=== PATIENT | male | born 1960 | race Caucasian/White ===

== ENCOUNTER 2016-11-10 20:30 | Inpatient (IN) | payer OTHER ==
[2016-11-10] VITALS (8 sets, daily range): BP systolic 151–164; BP diastolic 75–115; PULSE 81–155; RESP 18; TEMP 97.7; O2SAT 92–96
[~2016-11-10] VITALS: Ht 172.7 cm; Wt 104.9 kg
[~2016-11-10 20:30] MED LIST: ASPI325T PO; ATOR40TA49 PO; LISI5 PO; METO25 PO; WALKER ROLLING
[2016-11-10] MEDS ORDERED: SODIUM CHLOR 0.9% 1000 ML INJ 1,000 ML IV ONE (20:36)
[2016-11-10] MEDS ORDERED: DILTIAZEM HCL 25 MG/5 ML VIAL IV ONE (20:45)
[2016-11-10] MEDS ORDERED: DILTIAZEM INJ 125 MG in SODIUM CHLORIDE 0.9% INJ 100 ML IV SCH (20:45)
[2016-11-10] MEDS ORDERED: SODIUM CHLORIDE 0.9% FLUSH 5 ML FLUSH IVF PRN ×3 (20:45→22:15)
[2016-11-10] MEDS ORDERED: SODIUM CHLOR 0.9% 1000 ML INJ 1,000 ML IV SCH (20:45)
--- NOTE | 2016-11-10 20:55 | PD ---
HPI Chief Complaint: cva Time Seen by Provider: 20:36 Travel History International Travel<30 days: No Contact w/Intl Traveler<30days: No Traveled to known affect area: No History of Present Illness HPI 56-year-old male presents to the emergency department by private transportation the care of his mother for evaluation of new onset confusion and memory loss. According to patient he is not sure why he is here but has been confused he thinks just now. Mother at bedside and reports that within the past hour patient has complained of not feeling well went to his bedroom where he was confused as to why there was disarray his room and had completely gone at the house is being renovated and that all the changes that he noticed as a new disturbance had been present for some time. Patient denies headache, visual disturbance, there is no facial weakness, no speech disturbance, no difficulty swallowing. No balance disturbance. No new upper or lower extremity numbness tingling or weakness. Patient has experienced no chest pain palpitations referred neck jaw back shoulder arm pain also no shortness of breath or sweats and no nausea or vomiting. Patient has history of hypertension to take blood pressure medication but has been taking it only periodically and knows what medication as a beta sukumar but does not know the other medication. Patient has been using a friend's blood pressure medication as he has run out of his prescription blood pressure medication. Patient does not have a primary care provider. Patient does smoke cigarettes. No alcohol use. Patient denies heart disease high cholesterol or diabetes to his recall. Mother at bedside states he was hospitalized in May 2016. No prior history of memory disturbance TIA or CVA. No recent fall or injury. No recent febrile illness. Patient denies any other concerns or complaints. No recent abdominal pain or flank pain. Mother reports that patient was completely normal infusion no memory disturbance around 6:30 PM he sat down to watch TV around 7:30 she noticed that he Did not and that's when he complained of not feeling well and then she noted the confusion. Patient was brought directly to the hospital according to the mother when she was able to get assistance to bring him in. [facility] Past Medical History Narrative Medical Past febrile history according to patient mother and review of medical record hypertension; review of medical record migraine hypertension and remote TIA asthma anxiety gerd; hosp 05/2016 chest pain --abnormal stress test, echo normal ef and mild mitral and tricuspid valve regurg; no surgery nursing notes reviewed ; Asthma: Yes Anxiety: Yes Heart Rhythm Problems: Yes Cancer: No Cardiovascular Problems: Yes (h) High Cholesterol: No Chest Pain: Yes Cerebrovascular Accident: Yes (tia about 20 years ago) Endocrine: No GERD: Yes Genitourinary: No Hypertension: Yes Immune Disorder: No Musculoskeletal: No Neurologic: Yes Psychiatric: Yes Reproductive: No Migraines: Yes Social History Alcohol Use: Yes Tobacco Use: No Substance Use: No (2 YEARS AGO [facility]) Allergies-Medications (Allergen,Severity, Reaction): Coded Allergies: Penicillin (Verified Allergy, Unknown, 11/10/16) Reported Meds & Prescriptions Reported Meds & Active Scripts Active Reported Aspirin 325 Mg Tab 325 Mg PO DAILY Metoprolol Tartrate 25 Mg Tab 25 Mg PO BID Review of Systems Except as stated in HPI: all other systems reviewed are Neg General / Constitutional: No: Fever Eyes: No: Diploplia, Blurred Vision, Photophobia HENT: No: Headaches, Vertigo Cardiovascular: No: Chest Pain or Discomfort, Diaphoresis Respiratory: No: Shortness of Breath Gastrointestinal: No: Nausea, Vomiting, Abdominal Pain Genitourinary: No: Flank Pain Musculoskeletal: No: Pain Skin: No Rash Neurologic: Positive: Change in Mentation, No: Weakness, Dizziness, Syncope, Focal Abnormalities, Coordination Problem, Ataxia, Headache, Slurred Speech, Paresthesia, Seizures Psychiatric: No: Anxiety Hematologic/Lymphatic: No: Easy Bruising Physical Exam Narrative GENERAL: well-developed well-nourished male in no acute distress no respiratory distress; GCS 15 SKIN: Warm and dry. HEAD: Atraumatic. Normocephalic. EYES: Pupils equal and round. No scleral icterus. No injection or drainage. Extraocular muscles intact. ENT: No nasal bleeding or discharge. Mucous membranes pink and moist. NECK: Trachea midline. No JVD. CARDIOVASCULAR: Increased irregular irregular rate and rhythm. RESPIRATORY: No accessory muscle use. Clear to auscultation. Breath sounds equal bilaterally. GASTROINTESTINAL: Abdomen soft, non-tender, nondistended. Hepatic and splenic margins not palpable. MUSCULOSKELETAL: Extremities without clubbing, cyanosis, or edema. No obvious deformities. NEUROLOGICAL: Awake and alert. No obvious cranial nerve deficits. Motor grossly within normal limits. Five out of 5 muscle strength in the arms and legs. Sensory exam intact to light touch and pinprick DTRs 2+ and symmetric bilateral upper extremities and lower extremities without clonus no pronator drift no limb ataxia Normal speech. PSYCHIATRIC: Appropriate mood and affect; insight and judgment normal. Data Data Last Documented VS Vital Signs Date Time Temp Pulse Resp B/P Pulse Ox O2 Delivery O2 Flow Rate FiO2 11/10/16 22:00 90 18 164/98 96 Room Air 11/10/16 20:40 21 11/10/16 20:33 97.7 Orders Cath For Specimen (11/10/16 20:36) Neuro Checks Q2HX12,Q4H (11/10/16 20:36) Nursing Bedside Swallow Assess .ONCE (11/10/16 20:36) Activity Bed Rest (11/10/16 20:36) Diet Npo (11/11/16 Breakfast) Prothrombin Time / Inr (Pt) (11/10/16 20:36) Act Partial Throm Time (Ptt) (11/10/16 20:36) Complete Blood Count With Diff (11/10/16 20:36) Basic Metabolic Panel (Bmp) (11/10/16 20:36) Fibrinogen (11/10/16 20:36) Creatine Kinase (Cpk) (11/10/16 20:36) Troponin I (11/10/16 20:36) Ua Includes Microscopic (11/10/16 20:36) Drug Screen, Random Urine (11/10/16 20:36) Type And Screen (11/10/16 20:36) Ct Brain W/O Iv Contrast(Rout) (11/10/16 ) Electrocardiogram (11/10/16 ) Consult Neurology (11/10/16 20:36) Sodium Chlor 0.9% 1000 Ml Inj (Ns 1000 M (11/10/16 20:36) Blood Glucose (11/10/16 20:36) Ecg Monitoring (11/10/16 20:36) Iv Access Insert/Monitor (11/10/16 20:36) NPO (11/10/16 20:36) Oximetry (11/10/16 20:36) Oxygen Administration (11/10/16 20:36) Resp Oxygen Polo C Titrat 1-4 L (11/10/16 20:36) Blood Pressure (11/10/16 20:36) Vital Signs (11/10/16 20:36) Diltiazem Inj (Cardizem Inj) (11/10/16 20:45) Sodium Chloride 0.9% Flush (Ns Flush) (11/10/16 20:45) Diltiazem Inj (Cardizem Inj) (11/10/16 20:45) Sodium Chlor 0.9% 1000 Ml Inj (Ns 1000 M (11/10/16 20:45) Electrocardiogram (11/10/16 ) Cta Brain W Iv Contrast W 3d (11/10/16 ) Cta Neck W Iv Contrast W 3d (11/10/16 ) Heparin-D5w Inj (Heparin-D5w Inj) (11/10/16 22:00) Cbc No Diff, Includes Plts (11/13/16 06:00) Warfarin (Coumadin) (11/10/16 22:00) Sodium Chlorid 0.9% 500 Ml Inj (Ns 500 M (11/10/16 22:00) Admit Order (Ed Use Only) (11/10/16 ) ^ Saline Lock (11/10/16 22:10) Resp Oxygen Polo C Titrat 1-4 L (11/10/16 ) ^ Notify Dr: Other (11/10/16 22:10) Sodium Chloride 0.9% Flush (Ns Flush) (11/11/16 09:00) Sodium Chloride 0.9% Flush (Ns Flush) (11/10/16 22:15) Consult Neurology (11/10/16 22:10) Labs Laboratory Tests Test 11/10/16 11/10/16 20:45 21:50 White Blood Count 12.4 TH/MM3 Red Blood Count 5.77 MIL/MM3 Hemoglobin 17.5 GM/DL Hematocrit 51.5 % Mean Corpuscular Volume 89.3 FL Mean Corpuscular Hemoglobin 30.4 PG Mean Corpuscular Hemoglobin 34.0 % Concent Red Cell Distribution Width 12.6 % Platelet Count 330 TH/MM3 Mean Platelet Volume 8.2 FL Neutrophils (%) (Auto) 70.0 % Lymphocytes (%) (Auto) 20.6 % Monocytes (%) (Auto) 6.6 % Eosinophils (%) (Auto) 1.0 % Basophils (%) (Auto) 1.8 % Neutrophils # (Auto) 8.8 TH/MM3 Lymphocytes # (Auto) 2.5 TH/MM3 Monocytes # (Auto) 0.8 TH/MM3 Eosinophils # (Auto) 0.1 TH/MM3 Basophils # (Auto) 0.2 TH/MM3 CBC Comment DIFF FINAL Differential Comment Prothrombin Time 10.7 SEC Prothromb Time International 1.0 RATIO Ratio Activated Partial 25.6 SEC Thromboplast Time Fibrinogen 308 mg/dL Sodium Level 142 MEQ/L Potassium Level 3.8 MEQ/L Chloride Level 106 MEQ/L Carbon Dioxide Level 24.5 MEQ/L Anion Gap 12 MEQ/L Blood Urea Nitrogen 18 MG/DL Creatinine 1.60 MG/DL Estimat Glomerular Filtration 45 ML/MIN Rate Random Glucose 139 MG/DL Calcium Level 9.0 MG/DL Total Creatine Kinase 128 U/L Troponin I 0.04 NG/ML Blood Type B NEGATIVE Antibody Screen NEGATIVE Blood Bank Comment Stool C. difficile Toxin (PCR) NEGATIVE Stl C. difficile Toxin PRESUMPTIVE Epiderm 027 NEGATIVE MDM Medical Decision Making Medical Screen Exam Complete: Yes Emergency Medical Condition: Yes Medical Record Reviewed: Yes Interpretation(s) EKG: Atrial flutter fibrillation with rate of 152 right ventricular hypertrophy nonspecific inferior ST T changes no acute ST elevation EKG post Cardizem sinus arrhythmia rate 83 incomplete right bundle branch block RVH no acute ST elevation or injury pattern change noted Last Impressions Head CT 11/10/16 0000 Signed Impressions: Service Date/Time: Thursday, November 10, 2016 20:47 - CONCLUSION: 1. No acute findings. Stable tiny remote lacunar infarct left caudate nucleus compared with May 2016. Abdelrahman Au MD CBC & BMP Diagram 11/10/16 20:45 Vital Signs Date Time Temp Pulse Resp B/P Pulse Ox O2 Delivery O2 Flow Rate FiO2 11/10/16 20:40 95 21 Last Impressions Neck CTA 11/10/16 0000 Signed Impressions: Service Date/Time: Thursday, November 10, 2016 22:24 - CONCLUSION: 1. Negative CT angiography of the cervicobrachial arch. Carlos Fontana MD Head CTA 11/10/16 0000 Signed Impressions: Service Date/Time: Thursday, November 10, 2016 22:24 - CONCLUSION: 1. No evidence of vessel occlusion. 2. High-grade stenosis involving the distal right middle cerebral artery greater than 90%% 3. Severe cranial atherosclerotic disease involving the distal internal carotid artery just proximal to the bifurcation 80-90%%. Carlos Fontana MD Head CT 11/10/16 Signed Impressions: Service Date/Time: Thursday, November 10, 2016 20:47 - CONCLUSION: 1. No acute findings. Stable tiny remote lacunar infarct left caudate nucleus compared with May 2016. Abdelrahman Au MD Chest X-Ray 11/10/16 Signed Impressions: Service Date/Time: Thursday, November 10, 2016 23:08 - CONCLUSION: Cardiomegaly. No acute cardiopulmonary disease. Carlos Fontana MD Abdomen/Pelvis CT 11/10/16 Signed Impressions: Service Date/Time: Thursday, November 10, 2016 22:24 - CONCLUSION: 1. No evidence of acute abdominal or pelvic process. No masses are identified. 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 Patient administered Cardizem 20 mg as IV bolus with heart rate decreasing to 78-112 blood pressure repeated post bolus to 151/76 and patient sent directly to CT at 2044; NIHSS: 1 unable to recall age although nose date of patient has amnesia to events of last 1 hour and unclear time prior to this. According to family member at bedside he was last normal at dinner time sometime after 6 PM he sat down to watch TV and then when he got up just prior to arrival to the emergency department it was noted that he was confused was not aware of events occurring in the household did recognize his own room and remained confused therefore /mother brought him to the emergency department. She did not notice any facial droop or slurred speech; he denied any change in speech and no visual disturbance no ataxia and no focal numbness tingling or weakness in his extremities. Also no chest pain or palpitations. No near-syncope or syncope. Case discussed extensively with circulation sales representative neurologist Dr. Kumar is aware the patient's NIH SS is 1 patient cannot remember his age and acute onset of short- term amnesia;no other focality on exam; is identified to be in new onset atrial fibrillation flutter with RVR; has received a one-time dose of Cardizem was sent stat to the CT department where imaging study shows no acute abnormality; again was reassessed post CT brain and IHSS of one per neurologist patient is NOT a candidate for tPA; requests patient to undergo CTA of the brain and carotids tonight, would like patient received in the emergency department 300 cc bolus of normal saline no blood pressure management unless blood pressure greater than 180/100 patient is to be started on heparin infusion no bolus 12 units per KG per hour and to be given first dose of Coumadin 5 mg in the emergency department as well as keep head of bed flat with neurology consult in the a.m. with MRI of the brain with and without contrast in the a.m. At 10:24 PM patient with loose watery brown stool specimen collected for Hemoccult, enteric pathogens, and C. difficile patient is able to report that he 's noted diarrhea since he believes this evening denies abdominal pain fever or chills has not had any nausea vomiting hematemesis coffee-ground emesis melena or hematochezia. Hemoccult test performed. Dr Luevano and Dr Kumar informed of hemoccult positive diarrheal stool --per neurologist continue with as planned heparin aware patient had just received coumadin dose and to be notified of CTA results if abnormal @ 0015 neurologist informed of CTA results--no evidence of vessel occlusion; high grade stenosis involving the distal right middle cerebral artery greater than 90% stenosis involving the M2 segment; severe cranial atherosclerotic disease involving the distal internal carotid artery just proximal to the bifurcation at 80-90%; Neurologist requests --aspirin 81 mg now and lipid profile in am. Critical Care Narrative Aggregate critical care time was 40 minutes. Time to perform other separately billable procedures was not included in the critical care time. My time did not include minutes spent treating any other patients simultaneously or on activities that did not directly contribute to the patient's treatment. The services I provided to this patient were to treat and/or prevent clinically significant deterioration that could result in: Arrhythmia, metabolic disturbance, I provided critical care services requiring my management, as noted below: Chart data review, documentation time, medication orders and management, vital sign assessments/reviewing monitor data, ordering and reviewing lab tests, ordering and interpreting/reviewing x-rays and diagnostic studies, care of the patient and discussion of the patient with the admitting physicians. HemaPrompt Point of Care Internal Pos. & Neg. Controls: Passed Fecal Specimen Occult Blood: Positive Physician Communication Physician Communication @ 20:37 call placed to neurologist and @ 20:[address] Kumar, CT result from Dr Au @ 21:04; discussed with Dr Kumar @ 21:05. discussed with Dr Luevano; call placed to Dr Kumar @ 21:17-- notified of hemo-prompt results - --continue medications heparin as planned Diagnosis Primary Impression: Amnesia Additional Impressions: CVA (cerebral vascular accident) Qualified Code: I63.9 - Cerebrovascular accident (CVA), unspecified mechanism Atrial fibrillation and flutter Diarrhea Qualified Code: R19.7 - Diarrhea, unspecified type HTN (hypertension) Incomplete right bundle branch block Admitting Information Admitting Physician Requests: Admit Marialuisa Drummond MD Nov 10, 2016 20:55
[2016-11-10 21:05] LABS: AUTOMATED NEUTROPHIL # 8.8 TH/MM3 (1.8-7.7); BASOPHIL # 0.2 TH/MM3 (0-0.2); BASOPHIL % 1.8 % (0.0-2.0); EOSINOPHIL # 0.1 TH/MM3 (0-0.4); HEMATOCRIT 51.5 % (39.0-51.0); HEMO FLAGS DIFF FINAL; LYMPH % 20.6 % (9.0-44.0); LYMPHOCYTE # 2.5 TH/MM3 (1.0-4.8); MEAN CELL VOLUME 89.3 FL (80.0-100.0); MEAN CORPUSCULAR HEMOGLOBIN 30.4 PG (27.0-34.0); MONO % 6.6 % (0.0-8.0); PLATELET COUNT 330 TH/MM3 (150-450); RED BLOOD COUNT 5.77 MIL/MM3 (4.50-5.90); RED CELL DISTRIBUTION WIDTH 12.6 % (11.6-17.2); WHITE BLOOD COUNT 12.4 TH/MM3 (4.0-11.0)
--- NOTE | 2016-11-10 21:06 | RADHPO ---
EXAM DATE/TIME: 11/10/2016 20:47 [facility] COMPARISON: MRI BRAIN W/O CONTRAST, June 08, 2016, 19:32. INDICATIONS : Stroke alert. Sudden onset short term memory loss. RADIATION DOSE: 58.91 CTDIvol (mGy) This report was called by Dr. Au to Dr. Drummond at 9: 05 PM MEDICAL HISTORY : Cerebrovascular disease. Hypertension. SURGICAL HISTORY : None. ENCOUNTER: Initial ACUITY: 1 day PAIN SCALE: 0/10 LOCATION: cranial TECHNIQUE: Multiple contiguous axial images were obtained of the head. Using automated exposure control and adj ustment of the mA and/or kV according to patient size, radiation dose was kept as low as reasonably a chievable to obtain optimal diagnostic quality images. FINDINGS: CEREBRUM: The ventricles are normal for age. No evidence of midline shift, mass lesion, hemorrhage or acute in farction. No extra-axial fluid collections are seen. POSTERIOR FOSSA: The cerebellum and brainstem are intact. The 4th ventricle is midline. The cerebellopontine angle i s unremarkable. EXTRACRANIAL: The visualized portion of the orbits is intact. SKULL: The calvaria is intact. No evidence of skull fracture. CONCLUSION: 1. No acute findings. Stable tiny remote lacunar infarct left caudate nucleus compared with May 2016. Abdelrahman Au MD on November 10, 2016 at 21:02 Board Certified Radiologist. This report was verified electronically.
[2016-11-10 21:08] LABS: POTASSIUM 3.8 MEQ/L (3.5-5.1)
[2016-11-10 21:11] LABS: BICARBONATE 24.5 MEQ/L (21.0-32.0)
[2016-11-10 21:13] LABS: APTT (PATIENT) 25.6 SEC (24.3-30.1); PROTHROMBIN TIME - PATIENT 10.7 SEC (9.8-11.6)
[2016-11-10] MEDS ORDERED: WARFARIN SOD 5 MG TAB PO ONE (22:00)
[2016-11-10] MEDS ORDERED: HEPARIN-D5W INJ 250 ML IV SCH (22:00)
[2016-11-10] MEDS ORDERED: SODIUM CHLORID 0.9% 500 ML INJ 300 ML IV ONE (22:00)
[2016-11-10] MEDS: SODIUM CHLOR 0.9% 1000 ML INJ 1,000 ML IV SCH (22:09)
[2016-11-10] MEDS ORDERED: GLUCAGON 1 MG/ML VIAL IM/SQ PRN (22:15)
[2016-11-10] MEDS ORDERED: DEXTROSE 50% IN WATER 50 ML VIAL(D50) IV PUSH PRN (22:15)
[2016-11-10] MEDS ORDERED: ENALAPRILAT 1.25 MG/ML VIAL IV PRN (22:15)
[2016-11-10] MEDS ORDERED: DO NOT ADM ANY ANTICOAGULANT DRUGS XX PRN (22:30)
--- NOTE | 2016-11-10 23:07 | RADHPO ---
EXAM DATE/TIME: 11/10/2016 22:24 [facility] COMPARISON: No previous studies available for comparison. INDICATIONS : Stroke alert. Short term memory loss. IV CONTRAST: 100 cc Omnipaque 350 (iohexol) IV ; Cumulative dose for multiple exams. RADIATION DOSE: 42.89 CTDIvol (mGy) ; Combined studies MEDICAL HISTORY : Cerebrovascular disease. Hypertension. SURGICAL HISTORY : None. ENCOUNTER: Initial ACUITY: 1 day PAIN SCALE: 0/10 LOCATION: cranial TECHNIQUE: Volumetric scanning was performed using a multi-row detector CT scanner. The data was post processed with a variety of visualization algorithms including full volume maximum intensity projection, multi -planar sliding thin slab reformation, curved planar reformation, and surface rendering techniques. Using automated exposure control and adjustment of the mA and/or kV according to patient size, radiat ion dose was kept as low as reasonably achievable to obtain optimal diagnostic quality images. FINDINGS: There is high-grade stenosis involving the M2 segment of the right middle cervical artery greater eleazar n 90% with poststenotic dilatation but a patent vessel distally. No thrombus is identified. The left middle cerebral artery also demonstrates severe vascular disease involving the supraclinoid internal carotid artery 80-90%.. Examination of the posterior fossa demonstrates the left vertebral artery to be dominant. No aneurysm or vascular malformation is seen and no intracranial stenosis is identified. There is a patent poste rior communicating artery on the right. CONCLUSION: 1. No evidence of vessel occlusion. 2. High-grade stenosis involving the distal right middle cerebral artery greater than 90% 3. Severe cranial atherosclerotic disease involving the distal internal carotid artery just proximal to the bifurcation 80-90%. Carlos Fontana MD on November 10, 2016 at 23:01 Board Certified Radiologist. This report was verified electronically.
--- NOTE | 2016-11-10 23:14 | RADHPO ---
EXAM DATE/TIME: 11/10/2016 22:24 [facility] COMPARISON: No previous studies available for comparison. INDICATIONS : Diffuse abdominal pain with diarrhea. IV CONTRAST: 100 cc Omnipaque 350 (iohexol) IV ; Cumulative dose for multiple exams. ORAL CONTRAST: No oral contrast ingested. RADIATION DOSE: 31.84 CTDIvol (mGy) MEDICAL HISTORY : Hypertension. Gastroesophageal reflux disease. SURGICAL HISTORY : None. ENCOUNTER: Initial ACUITY: 1 day PAIN SCALE: 3/10 LOCATION: Abdomen. TECHNIQUE: Volumetric scanning of the abdomen and pelvis was performed. Using automated exposure control and ad justment of the mA and/or kV according to patient size, radiation dose was kept as low as reasonably achievable to obtain optimal diagnostic quality images. FINDINGS: Examination of the lung bases demonstrates no abnormality. No pleural fluid is identified. No pulmona ry nodules are present. The liver and spleen are free of focal defects. The gallbladder and pancreas demonstrate no abnormality. The adrenal glands are normal. The kidneys demonstrate no evidence of max id renal mass or hydronephrosis. No free fluid or abdominal masses are identified. No para-aortic erlin nopathy is seen. Examination of the pelvis demonstrates no evidence of free fluid or pelvic mass. No abnormally enlarg ed inguinal or retroperitoneal lymph nodes are present. The bladder is unremarkable. CONCLUSION: 1. No evidence of acute abdominal or pelvic process. No masses are identified. Carlos Fontana MD on November 10, 2016 at 23:10 Board Certified Radiologist. This report was verified electronically.
[2016-11-10] MEDS ORDERED: IOHEXOL 350 MG/ML 10 ML VIAL (for RAD DIAG) IV ONE (23:17)
[2016-11-10] MEDS ORDERED: ASPI325T PO (23:22)
[2016-11-10] MEDS ORDERED: METO25TA3 PO (23:22)
--- NOTE | 2016-11-10 23:22 | RADHPO ---
EXAM DATE/TIME: 11/10/2016 22:24 [facility] COMPARISON: No previous studies available for comparison. INDICATIONS : Stroke alert. Short term memory loss. IV CONTRAST: 100 cc Omnipaque 350 (iohexol) IV ; Cumulative dose for multiple exams. RADIATION DOSE: 42.89 CTDIvol (mGy) ; Combined studies MEDICAL HISTORY : Cerebrovascular disease. Hypertension. SURGICAL HISTORY : None. ENCOUNTER: Initial ACUITY: 1 day PAIN SCALE: 0/10 LOCATION: neck TECHNIQUE: Volumetric scanning was performed using a multirow detector CT scanner. The data was post processed with a variety of visualization algorithms including full-volume maximum intensity projection, multip lanar sliding thin-slab reformation, curved-planar reformation, and surface-rendering techniques. Us ing automated exposure control and adjustment of the mA and/or kV according to patient size, radiatio n dose was kept as low as reasonably achievable to obtain optimal diagnostic quality images. FINDINGS: AORTIC ARCH: There is a three-vessel origin of the great vessels from the aorta. No evidence of ostial narrowing. RIGHT CAROTID: The common carotid artery is intact. The carotid bulb has a normal configuration without ulceration o r narrowing. The internal carotid artery lumen is smooth without stenosis. The external carotid leena ry is intact. LEFT CAROTID: The common carotid artery is intact. The carotid bulb has a normal configuration without ulceration or narrowing. The internal carotid artery lumen is smooth without stenosis. The external carotid ar kar is intact. VERTEBRALS: The left vertebral artery is dominant.No stenotic lesions are seen. CONCLUSION: 1. Negative CT angiography of the cervicobrachial arch. Carlos Fontana MD on November 10, 2016 at 23:18 Board Certified Radiologist. This report was verified electronically.
--- NOTE | 2016-11-10 23:23 | RADHPO ---
EXAM DATE/TIME: 11/10/2016 23:08 [facility] COMPARISON: CHEST SINGLE AP, June 08, 2016, 16:04. INDICATIONS : Stroke alert. MEDICAL HISTORY : Hypertension. Cerebrovascular disease. SURGICAL HISTORY : None. ENCOUNTER: Initial ACUITY: 1 day PAIN SCORE: 0/10 LOCATION: Bilateral chest FINDINGS: The cardiac silhouette is enlarged in transverse diameter. The lungs are free of acute parenchymal op acity. No effusions are identified. Osseous structures are intact. CONCLUSION: Cardiomegaly. No acute cardiopulmonary disease. Carlos Fontana MD on November 10, 2016 at 23:21 Board Certified Radiologist. This report was verified electronically.
[2016-11-11] VITALS (24 sets, daily range): BP systolic 143–197; BP diastolic 87–130; PULSE 79–104; RESP 12–27; TEMP 97.7–98.8; O2SAT 94–96
[2016-11-11] MEDS ORDERED: ASPIRIN 81 MG CHEW TAB CHEW ONE (00:15)
[2016-11-11 01:12] LABS: BLOOD, URINE NEG (NEG); GLUCOSE,URINE NEG (NEG); KETONE, URINE NEG (NEG); NITRITE,URINE NEG (NEG)
[2016-11-11 01:22] LABS: BARBITURATES, URINE NEG (NEG)
[2016-11-11 01:30] LABS: METHOD OF COLLECTION CLEAN CATCH; URINE COLOR YELLOW (YELLW/STRAW)
[2016-11-11 01:31] LABS: AMPHETAMINE, URINE NEG (NEG); MUCUS URINE OCC /lpf (OCC)
[2016-11-11 01:32] LABS: SQUAMOUS EPITHELIAL CELL URINE 0-5 /hpf (0-5)
[2016-11-11 01:35] LABS: COCAINE, URINE NEG (NEG)
[2016-11-11 02:43] LABS: C. DIFF EPI 027 PRESUMPTIVE NEGATIVE (NEGATIVE); C. DIFF TOXIN PCR NEGATIVE (NEGATIVE)
[2016-11-11 05:35] LABS: APTT (PATIENT) 29.8 SEC (24.3-30.1)
[2016-11-11] MEDS: INSULIN ASPART SUPPLEMENTAL SCALE SQ SCH ×4 (06:14→20:52)
[2016-11-11] MEDS ORDERED: SODIUM CHLORIDE 0.9% FLUSH 5 ML FLUSH IVF SCH (09:00)
[2016-11-11 10:01] LABS: HDL CHOLESTEROL 34.9 MG/DL (40.0-60.0); LDL CHOLESTEROL 147 MG/DL (0-99)
[2016-11-11] MEDS: SODIUM CHLORIDE 0.9% FLUSH 5 ML FLUSH IVF SCH ×2 (10:37→20:50)
--- NOTE | 2016-11-11 11:17 | EKG ---
Date Performed: 11/10/2016 Time Performed: 20:39:58 PTAGE: 56 years EKG: Possible atrial flutter with uncontrolled ventricular response. Rightward axis Poor R wave progression - probable normal variant Right ventricular hypertrophy Inferior ST-T changes are probabl y due to ventricular hypertrophy Compared to previous tracing, atrial flutter has replaced Sinus rhyt hm . Abnormal ECG PREVIOUS TRACING : 06/09/2016 04.41 DOCTOR: Carlos Mcclendon Interpretating Date/Time 11/11/2016 11:14:54
--- NOTE | 2016-11-11 11:17 | EKG ---
Date Performed: 11/10/2016 Time Performed: 21:14:40 PTAGE: 56 years EKG: Sinus arrhythmia. Incomplete RBBB Poor R wave progression - probable normal variant Right v entricular hypertrophy Compared to previous tracing, Sinus rhythm has replaced atrial flutter. Abnormal ECG PREVIOUS TRACING : 11/10/2016 20.39 DOCTOR: Carlos Mccelndon Interpretating Date/Time 11/11/2016 11:15:11
[2016-11-11 12:06] LABS: APTT (PATIENT) 29.3 SEC (24.3-30.1)
--- NOTE | 2016-11-11 13:04 | MB ---
cc: POLINA SIMS M.D. DATE OF CONSULTATION 11/11/2016 REASON FOR CONSULTATION He is a 56-year-old seen in neurological consultation in regards to TIA. HISTORY OF PRESENT ILLNESS The patient apparently suddenly became confused last evening. He was brought to the hospital as a stroke alert. Dr. Kumar was involved in his care. It appears that after arriving in the hospital he developed atrial fibrillation with rapid rate. He was started on heparin and Coumadin. Neurologic-omrales, he is doing well. He has not had any more confusion. The patient describes that he does not remember what happened. Apparently he was asking his mother some questions when he was confused. He does not remember coming to the hospital. No history of seizures. He may have had some TIA 20 years ago. MEDICATIONS 1. Aspirin. 2. Metoprolol. NEUROLOGIC EXAMINATION Examination shows normal mentation. Alert, pleasant, oriented. Ocular movements and visual lew full. He has good strength in all extremities. 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 Reflexes 1+ throughout. Plantar responses flexor. IMAGING DATA The CT brain showed remote tiny lacunar on the left caudate. The CT angio neck was normal. The CT angio head showed distal internal carotid artery stenosis, intracranial, and this is on the left side which is about or greater than 80-90%. The right middle cerebral artery shows greater than 90% stenosis distally. CBC with white count of 12.4, hemoglobin 17.5, platelets 330. Chemistry with BUN 18, creatinine 1.6, glucose 139, sodium and potassium normal. LDL elevated to 147. Toxicology negative. ASSESSMENT It appears that this gentleman had transient global amnesia. He is doing well neurologic-morales. He developed atrial fibrillation with rapid AVR in the emergency room and he is now on heparin and Coumadin. I do not think his transient global amnesia was a two embolic TIA phenomenon. Another issue is the left internal carotid artery distal stenosis which is significant but it is an intracranial level abnormality. It is reported as over 80-90%. These will need to be considered for a stenting a procedure later on. There is over 90% right middle cerebral artery stenosis as well. PLAN 1. Continue medical care otherwise. 2. He is going for MRI of brain today. 3. Statin. Thank you for asking us to assist in his care. MD MUNDO Myles /12:29 PM /12:52 PM
--- NOTE | 2016-11-11 14:27 | RADHPO ---
EXAM DATE/TIME: 11/11/2016 13:04 [facility] COMPARISON: CTA BRAIN W 3D RECON, November 10, 2016, 22:24. MRA BRAIN W/O CONTRAST, June 08, 2016, 19:32. INDICATIONS : CVA. Confusion. MEDICAL HISTORY : Hypertension. TIA. SURGICAL HISTORY : Dental extraction. ENCOUNTER: Subsequent ACUITY: 2 day PAIN SCORE: 0/10 LOCATION: cranial Please note a normal MRA of the brain does not entirely exclude the possibility of a small aneurysm, nor the possibility of distal intracranial vessel disease. TECHNIQUE: 3D time of flight MRA was performed. Source images, multiplanar STS MIP, and 3D volume MIP reconstru ctions were reviewed. FINDINGS: The distal internal carotid arteries are patent. The left vertebral is patent. The right vertebral is diminutive in size. The basilar is patent. The examination is somewhat limited due to motion artifact. The exam demonstrates irregularity of the M1 segments bilaterally suggesting a possible intracranial atherosclerotic disease. There are patent bilaterally. The exam also demonstrates narrowed narrowing in the right posterior cerebral and again raising the possibility of intracranial atherosclerotic disease. The left posterior cerebrals widely patent. No aneurysm is identified. CONCLUSION: 1. The examination demonstrates patchy areas of narrowing in the M1 segments bilaterally and patchy d isease within the right posterior cerebral. This would suggest intracranial atherosclerotic disease. This has been assessed by previous CT angiogram dated 11/10/16. Changes appear similar. Avel Felix MD on November 11, 2016 at 14:21 Board Certified Radiologist. This report was verified electronically.
[2016-11-11] MEDS: SODIUM CHLOR 0.9% 1000 ML INJ 1,000 ML IV SCH (15:02)
--- NOTE | 2016-11-11 15:02 | RADHPO ---
EXAM DATE/TIME: 11/11/2016 13:04 [facility] COMPARISON: MRA BRAIN W/O CONTRAST, June 08, 2016, 19:32. INDICATIONS : CVA. Confusion. MEDICAL HISTORY : Hypertension. TIA. SURGICAL HISTORY : Dental extraction. ENCOUNTER: Subsequent ACUITY: 2 day PAIN SCORE: 0/10 LOCATION: cranial TECHNIQUE: Multiplanar, multisequence MRI of the brain was performed without contrast. FINDINGS: CEREBRUM: The ventricles are normal for age. No evidence of midline shift, mass lesion, hemorrhage or acute in farction. No extraaxial fluid collections are seen. The pituitary gland and suprasellar cistern are normal in configuration. WHITE MATTER: There are scattered areas of increased T2 signal white matter most consistent with mild microvascular ischemic demyelinative change. No significant signal abnormalities are seen in the white matter. POSTERIOR FOSSA: The cerebellum and brainstem are intact. The 4th ventricle is midline. The cerebellopontine angle is unremarkable. The cerebellar tonsils are normal in position. DIFFUSION IMAGING: No focal areas of restricted diffusion are seen. No evidence of acute infarction. EXTRACRANIAL: The visualized portions of the orbits and paranasal sinuses are unremarkable. CONCLUSION: 1. No findings to indicate acute cortical infarct are evident. 2. Scattered areas of increased T2 signal in the white matter consistent with mild microvascular isch emic demyelinative change. Avel Felix MD on November 11, 2016 at 14:59 Board Certified Radiologist. This report was verified electronically.
[2016-11-11] MEDS ORDERED: WARFARIN SOD 5 MG TAB PO SCH (16:00)
--- NOTE | 2016-11-11 16:19 | HHI.HP ---
[facility] Primary Care Physician No Primary Care Physician Admission Diagnosis CVA; new onset afib/flutter w/RVR; HTN Diagnoses: Travel History International Travel<30 Days: No Contact w/Intl Traveler <30 Da: No Traveled to Known Affected Are: No History of Present Illness This is a 56 year-old female with past medical history of hypertension who presented to the ER last night after experiencing an episode of loss of memory. The patient states that he was sitting on his couch and the next thing he remembers is his aunt was driving him to the ER. When he came to the ER he states his memory started to come back. He denied any slurred speech , paresthesias, difficulty moving any part of his body. In the ER he also went into a flutter with a rate of 150 and received a 20 mg IV Cardizem bolus and after that returned to normal sinus rhythm. Patient does not see a primary care provider and takes metoprolol for high blood pressure. He has no history of tobacco use. No previous history of TIA. 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 He does not have health insurance at this time. The patient denies any other episodes of loss of memory. He does not drink alcohol. Review of Systems Constitutional: DENIES: Fever, Chills Ears, nose, mouth, throat: DENIES: Throat pain, Hoarseness Respiratory: DENIES: Cough, Shortness of breath Cardiovascular: COMPLAINS OF: Palpitations, DENIES: Chest pain, Dyspnea on Exertion Gastrointestinal: COMPLAINS OF: Diarrhea (1 episode in ED), DENIES: Nausea, Vomiting Genitourinary: DENIES: Urgency, Dysuria Musculoskeletal: DENIES: Back pain, Neck pain Integumentary: DENIES: Rash Neurologic: DENIES: Abnormal gait, Headache, Localized weakness, Paresthesias, Seizures, Speech Problems, Tremor, Poor Balance Psychiatric: COMPLAINS OF: Confusion, DENIES: Anxiety, Depression, Hallucinations Past Family Social History Past Medical History As per history of present illness Reported Medications As per history of present illness Allergies: Coded Allergies: Penicillin (Verified Allergy, Unknown, 2/12/17) Family History Negative for stroke Social History As per history of present illness Physical Exam Vital Signs Vital Signs Date Time Temp Pulse Resp B/P Pulse Ox O2 Delivery O2 Flow Rate FiO2 11/11/16 12:26 96 23 167/102 11/11/16 12:22 96 12 172/98 11/11/16 12:00 97.7 92 13 197/130 11/11/16 11:05 98 27 196/110 11/11/16 10:00 90 23 167/100 11/11/16 10:00 90 11/11/16 09:00 90 11/11/16 08:00 92 11/11/16 08:00 97.8 92 15 186/116 11/11/16 07:00 94 11/11/16 06:00 92 17 143/98 11/11/16 06:00 92 11/11/16 05:00 92 20 166/106 11/11/16 05:00 92 11/11/16 04:00 92 11/11/16 04:00 92 21 173/108 11/11/16 04:00 98.8 92 21 173/108 95 11/11/16 03:00 92 15 165/103 11/11/16 02:00 79 11/11/16 02:00 79 11/11/16 01:17 95 21 11/11/16 01:17 98.7 89 21 160/98 95 11/11/16 01:15 84 166/100 94 Room Air 11/11/16 01:15 88 11/10/16 23:25 88 18 158/106 95 Room Air 11/10/16 22:00 90 18 164/98 96 Room Air 11/10/16 21:30 86 156/99 94 Room Air 11/10/16 21:15 82 152/94 92 Room Air 11/10/16 21:05 81 18 159/93 94 Room Air 11/10/16 20:45 87 151/75 11/10/16 20:40 95 21 11/10/16 20:40 Room Air 11/10/16 20:33 97.7 155 158/115 95 Physical Exam GENERAL: Well-nourished, well-developed pleasant male patient. SKIN: Warm and dry. HEAD: Normocephalic. EYES: No scleral icterus. No injection or drainage. NECK: Supple, trachea midline. No JVD or lymphadenopathy. CARDIOVASCULAR: Regular rate and rhythm without murmurs, gallops, or rubs. RESPIRATORY: Breath sounds equal bilaterally. No accessory muscle use. GASTROINTESTINAL: Abdomen soft, non-tender, nondistended. EXTREMITIES: No cyanosis, or edema. NEUROLOGICAL: Awake, alert, and oriented x 3. Non-focal. Laboratory Laboratory Tests Test 11/10/16 11/10/16 11/11/16 11/11/16 20:45 21:50 01:00 04:43 White Blood Count 12.4 Red Blood Count 5.77 Hemoglobin 17.5 Hematocrit 51.5 Mean Corpuscular Volume 89.3 Mean Corpuscular Hemoglobin 30.4 Mean Corpuscular Hemoglobin 34.0 Concent Red Cell Distribution Width 12.6 Platelet Count 330 Mean Platelet Volume 8.2 Neutrophils (%) (Auto) 70.0 Lymphocytes (%) (Auto) 20.6 Monocytes (%) (Auto) 6.6 Eosinophils (%) (Auto) 1.0 Basophils (%) (Auto) 1.8 Neutrophils # (Auto) 8.8 Lymphocytes # (Auto) 2.5 Monocytes # (Auto) 0.8 Eosinophils # (Auto) 0.1 Basophils # (Auto) 0.2 CBC Comment DIFF FINAL Differential Comment Prothrombin Time 10.7 Prothromb Time International 1.0 Ratio Activated Partial 25.6 29.8 Thromboplast Time Fibrinogen 308 Sodium Level 142 Potassium Level 3.8 Chloride Level 106 Carbon Dioxide Level 24.5 Anion Gap 12 Blood Urea Nitrogen 18 Creatinine 1.60 Estimat Glomerular Filtration 45 Rate Random Glucose 139 Calcium Level 9.0 Total Creatine Kinase 128 Troponin I 0.04 Blood Type B NEGATIVE Antibody Screen NEGATIVE Blood Bank Comment Stool C. difficile Toxin (PCR) NEGATIVE Stl C. difficile Toxin PRESUMPTIVE Epiderm 027 NEGATIVE Urine Collection Type CLEAN CATCH Urine Color YELLOW Urine Turbidity CLEAR Urine pH 6.0 Urine Specific [place] GREATER THAN 1.035 Urine Protein NEG Urine Glucose (UA) NEG Urine Ketones NEG Urine Occult Blood NEG Urine Nitrite NEG Urine Bilirubin NEG Urine Leukocyte Esterase NEG Urine Squamous Epithelial 0-5 Cells Urine Hyaline Casts 3-5 Urine Mucus OCC Urine Opiates Screen NEG Urine Barbiturates Screen NEG Urine Amphetamines Screen NEG Urine Benzodiazepines Screen NEG Urine Cocaine Screen NEG Urine Cannabinoids Screen NEG Triglycerides Level 351 Cholesterol Level 252 LDL Cholesterol 147 HDL Cholesterol 34.9 Cholesterol/HDL Ratio 7.22 Test 11/11/16 11:45 Activated Partial 29.3 Thromboplast Time Date/Time Procedure Status Source Growth 11/10/16 21:50 - Final Complete Stool Stool NO ENTERIC PATHOGENS DETECTED BY PCR... Result Diagram: 11/10/16204411/10/162044 Imaging Last Impressions Head Magnetic Resonance Angiography 11/11/16 0000 Signed Impressions: Service Date/Time: Friday, November 11, 2016 13:04 - CONCLUSION: 1. The examination demonstrates patchy areas of narrowing in the M1 segments bilaterally and patchy disease within the right posterior cerebral. This would suggest intracranial atherosclerotic disease. This has been assessed by previous CT angiogram dated 11/10/16. Changes appear similar. Avel Felix MD Brain MRI 11/11/16 0000 Signed Impressions: Service Date/Time: Friday, November 11, 2016 13:04 - CONCLUSION: 1. No findings to indicate acute cortical infarct are evident. 2. Scattered areas of increased T2 signal in the white matter consistent with mild microvascular ischemic demyelinative change. Avel Felix MD Neck CTA 11/10/16 0000 Signed Impressions: Service Date/Time: Thursday, November 10, 2016 22:24 - CONCLUSION: 1. Negative CT angiography of the cervicobrachial arch. Carlos Fontana MD Head CTA 11/10/16 0000 Signed Impressions: Service Date/Time: Thursday, November 10, 2016 22:24 - CONCLUSION: 1. No evidence of vessel occlusion. 2. High-grade stenosis involving the distal right middle cerebral artery greater than 90%% 3. Severe cranial atherosclerotic disease involving the distal internal carotid artery just proximal to the bifurcation 80-90%%. Carlos Fontana MD Head CT 11/10/16 0000 Signed Impressions: Service Date/Time: Thursday, November 10, 2016 20:47 - CONCLUSION: 1. No acute findings. Stable tiny remote lacunar infarct left caudate nucleus compared with May 2016. Abdelrahman Au MD Chest X-Ray 11/10/16 0000 Signed Impressions: Service Date/Time: Thursday, November 10, 2016 23:08 - CONCLUSION: Cardiomegaly. No acute cardiopulmonary disease. Carlos Fontana MD Abdomen/Pelvis CT 11/10/16 0000 Signed Impressions: Service Date/Time: Thursday, November 10, 2016 22:24 - CONCLUSION: 1. No evidence of acute abdominal or pelvic process. No masses are identified. Carlos Fontana MD Assessment and Plan Problem List: (1) Transient global amnesia ICD Code: G45.4 Status: Acute (2) Atrial fibrillation with rapid ventricular response ICD Code: I48.91 Status: Acute (3) HTN (hypertension) ICD Code: I10 Status: Chronic (4) Atrial fibrillation and flutter ICD Code: I48.91 Status: Acute (5) HLD (hyperlipidemia) ICD Code: E78.5 Status: Acute (6) Diarrhea ICD Code: R19.7 Status: Acute (7) SHANA (acute kidney injury) ICD Code: N17.9 Status: Acute Assessment and Plan -Transient global amnesia. Resolved and patient now back to baseline. 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 I spoke with neurology/Dr. Lua regarding these findings and he recommended the patient could be on aspirin for these lesions alone. However given the episode of A. fib/A flutter he recommended an anticoagulant. Also in the future can consider a stent of the distal internal carotid artery lesion. The patient also has markedly hyper lipidemia and has been started on high-dose Lipitor. -Paroxysmal A. fib flutter/A. fib. Converted to normal sinus rhythm status post Cardizem 20 mg IV in the ER. I will resume metoprolol and increase that to 50 mg twice a day. DC the heparin drip as he is now back in normal sinus rhythm. We discussed pros and cons of different anticoagulants. The patient did have a due to his difficulty with insurance and getting to the lab to check his blood. He prefers one of the newer anticoagulants and is agreeable to Xarelto which we will start tomorrow morning. We will ask case management to assist him with a blue card so he can get his Xarelto prescription. Additionally the patient requires cardiology evaluation as he has no previous history of A. fib. -Hypertension. Increase metoprolol to 50 mg by mouth twice a day and start HCTZ in the morning. -Diarrhea 1 in the ED. C. difficile was negative. -DVT prophylaxis. As above. Problem Qualifiers (1) Diarrhea: Qualified Code: R19.7 - Diarrhea, unspecified type Lakia Pereira MD Nov 11, 2016 16:19
[2016-11-11 16:49] LABS: HEMOGLOBIN A1a 1.4 %; HEMOGLOBIN A1b 1.9 %; HEMOGLOBIN Ao 85.5 %; HEMOGLOBIN LA1C 1.7 %; HEMOGLOBIN P3 3.7 %
[2016-11-11 18:27] LABS: APTT (PATIENT) 24.7 SEC (24.3-30.1)
[2016-11-11] MEDS: METOPROLOL TARTRATE 50 MG TAB PO SCH (20:54)
[2016-11-11] MEDS ORDERED: ATORVASTATIN 40 MG TAB PO SCH (21:00)
[2016-11-12] VITALS: BP 124/95; PULSE 73; RESP 18; TEMP 97.1; O2SAT 96
[2016-11-12 04:00] VITALS: BP 118/87; PULSE 65; RESP 16; TEMP 96.6; O2SAT 95
[2016-11-12 06:24] LABS: POTASSIUM 4.1 MEQ/L (3.5-5.1)
[2016-11-12 06:26] LABS: BICARBONATE 28.1 MEQ/L (21.0-32.0)
[2016-11-12] MEDS: INSULIN ASPART SUPPLEMENTAL SCALE SQ SCH ×3 (06:44→16:00)
--- NOTE | 2016-11-12 07:26 | PD.CONS ---
HPI Service CV Consult Requested By Reason for Consult a-fib Primary Care Physician No Primary Care Physician History of Present Illness Here with HTN admitted for a-fib and confusion. He states he was talking to his mother when he suddenly became confused. He then decided to come to the ER. Here he was found in a-flutter. He denies any chest pain, shortness of breath or palpitations. He had another episode of a-fib last May and cardiac work up then shows no certain evidence for ischemia and normal systolic heart function Review of Systems Consitutional: DENIES: Fatigue, Fever, Chills, Weight gain, Weight loss Eyes: DENIES: Amaurosis Fug[place], Change in vision HEENT: DENIES: Lightheadedness, Change in hearing Respiratory: DENIES: See HPI, Cough, Snoring, Shortness of breath, Wheezing, Sputum production Cardiovascular: COMPLAINS OF: See HPI, DENIES: Chest pain, Palpitations, Syncope, Tachycardia Gastrointestinal: DENIES: Nausea, Vomiting, Change in bowel habits, Reflux, Bloody stools, Melena Genitourinary: DENIES: Urinary incontinence, Difficulty voiding Integumentary: DENIES: Rash Neurologic: DENIES: Tingling or numbness, Memory problems, Poor Balance, Stroke symptoms Musculoskeletal: DENIES: Joint pain, Muscle pain, Limited range of motion, Back pain Psychiatric: DENIES: Anxiety, Depression, Sleep disturbances Hematologic: DENIES: Bruising tendencies, Bleeding tendencies Endocrine: DENIES: Weight gain, Weight loss, Thyroid disease Past Family Social History Allergies: Coded Allergies: Penicillin (Verified Allergy, Unknown, 11/10/16) Past Medical History see HPI Past Surgical History none Reported Medications Reported Meds & Active Scripts Active Reported Aspirin 325 Mg Tab 325 Mg PO DAILY Metoprolol Tartrate 25 Mg Tab 25 Mg PO BID Active Ordered Medications Current Medications Medications (Trade) Dose Ordered Sig/Deanna Route Start Time Stop Time Status Last Admin (Cardizem Inj/NS Inj) 125 ml @ 0 mls/hr TITRATE IV 11/10/16 20:45 (NS Flush) 2 ml BID IVF 11/11/16 09:00 11/11/16 20:50 (NS Flush) 2 ml UNSCH PRN IVF 11/10/16 22:15 (Vasotec Inj) 1.25 mg Q4H PRN IV 11/10/16 22:15 11/11/16 12:09 (D50w (Vial) Inj) 25 ml UNSCH PRN IV PUSH 11/10/16 22:15 (Glucagon Inj) 1 mg UNSCH PRN IM/SQ 11/10/16 22:15 (Lipitor) 80 mg HS PO 11/11/16 21:00 11/11/16 20:54 (Lopressor) 50 mg Q12HR PO 11/11/16 21:00 11/11/16 20:54 (Xarelto) 20 mg DAILY PO 11/12/16 09:00 (Hydrodiuril) 25 mg DAILY PO 11/12/16 09:00 Family History noncontributory Social History denies smoking or substance abuse, occasional EtOH Physical Exam Vital Signs Vital Signs Date Time Temp Pulse Resp B/P Pulse Ox O2 Delivery O2 Flow Rate FiO2 11/12/16 04:00 96.6 65 16 118/87 95 11/12/16 00:00 97.1 73 18 124/95 96 11/11/16 20:46 96 21 11/11/16 20:00 98.2 85 18 147/107 95 11/11/16 20:00 89 11/11/16 18:00 98 11/11/16 17:00 86 11/11/16 16:00 90 11/11/16 16:00 90 17 143/87 11/11/16 15:00 96 11/11/16 14:00 104 11/11/16 13:00 98 11/11/16 12:26 96 23 167/102 11/11/16 12:22 96 12 172/98 11/11/16 12:00 97.7 92 13 197/130 11/11/16 12:00 92 11/11/16 11:05 98 27 196/110 11/11/16 11:00 104 11/11/16 10:00 90 23 167/100 11/11/16 10:00 90 11/11/16 09:00 90 11/11/16 08:00 92 11/11/16 08:00 97.8 92 15 186/116 11/11/16 08:00 95 21 Physical Exam GENERAL: Well-nourished, well-developed patient in no apparent distress. NECK: No JVD. No carotid bruit. CARDIOVASCULAR: Regular rate and rhythm. S1/S2 no murmur, rub, or gallop. RESPIRATORY: No accessory muscle use. Clear to auscultation. Breath sounds equal bilaterally. GASTROINTESTINAL: Abdomen soft, non-tender, nondistended. MUSCULOSKELETAL: Extremities without clubbing, cyanosis, or edema. Laboratory Laboratory Tests Test 11/11/16 11/11/16 11/12/16 11:45 18:00 05:37 Activated Partial 29.3 24.7 Thromboplast Time Sodium Level 143 Potassium Level 4.1 Chloride Level 106 Carbon Dioxide Level 28.1 Anion Gap 9 Blood Urea Nitrogen 18 Creatinine 1.20 Estimat Glomerular Filtration 62 Rate Random Glucose 95 Calcium Level 9.1 Date/Time Procedure Status Source Growth 11/10/16 21:50 - Final Complete Stool Stool NO ENTERIC PATHOGENS DETECTED BY PCR... Result Diagram: 11/10/16204411/12/16 0537 Assessment and Plan Problem List: (1) Atrial fibrillation with rapid ventricular response (2) HTN (hypertension) Assessment and Plan A-f-b/A-flutter Now he remains in SR, continue metoprolol and Xarelto. He can stop the Xarelto should he require any invasive procedure. Get 2D echo.If echo shows no gross abnormality he can be discharged from a CV standpoint HTN - well controlled Trey Kay Nov 12, 2016 07:26
[2016-11-12 08:00] VITALS: BP 156/111; PULSE 67; PULSE 89; RESP 18; TEMP 97.7; O2SAT 93
[2016-11-12] MEDS: METOPROLOL TARTRATE 50 MG TAB PO SCH (08:36)
[2016-11-12] MEDS: SODIUM CHLORIDE 0.9% FLUSH 5 ML FLUSH IVF SCH (08:38)
[2016-11-12] MEDS ORDERED: RIVAROXABAN 20 MG TAB PO SCH (09:00)
[2016-11-12] MEDS ORDERED: HYDROCHLOROTHIAZIDE 25 MG TAB PO SCH (09:00)
[2016-11-12 11:29] VITALS: PULSE 60
[2016-11-12 12:00] VITALS: BP 131/88; PULSE 63; RESP 18; TEMP 98.1; O2SAT 93
[2016-11-12 14:00] VITALS: BP 138/85; PULSE 66; RESP 18; TEMP 97.6; O2SAT 94
[2016-11-12] MEDS ORDERED: METO-309 PO (14:35)
[2016-11-12] MEDS ORDERED: LIPI40TA PO (14:35)
[2016-11-12] MEDS ORDERED: HYDR25TA5 PO (14:35)
[2016-11-12] MEDS ORDERED: XARE20TA PO (14:35)
--- NOTE | 2016-11-12 14:43 | HHI.PR ---
Subjective Remarks Patient is doing well. Denies any further amnesia. No new neurologic symptoms. Objective Vitals Vital Signs Date Time Temp Pulse Resp B/P Pulse Ox O2 Delivery O2 Flow Rate FiO2 11/12/16 12:00 98.1 63 18 131/88 93 11/12/16 11:29 60 11/12/16 08:00 89 11/12/16 08:00 97.7 67 18 156/111 93 11/12/16 04:00 96.6 65 16 118/87 95 11/12/16 00:00 97.1 73 18 124/95 96 11/11/16 20:46 96 21 11/11/16 20:00 98.2 85 18 147/107 95 11/11/16 20:00 89 11/11/16 18:00 98 11/11/16 17:00 86 11/11/16 16:00 90 11/11/16 16:00 90 17 143/87 11/11/16 15:00 96 I/O 11/11/16 11/11/16 11/11/16 11/12/16 11/12/16 11/12/16 07:00 15:00 23:00 07:00 15:00 23:00 Intake Total 306 ml 1315 ml 780 ml Output Total 950 ml 700 ml 400 ml Balance -644 ml 615 ml 380 ml Intake Oral 920 ml 780 ml IV Total 306 ml 395 ml Output Urine Total 950 ml 700 ml 400 ml # Voids 1 1 4 # Bowel Movements 0 0 0 Result Diagram: 11/10/16204411/12/16 0537 Objective Remarks GENERAL: Well-nourished, well-developed pleasant male patient. SKIN: Warm and dry. HEAD: Normocephalic. EYES: No scleral icterus. No injection or drainage. NECK: Supple, trachea midline. No JVD or lymphadenopathy. CARDIOVASCULAR: Regular rate and rhythm without murmurs, gallops, or rubs. RESPIRATORY: Breath sounds equal bilaterally. No accessory muscle use. GASTROINTESTINAL: Abdomen soft, non-tender, nondistended. EXTREMITIES: No cyanosis, or edema. NEUROLOGICAL: Awake, alert, and oriented x 3. Cranial nerves II through XII intact. Normal speech judgment and insight. Non-focal. A/P Problem List: (1) Transient global amnesia ICD Code: G45.4 Status: Acute (2) Atrial fibrillation with rapid ventricular response ICD Code: I48.91 Status: Acute (3) HTN (hypertension) ICD Code: I10 Status: Chronic (4) Atrial fibrillation and flutter ICD Code: I48.91 Status: Acute (5) HLD (hyperlipidemia) ICD Code: E78.5 Status: Acute (6) Diarrhea ICD Code: R19.7 Status: Acute (7) SHANA (acute kidney injury) ICD Code: N17.9 Status: Acute Assessment and Plan -Transient global amnesia. Resolved and patient now back to baseline. 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 I spoke with neurology/Dr. Lua regarding these findings and he recommended the patient could be on aspirin for these lesions alone. However given the episode of A. fib/A flutter he recommended an anticoagulant. Also in the future can consider a stent of the distal internal carotid artery lesion. The patient also has markedly hyper lipidemia and has been started on high-dose Lipitor. -Paroxysmal A. fib flutter/A. fib. Converted to normal sinus rhythm status post Cardizem 20 mg IV in the ER. Continue metoprolol and Xarelto. Cardiology consultation appreciated. Echocardiogram pending. He did have a normal echo last fall. -Hypertension. Increase metoprolol to 50 mg by mouth twice a day and HCTZ was initiated this morning. -Diarrhea 1 in the ED. C. difficile was negative. -DVT prophylaxis. As above. Discharge Planning Discharge home after echocardiogram is read. Follow-up with PCP at the [facility] within 2 weeks. Blue card has been arranged. See Mar for prescriptions. 40 minutes spent in discharge planning and coordination of care. Problem Qualifiers (1) Diarrhea: Qualified Code: R19.7 - Diarrhea, unspecified type Lakia Pereira MD Nov 12, 2016 14:43
--- NOTE | 2016-11-12 17:30 | EC ---
Study Study Date:11/12/2016 STUDY CONCLUSIONS SUMMARY - Left ventricle: The cavity size was normal. Systolic function was moderately reduced. The estimated ejection fraction was in the range of 35% to 40%. Diffuse hypokinesis. - Mitral valve: Mildly calcified annulus. - Atrial septum: Possible flow from left to right,a septal defect cannot be excluded. If LV function is below 40, please consider prescribing an ACEI or ARB or document rationale for non-use. PROCEDURE DATA STUDY STATUS: Elective. Procedure: Transthoracic echocardiography. Image quality was good. Scanning was performed from the parasternal, apical, and subcostal acoustic windows. Study completion: The patient tolerated the procedure well. Transthoracic echocardiography. M-mode, complete 2D, complete spectral Doppler, and color Doppler. Patient status: Inpatient. CARDIAC ANATOMY LEFT VENTRICLE: The cavity size was normal. Systolic function was moderately reduced. The estimated ejection fraction was in the range of 35% to 40%. Diffuse hypokinesis. AORTIC VALVE: Trileaflet. Doppler: There was no stenosis. No significant regurgitation. MITRAL VALVE: Mildly calcified annulus. Doppler: There was no evidence for stenosis. Trace regurgitation. LEFT ATRIUM: The atrium was normal in size. ATRIAL SEPTUM: Possible flow from left to right,a septal defect cannot be excluded. RIGHT VENTRICLE: The cavity size was normal. Systolic function was normal. PULMONIC VALVE: The valve appears to be grossly normal. Doppler: There was no evidence for stenosis. No significant regurgitation. TRICUSPID VALVE: The valve appears to be grossly normal. Doppler: There was no evidence for stenosis. Trace regurgitation. PERICARDIUM: There was no pericardial effusion. BASIC MEASUREMENTS ADULT Normal Left ventricle LV internal dimension, ED, chordal level, *39.7 mm 43-52 PLAX LV internal dimension, ES, chordal level, 34.8 mm 23-38 PLAX Fractional shortening, chordal level, PLAX *12 % >29 LV posterior wall thickness, ED 9.22 mm IVS/LVPW ratio, ED 1.07 <1.3 Ventricular septum Septal thickness, ED 9.91 mm Aortic valve Leaflet separation 23 mm 15-26 Left atrium Anterior-posterior dimension 32 mm Right ventricle RV internal dimension, ED, PLAX 24.5 mm 19-38 BASIC MEASUREMENTS ADULT Normal Aortic valve Leaflet separation 23 mm 15-26 Aorta Root diameter, ED 37 mm 20-37 DOPPLER MEASUREMENTS ADULT Normal Main pulmonary artery Pressure, S 26 mm Hg =30 Mitral valve Peak E-wave velocity 61.2 cm/s Peak A-wave velocity 46.9 cm/s Peak E/A ratio 1.3 Tricuspid valve Regurgitant peak velocity 197 cm/s Peak RV-RA gradient, S 16 mm Hg Maximal regurgitant velocity 197 cm/s Systemic veins Estimated CVP 10 mm Hg Right ventricle RV pressure, S 26 mm Hg <30 LEGEND: Mean values are shown as u=mean value. Asterisk (*) thayer values outside specified normal range. Prepared and signed by Yuan Alcantara [id number]
[2016-11-12] MEDS ORDERED: LISI10TA3 PO (17:51)
[2016-12-11] MEDS ORDERED: METO-309 PO (10:26)
[2016-12-11] MEDS ORDERED: XARE20TA PO (10:26)
[2016-12-11] MEDS ORDERED: LISI10TA3 PO (10:26)
[2016-12-11] MEDS ORDERED: LIPI40TA PO (10:26)
== END 2016-11-12 18:35 | disposition home or self-care (01) | DRG 65 ==
LOC: PHED 20:30 → PHEDA 22:12 → PHICU 11-11 01:09 → PH3A 11-11 18:57
PROVIDERS: ADMIT Family Medicine; ATTEND Family Medicine
DX: I63.9 Cerebral infarction, unspecified (principal); N17.9 Acute kidney failure, unspecified; I48.92 Unspecified atrial flutter; I66.01 Occlusion and stenosis of right middle cerebral artery; I11.9 Hypertensive heart disease without heart failure; I48.0 Paroxysmal atrial fibrillation; G45.4 Transient global amnesia; E78.5 Hyperlipidemia, unspecified; I45.10 Unspecified right bundle-branch block; I51.7 Cardiomegaly; K21.9 Gastro-esophageal reflux disease without esophagitis; J45.909 Unspecified asthma, uncomplicated; F17.210 Nicotine dependence, cigarettes, uncomplicated; Z86.73 Personal history of transient ischemic attack (TIA), and cerebral infarction without residual deficits
CPT/HCPCS: 70450; 70496; 70498; 70544; 70551; 71010; 74177; 80048; 80061; 80307; 81001; 82550; 82948; 83036; 84484; 85025; 85384; 85610; 85730; 86850; 86900; 86901; 87493; 87506; 93005; 93306; 96361; 96374; J1644; J7030; J7040; P9612; Q9967

== ENCOUNTER → 2016-12-17 | Outpatient (CLI) | payer OTHER ==
[~2016-12-17] MED LIST changes: +AMINOPHYLLINE INJ 250 MG/10 ML VIAL ONE; -ASPI325T PO; -ATOR40TA49 PO; +LIPI40TA PO; +LISI10TA3 PO; -LISI5 PO; +METO-309 PO; -METO25 PO; +REGADENOSON INJ 0.4 MG/5 ML SYR ONE; -WALKER ROLLING; +XARE20TA PO
--- NOTE | 2016-12-17 10:45 | RADRPT ---
EXAM DATE/TIME: 12/17/2016 08:53 [facility] COMPARISON: No previous studies available for comparison. INDICATIONS : Cardiomyopathy. DOSE: 30.2 mCi Tc99m Myoview at stress. 10.1 mCi Tc99m Myoview at rest. 0.4 mg Lexiscan STRESS SYMPTOMS: Dyspnea, werid feeling, and weakness. MEDICATIONS: 1.) 100 mg Aminophylline IV EJECTION FRACTION: 29% MEDICAL HISTORY : Hypertension. SURGICAL HISTORY : None. ENCOUNTER: Initial ACUITY: 1 day PAIN SCALE: 3/10 LOCATION: Bilateral chest TECHNIQUE: The patient underwent pharmacologic stress with infusion of prescribed dose. Continuous ECG tracing was monitored during stress. Gated SPECT imaging was performed after stress and conventional SPECT i maging was performed at rest. The examination was performed on a SPECT/CT scanner, both attenuation and non-corrected datasets were reviewed. FINDINGS: DISTRIBUTION: The maximum perfused segment at stress is in the anterolateral wall. PERFUSION STUDY: There is moderately diminished apical perfusion. Please mild redistribution. GATED STUDY: Mild left ventricular chamber dilatation with global hypokinesis and apical dyskinesis. CONCLUSION: Moderate size moderate severity apical perfusion abnormality with at least mild redistribution. Moder ately severe LV dysfunction. RISK CATEGORY: High (>3% Annual Mortality Rate) Isauro More MD on December 17, 2016 at 10:39 Board Certified Radiologist. This report was verified electronically.
--- NOTE | 2016-12-18 10:06 | EC ---
Study Study Date:12/17/2016 STUDY CONCLUSIONS SUMMARY - Procedure narrative: Transthoracic echocardiography. Image quality was very poor. Scanning was performed from the parasternal, apical, and subcostal acoustic windows. - Left ventricle: The cavity size was normal. Wall thickness was normal. Systolic function was normal. The estimated ejection fraction was in the range of 50% to 55%. Regional wall motion abnormalities cannot be excluded. - Aortic valve: Poorly visualized. - Atrial septum: Echo contrast study showed no [id number] atrial or ventricularlevel shunt. - Tricuspid valve: Trace regurgitation. If LV function is below 40, please consider prescribing an ACEI or ARB or document rationale for non-use. PROCEDURE DATA STUDY STATUS: Elective. Procedure: Transthoracic echocardiography. Image quality was very poor. Scanning was performed from the parasternal, apical, and subcostal acoustic windows. Study completion: The patient tolerated the procedure well. Transthoracic echocardiography. M-mode, complete 2D, complete spectral Doppler, and color Doppler. Height: Height: 68in. Weight: Weight: 229.5lb. Body mass index: BMI: 35kg/m^2. Body surface area: BSA: 2.17m^2. Patient status: Inpatient. CARDIAC ANATOMY LEFT VENTRICLE: The cavity size was normal. Wall thickness was normal. Systolic function was normal. The estimated ejection fraction was in the range of 50% to 55%. Regional wall motion abnormalities cannot be excluded. AORTIC VALVE: Poorly visualized. Doppler: Transvalvular velocity was within the normal range. There was no stenosis. No regurgitation. Indexed valve area: 1.05cm^2/m^2 (Vmax). AORTA: Aortic root: The aortic root was normal in size. MITRAL VALVE: Structurally normal valve. Doppler: Transvalvular velocity was within the normal range. There was no evidence for stenosis. No regurgitation. LEFT ATRIUM: The atrium was normal in size. ATRIAL SEPTUM: Echo contrast study showed no [id number] atrial or ventricularlevel shunt. RIGHT VENTRICLE: The cavity size was normal. Wall thickness was normal. PULMONIC VALVE: Doppler: Transvalvular velocity was within the normal range. There was no evidence for stenosis. No regurgitation. TRICUSPID VALVE: Structurally normal valve. Doppler: Transvalvular velocity was within the normal range. Trace regurgitation. PULMONARY ARTERY: The main pulmonary artery was normal-sized. Systolic pressure was within the normal range. RIGHT ATRIUM: The atrium was normal in size. PERICARDIUM: There was no pericardial effusion. SYSTEMIC VEINS: Inferior vena cava: The vessel was normal in size. Patient weight: 229.5lb _Ejection fraction:_ 65-75% _Fractional shortening:_ 32% up to 5Kg 5-11.5Kg 11.6-22.9Kg 23-45Kg 45-57Kg Aortic Root 7-13 <17 13-22 17-27 17-27 LA diam 6-13 <23 24-38 33-47 37-40 RVID 10-17 7-15 7-15 7-18 8-17 LVIDd 12-22 <32 24-38 33-47 37-40 LVPW 2-4 3-6 5-7 6-8 7-8 IVS 2-4 3-6 5-7 6-8 7-8 BASIC MEASUREMENTS ADULT NORMAL Left ventricle LV internal dimension, ED, chordal 43 mm 43-52 level, PLAX LV internal dimension, ES, chordal 33.8 mm 23-38 level, PLAX Fractional shortening, chordal level, *21 % >29 PLAX LV posterior wall thickness, ED 10 mm IVS/LVPW ratio, ED 1.03 <1.3 Ventricular septum Septal thickness, ED 10.3 mm Aortic valve Leaflet separation 20 mm 15-26 Aorta Ascending aorta anterior-posterior 34 mm diameter, S BASIC MEASUREMENTS ADULT NORMAL Aortic valve Leaflet separation 20 mm 15-26 Aorta Root diameter, ED 24 mm 20-37 Left atrium Anterior-posterior dimension, ES 39 mm 19-40 Anterior-posterior dimension index, ES 1.8 cm/m^2 <2.2 LA/aortic root ratio 1.63 DOPPLER MEASUREMENTS ADULT NORMAL Main pulmonary artery Pressure, S 30 mm Hg =30 Pressure, ED 19 mm Hg Aortic valve Peak velocity, S 96.4 cm/s Valve area index, Vmax 1.05 cm^2/m^2 Mitral valve Maximal regurgitant velocity 244 cm/s Tricuspid valve Regurgitant peak velocity 236 cm/s Peak RV-RA gradient, S 22 mm Hg Maximal regurgitant velocity 236 cm/s Systemic veins Estimated CVP 10 mm Hg Right ventricle RV pressure, S *32 mm Hg <30 Pulmonic valve Peak velocity, S 78.7 cm/s Regurgitant velocity, ED 149 cm/s LEGEND: Mean values are shown as u=mean value. Asterisk (*) thayer values outside specified normal range. Prepared and signed by Kevin Lutz [id number]
== END ==
LOC: HRAD 07:50
PROVIDERS: ATTEND Internal Medicine Cardiovascular Disease
DX: I42.9 Cardiomyopathy, unspecified (principal); R06.00 Dyspnea, unspecified
CPT/HCPCS: 78452; 93017; 93306; A9502; J0280; J2785

== ENCOUNTER → 2016-12-23 | Outpatient (CLI) | payer OTHER ==
[~2016-12-23] MED LIST changes: -AMINOPHYLLINE INJ 250 MG/10 ML VIAL ONE; -REGADENOSON INJ 0.4 MG/5 ML SYR ONE
[2016-12-23 12:43] LABS: AUTOMATED NEUTROPHIL # 5.2 TH/MM3 (1.8-7.7); BASOPHIL # 0.1 TH/MM3 (0-0.2); BASOPHIL % 0.7 % (0.0-2.0); EOSINOPHIL # 0.2 TH/MM3 (0-0.4); EOSINOPHIL % 1.8 % (0.0-4.0); HEMATOCRIT 51.1 % (39.0-51.0); HEMO FLAGS DIFF FINAL; LYMPH % 35.9 % (9.0-44.0); LYMPHOCYTE # 3.6 TH/MM3 (1.0-4.8); MEAN CELL VOLUME 89.1 FL (80.0-100.0); MEAN CORPUSCULAR HEMOGLOBIN 30.7 PG (27.0-34.0); MEAN CORPUSCULAR HGB CONC 34.5 % (32.0-36.0); MONO % 9.3 % (0.0-8.0); NEUT % 52.3 % (16.0-70.0); PLATELET COUNT 276 TH/MM3 (150-450); RED BLOOD COUNT 5.74 MIL/MM3 (4.50-5.90); RED CELL DISTRIBUTION WIDTH 13.3 % (11.6-17.2)
[2016-12-23 12:47] LABS: PROTHROMBIN TIME - PATIENT 10.9 SEC (9.8-11.6)
[2016-12-23 12:56] LABS: BICARBONATE 28.9 MEQ/L (21.0-32.0); POTASSIUM 4.4 MEQ/L (3.5-5.1)
== END ==
LOC: CLAB 12:20
PROVIDERS: ATTEND Family Medicine
DX: I48.91 Unspecified atrial fibrillation (principal); R94.30 Abnormal result of cardiovascular function study, unspecified; G45.4 Transient global amnesia; I10 Essential (primary) hypertension; E78.5 Hyperlipidemia, unspecified
CPT/HCPCS: 36415; 80048; 85025; 85610

== ENCOUNTER 2016-12-25 06:05 | Day surgery (SDC) | payer OTHER ==
[~2016-12-25] VITALS: Ht 172.7 cm; Wt 104.1 kg
[2016-12-25 06:48] VITALS: BP 106/72; PULSE 60; RESP 18; TEMP 97.9; O2SAT 97
[2016-12-25] MEDS ORDERED: HEPARIN-NS/PF INJ 500 ML ONE (08:14)
[2016-12-25] MEDS ORDERED: MIDAZOLAM HCL 2 MG/2 ML VIAL ONE (08:17)
[2016-12-25] MEDS ORDERED: SODIUM CHLOR 0.9% 1000 ML INJ 1,000 ML IV SCH (09:05)
[2016-12-25] MEDS ORDERED: LORazepam 2 MG/ML VIAL IV PRN (09:15)
[2016-12-25] MEDS ORDERED: SODIUM CHLOR 0.9% 250 ML INJ 250 ML IV PRN (09:15)
[2016-12-25] MEDS ORDERED: MISC INFORMATION XX ONE (09:15)
[2016-12-25] MEDS ORDERED: ATROPINE SULFATE 1 MG/ML VIAL IV PRN (09:15)
[2016-12-25] MEDS ORDERED: METOCLOPRAMIDE HCL 10 MG/2 ML VIAL IV PRN (09:15)
[2016-12-25] MEDS ORDERED: BACITRACIN OINT 0.9 GM PKT TOP ONE (09:15)
[2016-12-25] MEDS ORDERED: LIDOCAINE HCL 1% 50 ML VIAL INFIL PRN (09:15)
[2016-12-25] MEDS ORDERED: ONDANSETRON HCL 4 MG/2 ML VIAL IV PRN (09:15)
[2016-12-25] MEDS ORDERED: SODIUM CHLORIDE 0.9% FLUSH 10 ML FLUSH IV FLUSH PRN (09:15)
--- NOTE | 2016-12-25 09:25 | MA ---
cc: DARRYL OLMEDO MD DATE 12/25/2016 PROCEDURE The patient was prepped and draped in the usual fashion. A 6-Irish sheath was inserted percutaneously in the right femoral artery. Coronary angiography was done with [place] preformed catheters. Left ventriculography was done with a pigtail catheter. RESULTS Aortic pressure was 100/60. Left ventricular end-diastolic pressure was 15. There was no gradient across the aortic valve. CORONARY ANGIOGRAPHY Left main coronary artery was normal. Left anterior descending artery was totally occluded in its proximal portion. A very late collateral was noted probably from the diagonal system, as well as possibly from the circumflex. The left circumflex was a large codominant artery. No significant stenoses were seen. The right was codominant and no significant stenoses were noted. LEFT VENTRICULOGRAPHY The left ventricle was normal in size. There is mild anterior wall hypokinesis with overall ejection fraction estimated at 50-55%. CONCLUSION The patient demonstrates coronary disease as described above. Medical management will be continued. MD KENYATTA Jeong/PETER /9:12 AM /9:21 AM
[2016-12-25] MEDS ORDERED: IOHEXOL 350 MG/ML 100 ML BTL (for Cath Lab) OTHER ONE (12:21)
[2016-12-25] MEDS ORDERED: SODIUM CHLORIDE 0.9% FLUSH 10 ML FLUSH IV FLUSH SCH (21:00)
== END 2016-12-25 14:00 | disposition home or self-care (01) ==
LOC: HCAT 06:05 → HDIC 06:06 → HCAT 14:00
PROVIDERS: ATTEND Internal Medicine Cardiovascular Disease
DX: I25.10 Atherosclerotic heart disease of native coronary artery without angina pectoris (principal); I25.82 Chronic total occlusion of coronary artery; I48.91 Unspecified atrial fibrillation; I42.9 Cardiomyopathy, unspecified; I10 Essential (primary) hypertension; Z79.01 Long term (current) use of anticoagulants
CPT/HCPCS: 93458; C1769; C1893; J1644; J2250; Q9967

== ENCOUNTER 2017-04-08 15:08 | Inpatient (IN) | payer OTHER ==
[2017-04-08] VITALS (19 sets, daily range): BP systolic 113–151; BP diastolic 72–101; PULSE 58–154; RESP 16–26; TEMP 98.4–98.6; O2SAT 94–99
[~2017-04-08] VITALS: Ht 172.7 cm; Wt 104.0 kg
[2017-04-08] MEDS ORDERED: SODIUM CHLORIDE 0.9% FLUSH 10 ML FLUSH IVF PRN (15:30)
[2017-04-08] MEDS ORDERED: DILTIAZEM HCL 25 MG/5 ML VIAL IV ONE (15:30)
[2017-04-08] MEDS ORDERED: SODIUM CHLOR 0.9% 1000 ML INJ 1,000 ML IV ONE (15:30)
[2017-04-08 15:49] LABS: AUTOMATED NEUTROPHIL # 4.9 TH/MM3 (1.8-7.7); BASOPHIL # 0.1 TH/MM3 (0-0.2); BASOPHIL % 1.1 % (0.0-2.0); EOSINOPHIL # 0.2 TH/MM3 (0-0.4); EOSINOPHIL % 2.1 % (0.0-4.0); HEMATOCRIT 51.2 % (39.0-51.0); HEMO FLAGS DIFF FINAL; LYMPH % 34.7 % (9.0-44.0); LYMPHOCYTE # 3.2 TH/MM3 (1.0-4.8); MEAN CELL VOLUME 88.9 FL (80.0-100.0); MEAN CORPUSCULAR HEMOGLOBIN 30.1 PG (27.0-34.0); MEAN CORPUSCULAR HGB CONC 33.8 % (32.0-36.0); MONO % 8.3 % (0.0-8.0); NEUT % 53.8 % (16.0-70.0); PLATELET COUNT 264 TH/MM3 (150-450); RED BLOOD COUNT 5.76 MIL/MM3 (4.50-5.90); RED CELL DISTRIBUTION WIDTH 12.6 % (11.6-17.2); WHITE BLOOD COUNT 9.2 TH/MM3 (4.0-11.0)
[2017-04-08 15:56] LABS: CHLORIDE 107 MEQ/L (98-107); SODIUM (NA) 141 MEQ/L (136-145)
[2017-04-08 15:59] LABS: ANION GAP 10 MEQ/L (5-15); BICARBONATE 23.8 MEQ/L (21.0-32.0); BLOOD UREA NITROGEN 20 MG/DL (7-18)
[2017-04-08 16:01] LABS: APTT (PATIENT) 25.7 SEC (24.3-30.1); PROTHROMBIN TIME - PATIENT 10.7 SEC (9.8-11.6)
[2017-04-08 16:02] LABS: GLOMERULAR FILTRATION RATE 62 ML/MIN (>89)
[2017-04-08 16:05] LABS: CREATINE KINASE 138 U/L (39-308)
--- NOTE | 2017-04-08 16:17 | PD ---
HPI Chief Complaint: Neuro Symptoms/ Deficits Time Seen by Provider: 15:22 Travel History International Travel<30 days: No Contact w/Intl Traveler<30days: No Traveled to known affect area: No History of Present Illness HPI 56-year-old male presents with left arm weakness, left facial numbness and left leg weakness over the past 2 days. He states that he did not come in sooner As he thought it would go away. He states that he ran out of his Xarelto and took his last dose yesterday morning. He denies taking an aspirin yet today. He states he has his other medications. He states that he has no other concurrent complaints. He denies any trauma. He states he follows with Dr. Mcclendon as an outpatient for cardiac reevaluation and he stated that his follow-up was fine. Quality is difficulty moving. Severity is increasing. PFSH Past Medical History Asthma: Yes Atrial Fibrillation: Yes Anxiety: Yes Heart Rhythm Problems: Yes (AF) Cancer: No Cardiac Catheterization: Yes Cardiovascular Problems: Yes High Cholesterol: Yes Chest Pain: Yes Cerebrovascular Accident: Yes (TIA) Endocrine: No Gastrointestinal Disorders: Yes GERD: Yes Genitourinary: No Hypertension: Yes Immune Disorder: No Musculoskeletal: No Neurologic: Yes Psychiatric: No Reproductive: No Respiratory: Yes Migraines: Yes Shingles: Yes Ulcer: Yes Tetanus Vaccination: > 5 Years Influenza Vaccination: No Past Surgical History Oral Surgery: Yes (Tooth extractions ) Social History Alcohol Use: No Tobacco Use: No Substance Use: No Allergies-Medications (Allergen,Severity, Reaction): Coded Allergies: Penicillin (Verified Allergy, Unknown, Unknown, 04/08/17) Reported Meds & Prescriptions Reported Meds & Active Scripts Active Lisinopril 10 Mg Tab 10 Mg PO BID Xarelto (Rivaroxaban) 20 Mg Tab 20 Mg PO DAILY Lopressor (Metoprolol Tartrate) 50 Mg Tab 50 Mg PO Q12HR Lipitor (Atorvastatin Calcium) 40 Mg Tab 80 Mg PO HS Review of Systems Except as stated in HPI: all other systems reviewed are Neg Physical Exam Narrative GENERAL: Well-nourished, well-developed patient. SKIN: Warm and dry. HEAD: Normocephalic and atraumatic. EYES: No injection or drainage. ENT: No nasal drainage noted. NECK: Supple, trachea midline. CARDIOVASCULAR: irregular rate and rhythm RESPIRATORY: Breath sounds equal bilaterally at apices. No accessory muscle use. GASTROINTESTINAL: Abdomen soft, non-tender, nondistended. EXTREMITIES: No edema. NEUROLOGICAL: Awake and alert. Decreased grasp on the left, no pronator drift, patient has difficulty raising his left leg but once it is up he is able to keep up for a prolonged period, no facial droop, states left face feels tingly Data Data Last Documented VS Vital Signs Date Time Temp Pulse Resp B/P Pulse Ox O2 Delivery O2 Flow Rate FiO2 04/08/17 16:27 87 16 140/79 95 Nasal Cannula 2 04/08/17 15:16 98.6 Orders Cath For Specimen (04/08/17 15:30) Nursing Bedside Swallow Assess .ONCE (04/08/17 15:30) Activity Bed Rest (04/08/17 15:30) Diet Npo (04/08/17 Dinner) Prothrombin Time / Inr (Pt) (04/08/17 15:30) Act Partial Throm Time (Ptt) (04/08/17 15:30) Complete Blood Count With Diff (04/08/17 15:30) Basic Metabolic Panel (Bmp) (04/08/17 15:30) Fibrinogen (04/08/17 15:30) Creatine Kinase (Cpk) (04/08/17 15:30) Troponin I (04/08/17 15:30) Ua Includes Microscopic (04/08/17 15:30) Drug Screen, Random Urine (04/08/17 15:30) Type And Screen (04/08/17 15:30) Ct Brain W/O Iv Contrast(Rout) (04/08/17 ) Chest, Single Ap (04/08/17 ) Electrocardiogram (04/08/17 ) Sodium Chlor 0.9% 1000 Ml Inj (Ns 1000 M (04/08/17 15:30) Blood Glucose (04/08/17 15:30) Ecg Monitoring (04/08/17 15:30) Iv Access Insert/Monitor (04/08/17 15:30) NPO (04/08/17 15:30) Oximetry (04/08/17 15:30) Resp Oxygen Polo C Titrat 1-4 L (04/08/17 15:30) Sodium Chloride 0.9% Flush (Ns Flush) (04/08/17 15:30) Diltiazem Inj (Cardizem Inj) (04/08/17 15:30) Diltiazem Inj (Cardizem Inj) (04/08/17 16:30) Admit Order (Ed Use Only) (04/08/17 16:31) Consult Neurology (04/08/17 ) Labs Laboratory Tests Test 04/08/17 15:30 White Blood Count 9.2 TH/MM3 Red Blood Count 5.76 MIL/MM3 Hemoglobin 17.3 GM/DL Hematocrit 51.2 % Mean Corpuscular Volume 88.9 FL Mean Corpuscular Hemoglobin 30.1 PG Mean Corpuscular Hemoglobin 33.8 % Concent Red Cell Distribution Width 12.6 % Platelet Count 264 TH/MM3 Mean Platelet Volume 7.9 FL Neutrophils (%) (Auto) 53.8 % Lymphocytes (%) (Auto) 34.7 % Monocytes (%) (Auto) 8.3 % Eosinophils (%) (Auto) 2.1 % Basophils (%) (Auto) 1.1 % Neutrophils # (Auto) 4.9 TH/MM3 Lymphocytes # (Auto) 3.2 TH/MM3 Monocytes # (Auto) 0.8 TH/MM3 Eosinophils # (Auto) 0.2 TH/MM3 Basophils # (Auto) 0.1 TH/MM3 CBC Comment DIFF FINAL Differential Comment Prothrombin Time 10.7 SEC Prothromb Time International 1.0 RATIO Ratio Activated Partial 25.7 SEC Thromboplast Time Fibrinogen 265 mg/dL Sodium Level 141 MEQ/L Potassium Level 4.0 MEQ/L Chloride Level 107 MEQ/L Carbon Dioxide Level 23.8 MEQ/L Anion Gap 10 MEQ/L Blood Urea Nitrogen 20 MG/DL Creatinine 1.20 MG/DL Estimat Glomerular Filtration 62 ML/MIN Rate Random Glucose 122 MG/DL Calcium Level 9.3 MG/DL Total Creatine Kinase 138 U/L Troponin I LESS THAN 0.02 NG/ML MDM Medical Decision Making Medical Screen Exam Complete: Yes Emergency Medical Condition: Yes Medical Record Reviewed: Yes (past history confirm, recent hospitalization reviewed with patient having known MCA and internal carotid stenosis) Interpretation(s) EKG shows atrial flutter at 150 without STEMI criteria CBC & BMP Diagram 04/08/17 15:30 Last [address] 04/08/17 0000 Signed Impressions: Service Date/Time: Saturday, April 08, 2017 15:55 - CONCLUSION: Slight atrophic and small vessel ischemic changes without any evidence for acute hemorrhage or mass effect. Jean-Claude Young MD Chest X-Ray 04/08/17 0000 Signed Impressions: Service Date/Time: Saturday, April 08, 2017 15:49 - CONCLUSION: Cardiomegaly. Stable compared to previous examination. Avel Felix MD Differential Diagnosis Stroke, TIA, A. fib RVR, SVT Narrative Course Will check labs, imaging and dose with Cardizem for rate control and reevaluate Patient's heart rate has gone up again and will dose with Cardizem drip and monitor. Will discuss with neurology anticoagulation, patient updated and agrees to admission Critical Care Narrative Aggregate critical care time was 35 minutes. Time to perform other separately billable procedures was not included in the critical care time. My time did not include minutes spent treating any other patients simultaneously or on activities that did not directly contribute to the patient's treatment. The services I provided to this patient were to treat and/or prevent clinically significant deterioration that could result in: Worsening deficit, bleed I provided critical care services requiring my management, as noted below: Chart data review, documentation time, medication orders and management, vital sign assessments/reviewing monitor data, ordering and reviewing lab tests, ordering and interpreting/reviewing x-rays and diagnostic studies, care of the patient and discussion of the patient with the admitting physicians. Physician Communication Physician Communication Dr. Moore agrees to admission Dr. Pendleton states to place on heparin drip without bolus and they will follow Diagnosis Primary Impression: CVA (cerebral vascular accident) Qualified Code: I63.9 - Cerebrovascular accident (CVA), unspecified mechanism Additional Impression: Atrial fibrillation with rapid ventricular response Admitting Information Admitting Physician Requests: Admit Lolly Josue MD Apr 08, 2017 16:16
--- NOTE | 2017-04-08 16:22 | RADRPT ---
EXAM DATE/TIME: 04/08/2017 15:55 [facility] COMPARISON: MRI BRAIN W/O CONTRAST, November 11, 2016, 13:04. CT BRAIN W/O CONTRAST, November 10, 2016, 20:47. INDICATIONS : Left sided numbness. RADIATION DOSE: 57.92 CTDIvol (mGy) MEDICAL HISTORY : Cerebrovascular disease. Hypercholesterolemia. SURGICAL HISTORY : None. ENCOUNTER: Initial ACUITY: 2 days PAIN SCALE: 0/10 LOCATION: cranial TECHNIQUE: Multiple contiguous axial images were obtained of the head. Using automated exposure control and adj ustment of the mA and/or kV according to patient size, radiation dose was kept as low as reasonably a chievable to obtain optimal diagnostic quality images. DICOM format image data is available electro nically for review and comparison. FINDINGS: There is no evidence for intracranial hemorrhage, mass effect, mass lesions, or edema. The visualize d bony structures appear intact. Slight degree of brain atrophy is seen. Slight periventricular whit e matter changes are seen nonspecific mostly consistent with chronic small vessel ischemic changes. There are no signs of acute infarction for technique. CONCLUSION: Slight atrophic and small vessel ischemic changes without any evidence for acute hemorrhage or mass effect. Jean-Claude Young MD on April 08, 2017 at 16:19 Board Certified Radiologist. This report was verified electronically.
[2017-04-08] MEDS ORDERED: DILTIAZEM INJ 125 MG in SODIUM CHLORIDE 0.9% INJ 100 ML IV SCH (16:30)
[2017-04-08] MEDS ORDERED: LABETALOL HCL 100 MG/20 ML VIAL IV PRN (16:45)
[2017-04-08] MEDS ORDERED: GLUCAGON 1 MG/ML VIAL OTHER PRN (16:45)
[2017-04-08] MEDS ORDERED: DEXTROSE 50% IN WATER 50 ML VIAL(D50) IV PUSH PRN (16:45)
[2017-04-08] MEDS ORDERED: ENALAPRILAT 1.25 MG/ML VIAL IV PRN (16:45)
--- NOTE | 2017-04-08 17:07 | RADRPT ---
EXAM DATE/TIME: 04/08/2017 15:49 [facility] COMPARISON: CHEST SINGLE AP, November 10, 2016, 23:08. INDICATIONS : Left side numbness and tingles for 2 days. MEDICAL HISTORY : Hypertension. SURGICAL HISTORY : None. ENCOUNTER: Initial ACUITY: 2 days PAIN SCORE: 0/10 LOCATION: Bilateral chest FINDINGS: The heart appears mildly enlarged. This is stable compared to previous exam. The lungs are clear. The visualized bony structures are grossly intact. CONCLUSION: Cardiomegaly. Stable compared to previous examination. Avel Felix MD on April 08, 2017 at 17:04 Board Certified Radiologist. This report was verified electronically.
[2017-04-08 17:34] LABS: BLOOD, URINE NEG (NEG); GLUCOSE,URINE NEG (NEG); KETONE, URINE NEG (NEG); NITRITE,URINE NEG (NEG)
[2017-04-08 17:52] LABS: AMPHETAMINE, URINE NEG (NEG); BARBITURATES, URINE NEG (NEG); COCAINE, URINE NEG (NEG)
[2017-04-08 17:56] LABS: URINE COLOR YELLOW (YELLW/STRAW)
[2017-04-08 17:57] LABS: COMMENT (UR) CATH-CULT NOT IND; SQUAMOUS EPITHELIAL CELL URINE 0-5 /hpf (0-5)
[2017-04-08] MEDS: HEPARIN-D5W INJ 250 ML IV SCH (18:32)
[2017-04-08 20:08] LABS: HDL CHOLESTEROL 30.9 MG/DL (40.0-60.0)
--- NOTE | 2017-04-08 20:46 | RADRPT ---
EXAM DATE/TIME: 04/08/2017 19:52 [facility] COMPARISON: No previous studies available for comparison. INDICATIONS : CVA, numbness right arm. MEDICAL HISTORY : Hypercholesterolemia. Hypertension. Gastroesophageal reflux disease. A-fib. Numbness right arm. Asthm a. Anxiety. Shingles. Ulcer. SURGICAL HISTORY : Tooth extractions. Cardiac catheterization. ENCOUNTER: Initial ACUITY: 1 day PAIN SCORE: 0/10 LOCATION: Bilateral neck PEAK SYSTOLIC VELOCITIES (cm/sec): ICA/CCA RATIO: Right: 1.1 Left: 0.6 ICA: Right: 56 Left: 44 CCA: Right: 76 Left: 82 ECA: Right: 140 Left: 127 VERTEBRAL: Right: 40 antegrade Left: 31 antegrade Elevated flow velocities and ICA/CCA ratios have been found to correlate with increased degrees of vessel stenosis, calculated as percentage of diameter relative to a normal segment of distal ICA/CCA FINDINGS: RIGHT CAROTID: No significant stenosis is visualized. The waveforms are within normal limits. LEFT CAROTID: No significant stenosis is visualized. The waveforms are within normal limits. VERTEBRAL ARTERIES: Antegrade flow is seen in both vertebral arteries. MISCELLANEOUS: None. CONCLUSION: 1. Patent carotid arteries bilaterally. 2. Antegrade flow involving both vertebral arteries. Jairo Muniz Jr., MD on April 08, 2017 at 20:43 Board Certified Radiologist. This report was verified electronically.
--- NOTE | 2017-04-08 20:49 | HHI.HP ---
[facility] No Primary Care Physician Admission Diagnosis stroke, atrial flutter with rvr Diagnoses: Travel History International Travel<30 Days: No Contact w/Intl Traveler <30 Da: No Traveled to Known Affected Are: No History of Present Illness 56-year-old male with past medical history of A. fib on Xarelto following with Dr. Mcclendon as outpatient, TIA, hypertension, hyperlipidemia, GERD presents with left arm weakness, left facial numbness and left leg weakness over the past 2 days. He states that he did not come in sooner as he thought it would go away. He states that he ran out of his Xarelto and took his last dose yesterday morning. He denies taking an aspirin yet today. He states he has his other medications. He states that he has no other concurrent complaints. He denies any trauma. He states he follows with Dr. Mcclendon as an outpatient for cardiac reevaluation and he stated that his follow-up was fine. Says is difficulty moving, and is worsening over the past 2 days. He has associated shortness of breath and amputations. His heart rate is elevated he is afebrile at this time. Patient denies chest pain, diaphoresis, lightheadedness, nausea. Denies vomiting diarrhea or constipation. No chest pain or shortness of breath no fevers or chills. No urinary complaints Review of Systems Except as stated in HPI: all other systems reviewed are Neg Past Family Social History Past Medical History A. fib on Xarelto following with Dr. Mcclendon as outpatient, TIA, hypertension, hyperlipidemia, GERD Past Surgical History Tooth extractions Reported Medications Reported Meds & Active Scripts Active Lisinopril 10 Mg Tab 10 Mg PO BID Xarelto (Rivaroxaban) 20 Mg Tab 20 Mg PO DAILY Lopressor (Metoprolol Tartrate) 50 Mg Tab 50 Mg PO Q12HR Lipitor (Atorvastatin Calcium) 40 Mg Tab 80 Mg PO HS Allergies: Coded Allergies: Penicillin (Verified Allergy, Unknown, Unknown, 04/08/17) Family History Sr. had a stroke at the age of 50 Father has stroke at the age of 50 Both parents with heart problems as well Social History Denies alcohol use illicit drug use or tobacco use Physical Exam Vital Signs Vital Signs Date Time Temp Pulse Resp B/P Pulse Ox O2 Delivery O2 Flow Rate FiO2 04/08/17 20:07 90 04/08/17 19:10 98.4 108 25 128/72 95 04/08/17 19:00 92 22 94 04/08/17 18:00 110 23 95 04/08/17 17:57 108 20 149/77 04/08/17 17:35 128 20 134/92 97 Nasal Cannula 2 04/08/17 17:20 154 18 113/93 97 Nasal Cannula 2 04/08/17 16:27 87 16 140/79 95 Nasal Cannula 2 04/08/17 15:55 84 18 148/80 99 Nasal Cannula 2 04/08/17 15:54 94 Nasal Cannula 2.00 04/08/17 15:35 98 Nasal Cannula 2 04/08/17 15:25 155 04/08/17 15:16 98.6 122 17 151/101 96 Physical Exam GENERAL: This is a very pleasant 56 yo male, well-nourished, well-developed patient, lying in bed. SKIN: No rashes, ecchymoses or lesions. Cool and dry. HEAD: Atraumatic. Normocephalic. No temporal or scalp tenderness. EYES: Pupils equal round and reactive. Extraocular motions intact. No scleral icterus. No injection or drainage. ENT: Nose without bleeding, purulent drainage or septal hematoma. Throat without erythema, tonsillar hypertrophy or exudate. Uvula midline. Airway patent. NECK: Trachea midline. No JVD or lymphadenopathy. Supple, nontender, no meningeal signs. CARDIOVASCULAR: Irregularly irregular rate without murmurs, gallops, or rubs. RESPIRATORY: Clear to auscultation. Breath sounds equal bilaterally. No wheezes , rales, or rhonchi. GASTROINTESTINAL: Abdomen soft, non-tender, nondistended. No hepato-splenomegaly , or palpable masses. No guarding. MUSCULOSKELETAL: Extremities without clubbing, cyanosis, or edema. No joint tenderness, effusion, or edema noted. No calf tenderness. Negative Homans sign bilaterally. NEUROLOGICAL: Awake and alert. Cranial nerves II through XII intact. Normal speech. Decreased grasp on the left, no pronator drift, patient has difficulty raising his left leg but once it is up he is able to keep it up for a prolonged period. There is no facial droop, states left face feels tingly. Laboratory Laboratory Tests Test 04/08/17 04/08/17 15:30 17:25 White Blood Count 9.2 Red Blood Count 5.76 Hemoglobin 17.3 Hematocrit 51.2 Mean Corpuscular Volume 88.9 Mean Corpuscular Hemoglobin 30.1 Mean Corpuscular Hemoglobin 33.8 Concent Red Cell Distribution Width 12.6 Platelet Count 264 Mean Platelet Volume 7.9 Neutrophils (%) (Auto) 53.8 Lymphocytes (%) (Auto) 34.7 Monocytes (%) (Auto) 8.3 Eosinophils (%) (Auto) 2.1 Basophils (%) (Auto) 1.1 Neutrophils # (Auto) 4.9 Lymphocytes # (Auto) 3.2 Monocytes # (Auto) 0.8 Eosinophils # (Auto) 0.2 Basophils # (Auto) 0.1 CBC Comment DIFF FINAL Differential Comment Prothrombin Time 10.7 Prothromb Time International 1.0 Ratio Activated Partial 25.7 Thromboplast Time Fibrinogen 265 Sodium Level 141 Potassium Level 4.0 Chloride Level 107 Carbon Dioxide Level 23.8 Anion Gap 10 Blood Urea Nitrogen 20 Creatinine 1.20 Estimat Glomerular Filtration 62 Rate Random Glucose 122 Calcium Level 9.3 Total Creatine Kinase 138 Troponin I LESS THAN 0.02 Triglycerides Level 623 Cholesterol Level 267 LDL Cholesterol HDL Cholesterol 30.9 Cholesterol/HDL Ratio 8.64 Blood Type B NEGATIVE Antibody Screen NEGATIVE Urine Color YELLOW Urine Turbidity CLEAR Urine pH 6.0 Urine Specific [place] 1.017 Urine Protein NEG Urine Glucose (UA) NEG Urine Ketones NEG Urine Occult Blood NEG Urine Nitrite NEG Urine Bilirubin NEG Urine Leukocyte Esterase NEG Urine Squamous Epithelial 0-5 Cells Microscopic Urinalysis Comment CATH-CULT NOT IND Urine Opiates Screen NEG Urine Barbiturates Screen NEG Urine Amphetamines Screen NEG Urine Benzodiazepines Screen NEG Urine Cocaine Screen NEG Urine Cannabinoids Screen NEG Result Diagram: 04/08/17 1530 04/08/17 1530 Imaging Last Impressions Head CT 04/08/17 0000 Signed Impressions: Service Date/Time: Saturday, April 08, 2017 15:55 - CONCLUSION: Slight atrophic and small vessel ischemic changes without any evidence for acute hemorrhage or mass effect. Jean-Claude Young MD Chest X-Ray 04/08/17 0000 Signed Impressions: Service Date/Time: Saturday, April 08, 2017 15:49 - CONCLUSION: Cardiomegaly. Stable compared to previous examination. Avel Felix MD Assessment and Plan Assessment and Plan CVA (cerebral vascular accident) Atrial fibrillation with rapid ventricular response CT head reviewed findings discussed with ED physician: Slight atrophic and small vessel ischemic changes without any evidence for acute hemorrhage or mass effect. Will do MRI/MRA brain . Carotid US Swallow eval, advance diet as tolerated PT/OT/ST consult Monitor on telemetry EKG shows atrial flutter at 150 without STEMI criteria Patient's heart rate sustained in 150s started Cardizem drip. Monitor on telemetry. Admit to ICU Consult neurology. Dr. Pendleton neurology recommends to place on heparin drip without bolus and they will follow Will also consult his cardiology Dr Mcclendon Continue statin, heparin. Hold xarelto Hold his BP meds at this time as patien ton on cardizem drip . Monitor closely his VS DVT ppx on heparin drip at this time Discussed Condition With Patient, nurse, ED physician Physician Certification 2 Midnight Certification Type: Admission for Inpatient Services Order for Inpatient Services The services are ordered in accordance with Medicare regulations or non- Medicare payer requirements, as applicable. In the case of services not specified as inpatient-only, they are appropriately provided as inpatient services in accordance with the 2-midnight benchmark. Estimated LOS (days): 3 days is the estimated time the patient will need to remain in the hospital, assuming treatment plan goals are met and no additional complications. Post-Hospital Plan: Not yet determined Katy Moore MD Apr 08, 2017 20:49
[2017-04-08] MEDS ORDERED: ATORVASTATIN 10 MG TAB PO SCH (21:00)
[2017-04-08] MEDS: INSULIN ASPART SUPPLEMENTAL SCALE SQ SCH (21:00)
[2017-04-08] MEDS: SODIUM CHLORIDE 0.9% FLUSH 5 ML FLUSH IV FLUSH SCH (21:00)
--- NOTE | 2017-04-08 21:55 | EKG ---
Date Performed: 04/08/2017 Time Performed: 15:52:14 PTAGE: 56 years EKG: ATRIAL FLUTTER WITH RAPID VENTRICULAR RESPONSE ABNORMAL ECG PREVIOUS TRACING : 11/10/2016 21.14 Compared to the previous tracing Sinus rhythm no longer present DOCTOR: Kosta Jones Interpretating Date/Time 04/08/2017 21:53:40
[2017-04-09] VITALS (22 sets, daily range): BP systolic 129–177; BP diastolic 81–111; PULSE 64–86; RESP 15–29; TEMP 97.9–98.2; O2SAT 94–95
[2017-04-09 00:07] LABS: APTT (PATIENT) 32.2 SEC (24.3-30.1)
[2017-04-09 06:57] LABS: APTT (PATIENT) 33.9 SEC (24.3-30.1)
[2017-04-09] MEDS: INSULIN ASPART SUPPLEMENTAL SCALE SQ SCH ×4 (06:58→21:00)
--- NOTE | 2017-04-09 07:50 | PD.CONS ---
HPI Service cv Consult Requested By Reason for Consult a-fib Primary Care Physician No Primary Care Physician History of Present Illness Here with paroxysmal a-fib, HTN and h/o TIA admitted for LUE weakness r/o CVA. He states he ran out of his Xarelto and his last dose was Friday. He denies any chest pain, shortness of breath or palpitations. He also had left face numbness. He was in a-fib when he came to the ER. He was placed on diltiazem gtt and eventually converted to a junctional rhythm then to SR. He has been in SR since the wrist liner (Trey Kay) Review of Systems Consitutional: DENIES: Fatigue, Fever, Chills, Weight gain, Weight loss Eyes: DENIES: Amaurosis [place], Change in vision HEENT: DENIES: Lightheadedness, Change in hearing Respiratory: DENIES: See HPI, Cough, Snoring, Shortness of breath, Wheezing, Sputum production Cardiovascular: COMPLAINS OF: See HPI Gastrointestinal: DENIES: Nausea, Vomiting, Change in bowel habits, Reflux, Bloody stools, Melena Genitourinary: DENIES: Urinary incontinence, Difficulty voiding Integumentary: DENIES: Rash Neurologic: DENIES: Tingling or numbness, Memory problems, Poor Balance, Stroke symptoms Musculoskeletal: DENIES: Joint pain, Muscle pain, Limited range of motion, Back pain Psychiatric: DENIES: Anxiety, Depression, Sleep disturbances Hematologic: DENIES: Bruising tendencies, Bleeding tendencies Endocrine: DENIES: Weight gain, Weight loss, Thyroid disease (Trey Kay ) Past Family Social History Allergies: Coded Allergies: Penicillin (Verified Allergy, Unknown, Unknown, 04/08/17) Past Medical History See HPI hypertension hyperlipidemia GERD Past Surgical History Tooth extractions Reported Medications Reported Meds & Active Scripts Active Lisinopril 10 Mg Tab 10 Mg PO BID Xarelto (Rivaroxaban) 20 Mg Tab 20 Mg PO DAILY Lopressor (Metoprolol Tartrate) 50 Mg Tab 50 Mg PO Q12HR Lipitor (Atorvastatin Calcium) 40 Mg Tab 80 Mg PO HS Active Ordered Medications Current Medications Medications (Trade) Dose Ordered Sig/Deanna Route Start Time Stop Time Status Last Admin (Cardizem Inj/NS Inj) 125 ml @ 0 mls/hr TITRATE IV 04/08/17 16:30 04/08/17 17:16 (NS Flush) 2 ml BID IV FLUSH 04/08/17 21:00 (NS Flush) 2 ml UNSCH PRN IV FLUSH 04/08/17 16:45 (Vasotec Inj) 1.25 mg Q4H PRN IV 04/08/17 16:45 (Trandate Inj) 10 mg Q2H PRN IV 04/08/17 16:45 (Lipitor) 10 mg HS PO 04/08/17 21:00 04/08/17 21:44 (NovoLOG SUPPLEMENTAL SCALE) 1 ACHS SQ 04/08/17 21:00 (D50w (Vial) Inj) 50 ml UNSCH PRN IV PUSH 04/08/17 16:45 Glucagon 1 mg 1 mg UNSCH PRN OTHER 04/08/17 16:45 (Heparin-D5W Inj) 250 ml @ 0 mls/hr TITRATE IV 04/08/17 17:00 04/08/17 18:32 Family History noncontributory Social History Denies alcohol use, illicit drug use or tobacco use (Trey Kay) Physical Exam Vital Signs Vital Signs Date Time Temp Pulse Resp B/P Pulse Ox O2 Delivery O2 Flow Rate FiO2 04/09/17 04:21 75 04/09/17 04:06 97.9 76 19 153/98 95 04/09/17 00:00 98.0 68 18 153/94 04/09/17 00:00 71 04/08/17 22:00 68 23 140/84 95 04/08/17 21:36 66 24 127/75 04/08/17 21:34 68 24 136/84 95 04/08/17 21:15 67 04/08/17 21:14 58 04/08/17 21:06 80 26 138/78 96 04/08/17 20:07 90 04/08/17 20:00 95 Nasal Cannula 2.00 04/08/17 20:00 82 23 121/79 95 04/08/17 19:10 98.4 108 25 128/72 95 04/08/17 19:00 92 22 94 04/08/17 18:00 110 23 95 04/08/17 17:57 108 20 149/77 04/08/17 17:35 128 20 134/92 97 Nasal Cannula 2 04/08/17 17:20 154 18 113/93 97 Nasal Cannula 2 04/08/17 16:27 87 16 140/79 95 Nasal Cannula 2 04/08/17 15:55 84 18 148/80 99 Nasal Cannula 2 04/08/17 15:54 94 Nasal Cannula 2.00 04/08/17 15:35 98 Nasal Cannula 2 04/08/17 15:25 155 04/08/17 15:16 98.6 122 17 151/101 96 Physical Exam GENERAL: Well-nourished, well-developed patient in no apparent distress. NECK: No JVD. No carotid bruit. CARDIOVASCULAR: Regular rate and rhythm. S1/S2 no murmur, rub, or gallop. RESPIRATORY: No accessory muscle use. Clear to auscultation. Breath sounds equal bilaterally. GASTROINTESTINAL: Abdomen soft, non-tender, nondistended. MUSCULOSKELETAL: Extremities without clubbing, cyanosis, or edema. Laboratory Laboratory Tests Test 04/08/17 04/08/17 04/08/17 04/09/17 15:30 17:25 23:38 06:25 White Blood Count 9.2 Red Blood Count 5.76 Hemoglobin 17.3 Hematocrit 51.2 Mean Corpuscular Volume 88.9 Mean Corpuscular Hemoglobin 30.1 Mean Corpuscular Hemoglobin 33.8 Concent Red Cell Distribution Width 12.6 Platelet Count 264 Mean Platelet Volume 7.9 Neutrophils (%) (Auto) 53.8 Lymphocytes (%) (Auto) 34.7 Monocytes (%) (Auto) 8.3 Eosinophils (%) (Auto) 2.1 Basophils (%) (Auto) 1.1 Neutrophils # (Auto) 4.9 Lymphocytes # (Auto) 3.2 Monocytes # (Auto) 0.8 Eosinophils # (Auto) 0.2 Basophils # (Auto) 0.1 CBC Comment DIFF FINAL Differential Comment Prothrombin Time 10.7 Prothromb Time International 1.0 Ratio Activated Partial 25.7 32.2 33.9 Thromboplast Time Fibrinogen 265 Sodium Level 141 Potassium Level 4.0 Chloride Level 107 Carbon Dioxide Level 23.8 Anion Gap 10 Blood Urea Nitrogen 20 Creatinine 1.20 Estimat Glomerular Filtration 62 Rate Random Glucose 122 Calcium Level 9.3 Total Creatine Kinase 138 Troponin I LESS THAN 0.02 Triglycerides Level 623 Cholesterol Level 267 LDL Cholesterol HDL Cholesterol 30.9 Cholesterol/HDL Ratio 8.64 Blood Type B NEGATIVE Antibody Screen NEGATIVE Urine Color YELLOW Urine Turbidity CLEAR Urine pH 6.0 Urine Specific [place] 1.017 Urine Protein NEG Urine Glucose (UA) NEG Urine Ketones NEG Urine Occult Blood NEG Urine Nitrite NEG Urine Bilirubin NEG Urine Leukocyte Esterase NEG Urine Squamous Epithelial 0-5 Cells Microscopic Urinalysis Comment CATH-CULT NOT IND Urine Opiates Screen NEG Urine Barbiturates Screen NEG Urine Amphetamines Screen NEG Urine Benzodiazepines Screen NEG Urine Cocaine Screen NEG Urine Cannabinoids Screen NEG (Trey Kay) Result Diagram: 04/08/17 1530 04/08/17 1530 Assessment and Plan Problem List: (1) Atrial fibrillation with rapid ventricular response (2) HLD (hyperlipidemia) (3) HTN (hypertension) Assessment and Plan Afib - restart metoprolol HTN - will allow permissive HTN at this time in face of questionable CVA r/o CVA - Xarelto on hold for presumptive risk of hemorrhagic conversion, pt not seen by neurology as of yet. hyperlipidemia - increase atorvastatin to 40 mg daily (Trey Kay) Assessment and Plan afib/flutter - now sinus rhythm possible CVA - await MRI. neuro following. possibly embolic due to afib/ flutter off xarelto since friday. No see need for DEREK since will have suspected etiology. resume anticoagulation when ok with neuro call with any questions will sign off fu with dr. up (Scott Chisholm MD) Trey Kay Apr 09, 2017 07:50 Scott Chisholm MD Apr 09, 2017 08:43
--- NOTE | 2017-04-09 08:01 | HHI.PR ---
Subjective Remarks In the chair. Says weakness in hi sleft rosemary eis improved and is almost at his baseline. No numbness in his left hemiface. No palpitations or sob, no cp, lightheadedness. Able to ambulate a little unsteady. Objective Vitals Vital Signs Date Time Temp Pulse Resp B/P Pulse Ox O2 Delivery O2 Flow Rate FiO2 04/09/17 04:21 75 04/09/17 04:06 97.9 76 19 153/98 95 04/09/17 00:00 98.0 68 18 153/94 04/09/17 00:00 71 04/08/17 22:00 68 23 140/84 95 04/08/17 21:36 66 24 127/75 04/08/17 21:34 68 24 136/84 95 04/08/17 21:15 67 04/08/17 21:14 58 04/08/17 21:06 80 26 138/78 96 04/08/17 20:07 90 04/08/17 20:00 95 Nasal Cannula 2.00 04/08/17 20:00 82 23 121/79 95 04/08/17 19:10 98.4 108 25 128/72 95 04/08/17 19:00 92 22 94 04/08/17 18:00 110 23 95 04/08/17 17:57 108 20 149/77 04/08/17 17:35 128 20 134/92 97 Nasal Cannula 2 04/08/17 17:20 154 18 113/93 97 Nasal Cannula 2 04/08/17 16:27 87 16 140/79 95 Nasal Cannula 2 04/08/17 15:55 84 18 148/80 99 Nasal Cannula 2 04/08/17 15:54 94 Nasal Cannula 2.00 04/08/17 15:35 98 Nasal Cannula 2 04/08/17 15:25 155 04/08/17 15:16 98.6 122 17 151/101 96 I/O 04/08/17 04/08/17 04/08/17 04/09/17 04/09/17 04/09/17 07:00 15:00 23:00 07:00 15:00 23:00 Intake Total 530 ml 805 ml Output Total 300 ml 300 ml Balance 230 ml 505 ml Intake Oral 120 ml 60 ml IV Total 410 ml 745 ml Output Urine Total 300 ml 300 ml Stool Total 0 ml 0 ml # Voids 1 1 Result Diagram: 04/08/17 1530 04/08/17 1530 Imaging Last Impressions Head CT 04/08/17 0000 Signed Impressions: Service Date/Time: Saturday, April 08, 2017 15:55 - CONCLUSION: Slight atrophic and small vessel ischemic changes without any evidence for acute hemorrhage or mass effect. Jean-Claude Young MD Chest X-Ray 04/08/17 0000 Signed Impressions: Service Date/Time: Saturday, April 08, 2017 15:49 - CONCLUSION: Cardiomegaly. Stable compared to previous examination. Avel Felix MD Carotid Artery Ultrasound 04/08/17 0000 Signed Impressions: Service Date/Time: Saturday, April 08, 2017 19:52 - CONCLUSION: 1. Patent carotid arteries bilaterally. 2. Antegrade flow involving both vertebral arteries. Jairo Muniz Jr., MD Objective Remarks GENERAL: This is a very pleasant 56 yo male, well-nourished, well-developed patient, lying in bed. CARDIOVASCULAR: Regular rate and rhythm, without murmurs, gallops, or rubs. RESPIRATORY: Clear to auscultation. Breath sounds equal bilaterally. No wheezes , rales, or rhonchi. GASTROINTESTINAL: Abdomen soft, non-tender, nondistended. No hepato-splenomegaly , or palpable masses. No guarding. MUSCULOSKELETAL: Extremities without clubbing, cyanosis, or edema. No joint tenderness, effusion, or edema noted. No calf tenderness. Negative Homans sign bilaterally. NEUROLOGICAL: Awake and alert. Cranial nerves II through XII intact. Normal speech. Decreased grasp on the left, no pronator drift, patient has difficulty raising his left leg but once it is up he is able to keep it up for a prolonged period. There is no facial droop, states left face feels tingly. A/P Assessment and Plan CVA (cerebral vascular accident) Atrial fibrillation with rapid ventricular response CT head reviewed findings discussed with ED physician: Slight atrophic and small vessel ischemic changes without any evidence for acute hemorrhage or mass effect. MRI/MRA brain. Carotid US normal Swallow eval passed, diet advanced PT/OT/ST consult Monitor on telemetry EKG shows atrial flutter at 150 without STEMI criteria Patient's heart rate sustained in 150s on admission, started Cardizem drip. Converted to NSR. Start metoprolol 50 mg po bid. Monitor on telemetry. Consult cardiology appreciate recommendations Consult neurology. Dr. Pendleton neurology recommends to place on heparin drip without bolus and they will follow. Dr Velazco will follow the patient MRI/MRA brain pending Consult his cardiology Dr Mcclendon Continue statin, heparin. Hold xarelto Hold his BP meds at this time as patient on on cardizem drip . Monitor closely his VS DVT ppx on heparin drip at this time Discussed Condition With Patient, nurse, Katy More MD Apr 09, 2017 08:01
[2017-04-09] MEDS: METOPROLOL TARTRATE 50 MG TAB PO SCH ×2 (08:36→21:00)
[2017-04-09] MEDS: SODIUM CHLORIDE 0.9% FLUSH 5 ML FLUSH IV FLUSH SCH (08:37)
[2017-04-09 09:41] LABS: HDL CHOLESTEROL 31.7 MG/DL (40.0-60.0)
[2017-04-09] MEDS: HEPARIN-D5W INJ 250 ML IV SCH (11:37)
--- NOTE | 2017-04-09 13:01 | RADRPT ---
EXAM DATE/TIME: 04/09/2017 11:13 [facility] COMPARISON: MRI BRAIN W/O CONTRAST, June 08, 2016, 19:32. CTA BRAIN W 3D RECON, November 10, 2016, 22:24. MRA BRAIN W/O CONTRAST, November 11, 2016, 13:04. INDICATIONS : Left sided weakness. MEDICAL HISTORY : Hypertension. Afib. SURGICAL HISTORY : None. ENCOUNTER: Initial ACUITY: 1 day PAIN SCORE: 0/10 LOCATION: head TECHNIQUE: Multiplanar, multisequence MRI of the brain was performed without contrast. FINDINGS: Diffusion restricted imaging is provided. These demonstrate acute cortical infarct involving the wate rshed distribution posteriorly on the right. There is no evidence of hemorrhage within this. The ventricles are normal in size and configuration. There are scattered areas of increased T2 signal in the white matter consistent with mild microvascular ischemic demyelinative change. No mass lesion is identified. No significant extra-axial fluid collections are seen. The appearance of the posterior fossa is unremarkable Sagittal T1 weighted images demonstrate normal formation of the corpus callosum and midline structure s. The cerebellar tonsils are in their appropriate location. The visualized portion of sinus and orbit are intact. CONCLUSION: 1. There is patchy cortical infarct involving the watershed distribution posteriorly on the right. Avel Felix MD on April 09, 2017 at 12:57 Board Certified Radiologist. This report was verified electronically.
--- NOTE | 2017-04-09 13:05 | RADRPT ---
EXAM DATE/TIME: 04/09/2017 11:13 [facility] COMPARISON: CTA BRAIN W 3D RECON, November 10, 2016, 22:24. MRA BRAIN W/O CONTRAST, November 11, 2016, 13:04. INDICATIONS : Left sided weakness. MEDICAL HISTORY : Hypertension. Afib. SURGICAL HISTORY : None. ENCOUNTER: Initial ACUITY: 1 day PAIN SCORE: 0/10 LOCATION: head Please note a normal MRA of the brain does not entirely exclude the possibility of a small aneurysm, nor the possibility of distal intracranial vessel disease. TECHNIQUE: 3D time of flight MRA was performed. Source images, multiplanar STS MIP, and 3D volume MIP reconstru ctions were reviewed. FINDINGS: The exam demonstrates high grade stenosis involving the supraclinoid carotid on the left. There is mo derate stenosis involving the M1 segment on the left. There is high grade stenosis versus short segme nt occlusion involving the M1 segment on the right. The intercerebral circulation is patent. The post erior circulation demonstrates an area of moderate stenosis involving the right posterior cerebral. F indings would suggest intracranial atherosclerotic disease versus vasculitis. Exam overall appears similar to prior study dated 11/10/16. CONCLUSION: 1. 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 2. Moderate grade stenosis involving the M1 segment on the left. 3. High-grade stenosis involving the distal M1 segment on the right. 4. Moderate stenosis involving the proximal right posterior cerebral. 5. Changes are similar to previous dated 11/10/16. Avel Felix MD on April 09, 2017 at 13:00 Board Certified Radiologist. This report was verified electronically.
[2017-04-09 13:30] LABS: APTT (PATIENT) 34.8 SEC (24.3-30.1)
[2017-04-09 17:33] LABS: HEMOGLOBIN A1a 1.1 %; HEMOGLOBIN A1b 2.2 %; HEMOGLOBIN LA1C 1.6 %; HEMOGLOBIN P3 3.9 %
--- NOTE | 2017-04-09 19:27 | ECHRPT ---
Indication: CVA/TIA CONCLUSIONS Normal left ventricular size. Mild concentric left ventricular hypertrophy. The left ventricular systolic function is normal with an estimated ejection fraction in the range of 60-65%. No regional wall motion abnormalities are present. Left ventricular diastolic function parameters are normal. The right ventricle is mildly to moderately dilated. There is some decrease in function. The right ventricular wall thickness is normal. The right ventricle is mildly to moderately dilated. There is mild decrease in RV function. The right ventricular wall thickness is normal. BP: 153 / 98 HR: 75 Rhythm: Sinus MEASUREMENTS (Male / Female) Normal Values Technical Quality:Fair 2D ECHO LV Diastolic Diameter PLAX 4.7 cm 4.2 - 5.9 / 3.9 - 5.3 cm LV Systolic Diameter PLAX 3.2 cm IVS Diastolic Thickness 1.1 cm 0.6 - 1.0 / 0.6 - 0.9 cm LVPW Diastolic Thickness 1.1 cm 0.6 - 1.0 / 0.6 - 0.9 cm LV Relative Wall Thickness 0.5 RV Internal Dim ED PLAX 4.1 cm LVOT Diameter 2.2 cm Aortic Root Diameter 4.2 cm LA Systolic Diameter LX 3.8 cm 3.0 - 4.0 / 2.7 - 3.8 cm M-MODE AV Cusp Separation MM 2.6 cm DOPPLER AV Peak Velocity 106.0 cm/s AV Peak Gradient 4.5 mmHg AV Mean Gradient 3.0 mmHg AV Velocity Time Integral 19.7 cm LVOT Peak Velocity 63.2 cm/s LVOT Peak Gradient 1.6 mmHg LVOT Velocity Time Integral 11.1 cm LVOT Cardiac Index 1358.4 cm/minm AV Area Cont Eq vti 2.1 cm AV Area Cont Eq pk 2.3 cm Mitral E Point Velocity 70.1 cm/s Mitral A Point Velocity 44.4 cm/s Mitral E to A Ratio 1.6 LV E' Lateral Velocity 7.5 cm/s Mitral E to LV E' Lateral Ratio 9.3 LV E' Septal Velocity 7.2 cm/s Mitral E to LV E' Septal Ratio 9.7 TR Peak Velocity 287.0 cm/s TR Peak Gradient 32.9 mmHg PV Peak Velocity 71.4 cm/s PV Peak Gradient 2.0 mmHg FINDINGS LEFT VENTRICLE Normal left ventricular size. Mild concentric left ventricular hypertrophy. The left ventricular systolic function is normal with an estimated ejection fraction in the range of 60-65%. No regional wall motion abnormalities are present. Left ventricular diastolic function parameters are normal. RIGHT VENTRICLE The right ventricle is mildly to moderately dilated. There is some decrease in function. The right ventricular wall thickness is normal. TRICUSPID VALVE Structurally normal tricuspid valve. There is mild tricuspid valve regurgitation. There is estimated mild pulmonary hypertension present (range 40-50 mmHg). Kosta Jones MD, FACC (Electronically Signed) Final Date:09 April 2017 19:25
[2017-04-09 20:09] LABS: APTT (PATIENT) 37.8 SEC (24.3-30.1)
[2017-04-09] MEDS: ATORVASTATIN 40 MG TAB PO SCH (21:42)
[2017-04-09] MEDS ORDERED: SODIUM CHLORIDE 0.9% FLUSH 10 ML FLUSH IV FLUSH PRN (21:45)
[2017-04-09] MEDS ORDERED: SODIUM CHLORIDE 0.9% FLUSH 10 ML FLUSH IV FLUSH SCH (21:45)
[2017-04-09] MEDS ORDERED: GLUCAGON 1 MG/ML VIAL OTHER PRN (23:00)
[2017-04-09] MEDS ORDERED: SODIUM CHLORIDE 0.9% FLUSH 5 ML FLUSH IV FLUSH PRN (23:00)
[2017-04-09] MEDS ORDERED: DEXTROSE 50% IN WATER 50 ML VIAL(D50) IV PUSH PRN (23:00)
[2017-04-10] VITALS (11 sets, daily range): BP systolic 124–140; BP diastolic 73–103; PULSE 62–68; RESP 11–26; TEMP 97.8–98.4; O2SAT 93–95
[2017-04-10 03:06] LABS: APTT (PATIENT) 42.4 SEC (24.3-30.1)
[2017-04-10 04:41] LABS: AUTOMATED NEUTROPHIL # 4.1 TH/MM3 (1.8-7.7); BASOPHIL # 0.1 TH/MM3 (0-0.2); BASOPHIL % 1.5 % (0.0-2.0); EOSINOPHIL # 0.3 TH/MM3 (0-0.4); EOSINOPHIL % 3.1 % (0.0-4.0); HEMATOCRIT 45.2 % (39.0-51.0); HEMO FLAGS DIFF FINAL; LYMPH % 42.4 % (9.0-44.0); LYMPHOCYTE # 3.7 TH/MM3 (1.0-4.8); MEAN CELL VOLUME 89.4 FL (80.0-100.0); MEAN CORPUSCULAR HGB CONC 33.5 % (32.0-36.0); PLATELET COUNT 206 TH/MM3 (150-450); RED BLOOD COUNT 5.05 MIL/MM3 (4.50-5.90); WHITE BLOOD COUNT 8.7 TH/MM3 (4.0-11.0)
[2017-04-10 04:51] LABS: BICARBONATE 25.3 MEQ/L (21.0-32.0)
[2017-04-10] MEDS: HEPARIN-D5W INJ 250 ML IV SCH ×2 (05:02→19:58)
[2017-04-10] MEDS: INSULIN ASPART SUPPLEMENTAL SCALE SQ SCH ×4 (07:00→19:41)
[2017-04-10] MEDS ORDERED: SODIUM CHLORIDE 0.9% FLUSH 5 ML FLUSH IV FLUSH SCH (09:00)
[2017-04-10 09:10] LABS: APTT (PATIENT) 46.4 SEC (24.3-30.1)
[2017-04-10] MEDS: METOPROLOL TARTRATE 50 MG TAB PO SCH ×2 (09:19→19:40)
--- NOTE | 2017-04-10 09:38 | MB ---
cc: ASH YOUNG M.D. DATE OF CONSULTATION: 04/09/2017 REASON FOR CONSULTATION TIA. HISTORY OF PRESENT ILLNESS Mr. Plascencia is a 56-year-old man who has atrial fibrillation. He states two days ago he had sudden onset of weakness and numbness involving the left arm and left leg. It lasted about 2 days. Apparently, he ran out of Xarelto last is being Friday. His symptoms improved. Today he had some mild numbness in his hand but he is on IV heparin. He has no weakness or other symptoms. PAST MEDICAL HISTORY 1. Atrial fibrillation. 2. Hypertension. 3. Hyperlipidemia. 4. Gastroesophageal reflux disease. MEDICATIONS At home: 1. Xarelto which he ran out of. 2. Lisinopril. 3. Lopressor. 4. Lipitor. SOCIAL HISTORY Denies alcohol use or tobacco use. NEUROLOGIC EXAMINATION VITAL SIGNS: His blood pressure currently is 129/86, pulse 68, respirations 24, temperature 98 degrees. Higher cortical function is normal. Cranial nerves II-XII are normal. Motor exam reveals 5/5 strength of all groups. There is no drift. Fine motor skills within normal limits. Reflexes are symmetric. IMAGING STUDIES MRI of the brain shows patchy watershed distribution strokes, mainly in the right hemisphere, these appear to be acute on diffusion images. MRA of the head shows high-grade stenosis involving the supraclinoid, carotid on the left, moderate grade stenosis of the M1 on the left, high-grade stenosis involving the distal M1 segment on the right, moderate stenosis involving the proximal right [employer]GER. Carotid artery ultrasound is within normal limits. LABORATORY DATA White count 9200, hemoglobin 17.3, hematocrit 51.2%, platelets 264,000. Sodium is 141, potassium 4, chloride 107, CO2 24, the BUN is 20, creatinine 1.2, GFR 62, cholesterol 267, LDL 128, HDL 31.7. Tox screen negative. EKG is atrial fibrillation. IMPRESSION Right hemisphere stroke. RECOMMENDATIONS Continue IV heparin to achieve a therapeutic APTT. Will check Echocardiogram. Also recommend statin because of elevated LDL. MD CORNELIA Reardon/DESIREE /11:04 PM /9:33 AM
--- NOTE | 2017-04-10 19:04 | HHI.PR ---
Subjective Remarks In the chair. No dizziness. No palpitations. Denies new motor or sensory deficit. No n/v/d/c. No more palpitations. Objective Vitals Vital Signs Date Time Temp Pulse Resp B/P Pulse Ox O2 Delivery O2 Flow Rate FiO2 04/10/17 16:00 97.8 66 24 131/93 04/10/17 15:00 62 04/10/17 12:00 98.0 62 26 139/84 04/10/17 08:00 97.9 66 17 140/73 04/10/17 08:00 95 21 04/10/17 07:00 67 04/10/17 04:00 97.9 64 16 124/78 95 04/10/17 02:00 68 14 125/75 04/10/17 00:38 64 11 136/91 04/10/17 00:00 98.0 62 11 134/103 04/09/17 23:00 68 04/09/17 22:00 66 22 129/81 04/09/17 21:45 68 24 129/86 94 04/09/17 21:00 66 21 129/83 04/09/17 20:00 94 21 04/09/17 20:00 98.2 66 21 129/83 94 I/O 04/09/17 04/09/17 04/09/17 04/10/17 04/10/17 04/10/17 07:00 15:00 23:00 07:00 15:00 23:00 Intake Total 805 ml 1204 ml 1060 ml 300 ml 820 ml Output Total 300 ml 450 ml 650 ml 850 ml 1000 ml Balance 505 ml 754 ml 410 ml -550 ml -180 ml Intake Oral 60 ml 620 ml 660 ml 100 ml 680 ml IV Total 745 ml 584 ml 400 ml 200 ml 140 ml Output Urine Total 300 ml 450 ml 650 ml 850 ml 1000 ml Stool Total 0 ml # Voids 1 2 2 2 3 # Bowel Movements 2 1 0 0 Result Diagram: 04/10/17 0415 04/10/17 0415 Imaging Last Impressions Head Magnetic Resonance Angiography 04/09/17 0000 Signed Impressions: Service Date/Time: Sunday, April 09, 2017 11:13 - CONCLUSION: 1. 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 2. Moderate grade stenosis involving the M1 segment on the left. 3. High-grade stenosis involving the distal M1 segment on the right. 4. Moderate stenosis involving the proximal right posterior cerebral. 5. Changes are similar to previous dated 11/10/16. Avel Felix MD Brain MRI 04/09/17 0000 Signed Impressions: Service Date/Time: Sunday, April 09, 2017 11:13 - CONCLUSION: 1. There is patchy cortical infarct involving the watershed distribution posteriorly on the right. Avel Felix MD Head CT 04/08/17 0000 Signed Impressions: Service Date/Time: Saturday, April 08, 2017 15:55 - CONCLUSION: Slight atrophic and small vessel ischemic changes without any evidence for acute hemorrhage or mass effect. Jean-Claude Young MD Chest X-Ray 04/08/17 0000 Signed Impressions: Service Date/Time: Saturday, April 08, 2017 15:49 - CONCLUSION: Cardiomegaly. Stable compared to previous examination. Avel Felix MD Carotid Artery Ultrasound 04/08/17 0000 Signed Impressions: Service Date/Time: Saturday, April 08, 2017 19:52 - CONCLUSION: 1. Patent carotid arteries bilaterally. 2. Antegrade flow involving both vertebral arteries. Jairo Muniz Jr., MD Objective Remarks GENERAL: This is a very pleasant 56 yo male, well-nourished, well-developed patient, lying in bed. CARDIOVASCULAR: Regular rate and rhythm, without murmurs, gallops, or rubs. RESPIRATORY: Clear to auscultation. Breath sounds equal bilaterally. No wheezes , rales, or rhonchi. GASTROINTESTINAL: Abdomen soft, non-tender, nondistended. No hepato-splenomegaly , or palpable masses. No guarding. MUSCULOSKELETAL: Extremities without clubbing, cyanosis, or edema. No joint tenderness, effusion, or edema noted. No calf tenderness. Negative Homans sign bilaterally. NEUROLOGICAL: Awake and alert. Cranial nerves II through XII intact. Normal speech. Decreased grasp on the left, no pronator drift, patient has difficulty raising his left leg but once it is up he is able to keep it up for a prolonged period. There is no facial droop, states left face feels tingly. A/P Assessment and Plan CVA (cerebral vascular accident) Atrial fibrillation with rapid ventricular response CT head reviewed findings discussed with ED physician: Slight atrophic and small vessel ischemic changes without any evidence for acute hemorrhage or mass effect. MRI/MRA brain. Carotid US normal Swallow eval passed, diet advanced PT/OT/ST consult Monitor on telemetry EKG on admission showed atrial flutter at 150 without STEMI criteria Patient's heart rate sustained in 150s on admission, started Cardizem drip. Converted to NSR. Start metoprolol 50 mg po bid. Monitor on telemetry. Consult cardiology appreciate recommendations Consult neurology. Dr. Pendleton neurology recommends to place on heparin drip without bolus and they will follow. Dr Velazco will follow the patient MRI/MRA brain Consult his cardiology Dr Mcclendon Continue statin, heparin. Hold xarelto Hold his BP meds at this time as patient on on cardizem drip . Monitor closely his VS DVT ppx on heparin drip at this time Discussed Condition With Patient, nurse Katy Moore MD Apr 10, 2017 19:04
[2017-04-10] MEDS: ATORVASTATIN 40 MG TAB PO SCH (19:40)
[2017-04-11] VITALS (9 sets, daily range): BP systolic 116–144; BP diastolic 70–89; PULSE 60–70; RESP 14–27; TEMP 97.8–98.6; O2SAT 93–99
[2017-04-11 04:46] LABS: AUTOMATED NEUTROPHIL # 4.6 TH/MM3 (1.8-7.7); BASOPHIL # 0.1 TH/MM3 (0-0.2); BASOPHIL % 0.6 % (0.0-2.0); EOSINOPHIL # 0.3 TH/MM3 (0-0.4); EOSINOPHIL % 2.9 % (0.0-4.0); HEMATOCRIT 46.4 % (39.0-51.0); HEMO FLAGS DIFF FINAL; LYMPH % 37.4 % (9.0-44.0); LYMPHOCYTE # 3.4 TH/MM3 (1.0-4.8); MEAN CELL VOLUME 89.2 FL (80.0-100.0); MEAN CORPUSCULAR HGB CONC 33.6 % (32.0-36.0); NEUT % 52.1 % (16.0-70.0); PLATELET COUNT 223 TH/MM3 (150-450); RED BLOOD COUNT 5.21 MIL/MM3 (4.50-5.90); RED CELL DISTRIBUTION WIDTH 12.7 % (11.6-17.2)
[2017-04-11] MEDS: INSULIN ASPART SUPPLEMENTAL SCALE SQ SCH ×4 (06:19→20:15)
--- NOTE | 2017-04-11 08:05 | HHI.PR ---
Subjective Remarks Patient in the chair. Says she feels improving. Says he was able to walk with physical therapy and things she's doing well. He denies any new motor deficit or neurosensory deficit. No more palpitations, heart rate has been stable and regular. No associated shortness of breath, lightheadedness, chest pain, nausea , diaphoresis. He is on heparin drip currently. Objective Vitals Vital Signs Date Time Temp Pulse Resp B/P Pulse Ox O2 Delivery O2 Flow Rate FiO2 04/11/17 04:00 66 04/11/17 04:00 98.6 66 14 116/70 95 04/11/17 00:00 63 04/11/17 00:00 97.9 63 20 140/83 97 04/10/17 20:10 93 21 04/10/17 20:00 98.4 64 20 133/84 94 04/10/17 20:00 63 04/10/17 16:00 97.8 66 24 131/93 04/10/17 15:00 62 04/10/17 12:00 98.0 62 26 139/84 I/O 04/10/17 04/10/17 04/10/17 04/11/17 04/11/17 04/11/17 07:00 15:00 23:00 07:00 15:00 23:00 Intake Total 300 ml 820 ml 232 ml 121 ml Output Total 850 ml 1000 ml 400 ml 625 ml Balance -550 ml -180 ml -168 ml -504 ml Intake Oral 100 ml 680 ml IV Total 200 ml 140 ml 232 ml 121 ml Output Urine Total 850 ml 1000 ml 400 ml 625 ml # Voids 2 3 # Bowel Movements 0 0 Result Diagram: 04/11/17 0435 04/10/17 0415 Imaging Last Impressions Head Magnetic Resonance Angiography 04/09/17 0000 Signed Impressions: Service Date/Time: Sunday, April 09, 2017 11:13 - CONCLUSION: 1. 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 2. Moderate grade stenosis involving the M1 segment on the left. 3. High-grade stenosis involving the distal M1 segment on the right. 4. Moderate stenosis involving the proximal right posterior cerebral. 5. Changes are similar to previous dated 11/10/16. Avel Felix MD Brain MRI 04/09/17 0000 Signed Impressions: Service Date/Time: Sunday, April 09, 2017 11:13 - CONCLUSION: 1. There is patchy cortical infarct involving the watershed distribution posteriorly on the right. Avel Felix MD Head CT 04/08/17 Signed Impressions: Service Date/Time: Saturday, April 08, 2017 15:55 - CONCLUSION: Slight atrophic and small vessel ischemic changes without any evidence for acute hemorrhage or mass effect. Jean-Claude Young MD Chest X-Ray 04/08/17 Signed Impressions: Service Date/Time: Saturday, April 08, 2017 15:49 - CONCLUSION: Cardiomegaly. Stable compared to previous examination. Avel Felix MD Carotid Artery Ultrasound 04/08/17 Signed Impressions: Service Date/Time: Saturday, April 08, 2017 19:52 - CONCLUSION: 1. Patent carotid arteries bilaterally. 2. Antegrade flow involving both vertebral arteries. Jairo Muniz Jr., MD Objective Remarks GENERAL: This is a very pleasant 56 yo male, well-nourished, well-developed patient, lying in bed. CARDIOVASCULAR: Regular rate and rhythm, without murmurs, gallops, or rubs. RESPIRATORY: Clear to auscultation. Breath sounds equal bilaterally. No wheezes , rales, or rhonchi. GASTROINTESTINAL: Abdomen soft, non-tender, nondistended. No hepato-splenomegaly , or palpable masses. No guarding. MUSCULOSKELETAL: Extremities without clubbing, cyanosis, or edema. No joint tenderness, effusion, or edema noted. No calf tenderness. Negative Homans sign bilaterally. NEUROLOGICAL: Awake and alert. Cranial nerves II through XII intact. Normal speech. Decreased grasp on the left, no pronator drift, patient has difficulty raising his left leg but once it is up he is able to keep it up for a prolonged period. There is no facial droop, states left face feels tingly. A/P Assessment and Plan CVA (cerebral vascular accident) Atrial fibrillation with rapid ventricular response CT head reviewed findings discussed with ED physician: Slight atrophic and small vessel ischemic changes without any evidence for acute hemorrhage or mass effect. MRI/MRA brain. Carotid US normal Swallow eval passed, diet advanced PT/OT/ST consult Monitor on telemetry EKG on admission showed atrial flutter at 150 without STEMI criteria ECHO with normal EF Patient's heart rate sustained in 150s on admission, started Cardizem drip. Converted to NSR. Start metoprolol 50 mg po bid. Monitor on telemetry. Consult cardiology appreciate recommendations Consult neurology. Dr. Pendleton neurology recommends to place on heparin drip without bolus and they will follow. Dr Velazco will follow the patient MRI/MRA brain Consult his cardiology Dr Mcclendon Continue statin, heparin. Hold xarelto Hold his BP meds at this time as patient on on cardizem drip . Monitor closely his VS DVT ppx on heparin drip at this time Discussed Condition With Patient, nurse Discharge plan pending improvement. Currently patient is on heparin drip per neurology. Patient has been on Xarelto as outpatient might be continued as outpatient. Note that patient run out of a alto before admission. Katy Moore MD Apr 11, 2017 08:04
[2017-04-11] MEDS: METOPROLOL TARTRATE 50 MG TAB PO SCH ×2 (10:08→20:15)
--- NOTE | 2017-04-11 18:16 | HHI.PR ---
Review/Management Diagnosis right hemisphere cva Plan change to oral anticoagulation --would defer to cardiology regarding choice. Diagnosis/Plan: Subjective Subjective Comments No acute events reported He feels left sided strength is normal Active Medications Current Medications Medications (Trade) Dose Ordered Sig/Deanna Route Start Time Stop Time Status Last Admin (NS Flush) 2 ml UNSCH IV FLUSH 04/09/17 21:45 04/09/17 21:54 (Vasotec Inj) 1.25 mg Q4H PRN IV 04/08/17 16:45 Labetalol HCl 10 mg 10 mg Q2H PRN IV 04/08/17 16:45 (Heparin-D5W Inj) 250 ml @ 0 mls/hr TITRATE IV 04/08/17 17:00 04/10/17 19:58 (Lopressor) 50 mg Q12HR PO 04/09/17 09:00 04/11/17 10:08 (Lipitor) 40 mg HS PO 04/09/17 21:00 04/10/17 19:40 (NS Flush) 2 ml UNSCH PRN IV FLUSH 04/09/17 21:45 (NovoLOG SUPPLEMENTAL SCALE) 1 ACHS SQ 04/10/17 07:00 (D50w (Vial) Inj) 50 ml UNSCH PRN IV PUSH 04/09/17 23:00 (Glucagon Inj) 1 mg UNSCH PRN OTHER 04/09/17 23:00 Allergies Allergies Coded Allergies Penicillin (Verified Allergy, Unknown, Unknown, 04/08/17) Exam I&O / VS 04/10/17 04/10/17 04/11/17 15:00 23:00 07:00 Intake Total 820 ml 232 ml 121 ml Output Total 1000 ml 400 ml 625 ml Balance -180 ml -168 ml -504 ml Intake Oral 680 ml IV Total 140 ml 232 ml 121 ml Output Urine Total 1000 ml 400 ml 625 ml # Voids 3 # Bowel Movements 0 Vital Signs Date Time Temp Pulse Resp B/P Pulse Ox O2 Delivery O2 Flow Rate FiO2 04/11/17 16:00 97.8 60 15 118/73 99 04/11/17 16:00 68 04/11/17 12:00 60 04/11/17 12:00 66 27 135/80 04/11/17 10:00 62 22 132/82 99 04/11/17 08:05 96 21 04/11/17 08:00 98.5 70 24 144/89 98 04/11/17 08:00 62 04/11/17 04:00 66 04/11/17 04:00 98.6 66 14 116/70 95 04/11/17 00:00 63 04/11/17 00:00 97.9 63 20 140/83 97 04/10/17 20:10 93 21 04/10/17 20:00 98.4 64 20 133/84 94 04/10/17 20:00 63 Exam Comments alert, oriented times 3, speech normal CN 2-12 normal MOTOR 5/5 BUE and BLE Objective Micro and Labs Laboratory Tests Test 04/11/17 04:35 White Blood Count 9.0 Red Blood Count 5.21 Hemoglobin 15.6 Hematocrit 46.4 Mean Corpuscular Volume 89.2 Mean Corpuscular Hemoglobin 30.0 Mean Corpuscular Hemoglobin 33.6 Concent Red Cell Distribution Width 12.7 Platelet Count 223 Mean Platelet Volume 7.5 Neutrophils (%) (Auto) 52.1 Lymphocytes (%) (Auto) 37.4 Monocytes (%) (Auto) 7.0 Eosinophils (%) (Auto) 2.9 Basophils (%) (Auto) 0.6 Neutrophils # (Auto) 4.6 Lymphocytes # (Auto) 3.4 Monocytes # (Auto) 0.6 Eosinophils # (Auto) 0.3 Basophils # (Auto) 0.1 CBC Comment DIFF FINAL Differential Comment Activated Partial 46.0 Thromboplast Time Date/Time Procedure Status Source Growth 04/11/17 13:00 Stool Occult Blood (BRENDA) Received Stool Stool Pending Javier Velazco PhD Apr 11, 2017 18:16
[2017-04-11] MEDS: ATORVASTATIN 40 MG TAB PO SCH (20:15)
[2017-04-11] MEDS: HEPARIN-D5W INJ 250 ML IV SCH (20:16)
[2017-04-12] VITALS: BP 147/90; PULSE 63; RESP 18; TEMP 97.7; O2SAT 93
[2017-04-12] MEDS: INSULIN ASPART SUPPLEMENTAL SCALE SQ SCH ×2 (01:03→11:00)
[2017-04-12 05:19] VITALS: BP 141/94; PULSE 64; RESP 14; TEMP 96.5; O2SAT 94
[2017-04-12 07:13] VITALS: O2SAT 93
[2017-04-12 08:00] VITALS: BP 146/99; PULSE 66; RESP 20; TEMP 96.5; O2SAT 94
[2017-04-12 08:45] VITALS: PULSE 64
[2017-04-12] MEDS: METOPROLOL TARTRATE 50 MG TAB PO SCH (08:45)
--- NOTE | 2017-04-12 11:17 | HM ---
Date Performed: 04/09/2017 Time Performed: 19:48:00 HOOKUP DATE: 04/09/17 07:48:00 PM Wed ANALYSIS START TIME: 04/09/2017 7:53:00 PM ANALYSIS END TIME: 04/10/2017 7:57:00 PM PATIENT AGE: 56 PATIENT HEIGHT PATIENT WEIGHT DRUG LIST PATIENT DIAGNOSIS TEST NARRATIVE: The patient's average heart rate was 66 BPM. No episodes of tachycardia wer e noted. Heart rates less than 50 BPM were noted < 1% of the time. No pauses exceeding 2.0 secon ds were noted. 54 ventricular ectopics, which represented < 1% of the total beat count, were note d. The highest ventricular ectopic frequency occurred from 04:00 AM to 05:00 AM Ruby. During this ti me 7 VE(s) occurred. Ventricular ectopics were observed as 48 isolated beat(s) and as 3 couplet(s). No runs were noted. 221 supraventricular ectopics, which represented < 1% of the total beat coun t, were noted. The highest supraventricular ectopic frequency occurred from 11:00 PM to 12:00 AM Ruby . During this time 30 SVE(s) occurred. No episodes of ST depression (defined as -1.0 mm or more) were noted in channel 1. No episodes of ST depression (defined as -1.0 mm or more) were noted in ch priya 2. No episodes of ST depression (defined as -1.0 mm or more) were noted in channel 3. TEST INTERPRETATION: Sinus rhythm Occasional PACs and short atrial runs Rare to occasional isolated PVCs Signed by : Scott Chisholm
[2017-04-12 12:00] VITALS: BP 137/92; PULSE 59; RESP 20; TEMP 96.5; O2SAT 96
[2017-04-12] MEDS ORDERED: ATOR40TA16 PO (12:11)
--- NOTE | 2017-04-12 12:11 | HHI.DCPOC ---
Discharge Care Plan Diagnosis: (1) CVA (cerebral vascular accident) Goals to Promote Your Health * To prevent worsening of your condition and complications * To maintain your health at the optimal level Directions to Meet Your Goals Take your medications as prescribed Follow your dietary instruction Follow activity as directed Keep your appointments as scheduled Take your immunizations and boosters as scheduled If your symptoms worsen call your PCP, if no PCP go to Urgent Care Center or Emergency Room Smoking is Dangerous to Your Health. Avoid second hand smoke Call the 24-hour hour crisis hotline for domestic abuse at Roxana Ortiz MD Apr 12, 2017 12:11
--- NOTE | 2017-04-12 12:16 | HHI.DS ---
Discharge Summary Admission Date Apr 08, 2017 at 16:32 Discharge Date: Apr 12, 2017 Admitting Diagnosis stroke, atrial flutter with rvr (1) CVA (cerebral vascular accident) ICD Code: I63.9 Procedures none Brief History - From Admission 56-year-old male with past medical history of A. fib on Xarelto following with Dr. Mcclendon as outpatient, TIA, hypertension, hyperlipidemia, GERD presents with left arm weakness, left facial numbness and left leg weakness over the past 2 days. He states that he did not come in sooner as he thought it would go away. He states that he ran out of his Xarelto and took his last dose yesterday morning. He denies taking an aspirin yet today. He states he has his other medications. He states that he has no other concurrent complaints. He denies any trauma. He states he follows with Dr. Mcclendon as an outpatient for cardiac reevaluation and he stated that his follow-up was fine. Says is difficulty moving, and is worsening over the past 2 days. He has associated shortness of breath and amputations. His heart rate is elevated he is afebrile at this time. Patient denies chest pain, diaphoresis, lightheadedness, nausea. Denies vomiting diarrhea or constipation. No chest pain or shortness of breath no fevers or chills. No urinary complaints CBC/BMP: 04/11/17 0435 04/10/17 0415 Significant Findings Laboratory Tests Test 04/09/17 04/09/17 04/10/17 04/10/17 13:00 19:40 02:40 04:15 Activated Partial 34.8 SEC 37.8 SEC 42.4 SEC Thromboplast Time (24.3-30.1) (24.3-30.1) (24.3-30.1) Chloride Level 108 MEQ/L (98-107) Estimat Glomerular Filtration 69 ML/MIN (>89) Rate Test 04/10/17 04/11/17 04/12/17 08:40 04:35 06:37 Activated Partial 46.4 SEC 46.0 SEC 45.0 SEC Thromboplast Time (24.3-30.1) (24.3-30.1) (24.3-30.1) Imaging Last Impressions Head Magnetic Resonance Angiography 04/09/17 0000 Signed Impressions: Service Date/Time: Sunday, April 09, 2017 11:13 - CONCLUSION: 1. 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 2. Moderate grade stenosis involving the M1 segment on the left. 3. High-grade stenosis involving the distal M1 segment on the right. 4. Moderate stenosis involving the proximal right posterior cerebral. 5. Changes are similar to previous dated 11/10/16. Avel Felix MD Brain MRI 04/09/17 0000 Signed Impressions: Service Date/Time: Sunday, April 09, 2017 11:13 - CONCLUSION: 1. There is patchy cortical infarct involving the watershed distribution posteriorly on the right. Avel Felix MD Head CT 04/08/17 0000 Signed Impressions: Service Date/Time: Saturday, April 08, 2017 15:55 - CONCLUSION: Slight atrophic and small vessel ischemic changes without any evidence for acute hemorrhage or mass effect. Jean-Claude Young MD Chest X-Ray 04/08/17 0000 Signed Impressions: Service Date/Time: Saturday, April 08, 2017 15:49 - CONCLUSION: Cardiomegaly. Stable compared to previous examination. Avel Felix MD Carotid Artery Ultrasound 04/08/17 0000 Signed Impressions: Service Date/Time: Saturday, April 08, 2017 19:52 - CONCLUSION: 1. Patent carotid arteries bilaterally. 2. Antegrade flow involving both vertebral arteries. Jairo Muniz Jr., MD PE at Discharge GENERAL: This is a well-nourished, well-developed patient, in no apparent distress. CARDIOVASCULAR: Regular rate and rhythm without murmurs, gallops, or rubs. RESPIRATORY: Clear to auscultation. Breath sounds equal bilaterally. No wheezes , rales, or rhonchi. GASTROINTESTINAL: Abdomen soft, non-tender, nondistended. Normal active bowel sounds MUSCULOSKELETAL: Extremities without clubbing, cyanosis, or edema. NEURO: Alert & Oriented x4 to person, place, time, situation. Moves all ext x4 Pt update on day of discharge Seen today in follow-up for stroke. Heart rate controlled. Discharge plans discussed with patient and nursing team. Hospital Course This patient is a 56-year-old gentleman with a history of atrial fibrillation who is nonadherent with his Xarelto. Unfortunately while he was nonadherent he did have a stroke. His heart rate has been well controlled on his home metoprolol. Patient was initially started on heparin and encourage adherence with his Xarelto. He was seen by neurology and cardiology. Pt Condition on Discharge: Good Discharge Disposition: Discharge Home Discharge Time: > 30 minutes Discharge Instructions DIET: Follow Instructions for: As Tolerated, No Restrictions Speech Therapy-Diet Recommends: Regular Activities you can perform: Regular-No Restrictions Follow up Referrals: PCP Follow-up - 1 Week New Medications: Atorvastatin (Atorvastatin) 40 Mg Tab 40 MG PO HS Stroke Prevention #31 TAB Continued Medications: Atorvastatin (Lipitor) 40 Mg Tab 80 MG PO HS Cholesterol Management #30 Ref 3 TAB Lisinopril (Lisinopril) 10 Mg Tab 10 MG PO BID #30 Ref 3 TAB Metoprolol Tartrate (Lopressor) 50 Mg Tab 50 MG PO Q12HR Blood Pressure Management #30 Ref 3 TAB Rivaroxaban (Xarelto) 20 Mg Tab 20 MG PO DAILY Prevent Blood Clot #30 Ref 3 TAB Roxana Ortiz MD Apr 12, 2017 12:16
== END 2017-04-12 13:39 | disposition home or self-care (01) | DRG 65 ==
LOC: PHEFT 15:08 → PHEDA 16:32 → PHICU 17:45 → PH3A 04-12 01:38
PROVIDERS: ADMIT Hospitalist; ATTEND Hospitalist
DX: I63.9 Cerebral infarction, unspecified (principal); I48.92 Unspecified atrial flutter; I10 Essential (primary) hypertension; G43.909 Migraine, unspecified, not intractable, without status migrainosus; I48.0 Paroxysmal atrial fibrillation; E78.5 Hyperlipidemia, unspecified; F41.9 Anxiety disorder, unspecified; J45.909 Unspecified asthma, uncomplicated; Z86.73 Personal history of transient ischemic attack (TIA), and cerebral infarction without residual deficits; K21.9 Gastro-esophageal reflux disease without esophagitis; E78.00 Pure hypercholesterolemia, unspecified; Z79.02 Long term (current) use of antithrombotics/antiplatelets; Z91.14 Patient's other noncompliance with medication regimen
CPT/HCPCS: 70450; 70544; 70551; 71010; 80048; 80061; 80307; 81001; 82272; 82550; 82948; 83036; 84484; 85025; 85384; 85610; 85730; 86850; 86900; 86901; 93005; 93225; 93226; 93306; 93880; 96361; 96374; J1644; J7030

== ENCOUNTER → 2017-05-22 | Outpatient (CLI) | payer OTHER ==
[~2017-05-22] MED LIST changes: +ALLE10TA PO; +ATOR40TA16 PO; +DOXY100C PO; +INDO25CA PO; -LIPI40TA PO; +PANT20 PO
[2017-05-22 11:58] LABS: HDL CHOLESTEROL 35.2 MG/DL (40.0-60.0)
== END ==
LOC: CLAB 10:28
PROVIDERS: ATTEND Nurse Practitioner Family
DX: E78.5 Hyperlipidemia, unspecified (principal)
CPT/HCPCS: 36415; 80061

== ENCOUNTER 2017-06-09 16:24 | Inpatient (IN) | payer OTHER ==
[~2017-06-09] VITALS: Ht 172.7 cm; Wt 106.1 kg
[~2017-06-09 16:24] MED LIST changes: -DOXY100C PO; -INDO25CA PO; -PANT20 PO
[2017-06-09 17:09] VITALS: BP 111/67; PULSE 67; RESP 16; TEMP 98.6; O2SAT 93
--- NOTE | 2017-06-09 20:19 | RADRPT ---
EXAM DATE/TIME: 06/09/2017 20:07 [facility] COMPARISON: No previous studies available for comparison. INDICATIONS : Altered mental status. RADIATION DOSE: 63.55 CTDIvol (mGy) MEDICAL HISTORY : Hypertension. Cardiovascular disease Cerebrovascular disease. SURGICAL HISTORY : None. ENCOUNTER: Initial ACUITY: 1 day PAIN SCALE: 0/10 LOCATION: cranial TECHNIQUE: Multiple contiguous axial images were obtained of the head. Using automated exposure control and adj ustment of the mA and/or kV according to patient size, radiation dose was kept as low as reasonably a chievable to obtain optimal diagnostic quality images. DICOM format image data is available electro nically for review and comparison. FINDINGS: CEREBRUM: There is a low attenuation are seen within the right parietal lobe appears to be related to some old infarcts. Area of low density in the right basal ganglia including the caudate head could be subacute infarcts. Old lacunar infarcts left caudate nuclei. Cerebral atrophy. The ventricles are normal for age. No evidence of midline shift, mass lesion, or hemorrhage. No extra-axial fluid collections are seen. POSTERIOR FOSSA: The cerebellum and brainstem are intact. The 4th ventricle is midline. The cerebellopontine angle i s unremarkable. EXTRACRANIAL: The visualized portion of the orbits is intact. SKULL: The calvaria is intact. No evidence of skull fracture. CONCLUSION: 1. Areas of low attenuation in the right basal ganglia could be subacute infarct. 2. Old right parietal infarcts. Derek Nieves MD on June 09, 2017 at 20:12 Board Certified Radiologist. This report was verified electronically.
[2017-06-09 21:43] VITALS: BP 126/78; PULSE 67; RESP 16; O2SAT 96
[2017-06-09] MEDS ORDERED: SODIUM CHLORIDE 0.9% FLUSH 10 ML FLUSH IVF PRN ×2 (22:00→23:00)
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
[2017-06-09 22:16] LABS: AUTOMATED NEUTROPHIL # 5.7 TH/MM3 (1.8-7.7); BASOPHIL # 0.2 TH/MM3 (0-0.2); BASOPHIL % 2.2 % (0.0-2.0); EOSINOPHIL # 0.2 TH/MM3 (0-0.4); EOSINOPHIL % 1.8 % (0.0-4.0); HEMATOCRIT 48.4 % (39.0-51.0); LYMPH % 29.8 % (9.0-44.0); LYMPHOCYTE # 2.8 TH/MM3 (1.0-4.8); MEAN CELL VOLUME 90.4 FL (80.0-100.0); MEAN CORPUSCULAR HEMOGLOBIN 29.6 PG (27.0-34.0); MEAN CORPUSCULAR HGB CONC 32.8 % (32.0-36.0); MONO % 7.2 % (0.0-8.0); PLATELET COUNT 260 TH/MM3 (150-450); RED BLOOD COUNT 5.36 MIL/MM3 (4.50-5.90); RED CELL DISTRIBUTION WIDTH 13.6 % (11.6-17.2); WHITE BLOOD COUNT 9.6 TH/MM3 (4.0-11.0)
[2017-06-09 22:31] LABS: CHLORIDE 106 MEQ/L (98-107); HEMO FLAGS DIFF FINAL; POTASSIUM 4.1 MEQ/L (3.5-5.1); SODIUM (NA) 138 MEQ/L (136-145)
[2017-06-09 22:33] LABS: ANION GAP 9 MEQ/L (5-15); BICARBONATE 23.2 MEQ/L (21.0-32.0); BLOOD UREA NITROGEN 18 MG/DL (7-18)
[2017-06-09 22:36] LABS: APTT (PATIENT) 29.5 SEC (24.3-30.1); INTERNATIONAL NORMALIZED RATIO 1.1 RATIO
[2017-06-09 22:37] LABS: GLOMERULAR FILTRATION RATE 62 ML/MIN (>89)
--- NOTE | 2017-06-09 22:57 | RADRPT ---
EXAM DATE/TIME: 06/09/2017 22:37 [facility] COMPARISON: No previous studies available for comparison. INDICATIONS : Right foot pain. MEDICAL HISTORY : None. SURGICAL HISTORY : None. ENCOUNTER: Initial ACUITY: 4 - 6 days PAIN SCORE: Non-responsive. LOCATION: Right foot FINDINGS: No fracture or subluxation seen of the right foot. There does appear to be some soft tissue swelling, especially in the mid foot to forefoot region dorsally. A large enthesophyte is seen at the Achilles insertion. Radiographically, no convincing evidence of t endon thickening. CONCLUSION: No fracture, subluxation or other acute bony abnormality seen of the right foot. There is midfoot/for efoot soft tissue swelling without a radiopaque foreign body. Large enthesophyte of the distal Achill es without evidence of tendon thickening. Isauro Ayoub MD on June 09, 2017 at 22:55 Board Certified Radiologist. This report was verified electronically.
--- NOTE | 2017-06-09 22:58 | RADRPT ---
EXAM DATE/TIME: 06/09/2017 22:37 [facility] COMPARISON: CHEST SINGLE AP, April 08, 2017, 15:49. INDICATIONS : Shortness of breath. MEDICAL HISTORY : Cardiovascular disease. Hypertension. SURGICAL HISTORY : None. ENCOUNTER: Initial ACUITY: 1 day PAIN SCORE: Non-responsive. LOCATION: Bilateral chest FINDINGS: A single view of the chest demonstrates the lungs to be symmetrically aerated without evidence of mas s, infiltrate or effusion. The cardiomediastinal contours are unremarkable. Osseous structures are intact. CONCLUSION: No evidence of acute cardiopulmonary disease. Isauro Ayoub MD on June 09, 2017 at 22:56 Board Certified Radiologist. This report was verified electronically.
[2017-06-09 23:00] VITALS: O2SAT 96
[2017-06-09] MEDS ORDERED: GLUCAGON 1 MG/ML VIAL OTHER PRN (23:00)
[2017-06-09] MEDS ORDERED: SODIUM CHLORIDE 0.9% FLUSH 5 ML FLUSH IV FLUSH PRN (23:00)
[2017-06-09] MEDS ORDERED: DEXTROSE 50% IN WATER 50 ML VIAL(D50) IV PUSH PRN (23:00)
[2017-06-09 23:21] LABS: URIC ACID 9.4 MG/DL (2.6-7.2)
[2017-06-10] VITALS (9 sets, daily range): BP systolic 122–161; BP diastolic 64–84; PULSE 63–88; RESP 12–16; TEMP 97.4–98.8; O2SAT 92–96
[2017-06-10] MEDS ORDERED: ACETAMINOPHEN/HYDROcodone 325 MG/5 MG TAB PO ONE (04:00)
[2017-06-10] MEDS ORDERED: SODIUM CHLORIDE 0.9% FLUSH 5 ML FLUSH IV FLUSH SCH (09:00)
[2017-06-10] MEDS: SODIUM CHLORIDE 0.9% FLUSH 10 ML FLUSH IV FLUSH SCH ×2 (09:00→21:32)
--- NOTE | 2017-06-10 12:06 | HHI.HP ---
[facility] Admission Diagnosis CVA Diagnoses: (1) CVA (cerebral vascular accident) Diagnosis: Principal Chief Complaint: Slurred speech loss of coordination, blurred vision, memory Travel History International Travel<30 Days: No Contact w/Intl Traveler <30 Da: No Traveled to Known Affected Are: No History of Present Illness Written by Dharmesh Rosario, acting as scribe for Dr. Galindo on 06/10/17 at 11: 54. 56 year-old male with known history of atrial fibrillation, CVA, TIA, hypertension, hyponatremia, gastroesophageal reflux who presented to the hospital again with neurological symptoms include loss of coordination, slurred speech, blurry vision, loss of memory. Patient was just admitted the hospital 2 month ago for same symptoms because of noncompliance with Xarelto. Patient indicates that there has been episode where he has missed 2 days of Xarelto due to running out of his prescription. Patient was doing well until yesterday when he started developing the neurological symptoms, to include loss of coordination, slurred speech, blurred vision, memory issues. Since being in the hospital his symptoms have resolved and he is back to his baseline. Patient has CT scan done in emergency department that does show areas of low attenuation in the right basal ganglia which could be a subacute infarct. It was recommended by ER physician that the patient be admitted for further evaluation and management. Review of Systems Eyes: COMPLAINS OF: Blurred vision Neurologic: COMPLAINS OF: Speech Problems Except as stated in HPI: all other systems reviewed are Neg Past Family Social History Past Medical History Chronic atrial fibrillation CVA Hyperlipidemia Gastroesophageal reflux Gout Past Surgical History Tooth extractions Reported Medications Reported Meds & Active Scripts Active Atorvastatin (Atorvastatin Calcium) 40 Mg Tab 40 Mg PO HS Lisinopril 10 Mg Tab 10 Mg PO BID Xarelto (Rivaroxaban) 20 Mg Tab 20 Mg PO DAILY Lopressor (Metoprolol Tartrate) 50 Mg Tab 50 Mg PO Q12HR Reported Allergy Relief (Loratadine) 10 Mg Tab 10 Mg PO DAILY Allergies: Coded Allergies: penicillin G (Unverified Allergy, Unknown, Unknown, 06/09/17) Family History Reviewed is significant for father having melanoma, family history of heart disease Social History Patient denies any tobacco, alcohol or illicit drugs Physical Exam Vital Signs Vital Signs Date Time Temp Pulse Resp B/P (MAP) Pulse Ox O2 Delivery O2 Flow Rate FiO2 06/10/17 11:24 06/10/17 10:40 68 16 96 Room Air 21 06/10/17 10:40 68 16 136/75 (95) 96 Room Air 06/10/17 08:55 68 16 128/64 (85) 94 Room Air 06/10/17 08:55 94 Room Air 06/10/17 07:11 70 16 122/70 (87) 93 Room Air 06/10/17 04:00 95 Room Air 06/09/17 23:00 96 21 06/09/17 21:43 67 16 126/78 (94) 96 Room Air 06/09/17 21:32 64 Room Air 06/09/17 17:09 98.6 67 16 111/67 (82) 93 Physical Exam GENERAL: Well-developed, well-nourished, in no acute distress. alert and orientated HEENT: Head is normocephalic without any lesions or masses noted. Facial features are symmetric. Eyes: Pupils equal round reactive to light. Extraocular muscles are intact. Conjunctivae were clear. Oropharyngeal: Pharynx without any erythema edema. Tongue is midline without deviation. Buccal mucosa is moist without any masses or lesions NECK: Supple without any masses. Trachea midline no deviation. No JVD, no bruits are appreciated CARDIAC: Regular rhythm, regular rate. S1/S2 are heard. No murmurs gallops or rubs. LUNGS: Clear to auscultation bilaterally. No wheeze, rhonchi or rales. No use of accessory muscles on inspiration or expiration. ABDOMEN: Soft, nontender. Nondistended. Bowel sounds heard in all 4 quadrants. No organomegaly or masses. Negative rebound, negative guarding EXTREMITIES: No edema, pulses are equal bilaterally. No cyanosis or clubbing NEUROLOGY: Mood and affect appear appropriate. Cranial nerves II through XII grossly intact. Muscle strength 5/5 in upper and lower extremities bilaterally. Deep tendon reflexes are 2+ in upper and lower extremities bilaterally. Laboratory Laboratory Tests Test 06/09/17 22:00 White Blood Count 9.6 Red Blood Count 5.36 Hemoglobin 15.9 Hematocrit 48.4 Mean Corpuscular Volume 90.4 Mean Corpuscular Hemoglobin 29.6 Mean Corpuscular Hemoglobin Concent 32.8 Red Cell Distribution Width 13.6 Platelet Count 260 Mean Platelet Volume 7.9 Neutrophils (%) (Auto) 59.0 Lymphocytes (%) (Auto) 29.8 Monocytes (%) (Auto) 7.2 Eosinophils (%) (Auto) 1.8 Basophils (%) (Auto) 2.2 Neutrophils # (Auto) 5.7 Lymphocytes # (Auto) 2.8 Monocytes # (Auto) 0.7 Eosinophils # (Auto) 0.2 Basophils # (Auto) 0.2 CBC Comment DIFF FINAL Differential Comment Prothrombin Time 12.0 Prothromb Time International Ratio 1.1 Activated Partial Thromboplast Time 29.5 Blood Urea Nitrogen 18 Creatinine 1.20 Random Glucose 105 Calcium Level 8.3 Uric Acid 9.4 Sodium Level 138 Potassium Level 4.1 Chloride Level 106 Carbon Dioxide Level 23.2 Anion Gap 9 Estimat Glomerular Filtration Rate 62 Troponin I LESS THAN 0.02 Result Diagram: 06/09/17219906/09/172199 Imaging Last Impressions Chest X-Ray 06/09/172153 Signed Impressions: Service Date/Time: Friday, June 09, 2017 22:37 - CONCLUSION: No evidence of acute cardiopulmonary disease. Isauro Ayoub MD Head CT 06/09/17 0000 Signed Impressions: Service Date/Time: Friday, June 09, 2017 20:07 - CONCLUSION: 1. Areas of low attenuation in the right basal ganglia could be subacute infarct. 2. Old right parietal infarcts. Derek Nieves MD Foot X-Ray 06/09/17 0000 Signed Impressions: Service Date/Time: Friday, June 09, 2017 22:37 - CONCLUSION: No fracture , subluxation or other acute bony abnormality seen of the right foot. There is midfoot/forefoot soft tissue swelling without a radiopaque foreign body. Large enthesophyte of the distal Achilles without evidence of tendon thickening. MD Hilary Whelani VTE Risk Assessment Caprini VTE Risk Assessment: Mod/High Risk (score >= 2) Caprini Risk Assessment Model Point Value = 1 Point Value = 2 Point Value = 3 Point Value = 5 Age 41-60 Minor surgery BMI > 25 kg/m2 Swollen legs Varicose veins or History of unexplained or recurrent spontaneous Oral contraceptives or hormone replacement Sepsis (< 1 month) Serious lung disease, including pneumonia (< 1 month) Abnormal pulmonary function Acute myocardial infarction Congestive heart failure (< 1 month) History of inflammatory bowel disease Medical patient at bed rest Age 61-74 Arthroscopic surgery Major open surgery (> 45 min) Laparoscopic surgery (> 45 min) Malignancy Confined to bed (> 72 hours) Immobilizing plaster cast Central venous access Age >= 75 History of VTE Family history of VTE Factor V Leiden Prothrombin [id number] Lupus anticoagulant Anticardiolipin antibodies Elevated serum homocysteine Heparin-induced thrombocytopenia Other congenital or acquired thrombophilia Stroke (< 1 month) Elective arthroplasty Hip, pelvis, or leg fracture Acute spinal cord injury (< 1 month) Prophylaxis Regimen Total Risk Factor Score Risk Level Prophylaxis Regimen 0-1 Low Early ambulation 2 Moderate Order ONE of the following: *Sequential Compression Device (SCD) *Heparin 5000 units SQ BID 3-4 Higher Order ONE of the following medications: *Heparin 5000 units SQ TID *Enoxaparin/Lovenox 40 mg SQ daily (WT < 150 kg, CrCl > 30 mL/min) *Enoxaparin/Lovenox 30 mg SQ daily (WT < 150 kg, CrCl > 10-29 mL/min) *Enoxaparin/Lovenox 30 mg SQ BID (WT < 150 kg, CrCl > 30 mL/min) AND/OR *Sequential Compression Device (SCD) 5 or more Highest Order ONE of the following medications: *Heparin 5000 units SQ TID (Preferred with Epidurals) *Enoxaparin/Lovenox 40 mg SQ daily (WT < 150 kg, CrCl > 30 mL/min) *Enoxaparin/Lovenox 30 mg SQ daily (WT < 150 kg, CrCl > 10-29 mL/min) *Enoxaparin/Lovenox 30 mg SQ BID (WT < 150 kg, CrCl > 30 mL/min) AND *Sequential Compression Device (SCD) Assessment and Plan Assessment and Plan Recent CVA with recurrent symptoms to include loss of coordination, slurred speech, blurry vision, memory issues Patient does have history of noncompliance with Xarelto, with recent admission and neurological workup CT scan does indicate areas of low-attenuation in the right basal ganglia which could be a subacute infarct Patient counseled on significance of taking medication and importance to continue medication regardless of reason, could cause worsening neurological conditions, stroke, even Patient with recent full neurological workup 2 months ago Neurology consulted for further recommendations Chronic atrial fibrillation next line rate controlled Continue anticoagulation with Xarelto Continue outpatient follow-up with Dr. Mcclendon Hyperlipidemia Statin continued DVT prevention Patient on Xarelto This note was transcribed by scribe [Dharmesh Rosario]. I, Dr. Sulema Galindo personally performed the history, physical exam, and medical decision making; and confirmed the accuracy of the information in the transcribed note. Authenticated by Dr. Sulema Galindo on 06/10/17 at 12:10. Discussed Condition With Patient, neurologist Physician Certification 2 Midnight Certification Type: Admission for Inpatient Services Order for Inpatient Services The services are ordered in accordance with Medicare regulations or non- Medicare payer requirements, as applicable. In the case of services not specified as inpatient-only, they are appropriately provided as inpatient services in accordance with the 2-midnight benchmark. Estimated LOS (days): 1 days is the estimated time the patient will need to remain in the hospital, assuming treatment plan goals are met and no additional complications. Post-Hospital Plan: Not yet determined Problem Qualifiers (1) CVA (cerebral vascular accident): Dharmesh Rosario Jun 10, 2017 12:06 Sulema Galindo MD Jun 10, 2017 12:10
--- NOTE | 2017-06-10 13:55 | EKG ---
Date Performed: 06/09/2017 Time Performed: 22:07:37 PTAGE: 56 years EKG: Sinus rhythm POSSIBLE LEFT ATRIAL ENLARGEMENT LOW QRS VOLTAGE IN PRECORDIAL LEADS INCOMPLETE RIGHT BUNDLE BRANCH BLOCK PROBABLE INFERIOR MYOCARDIAL INFARCTION ABNORMAL ECG PREVIOUS TRACING : 04/08/2017 15.52 Since the prior tracing, the rapid atrial flutter has resol shreya. Criteria for the possible inferior wall infarct are new. The diffuse ST segment changes have imp roved. DOCTOR: Serena Chau Interpretating Date/Time 06/10/2017 13:52:29
--- NOTE | 2017-06-10 15:31 | RADRPT ---
EXAM DATE/TIME: 06/10/2017 14:38 [facility] COMPARISON: MRI BRAIN W/O CONTRAST, April 09, 2017, 11:13. INDICATIONS : CVA. Memory loss, slurred speech, and weakness for 3 days. MEDICAL HISTORY : Hypertension. Cerebrovascular disease. SURGICAL HISTORY : None. ENCOUNTER: Subsequent ACUITY: 3 day PAIN SCORE: 0/10 LOCATION: Head. TECHNIQUE: Multiplanar, multisequence MRI of the brain was performed without contrast. FINDINGS: There is a focal diffusion abnormality involving the right basal ganglia consistent with acute/subacu te infarct which is moderate in size. Scattered smaller areas are noted throughout the right parieta l and posterior temporal lobes which were present on previous examination in March and likely represen t late subacute/chronic infarcts. There is no midline shift. No acute hemorrhage is noted. Mild pe riventricular and subcortical white matter small vessel ischemic changes are noted bilaterally. The ventricles, sulci and cisterns are stable. CONCLUSION: 1. Focal diffusion abnormality involving the right basal ganglia consistent with acute/subacute infar ct in the right middle cerebral artery distribution. 2. Late subacute/chronic areas of infarction are noted within the right parietal and posterior tempor al lobes consi with subacute /chronic infarcts. 3. Mild periventricular white matter small vessel ischemic changes bilaterally. Gino Gan MD on June 10, 2017 at 15:18 Board Certified Radiologist. This report was verified electronically.
--- NOTE | 2017-06-10 15:48 | RADRPT ---
EXAM DATE/TIME: 06/10/2017 14:38 [facility] COMPARISON: MRI BRAIN W/O CONTRAST, June 10, 2017, 14:38. MRA BRAIN W/O CONTRAST, Timothy martin2016, 11:13. INDICATIONS : CVA. Memory loss, slurred speech, and weakness for 3 days. MEDICAL HISTORY : Hypertension. Cerebrovascular disease. SURGICAL HISTORY : None. ENCOUNTER: Subsequent ACUITY: 3 day PAIN SCORE: 0/10 LOCATION: head. Please note a normal MRA of the brain does not entirely exclude the possibility of a small aneurysm, nor the possibility of distal intracranial vessel disease. TECHNIQUE: 3D time of flight MRA was performed. Source images, multiplanar STS MIP, and 3D volum e MIP reconstructions were reviewed. FINDINGS: There is more prominent now critical stenosis involving the supraclinoid carotid on the left extendin g to the origin of the left A1 segment. There is also at least moderate stenosis of the proximal left M1 segment. There is a critical stenosis versus short segment occlusion involving the proximal right M1 segment. More distal M1 and M2 branches are not visualized, unlike prior examination. Flow is noted in the basilar artery extending to the posterior cerebral arteries bilaterally. Redemon stration of xinz-[id number] stenosis involving the proximal right posterior cerebral artery. CONCLUSION: 1. Apparent interval progression of now critical stenosis involving the supraclinoid left carotid ext ending to the origin of the left A1 segment. 2. High-grade stenosis versus occlusion of the proximal right M1 segment. More distal middle cerebral branches are not visualized on the current exam unlike prior examination. Differential consideration include interval occlusion versus significantly decreased collateral flow. 3. Moderate stenosis involving the proximal left M1 segment. 4. Moderate stenosis involving the proximal right SAIL REPAIRER. 5. 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 Sherwin Payne MD on June 10, 2017 at 15:33 Board Certified Radiologist. This report was verified electronically.
[2017-06-10] MEDS: RIVAROXABAN 20 MG TAB PO SCH (16:49)
[2017-06-10 17:24] LABS: HDL CHOLESTEROL 30.9 MG/DL (40.0-60.0)
[2017-06-10] MEDS: ATORVASTATIN 40 MG TAB PO SCH (21:32)
[2017-06-11] VITALS (11 sets, daily range): BP systolic 138–173; BP diastolic 86–110; PULSE 64–93; RESP 14–20; TEMP 97.3–98.2; O2SAT 93–99
[2017-06-11] MEDS: SODIUM CHLORIDE 0.9% FLUSH 10 ML FLUSH IV FLUSH SCH ×2 (10:32→20:13)
[2017-06-11] MEDS: RIVAROXABAN 20 MG TAB PO SCH (10:32)
--- NOTE | 2017-06-11 17:42 | HHI.PR ---
Subjective Remarks Patient denies chest pain or shortness of breath Denies arm or leg weakness. Denies difficulty speaking. Blood pressure noted to be labile. Objective Vitals Vital Signs Date Time Temp Pulse Resp B/P (MAP) Pulse Ox O2 Delivery O2 Flow Rate FiO2 06/11/17 15:16 80 06/11/17 14:46 97.8 64 18 173/102 (125) 96 06/11/17 08:00 97.3 73 18 146/106 (119) 97 06/11/17 04:48 98.0 76 20 167/98 (121) 99 06/11/17 00:32 97.9 73 16 159/94 (115) 94 06/10/17 22:59 92 21 06/10/17 20:38 98.8 63 12 161/66 (97) 94 06/10/17 20:00 88 I/O 06/10/17 06/10/17 06/10/17 06/11/17 06/11/17 06/11/17 07:00 15:00 23:00 07:00 15:00 23:00 Output Total 350 ml Balance -350 ml Output Urine Total 350 ml # Voids 1 0 3 2 Result Diagram: 06/09/17219906/09/172199 Imaging Last Impressions Head Magnetic Resonance Angiography 06/10/17 0000 Signed Impressions: Service Date/Time: Saturday, June 10, 2017 14:38 - CONCLUSION: 1. Apparent interval progression of now critical stenosis involving the supraclinoid left carotid extending to the origin of the left A1 segment. 2. High-grade stenosis versus occlusion of the proximal right M1 segment. More distal middle cerebral branches are not visualized on the current exam unlike prior examination. Differential consideration include interval occlusion versus significantly decreased collateral flow. 3. Moderate stenosis involving the proximal left M1 segment. 4. Moderate stenosis involving the proximal right RESPITE PROVIDER. 5. 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 Sherwin Payne MD Brain MRI 06/10/17 0000 Signed Impressions: Service Date/Time: Saturday, June 10, 2017 14:38 - CONCLUSION: 1. Focal diffusion abnormality involving the right basal ganglia consistent with acute/subacute infarct in the right middle cerebral artery distribution. 2. Late subacute/chronic areas of infarction are noted within the right parietal and posterior temporal lobes consi with subacute /chronic infarcts. 3. Mild periventricular white matter small vessel ischemic changes bilaterally. Gino Gan MD Chest X-Ray 06/09/174 Signed Impressions: Service Date/Time: Friday, June 09, 2017 22:37 - CONCLUSION: No evidence of acute cardiopulmonary disease. Isauro Ayoub MD Head CT 06/09/17 0000 Signed Impressions: Service Date/Time: Friday, June 09, 2017 20:07 - CONCLUSION: 1. Areas of low attenuation in the right basal ganglia could be subacute infarct. 2. Old right parietal infarcts. Derek Nieves MD Foot X-Ray 06/09/17 0000 Signed Impressions: Service Date/Time: Friday, June 09, 2017 22:37 - CONCLUSION: No fracture , subluxation or other acute bony abnormality seen of the right foot. There is midfoot/forefoot soft tissue swelling without a radiopaque foreign body. Large enthesophyte of the distal Achilles without evidence of tendon thickening. Isauro Ayoub MD Objective Remarks AAOx3 NAD Clear lungs BL S1S2 RRR, no MRG no edema in lower extrtemities CN II - XII grossly intact. m strength 4/5 in lower extremities and 5/5 in upper extremities. Medications and IVs Current Medications Medications (Trade) Dose Ordered Sig/Deanna Route Start Time Stop Time Status Last Admin (NS Flush) 2 ml UNSCH PRN IV FLUSH 06/09/17 23:00 (D50w (Vial) Inj) 50 ml UNSCH PRN IV PUSH 06/09/17 23:00 (Glucagon Inj) 1 mg UNSCH PRN OTHER 06/09/17 23:00 (NS Flush) 2 ml BID IV FLUSH 06/10/17 09:00 06/11/17 10:32 (Lipitor) 40 mg HS PO 06/10/17 21:00 06/10/17 21:32 (Xarelto) 20 mg DAILY PO 06/10/17 17:00 06/11/17 10:32 A/P Problem List: (1) CVA (cerebral vascular accident) ICD Code: I63.9 - Cerebral infarction, unspecified Status: Acute Assessment and Plan Recent CVA with recurrent symptoms to include loss of coordination, slurred speech, blurry vision, memory issues Patient does have history of noncompliance with Xarelto, with recent admission and neurological workup CT scan does indicate areas of low-attenuation in the right basal ganglia which could be a subacute infarct Patient counseled on significance of taking medication and importance to continue medication regardless of reason, could cause worsening neurological conditions, stroke, even Patient with recent full neurological workup 2 months ago Neurology consulted for further recommendations 06/11 will discuss with neurology leonel further management. Patient states is compliant with medications. Chronic atrial fibrillation- rate controlled Continue anticoagulation with Xarelto Continue outpatient follow-up with Dr. Mcclendon Hyperlipidemia Statin continued DVT prevention Patient on Xarelto Problem Qualifiers (1) CVA (cerebral vascular accident): Siddharth Browning MD Jun 11, 2017 17:42
[2017-06-11] MEDS: ATORVASTATIN 40 MG TAB PO SCH (20:13)
[2017-06-11] MEDS: LISINOPRIL 10 MG TAB PO SCH (20:13)
[2017-06-11] MEDS: METOPROLOL TARTRATE 50 MG TAB PO SCH (20:13)
[2017-06-12] VITALS (9 sets, daily range): BP systolic 104–146; BP diastolic 76–98; PULSE 57–81; RESP 18–22; TEMP 96.5–97.6; O2SAT 91–96
[2017-06-12] MEDS: METOPROLOL TARTRATE 50 MG TAB PO SCH (09:22)
[2017-06-12] MEDS: RIVAROXABAN 20 MG TAB PO SCH (09:22)
[2017-06-12] MEDS: LISINOPRIL 10 MG TAB PO SCH ×2 (09:23→20:47)
[2017-06-12] MEDS: SODIUM CHLORIDE 0.9% FLUSH 10 ML FLUSH IV FLUSH SCH ×2 (09:26→20:48)
--- NOTE | 2017-06-12 11:01 | MB ---
cc: POLINA SIMS M.D. DATE OF CONSULTATION: 06/10/2017 HISTORY OF PRESENT ILLNESS A 56-year-old with history recent memory loss, disorientation and some confusion yesterday. The patient has a history of stroke in October of this year as well as March this year causing left hemiparesis and slurring of speech. He has history of atrial fibrillation and he had been on Xarelto but missed doses of his Xarelto recently. He reportedly was driving with family in [place] and was having difficulty with orientation, became lost and confused and may have had some more left facial and left-sided weakness as well. He denies alcohol, denies drugs. He also has been on atorvastatin, lisinopril and Lopressor. PHYSICAL EXAMINATION The patient to be awake, alert, oriented with very mild left-sided weakness including some left facial flattening. He was examined at the bedside. Visual lew difficult to be ascertained but there is some possible left-sided visual field defect. He seems reasonably oriented at this time, no distress and there is good district captain bilaterally. The reflexes were slightly brisk on the left with left babinski. ANCILLARY DATA CT brain shows old right parietal and possible subacute right basal ganglia infarct. Uric acid elevated to 9.4, calcium low at 8.3. ASSESSMENT Increasing confusion/disorientation and difficulty with memory in a patient with history of atrial fibrillation thought appears poorly compliant to the Xarelto. I think the main management here is to get him back on Xarelto. Will see if MRI can be done. He also will need general medical care and I will check lipid profile. At least a carotid ultrasound will be obtained for the time being. I saw the EKG with initial study showing what appears to be a sinus rhythm. Thank you for asking us to assist in his care. MD JOEL Myles/TLL /11:57 AM /10:47 AM
--- NOTE | 2017-06-12 14:03 | HHI.PR ---
Review/Management Daily Summary 06/12 doing well neuro but admits robert feet pain, dorsum,,,?gout imaging studies seen more likely severe atherosclerosis and less likely vasculitis check basic collagen vascular profile, consider rheumatology eval, ?outpt aggressive medical care to lower ldl below 60 continue xarelto though A Fib might not be the culprit discussed via text message yesterday with COLLIN Box Subjective Subjective Comments No acute events reported No headache Robert feet pain Active Medications Current Medications Medications (Trade) Dose Ordered Sig/Deanna Route Start Time Stop Time Status Last Admin (NS Flush) 2 ml UNSCH PRN IV FLUSH 06/09/17 23:00 (D50w (Vial) Inj) 50 ml UNSCH PRN IV PUSH 06/09/17 23:00 (Glucagon Inj) 1 mg UNSCH PRN OTHER 06/09/17 23:00 (NS Flush) 2 ml BID IV FLUSH 06/10/17 09:00 06/12/17 09:26 (Lipitor) 40 mg HS PO 06/10/17 21:00 06/11/17 20:13 (Xarelto) 20 mg DAILY PO 06/10/17 17:00 06/12/17 09:22 (Prinivil) 10 mg BID PO 06/11/17 21:00 06/12/17 09:23 (Lopressor) 25 mg BID PO 06/12/17 21:00 Allergies Allergies Coded Allergies penicillin G (Unverified Allergy, Unknown, Unknown, 06/09/17) Exam I&O / VS Vital Signs Date Time Temp Pulse Resp B/P (MAP) Pulse Ox O2 Delivery O2 Flow Rate FiO2 06/12/17 12:00 97.4 60 20 129/87 (101) 94 06/12/17 08:00 96.5 67 18 146/98 (114) 94 06/12/17 07:41 92 21 06/12/17 04:00 97.6 66 18 138/88 (105) 95 06/12/17 00:00 96.6 65 18 129/90 (103) 94 06/11/17 20:55 138/86 (103) 06/11/17 20:51 151/106 (121) 06/11/17 20:45 93 21 06/11/17 20:00 97.4 93 18 151/106 (121) 93 06/11/17 20:00 92 06/11/17 18:26 98.2 78 14 162/110 (127) 95 06/11/17 15:16 80 06/11/17 15:00 96 21 06/11/17 14:46 97.8 64 18 173/102 (125) 96 Objective Radiology Results Allergies Coded Allergies Type Severity Reaction Last Updated Verified penicillin G Allergy Unknown Unknown 06/09/17 No Recent Impressions Head Magnetic Resonance Angiography 06/10/17 0000 Signed Impressions: Service Date/Time: Saturday, June 10, 2017 14:38 - CONCLUSION: 1. Apparent interval progression of now critical stenosis involving the supraclinoid left carotid extending to the origin of the left A1 segment. 2. High-grade stenosis versus occlusion of the proximal right M1 segment. More distal middle cerebral branches are not visualized on the current exam unlike prior examination. Differential consideration include interval occlusion versus significantly decreased collateral flow. 3. Moderate stenosis involving the proximal left M1 segment. 4. Moderate stenosis involving the proximal right TECHNOLOGY SALES SPECIALIST. 5. 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 Sherwin Payne MD Brain MRI 06/10/17 0000 Signed Impressions: Service Date/Time: Saturday, June 10, 2017 14:38 - CONCLUSION: 1. Focal diffusion abnormality involving the right basal ganglia consistent with acute/subacute infarct in the right middle cerebral artery distribution. 2. Late subacute/chronic areas of infarction are noted within the right parietal and posterior temporal lobes consi with subacute /chronic infarcts. 3. Mild periventricular white matter small vessel ischemic changes bilaterally. Gino Gan MD Chest X-Ray 06/09/17 1247 Signed Impressions: Service Date/Time: Friday, June 09, 2017 22:37 - CONCLUSION: No evidence of acute cardiopulmonary disease. Isauro Ayoub MD 06/10/17 06/10/17 06/11/17 06/11/17 06/12/17 06/12/17 06:00 18:00 06:00 18:00 06:00 18:00 Intake Total 120 ml Output Total 350 ml Balance -350 ml 120 ml Intake Oral 120 ml Output Urine Total 350 ml # Voids 1 3 2 4 # Bowel Movements 1 Laboratory Tests Test 06/09/17 22:00 06/10/17 13:43 White Blood Count 9.6 TH/MM3 Red Blood Count 5.36 MIL/MM3 Hemoglobin 15.9 GM/DL Hematocrit 48.4 % Mean Corpuscular Volume 90.4 FL Mean Corpuscular Hemoglobin 29.6 PG Mean Corpuscular Hemoglobin Concent 32.8 % Red Cell Distribution Width 13.6 % Platelet Count 260 TH/MM3 Mean Platelet Volume 7.9 FL Neutrophils (%) (Auto) 59.0 % Lymphocytes (%) (Auto) 29.8 % Monocytes (%) (Auto) 7.2 % Eosinophils (%) (Auto) 1.8 % Basophils (%) (Auto) 2.2 % Neutrophils # (Auto) 5.7 TH/MM3 Lymphocytes # (Auto) 2.8 TH/MM3 Monocytes # (Auto) 0.7 TH/MM3 Eosinophils # (Auto) 0.2 TH/MM3 Basophils # (Auto) 0.2 TH/MM3 CBC Comment DIFF FINAL Differential Comment Prothrombin Time 12.0 SEC Prothromb Time International Ratio 1.1 RATIO Activated Partial Thromboplast Time 29.5 SEC Blood Urea Nitrogen 18 MG/DL Creatinine 1.20 MG/DL Random Glucose 105 MG/DL Calcium Level 8.3 MG/DL Uric Acid 9.4 MG/DL Sodium Level 138 MEQ/L Potassium Level 4.1 MEQ/L Chloride Level 106 MEQ/L Carbon Dioxide Level 23.2 MEQ/L Anion Gap 9 MEQ/L Estimat Glomerular Filtration Rate 62 ML/MIN Troponin I LESS THAN 0.02 NG/ML Triglycerides Level 211 MG/DL Cholesterol Level 151 MG/DL LDL Cholesterol 78 MG/DL HDL Cholesterol 30.9 MG/DL Cholesterol/HDL Ratio 4.88 RATIO Orders Procedure Category Date Status Time Ct Brain W/O Iv RADCT 06/09/17 Resulted Contrast(Rout) Electrocardiogram CAV 06/09/17 Resulted 21:54 Prothrombin Time / LAB 06/09/17 Complete Inr (Pt) 21:54 Act Partial Throm LAB 06/09/17 Complete Time (Ptt) 21:54 Complete Blood Count LAB 06/09/17 Complete With Diff 21:54 Basic Metabolic Panel LAB 06/09/17 Complete (Bmp) 21:54 Troponin I LAB 06/09/17 Complete 21:54 Chest, Single Ap RADDIAG 06/09/17 Resulted 21:54 Ecg Monitoring TX 06/09/17 Transmitted 21:54 Iv Access TX 06/09/17 Transmitted Insert/Monitor 21:54 Oximetry TX 06/09/17 Transmitted 21:54 Sodium Chloride 0.9% MED 06/09/17 Complete Flush (Ns Flush) 22:00 Foot, Complete RADDIAG 06/09/17 Resulted ([id number]) Uric Acid LAB 06/09/17 Complete 22:00 Admit To Inpatient ADMITTING 06/09/17 Transmitted Nih Stroke Scale - KEIKO 06/09/17 Complete Nihss 22:51 Case Management CONS 06/09/17 Transmitted Consult Activity Bed Rest KEIKO 06/09/17 In Process 22:51 Nursing Bedside KEIKO 06/09/17 Complete Swallow Assess 22:51 Scd Bilateral/Knee KEIKO 06/09/17 In Process High 22:51 Diet Npo DIET 06/10/17 Complete Breakfast Resp Oxygen Polo C RSP 06/09/17 Logged Titrat 1-4 L ^ Hold Medication KEIKO 06/09/17 In Process 22:51 Consult Neurology CONS 06/09/17 Transmitted Sodium Chloride 0.9% MED 06/10/17 Complete Flush (Ns Flush) 09:00 Sodium Chloride 0.9% MED 06/09/17 In Process Flush (Ns Flush) 23:00 Bedside Glucose KEIKO 06/09/17 In Process 22:51 Dextrose 50% In Arcelia MED 06/09/17 In Process (Vial) Inj (D50w (Vi 23:00 Glucagon Inj MED 06/09/17 In Process (Glucagon Inj) 23:00 Consult Rehab Medicine CONS 06/09/17 Transmitted 22:51 Boiler Cleaner / KEIKO 06/09/17 In Process Telemetry 22:51 Consult [place]oke CONS 06/09/17 Transmitted Navigator Inpatient ADMITTING 06/09/17 Transmitted Certification Admit Order (Ed Use ADMITTING 06/09/17 Transmitted Only) ^ Saline Lock KEIKO 06/09/17 In Process 22:53 Resp Oxygen Polo C RSP 06/09/17 Complete Titrat 1-[address]: Chris KEIKO 06/09/17 In Process 22:53 Sodium Chloride 0.9% MED 06/10/17 In Process Flush (Ns Flush) 09:00 Sodium Chloride 0.9% MED 06/09/17 Complete Flush (Ns Flush) 23:00 (Hub Use Only)Inp Phy CONS 06/09/17 Transmitted Cons/Ref (Hub Use Only)Inp Phy CONS 06/09/17 Transmitted Cons/Ref Acetamin-Hydrocod MED 06/10/17 Complete 325-5 Mg (Cody 5-325 04:00 Physician Name Changes ADMITTING 06/10/17 Transmitted Mra Brain W/O RADMR 06/10/17 Resulted Contrast (Cow) Lipid Profile LAB 06/10/17 Complete 12:04 Mri Brain W/O Contrast RADMR 06/10/17 Resulted Physician Name Changes ADMITTING 06/10/17 Transmitted Diet Heart Healthy DIET 06/10/17 Transmitted Dinner Atorvastatin (Lipitor) MED 06/10/17 In Process 21:00 Rivaroxaban (Xarelto) MED 06/10/17 In Process 17:00 Lisinopril (Prinivil) MED 06/11/17 In Process 21:00 Metoprolol Tartrate MED 06/11/17 Complete (Lopressor) 21:00 W[place]gren LAB 06/12/17 In Process Sedimentation Rate 12:00 Petra Screen LAB 06/12/17 In Process 12:00 Complement C3 LAB 06/12/17 In Process 12:01 Complement C4 LAB 06/12/17 In Process 12:01 Consult Vascular CONS 06/12/17 Transmitted Surgery (Hub Use Only)Inp Phy CONS 06/12/17 Transmitted Cons/Ref Metoprolol Tartrate MED 06/12/17 In Process (Lopressor) 21:00 Vital Signs Date Time Temp Pulse Resp B/P (MAP) Pulse Ox O2 Delivery O2 Flow Rate FiO2 06/12/17 12:00 97.4 60 20 129/87 (101) 94 06/12/17 08:00 96.5 67 18 146/98 (114) 94 06/12/17 07:41 92 21 06/12/17 04:00 97.6 66 18 138/88 (105) 95 06/12/17 00:00 96.6 65 18 129/90 (103) 94 06/11/17 20:55 138/86 (103) 06/11/17 20:51 151/106 (121) 06/11/17 20:45 93 21 06/11/17 20:00 97.4 93 18 151/106 (121) 93 06/11/17 20:00 92 06/11/17 18:26 98.2 78 14 162/110 (127) 95 06/11/17 15:16 80 06/11/17 15:00 96 21 06/11/17 14:46 97.8 64 18 173/102 (125) 96 06/11/17 08:00 97.3 73 18 146/106 (119) 97 06/11/17 04:48 98.0 76 20 167/98 (121) 99 06/11/17 00:32 97.9 73 16 159/94 (115) 94 06/10/17 22:59 92 21 06/10/17 20:38 98.8 63 12 161/66 (97) 94 06/10/17 20:00 88 06/10/17 16:00 97.4 69 16 140/82 (101) 96 06/10/17 12:21 97.4 70 16 140/84 (102) 96 06/10/17 11:24 06/10/17 10:40 68 16 96 Room Air 21 06/10/17 10:40 68 16 136/75 (95) 96 Room Air 06/10/17 08:55 68 16 128/64 (85) 94 Room Air 06/10/17 08:55 94 Room Air 06/10/17 08:00 96 21 06/10/17 07:11 70 16 122/70 (87) 93 Room Air 06/10/17 04:00 95 Room Air 06/09/17 23:00 96 21 06/09/17 21:43 67 16 126/78 (94) 96 Room Air 06/09/17 21:32 64 Room Air 06/09/17 17:09 98.6 67 16 111/67 (82) 93 Cortez Lua MD Jun 12, 2017 14:03
[2017-06-12] MEDS ORDERED: oxyCODONE/ACETAMINOPHEN 5 MG/325 MG TAB PO PRN (18:00)
[2017-06-12] MEDS: oxyCODONE/ACETAMINOPHEN 5 MG/325 MG TAB PO PRN (18:16)
--- NOTE | 2017-06-12 19:36 | HHI.PR ---
Subjective Remarks The patient complains of bilateral pain on the dorsal aspect of bilateral feet. Patient has no appetite and is eating a little. Denies chest pain or shortness of breath Objective Vitals Vital Signs Date Time Temp Pulse Resp B/P (MAP) Pulse Ox O2 Delivery O2 Flow Rate FiO2 06/12/17 16:10 61 06/12/17 16:00 96.9 60 20 134/87 (103) 96 06/12/17 14:33 81 06/12/17 12:00 97.4 60 20 129/87 (101) 94 06/12/17 08:00 96.5 67 18 146/98 (114) 94 06/12/17 07:41 92 21 06/12/17 04:00 97.6 66 18 138/88 (105) 95 06/12/17 00:00 96.6 65 18 129/90 (103) 94 06/11/17 20:55 138/86 (103) 06/11/17 20:51 151/106 (121) 06/11/17 20:45 93 21 06/11/17 20:00 97.4 93 18 151/106 (121) 93 06/11/17 20:00 92 I/O 06/11/17 06/11/17 06/11/17 06/12/17 06/12/17 06/12/17 07:00 15:00 23:00 07:00 15:00 23:00 Intake Total 120 ml 360 ml Balance 120 ml 360 ml Intake Oral 120 ml 360 ml # Voids 3 2 2 2 2 # Bowel Movements 1 Result Diagram: 06/09/17219906/09/172199 Imaging Last Impressions Head Magnetic Resonance Angiography 06/10/17 0000 Signed Impressions: Service Date/Time: Saturday, June 10, 2017 14:38 - CONCLUSION: 1. Apparent interval progression of now critical stenosis involving the supraclinoid left carotid extending to the origin of the left A1 segment. 2. High-grade stenosis versus occlusion of the proximal right M1 segment. More distal middle cerebral branches are not visualized on the current exam unlike prior examination. Differential consideration include interval occlusion versus significantly decreased collateral flow. 3. Moderate stenosis involving the proximal left M1 segment. 4. 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 5. 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 Sherwin Payne MD Brain MRI 06/10/17 0000 Signed Impressions: Service Date/Time: Saturday, June 10, 2017 14:38 - CONCLUSION: 1. Focal diffusion abnormality involving the right basal ganglia consistent with acute/subacute infarct in the right middle cerebral artery distribution. 2. Late subacute/chronic areas of infarction are noted within the right parietal and posterior temporal lobes consi with subacute /chronic infarcts. 3. Mild periventricular white matter small vessel ischemic changes bilaterally. Gino Gan MD Chest X-Ray 06/09/172153 Signed Impressions: Service Date/Time: Friday, June 09, 2017 22:37 - CONCLUSION: No evidence of acute cardiopulmonary disease. Isauro Ayoub MD Head CT 06/09/17 0000 Signed Impressions: Service Date/Time: Friday, June 09, 2017 20:07 - CONCLUSION: 1. Areas of low attenuation in the right basal ganglia could be subacute infarct. 2. Old right parietal infarcts. Derek Nieves MD Foot X-Ray 06/09/17 0000 Signed Impressions: Service Date/Time: Friday, June 09, 2017 22:37 - CONCLUSION: No fracture , subluxation or other acute bony abnormality seen of the right foot. There is midfoot/forefoot soft tissue swelling without a radiopaque foreign body. Large enthesophyte of the distal Achilles without evidence of tendon thickening. Isauro Ayoub MD Objective Remarks AAOx3 NAD Clear lungs BL S1S2 RRR, no MRG no edema in lower extrtemities CN II - XII grossly intact. m strength 4/5 in lower extremities and 5/5 in upper extremities. Medications and IVs Current Medications Medications (Trade) Dose Ordered Sig/Deanna Route Start Time Stop Time Status Last Admin (NS Flush) 2 ml UNSCH PRN IV FLUSH 06/09/17 23:00 (D50w (Vial) Inj) 50 ml UNSCH PRN IV PUSH 06/09/17 23:00 (Glucagon Inj) 1 mg UNSCH PRN OTHER 06/09/17 23:00 (NS Flush) 2 ml BID IV FLUSH 06/10/17 09:00 06/12/17 09:26 (Lipitor) 40 mg HS PO 06/10/17 21:00 06/11/17 20:13 (Xarelto) 20 mg DAILY PO 06/10/17 17:00 06/12/17 09:22 (Prinivil) 10 mg BID PO 06/11/17 21:00 06/12/17 09:23 (Lopressor) 25 mg BID PO 06/12/17 21:00 (Percocet 5-325 Mg) 1 tab Q4H PRN PO 06/12/17 18:00 (Percocet 5-325 Mg) 2 tab Q4H PRN PO 06/12/17 18:00 06/12/17 18:16 Urinary Catheter: No Vascular Central Line Catheter: No A/P Problem List: (1) CVA (cerebral vascular accident) ICD Code: I63.9 - Cerebral infarction, unspecified Status: Acute Assessment and Plan Recent CVA with recurrent symptoms to include loss of coordination, slurred speech, blurry vision, memory issues Patient does have history of noncompliance with Xarelto, with recent admission and neurological workup CT scan does indicate areas of low-attenuation in the right basal ganglia which could be a subacute infarct Patient counseled on significance of taking medication and importance to continue medication regardless of reason, could cause worsening neurological conditions, stroke, even Patient with recent full neurological workup 2 months ago Neurology consulted for further recommendations 06/11 will discuss with neurology leonel further management. Patient states is compliant with medications. 06/12 MRA of the head as described above shows critical left carotid stenosis. Consult vascular surgery and follow recommendations. Chronic atrial fibrillation- rate controlled Continue anticoagulation with Xarelto Continue outpatient follow-up with Dr. Mcclendon Hyperlipidemia Statin continued Lipid profile shows triglycerides to 11 and a total cholesterol of 151 with an LDL cholesterol of 78. DVT prevention Patient on Xarelto Problem Qualifiers (1) CVA (cerebral vascular accident): Siddharth Browning MD Jun 12, 2017 19:36
--- NOTE | 2017-06-12 20:41 | RADRPT ---
EXAM DATE/TIME: 06/12/2017 20:14 [facility] COMPARISON: No previous studies available for comparison. INDICATIONS : No known injury. Pain in knee for two days. MEDICAL HISTORY : Cardiovascular disease. Hypertension SURGICAL HISTORY : None. ENCOUNTER: Subsequent ACUITY: 2 days PAIN SCORE: 4/10 LOCATION: Left Knee FINDINGS: Two view examination of the left knee demonstrates no evidence of fracture or dislocation. Bony mine ralization is normal. The suprapatellar soft tissues have a normal configuration. CONCLUSION: No acute abnormality seen of the left knee. Isauro Ayoub MD on June 12, 2017 at 20:39 Board Certified Radiologist. This report was verified electronically.
[2017-06-12] MEDS: METOPROLOL TARTRATE 25 MG TAB PO SCH (20:48)
[2017-06-12] MEDS: ATORVASTATIN 40 MG TAB PO SCH (20:48)
[2017-06-13] VITALS (7 sets, daily range): BP systolic 95–120; BP diastolic 67–87; PULSE 59–73; RESP 14–22; TEMP 97.1–98; O2SAT 92–97
[2017-06-13] MEDS ORDERED: IOHEXOL 350 MG/ML 10 ML VIAL (for RAD DIAG) IVCONTRAST ONE (08:52)
--- NOTE | 2017-06-13 09:25 | RADRPT ---
EXAM DATE/TIME: 06/13/2017 08:35 [facility] COMPARISON: MRI BRAIN W/O CONTRAST, June 10, 2017, 14:38. INDICATIONS : Memory loss, slurred speech, and weakness x 3 days. Abnormal MRI. IV CONTRAST: 75 cc Omnipaque 350 (iohexol) IV RADIATION DOSE: 42.13 CTDIvol (mGy) MEDICAL HISTORY : Cerebrovascular disease. Hypertension. SURGICAL HISTORY : None. ENCOUNTER: Initial ACUITY: 3 days PAIN SCALE: 0/10 LOCATION: neck Elevated flow velocities and ICA/CCA ratios have been found to correlate with increased degrees of vessel stenosis, calculated as percentage of diameter relative to a normal segment of distal ICA/CCA. TECHNIQUE: Volumetric scanning was performed using a multirow detector CT scanner. The data was post processed with a variety of visualization algorithms including full-volume maximum intensity projection, multip lanar sliding thin-slab reformation, curved-planar reformation, and surface-rendering techniques. Us ing automated exposure control and adjustment of the mA and/or kV according to patient size, radiatio n dose was kept as low as reasonably achievable to obtain optimal diagnostic quality images. DICOM f ormat image data is available electronically for review and comparison. FINDINGS: AORTIC ARCH: There is a three-vessel origin of the great vessels from the aorta. No evidence of ostial narrowing. RIGHT CAROTID: The common carotid artery is intact. The carotid bulb has a normal configuration without ulceration o r narrowing. The internal carotid artery lumen is smooth without stenosis. The external carotid leena ry is intact. LEFT CAROTID: The common carotid artery is intact. The carotid bulb has a normal configuration without ulceration or narrowing. The internal carotid artery lumen is smooth without stenosis. The external carotid ar kar is intact. VERTEBRALS: The vertebral arteries are patent bilaterally, left side minimally dominant. No stenotic lesions are seen. CONCLUSION: Normal study Isauro More MD on June 13, 2017 at 9:20 Board Certified Radiologist. This report was verified electronically.
[2017-06-13] MEDS: RIVAROXABAN 20 MG TAB PO SCH (10:55)
[2017-06-13] MEDS: METOPROLOL TARTRATE 25 MG TAB PO SCH ×2 (10:56→20:43)
[2017-06-13] MEDS: SODIUM CHLORIDE 0.9% FLUSH 10 ML FLUSH IV FLUSH SCH ×2 (10:57→20:48)
[2017-06-13] MEDS: LISINOPRIL 10 MG TAB PO SCH ×2 (11:01→20:48)
[2017-06-13] MEDS: oxyCODONE/ACETAMINOPHEN 5 MG/325 MG TAB PO PRN ×2 (11:21→20:48)
--- NOTE | 2017-06-13 14:44 | PD.CAR.PN ---
CVT Progress Note Subjective/Hospital Course: 56-year-old patient with repeated strokes throughout the summer leaving in with left hemiparesis. The last one 2 days ago for which patient is now admitted to the hospital CTA of the neck does not show any significant degree of carotid stenosis or hemodynamic disturbance MRA of the brain reveals several areas of critical stenosis of intracranial internal carotid artery and elements of [place] of D[place] There is no place for vascular surgery in this situation in face of normal extracranial carotid arteries and no surgery is indicated from vascular point Thanks J Objective: Vital Signs Date Time Temp Pulse Resp B/P (MAP) Pulse Ox O2 Delivery O2 Flow Rate FiO2 06/13/17 12:10 97.8 62 18 107/75 (86) 95 06/13/17 08:22 98.0 70 16 116/82 (93) 96 06/13/17 04:00 97.8 59 14 120/87 (98) 95 06/13/17 00:00 97.2 59 22 95/70 (78) 97 06/12/17 20:00 57 06/12/17 20:00 97.6 66 22 104/76 (85) 91 06/12/17 19:16 20 06/12/17 16:10 61 06/12/17 16:00 96.9 60 20 134/87 (103) 96 Result Diagram: 06/09/17219906/09/172199 Joseph Kauffman MD Jun 13, 2017 14:44
[2017-06-13] MEDS ORDERED: CLINDAMYCIN 150 MG CAP PO SCH (14:45)
--- NOTE | 2017-06-13 14:48 | HHI.PR ---
Subjective Remarks patient states pain over feet is better c/o pain over left knee Objective Vitals Vital Signs Date Time Temp Pulse Resp B/P (MAP) Pulse Ox O2 Delivery O2 Flow Rate FiO2 06/13/17 12:10 97.8 62 18 107/75 (86) 95 06/13/17 08:22 98.0 70 16 116/82 (93) 96 06/13/17 04:00 97.8 59 14 120/87 (98) 95 06/13/17 00:00 97.2 59 22 95/70 (78) 97 06/12/17 20:00 57 06/12/17 20:00 97.6 66 22 104/76 (85) 91 06/12/17 19:16 20 06/12/17 16:10 61 06/12/17 16:00 96.9 60 20 134/87 (103) 96 I/O 06/12/17 06/12/17 06/12/17 06/13/17 06/13/17 06/13/17 07:00 15:00 23:00 07:00 15:00 23:00 Intake Total 120 ml 360 ml 480 ml 480 ml Balance 120 ml 360 ml 480 ml 480 ml Intake Oral 120 ml 360 ml 480 ml 480 ml # Voids 2 2 2 2 # Bowel Movements 1 0 0 Result Diagram: 06/09/17219906/09/172199 Imaging Last Impressions Neck CTA 06/13/17 0000 Signed Impressions: Service Date/Time: Tuesday, June 13, 2017 08:35 - CONCLUSION: Normal study Isauro More MD Knee X-Ray 06/12/17 0000 Signed Impressions: Service Date/Time: May 20:14 - CONCLUSION: No acute abnormality seen of the left knee. Isauro Ayoub MD Head Magnetic Resonance Angiography 06/10/17 0000 Signed Impressions: Service Date/Time: Saturday, June 10, 2017 14:38 - CONCLUSION: 1. Apparent interval progression of now critical stenosis involving the supraclinoid left carotid extending to the origin of the left A1 segment. 2. High-grade stenosis versus occlusion of the proximal right M1 segment. More distal middle cerebral branches are not visualized on the current exam unlike prior examination. Differential consideration include interval occlusion versus significantly decreased collateral flow. 3. Moderate stenosis involving the proximal left M1 segment. 4. 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 5. 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 Sherwin Payne MD Brain MRI 06/10/17 0000 Signed Impressions: Service Date/Time: Saturday, June 10, 2017 14:38 - CONCLUSION: 1. Focal diffusion abnormality involving the right basal ganglia consistent with acute/subacute infarct in the right middle cerebral artery distribution. 2. Late subacute/chronic areas of infarction are noted within the right parietal and posterior temporal lobes consi with subacute /chronic infarcts. 3. Mild periventricular white matter small vessel ischemic changes bilaterally. Gino Gan MD Chest X-Ray 06/09/172153 Signed Impressions: Service Date/Time: Friday, June 09, 2017 22:37 - CONCLUSION: No evidence of acute cardiopulmonary disease. Isauro Ayoub MD Head CT 06/09/17 0000 Signed Impressions: Service Date/Time: Friday, June 09, 2017 20:07 - CONCLUSION: 1. Areas of low attenuation in the right basal ganglia could be subacute infarct. 2. Old right parietal infarcts. Derek Nieves MD Foot X-Ray 06/09/17 0000 Signed Impressions: Service Date/Time: Friday, June 09, 2017 22:37 - CONCLUSION: No fracture , subluxation or other acute bony abnormality seen of the right foot. There is midfoot/forefoot soft tissue swelling without a radiopaque foreign body. Large enthesophyte of the distal Achilles without evidence of tendon thickening. Isauro Ayoub MD Objective Remarks AAOx3 NAD Clear lungs BL S1S2 RRR, no MRG no edema in lower extrtemities CN II - XII grossly intact. m strength 4/5 in lower extremities and 5/5 in upper extremities. Medications and IVs Current Medications Medications (Trade) Dose Ordered Sig/Deanna Route Start Time Stop Time Status Last Admin (NS Flush) 2 ml UNSCH PRN IV FLUSH 06/09/17 23:00 (D50w (Vial) Inj) 50 ml UNSCH PRN IV PUSH 06/09/17 23:00 (Glucagon Inj) 1 mg UNSCH PRN OTHER 06/09/17 23:00 (NS Flush) 2 ml BID IV FLUSH 06/10/17 09:00 06/13/17 10:57 (Lipitor) 40 mg HS PO 06/10/17 21:00 06/12/17 20:48 (Xarelto) 20 mg DAILY PO 06/10/17 17:00 06/13/17 10:55 (Prinivil) 10 mg BID PO 06/11/17 21:00 06/13/17 11:01 (Lopressor) 25 mg BID PO 06/12/17 21:00 06/13/17 10:56 (Percocet 5-325 Mg) 1 tab Q4H PRN PO 06/12/17 18:00 (Percocet 5-325 Mg) 2 tab Q4H PRN PO 06/12/17 18:00 06/13/17 11:21 A/P Problem List: (1) CVA (cerebral vascular accident) ICD Code: I63.9 - Cerebral infarction, unspecified Status: Acute Assessment and Plan Recent CVA with recurrent symptoms to include loss of coordination, slurred speech, blurry vision, memory issues Patient does have history of noncompliance with Xarelto, with recent admission and neurological workup CT scan does indicate areas of low-attenuation in the right basal ganglia which could be a subacute infarct Patient counseled on significance of taking medication and importance to continue medication regardless of reason, could cause worsening neurological conditions, stroke, even Patient with recent full neurological workup 2 months ago Neurology consulted for further recommendations 06/11 will discuss with neurology leonel further management. Patient states is compliant with medications. 06/12 MRA of the head as described above shows critical left carotid stenosis. Consult vascular surgery and follow recommendations. 06/13 CTA of the neck normal. Likely not the cause of the cva. Patient and states that patient is compliant with Xarelto. Will fu neurology recommendations. GAYE pending, C4 elevated. Sed rate is normal so likely not a vasculitis. Chronic atrial fibrillation- rate controlled Continue anticoagulation with Xarelto Continue outpatient follow-up with Dr. Mcclendon Hyperlipidemia Statin continued Lipid profile shows triglycerides to 11 and a total cholesterol of 151 with an LDL cholesterol of 78. Right Knee erythema Skin over the left knee is warm and tender to touch. Suspect gout vs cellulitis. Will start on Indomethacin and oral doxycycline. DVT prevention Patient on Xarelto Discharge Planning DC pending neurology clearance. Problem Qualifiers (1) CVA (cerebral vascular accident): Siddharth Browning MD Jun 13, 2017 14:48
[2017-06-13] MEDS: DOXYCYCLINE HYCLATE 100 MG CAP PO SCH (20:43)
[2017-06-13] MEDS: ATORVASTATIN 40 MG TAB PO SCH (20:47)
[2017-06-13] MEDS: INDOMETHACIN 25 MG CAP PO SCH (21:43)
[2017-06-14] VITALS (7 sets, daily range): BP systolic 96–118; BP diastolic 56–77; PULSE 60–116; RESP 16–18; TEMP 95.9–98.3; O2SAT 93–97
[2017-06-14 07:59] LABS: POTASSIUM 4.2 MEQ/L (3.5-5.1)
[2017-06-14 08:04] LABS: BICARBONATE 21.9 MEQ/L (21.0-32.0)
[2017-06-14] MEDS: oxyCODONE/ACETAMINOPHEN 5 MG/325 MG TAB PO PRN ×2 (08:54→22:16)
[2017-06-14] MEDS: DOXYCYCLINE HYCLATE 100 MG CAP PO SCH ×2 (08:54→22:14)
[2017-06-14] MEDS: RIVAROXABAN 20 MG TAB PO SCH (08:55)
[2017-06-14] MEDS: INDOMETHACIN 25 MG CAP PO SCH ×2 (08:55→22:15)
[2017-06-14] MEDS: METOPROLOL TARTRATE 25 MG TAB PO SCH ×2 (08:55→22:14)
[2017-06-14] MEDS: LISINOPRIL 10 MG TAB PO SCH ×2 (08:55→22:15)
[2017-06-14] MEDS: SODIUM CHLORIDE 0.9% FLUSH 10 ML FLUSH IV FLUSH SCH ×2 (08:57→21:00)
--- NOTE | 2017-06-14 18:52 | HHI.PR ---
Subjective Remarks denies new neurological symptoms denies cp/sob Objective Vitals Vital Signs Date Time Temp Pulse Resp B/P (MAP) Pulse Ox O2 Delivery O2 Flow Rate FiO2 06/14/17 16:13 97.7 60 17 96/67 (77) 96 06/14/17 12:00 98.0 61 18 96/56 (69) 96 06/14/17 08:56 97.5 60 16 105/73 (84) 97 06/14/17 07:31 88 06/14/17 04:00 96.2 63 16 114/77 (89) 96 06/14/17 00:00 95.9 65 16 115/76 (89) 94 06/13/17 20:00 70 06/13/17 20:00 97.1 73 22 118/67 (84) 92 I/O 06/13/17 06/13/17 06/13/17 06/14/17 06/14/17 06/14/17 07:00 15:00 23:00 07:00 15:00 23:00 Intake Total 480 ml 480 ml 220 ml 100 ml 1200 ml Output Total 0 ml Balance 480 ml 480 ml 220 ml 100 ml 1200 ml Intake Oral 480 ml 480 ml 220 ml 100 ml 1200 ml Output Urine Total 0 ml # Voids 2 4 1 4 # Bowel Movements 0 0 0 Result Diagram: 06/14/17 0722 Imaging Last Impressions Neck CTA 06/13/17 0000 Signed Impressions: Service Date/Time: Tuesday, June 13, 2017 08:35 - CONCLUSION: Normal study Isauro More MD Knee X-Ray 06/12/17 0000 Signed Impressions: Service Date/Time: May 20:14 - CONCLUSION: No acute abnormality seen of the left knee. Isauro Ayoub MD Head Magnetic Resonance Angiography 06/10/17 0000 Signed Impressions: Service Date/Time: Saturday, June 10, 2017 14:38 - CONCLUSION: 1. Apparent interval progression of now critical stenosis involving the supraclinoid left carotid extending to the origin of the left A1 segment. 2. High-grade stenosis versus occlusion of the proximal right M1 segment. More distal middle cerebral branches are not visualized on the current exam unlike prior examination. Differential consideration include interval occlusion versus significantly decreased collateral flow. 3. Moderate stenosis involving the proximal left M1 segment. 4. 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 5. 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 Sherwin Payne MD Brain MRI 06/10/17 0000 Signed Impressions: Service Date/Time: Saturday, June 10, 2017 14:38 - CONCLUSION: 1. Focal diffusion abnormality involving the right basal ganglia consistent with acute/subacute infarct in the right middle cerebral artery distribution. 2. Late subacute/chronic areas of infarction are noted within the right parietal and posterior temporal lobes consi with subacute /chronic infarcts. 3. Mild periventricular white matter small vessel ischemic changes bilaterally. Gino Gan MD Chest X-Ray 06/09/172153 Signed Impressions: Service Date/Time: Friday, June 09, 2017 22:37 - CONCLUSION: No evidence of acute cardiopulmonary disease. Isauro Ayoub MD Head CT 06/09/17 0000 Signed Impressions: Service Date/Time: Friday, June 09, 2017 20:07 - CONCLUSION: 1. Areas of low attenuation in the right basal ganglia could be subacute infarct. 2. Old right parietal infarcts. Derek Nieves MD Foot X-Ray 06/09/17 0000 Signed Impressions: Service Date/Time: Friday, June 09, 2017 22:37 - CONCLUSION: No fracture , subluxation or other acute bony abnormality seen of the right foot. There is midfoot/forefoot soft tissue swelling without a radiopaque foreign body. Large enthesophyte of the distal Achilles without evidence of tendon thickening. Isauro Ayoub MD Objective Remarks AAOx3 NAD Clear lungs BL S1S2 RRR, no MRG no edema in lower extrtemities CN II - XII grossly intact. m strength 4/5 in lower extremities and 5/5 in upper extremities. Medications and IVs Current Medications Medications (Trade) Dose Ordered Sig/Deanna Route Start Time Stop Time Status Last Admin (NS Flush) 2 ml UNSCH PRN IV FLUSH 06/09/17 23:00 (D50w (Vial) Inj) 50 ml UNSCH PRN IV PUSH 06/09/17 23:00 (Glucagon Inj) 1 mg UNSCH PRN OTHER 06/09/17 23:00 (NS Flush) 2 ml BID IV FLUSH 06/10/17 09:00 06/14/17 21:00 (Lipitor) 40 mg HS PO 06/10/17 21:00 06/14/17 22:15 (Xarelto) 20 mg DAILY PO 06/10/17 17:00 06/14/17 08:55 (Prinivil) 10 mg BID PO 06/11/17 21:00 06/14/17 22:15 (Lopressor) 25 mg BID PO 06/12/17 21:00 06/14/17 22:14 (Percocet 5-325 Mg) 1 tab Q4H PRN PO 06/12/17 18:00 (Percocet 5-325 Mg) 2 tab Q4H PRN PO 06/12/17 18:00 06/14/17 22:16 (Vibramycin) 100 mg BID PO 06/13/17 21:00 06/14/17 22:14 (Indocin) 50 mg Q12HR PO 06/13/17 21:00 06/14/17 22:15 A/P Problem List: (1) CVA (cerebral vascular accident) ICD Code: I63.9 - Cerebral infarction, unspecified Status: Acute Assessment and Plan Recent CVA with recurrent symptoms to include loss of coordination, slurred speech, blurry vision, memory issues Patient does have history of noncompliance with Xarelto, with recent admission and neurological workup CT scan does indicate areas of low-attenuation in the right basal ganglia which could be a subacute infarct Patient counseled on significance of taking medication and importance to continue medication regardless of reason, could cause worsening neurological conditions, stroke, even Patient with recent full neurological workup 2 months ago Neurology consulted for further recommendations 06/11 will discuss with neurology leonel further management. Patient states is compliant with medications. 06/12 MRA of the head as described above shows critical left carotid stenosis. Consult vascular surgery and follow recommendations. 06/13 CTA of the neck normal. Likely not the cause of the cva. Patient and states that patient is compliant with Xarelto. Will fu neurology recommendations. GAYE pending, C4 elevated. Sed rate is normal so likely not a vasculitis. 06/14 GAYE negative. CTA normal, appreciate vascular surgery recommendations. PT consult. Chronic atrial fibrillation- rate controlled Continue anticoagulation with Xarelto Continue outpatient follow-up with Dr. Mcclendon Hyperlipidemia Statin continued Lipid profile shows triglycerides to 11 and a total cholesterol of 151 with an LDL cholesterol of 78. Right Knee erythema Skin over the left knee is warm and tender to touch. Suspect gout vs cellulitis. Will start on Indomethacin and oral doxycycline. 06/14 erythema and tenderness much improved. Continue with doxycycline and indomethacin. DVT prevention Patient on Xarelto Discharge Planning DC pending PT evaluation. Possible DC in am. Problem Qualifiers (1) CVA (cerebral vascular accident): Siddharth Browning MD Jun 14, 2017 18:52
[2017-06-14] MEDS: ATORVASTATIN 40 MG TAB PO SCH (22:15)
[2017-06-15] VITALS: BP 115/72; PULSE 60; RESP 18; TEMP 98.4; O2SAT 93
[2017-06-15 08:00] VITALS: BP 127/86; PULSE 60; RESP 20; TEMP 97.5; O2SAT 97
[2017-06-15] MEDS: SODIUM CHLORIDE 0.9% FLUSH 10 ML FLUSH IV FLUSH SCH (10:15)
[2017-06-15] MEDS: RIVAROXABAN 20 MG TAB PO SCH (10:16)
[2017-06-15] MEDS: DOXYCYCLINE HYCLATE 100 MG CAP PO SCH (10:16)
[2017-06-15] MEDS: METOPROLOL TARTRATE 25 MG TAB PO SCH (10:16)
[2017-06-15] MEDS: LISINOPRIL 10 MG TAB PO SCH (10:16)
[2017-06-15] MEDS: INDOMETHACIN 25 MG CAP PO SCH (10:16)
[2017-06-15 12:00] VITALS: BP 133/90; PULSE 60; RESP 20; TEMP 95.3; O2SAT 98
[2017-06-15] MEDS ORDERED: ATOR40TA16 PO (15:12)
[2017-06-15] MEDS ORDERED: DOXY100C PO (15:12)
[2017-06-15] MEDS ORDERED: PANT20 PO (15:12)
[2017-06-15] MEDS ORDERED: LISI10TA3 PO (15:12)
[2017-06-15] MEDS ORDERED: METO-309 PO (15:12)
[2017-06-15] MEDS ORDERED: INDO25CA PO (15:12)
[2017-06-15] MEDS ORDERED: XARE20TA PO (15:12)
--- NOTE | 2017-06-15 15:13 | HHI.DCPOC ---
Discharge Care Plan Diagnosis: (1) Cellulitis (2) CVA (cerebral vascular accident) (3) Gout attack (4) Atrial fibrillation with rapid ventricular response (5) HLD (hyperlipidemia) (6) HTN (hypertension) (7) SHANA (acute kidney injury) Goals to Promote Your Health * To prevent worsening of your condition and complications * To maintain your health at the optimal level Directions to Meet Your Goals Take your medications as prescribed Follow your dietary instruction Follow activity as directed Keep your appointments as scheduled Take your immunizations and boosters as scheduled If your symptoms worsen call your PCP, if no PCP go to Urgent Care Center or Emergency Room Smoking is Dangerous to Your Health. Avoid second hand smoke Call the 24-hour hour crisis hotline for domestic abuse at Siddharth Browning MD Jun 15, 2017 15:12
--- NOTE | 2017-06-15 15:16 | HHI.DS ---
Discharge Summary Admission Date Jun 09, 2017 at 22:54 Discharge Date: Jun 15, 2017 Admitting Diagnosis CVA (1) CVA (cerebral vascular accident) ICD Code: I63.9 - Cerebral infarction, unspecified Diagnosis: Principal Status: Acute Brief History - From Admission Written by Dharmesh Rosario, acting as scribe for Dr. Galindo on 06/10/17 at 11: 54. 56 year-old male with known history of atrial fibrillation, CVA, TIA, hypertension, hyponatremia, gastroesophageal reflux who presented to the hospital again with neurological symptoms include loss of coordination, slurred speech, blurry vision, loss of memory. Patient was just admitted the hospital 2 month ago for same symptoms because of noncompliance with Xarelto. Patient indicates that there has been episode where he has missed 2 days of Xarelto due to running out of his prescription. Patient was doing well until yesterday when he started developing the neurological symptoms, to include loss of coordination, slurred speech, blurred vision, memory issues. Since being in the hospital his symptoms have resolved and he is back to his baseline. Patient has CT scan done in emergency department that does show areas of low attenuation in the right basal ganglia which could be a subacute infarct. It was recommended by ER physician that the patient be admitted for further evaluation and management. CBC/BMP: 06/14/17 0722 Significant Findings Laboratory Tests Test 06/14/17 07:22 Blood Urea Nitrogen 29 MG/DL (7-18) Estimat Glomerular Filtration Rate 62 ML/MIN (>89) Imaging Last Impressions Neck CTA 06/13/17 0000 Signed Impressions: Service Date/Time: Tuesday, June 13, 2017 08:35 - CONCLUSION: Normal study Isauro More MD Knee X-Ray 06/12/17 0000 Signed Impressions: Service Date/Time: May 20:14 - CONCLUSION: No acute abnormality seen of the left knee. Isauro Ayoub MD Head Magnetic Resonance Angiography 06/10/17 0000 Signed Impressions: Service Date/Time: Saturday, June 10, 2017 14:38 - CONCLUSION: 1. Apparent interval progression of now critical stenosis involving the supraclinoid left carotid extending to the origin of the left A1 segment. 2. High-grade stenosis versus occlusion of the proximal right M1 segment. More distal middle cerebral branches are not visualized on the current exam unlike prior examination. Differential consideration include interval occlusion versus significantly decreased collateral flow. 3. Moderate stenosis involving the proximal left M1 segment. 4. Moderate stenosis involving the proximal right [employer] [place]. 5. 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 Sherwin Payne MD Brain MRI 06/10/17 0000 Signed Impressions: Service Date/Time: Saturday, June 10, 2017 14:38 - CONCLUSION: 1. Focal diffusion abnormality involving the right basal ganglia consistent with acute/subacute infarct in the right middle cerebral artery distribution. 2. Late subacute/chronic areas of infarction are noted within the right parietal and posterior temporal lobes consi with subacute /chronic infarcts. 3. Mild periventricular white matter small vessel ischemic changes bilaterally. Gino Gan MD Chest X-Ray [id number] Signed Impressions: Service Date/Time: Friday, June 09, 2017 22:37 - CONCLUSION: No evidence of acute cardiopulmonary disease. Isauro Ayoub MD Head CT 06/09/17 0000 Signed Impressions: Service Date/Time: Friday, June 09, 2017 20:07 - CONCLUSION: 1. Areas of low attenuation in the right basal ganglia could be subacute infarct. 2. Old right parietal infarcts. Derek Nieves MD Foot X-Ray 06/09/17 0000 Signed Impressions: Service Date/Time: Friday, June 09, 2017 22:37 - CONCLUSION: No fracture , subluxation or other acute bony abnormality seen of the right foot. There is midfoot/forefoot soft tissue swelling without a radiopaque foreign body. Large enthesophyte of the distal Achilles without evidence of tendon thickening. Isauro Ayoub MD PE at Discharge AAOx3 NAD Clear lungs BL S1S2 RRR, no MRG no edema in lower extrtemities CN II - XII grossly intact. m strength 4/5 in lower extremities and 5/5 in upper extremities. Pt Condition on Discharge: Stable Discharge Disposition: Disch w/ Home Health Serv Discharge Time: > 30 minutes Discharge Instructions DIET: Follow Instructions for: Heart Healthy Diet Activities you can perform: Regular-No Restrictions Follow up Referrals: Neurology - 2 Weeks PCP Follow-up - 1 Week New Medications: Pantoprazole (Protonix) 20 Mg Tab 20 MG PO DAILY for Reflux, #10 TAB 0 Refills Doxycycline Hyclate (Doxycycline Hyclate) 100 Mg Cap 100 MG PO BID for Infection, #14 CAP Indomethacin (Indomethacin) 25 Mg Cap 50 MG PO Q12HR for Inflammation, #10 CAP Take with food, milk, or antacids to decrease stomach adverse effects. Continued Medications: Atorvastatin (Atorvastatin) 40 Mg Tab 40 MG PO HS for Stroke Prevention, #31 TAB 3 Refills (This prescription has been renewed) Lisinopril (Lisinopril) 10 Mg Tab 10 MG PO BID, #30 TAB 3 Refills (This prescription has been renewed) Loratadine (Allergy Relief) 10 Mg Tab 10 MG PO DAILY, TAB Metoprolol Tartrate (Lopressor) 50 Mg Tab 50 MG PO Q12HR for Blood Pressure Management, #30 TAB 3 Refills (This prescription has been renewed) Rivaroxaban (Xarelto) 20 Mg Tab 20 MG PO DAILY for Prevent Blood Clot, #30 TAB 3 Refills (This prescription has been renewed) Siddharth Browning MD Jun 15, 2017 15:16
[2017-06-15 16:00] VITALS: BP 103/79; PULSE 63; RESP 20; TEMP 97.1; O2SAT 95
--- NOTE | 2017-06-19 18:38 | PQ ---
Physician Query Response Document PATIENT: ASH ESPINOZA : 1960 ADMIT DATE: 06/09/2017 10:54 PM DISCH DATE: 06/15/2017 6:03 PM RESPONDING PROVIDER #: [email or web address] QUERY TEXT: Clarification of Clinical Diagnostic Findings Please clarify documentation or clinical relevance for the clinical / diagnostic findings or whether those are insignificant or unable to be further specified. WAS SHANA: 1)present on admission 2)present after admission 3)patient did not have SHANA WAS CELLULITIS : 1)present on admission 2)present after admission 3)patient did not have cellulitis The patient's Clinical Indicators include: Dr DUFFY, please clarify. DISCHARGE CONTINUEING CARE PLAN documents SHANA and CELLULITIS. SHANA and CELLULITIS are not documented in body of account. Please review the questions below to VERIFY OR EXCULDE diagnosis of SHAAN and CELLULITIS. Query created by: Redd Hernandez on 06/17/2017 9:54 AM RESPONSE TEXT: Patient did not have SHANA Patient did not have cellulitis Electronically signed by: Siddharth Barroso MD 06/19/2017 6:34 PM
== END 2017-06-15 18:03 | disposition home or self-care (01) | DRG 65 ==
LOC: PHED 16:24 → PHEDA 22:54 → PH5A 06-10 11:30
PROVIDERS: ADMIT Hospitalist; ATTEND Hospitalist
DX: I63.9 Cerebral infarction, unspecified (principal); I69.354 Hemiplegia and hemiparesis following cerebral infarction affecting left non-dominant side; I10 Essential (primary) hypertension; M10.9 Gout, unspecified; R47.81 Slurred speech; R29.810 Facial weakness; E78.00 Pure hypercholesterolemia, unspecified; G47.30 Sleep apnea, unspecified; I48.2 Chronic atrial fibrillation; I65.22 Occlusion and stenosis of left carotid artery; M19.90 Unspecified osteoarthritis, unspecified site; Z79.01 Long term (current) use of anticoagulants; K21.9 Gastro-esophageal reflux disease without esophagitis; Z91.14 Patient's other noncompliance with medication regimen
CPT/HCPCS: 70450; 70498; 70544; 70551; 71010; 73560; 73630; 76937; 80048; 80061; 82948; 84484; 84550; 85025; 85610; 85652; 85730; 86038; 86160; 93005; Q9967

== ENCOUNTER 2018-01-29 00:19 | Emergency (ER) | payer SELFPAY ==
[~2018-01-29] VITALS: Ht 172.7 cm; Wt 80.0 kg
[~2018-01-29 00:19] MED LIST changes: -ALLE10TA PO; +DOXY100C PO; +INDO25CA PO; +LORA-650 PO; +PANT20 PO
[2018-01-29 00:24] VITALS: BP 175/110; PULSE 71; RESP 20; TEMP 98.1; O2SAT 94
[2018-01-29 00:41] VITALS: O2SAT 98
[2018-01-29] MEDS ORDERED: SODIUM CHLORIDE 0.9% FLUSH 10 ML FLUSH IVF PRN (00:45)
[2018-01-29 00:46] LABS: BASOPHIL # 0.1 TH/MM3 (0-0.2); BASOPHIL % 0.9 % (0.0-2.0); EOSINOPHIL # 0.2 TH/MM3 (0-0.4); EOSINOPHIL % 2.6 % (0.0-4.0); HEMATOCRIT 51.2 % (39.0-51.0); LYMPH % 35.8 % (9.0-44.0); LYMPHOCYTE # 3.3 TH/MM3 (1.0-4.8); MEAN CELL VOLUME 89.6 FL (80.0-100.0); MEAN CORPUSCULAR HEMOGLOBIN 31.6 PG (27.0-34.0); MEAN CORPUSCULAR HGB CONC 35.2 % (32.0-36.0); MEAN PLATELET VOLUME 7.4 FL (7.0-11.0); MONO % 7.6 % (0.0-8.0); MONOCYTE # 0.7 TH/MM3 (0-0.9); NEUT % 53.1 % (16.0-70.0); PLATELET COUNT 265 TH/MM3 (150-450); RED BLOOD COUNT 5.72 MIL/MM3 (4.50-5.90); RED CELL DISTRIBUTION WIDTH 13.7 % (11.6-17.2); WHITE BLOOD COUNT 9.4 TH/MM3 (4.0-11.0)
--- NOTE | 2018-01-29 00:50 | RADRPT ---
EXAM DATE/TIME: 01/29/2018 00:39 [facility] COMPARISON: CHEST SINGLE AP, June 09, 2017, 22:37. INDICATIONS : Short of breath. MEDICAL HISTORY : Cardiovascular disease. Hypertension. SURGICAL HISTORY : None. ENCOUNTER: Initial ACUITY: 1 day PAIN SCORE: 0/10 LOCATION: Bilateral chest FINDINGS: A single view of the chest demonstrates the lungs to be symmetrically hypoinflated with minimal basil ar atelectatic changes. No confluent infiltrate or effusion. Heart size is normal. Osseous structures are intact. CONCLUSION: Hypoinflation with no acute cardiopulmonary process. Juan A Alvarez MD on January 29, 2018 at 0:48 Board Certified Radiologist. This report was verified electronically.
[2018-01-29 00:58] LABS: PROTHROMBIN TIME - PATIENT 10.5 SEC (9.8-11.6)
[2018-01-29 01:13] LABS: ALKALINE PHOSPHATASE 76 U/L (45-117); TOTAL BILIRUBIN ADULT 0.5 MG/DL (0.2-1.0); TOTAL PROTEIN 6.9 GM/DL (6.4-8.2); TROPONIN I 0.02 NG/ML (0.02-0.05)
[2018-01-29 01:19] LABS: ALBUMIN 3.7 GM/DL (3.4-5.0); ALT (GPT) 37 U/L (12-78); AST (GOT) 23 U/L (15-37); BICARBONATE 22.7 MEQ/L (21.0-32.0); BLOOD UREA NITROGEN 12 MG/DL (7-18); CALCIUM 8.8 MG/DL (8.5-10.1); CHLORIDE 106 MEQ/L (98-107); CREATININE 1.12 MG/DL (0.60-1.30); GLOMERULAR FILTRATION RATE 67 ML/MIN (>89); GLUCOSE,RANDOM 123 MG/DL (74-106); SODIUM (NA) 141 MEQ/L (136-145)
[2018-01-29] MEDS ORDERED: IOHEXOL 350 MG/ML 10 ML VIAL (for RAD DIAG) IVCONTRAST ONE (01:49)
--- NOTE | 2018-01-29 01:59 | RADRPT ---
EXAM DATE/TIME: 01/29/2018 01:37 [facility] COMPARISON: CHEST SINGLE AP, January 29, 2018, 0:39. INDICATIONS : Shortness of breath and chest pain. IV CONTRAST: 75 cc Omnipaque 350 (iohexol) IV RADIATION DOSE: 15.62 CTDIvol (mGy) MEDICAL HISTORY : Cardiovascular disease. Cerebrovascular disease. Hypertension. SURGICAL HISTORY : None. ENCOUNTER: Initial ACUITY: 1 day PAIN SCALE: 5/10 LOCATION: chest TECHNIQUE: Volumetric scanning of the chest was performed using a pulmonary embolism protocol MIP images were re constructed. Using automated exposure control and adjustment of the mA and/or kV according to patien t size, radiation dose was kept as low as reasonably achievable to obtain optimal diagnostic quality images. DICOM format image data is available electronically for review and comparison. Follow-up recommendations for detected pulmonary nodules are based at a minimum on nodule size and pa tient risk factors according to Fleischner Society Guidelines. FINDINGS: PULMONARY ARTERIES: No filling defects are seen in the pulmonary arteries through the segmental level. LUNGS: There is no consolidation or pneumothorax . No concerning pulmonary nodule is visualized. Isolated, punctate granulomatous calcification laterally in the right upper lung. PLEURAE: There is no pleural thickening or pleural effusion. MEDIASTINUM: There is good visualization of the great vessels of the middle mediastinum. No evidence of mediastin al or hilar adenopathy/mass. MUSCULOSKELETAL: Within normal limits for patient age. MISCELLANEOUS: The visualized upper abdominal organs demonstrate no acute abnormality. CONCLUSION: 1. Isolated, punctate granulomatous type calcification laterally in the right upper lung. 2. Otherwise negative. No acute infiltrate or pulmonary embolus to explain clinical symptoms. Juan A Alvarez MD on January 29, 2018 at 1:55 Board Certified Radiologist. This report was verified electronically.
[2018-01-29 02:05] VITALS: BP 154/97; PULSE 97; RESP 18; O2SAT 98
--- NOTE | 2018-01-29 02:35 | PD ---
HPI Chief Complaint: Cardiac Complaint Time Seen by Provider: 00:27 Travel History International Travel<30 days: No Contact w/Intl Traveler<30days: No Traveled to known affect area: No History of Present Illness HPI Patient is a 57 year old male who comes in complaining of shortness of breath. He says it started around noon today. He called EMS and was found to be in afib with RVR on their arrival. He was given Cardizem by EMS and his heart rate improved prior to arrival. Currently, he is feeling better. He denies ever having chest pain. He says he was feeling in his normal state of health prior to this. He has history of afib, but says he has not had any medications since May due to financial reasons. Severity is mild to moderate. PFSH Past Medical History Hx Anticoagulant Therapy: Yes (Xarelto) Arthritis: Yes Asthma: No Atrial Fibrillation: Yes Anxiety: Yes Heart Rhythm Problems: Yes (A-Fib) Cancer: No Cardiac Catheterization: Yes (NO STENTS: 2016) Cardiovascular Problems: Yes (afib) High Cholesterol: Yes Chest Pain: Yes Congestive Heart Failure: No Cerebrovascular Accident: Yes (TIA: OCT 2016) Endocrine: No Gastrointestinal Disorders: Yes GERD: Yes Gout: Yes Genitourinary: No Hypertension: Yes Immune Disorder: No Musculoskeletal: Yes Neurologic: Yes Psychiatric: No Reproductive: No Respiratory: Yes Migraines: Yes Shingles: Yes Sleep Apnea: Yes (NO CPAP USE) Ulcer: No Tetanus Vaccination: Unknown Influenza Vaccination: No Past Surgical History Oral Surgery: Yes (Tooth extractions ) Other Surgery: Yes (2015 Heart cath) Social History Alcohol Use: No (QUIT DRINKING SEP 2016) Tobacco Use: No Substance Use: No Allergies-Medications (Allergen,Severity, Reaction): Coded Allergies: penicillin G (Unverified Allergy, Unknown, Unknown, 01/29/18) Reported Meds & Prescriptions Reported Meds & Active Scripts Active Protonix (Pantoprazole Sodium) 20 Mg Tab 20 Mg PO DAILY Indomethacin 25 Mg Cap 50 Mg PO Q12HR Take with food, milk, or antacids to decrease stomach adverse effects. Atorvastatin (Atorvastatin Calcium) 40 Mg Tab 40 Mg PO HS Lisinopril 10 Mg Tab 10 Mg PO BID Xarelto (Rivaroxaban) 20 Mg Tab 20 Mg PO DAILY Lopressor (Metoprolol Tartrate) 50 Mg Tab 50 Mg PO Q12HR Reported Allergy Relief (Loratadine) 10 Mg Tab 10 Mg PO DAILY Review of Systems Except as stated in HPI: all other systems reviewed are Neg General / Constitutional: No: Fever, Chills HENT: No: Headaches, Lightheadedness Cardiovascular: No: Chest Pain or Discomfort Respiratory: Positive: Shortness of Breath Gastrointestinal: No: Nausea, Vomiting Musculoskeletal: No: Myalgias, Edema Skin: No Rash, No Change in Pigmentation Neurologic: No: Weakness, Dizziness Physical Exam Narrative GENERAL: Awake and alert, in no acute distress. SKIN: Focused skin assessment warm/dry. No wounds or signs of infection. HEAD: Atraumatic. Normocephalic. EYES: Pupils equal and round. No scleral icterus. ENT: Mucous membranes pink and moist. NECK: Trachea midline. No JVD. CARDIOVASCULAR: Regular rate and rhythm. No murmur appreciated. RESPIRATORY: No accessory muscle use. Clear to auscultation. Breath sounds equal bilaterally. GASTROINTESTINAL: Abdomen soft, non-tender, nondistended. MUSCULOSKELETAL: No obvious deformities. No clubbing. No cyanosis. No edema. NEUROLOGICAL: Awake and alert. No obvious cranial nerve deficits. Motor grossly within normal limits. Normal speech. PSYCHIATRIC: Appropriate mood and affect; insight and judgment normal. Data Data Last Documented VS Vital Signs Date Time Temp Pulse Resp B/P (MAP) Pulse Ox O2 Delivery O2 Flow Rate FiO2 01/29/18 02:05 97 18 154/97 (116) 98 Nasal Cannula 2.00 01/29/18 00:24 98.1 Orders Orders Complete Blood Count With Diff (01/29/18 00:36) Comprehensive Metabolic Panel (01/29/18 00:36) B-Type Natriuretic Peptide (01/29/18 00:36) Act Partial Throm Time (Ptt) (01/29/18 00:36) Prothrombin Time / Inr (Pt) (01/29/18 00:36) Troponin I (01/29/18 00:36) Iv Access Insert/Monitor (01/29/18 00:36) Ecg Monitoring (01/29/18 00:36) Oximetry (01/29/18 00:36) Oxygen Administration (01/29/18 00:36) Chest, Single Ap (01/29/18 00:36) Ct Pulmonary Angiogram (01/29/18 00:36) Sodium Chloride 0.9% Flush (Ns Flush) (01/29/18 00:45) Iohexol 350 Inj (Omnipaque 350 Inj) (01/29/18 01:49) Labs Laboratory Tests Test 01/29/18 00:40 White Blood Count 9.4 TH/MM3 Red Blood Count 5.72 MIL/MM3 Hemoglobin 18.0 GM/DL Hematocrit 51.2 % Mean Corpuscular Volume 89.6 FL Mean Corpuscular Hemoglobin 31.6 PG Mean Corpuscular Hemoglobin Concent 35.2 % Red Cell Distribution Width 13.7 % Platelet Count 265 TH/MM3 Mean Platelet Volume 7.4 FL Neutrophils (%) (Auto) 53.1 % Lymphocytes (%) (Auto) 35.8 % Monocytes (%) (Auto) 7.6 % Eosinophils (%) (Auto) 2.6 % Basophils (%) (Auto) 0.9 % Neutrophils # (Auto) 5.0 TH/MM3 Lymphocytes # (Auto) 3.3 TH/MM3 Monocytes # (Auto) 0.7 TH/MM3 Eosinophils # (Auto) 0.2 TH/MM3 Basophils # (Auto) 0.1 TH/MM3 CBC Comment DIFF FINAL Differential Comment Prothrombin Time 10.5 SEC Prothromb Time International Ratio 1.0 RATIO Activated Partial Thromboplast Time 22.0 SEC Blood Urea Nitrogen 12 MG/DL Creatinine 1.12 MG/DL Random Glucose 123 MG/DL Total Protein 6.9 GM/DL Albumin 3.7 GM/DL Calcium Level 8.8 MG/DL Alkaline Phosphatase 76 U/L Aspartate Amino Transf (AST/SGOT) 23 U/L Alanine Aminotransferase (ALT/SGPT) 37 U/L Total Bilirubin 0.5 MG/DL Sodium Level 141 MEQ/L Potassium Level 3.6 MEQ/L Chloride Level 106 MEQ/L Carbon Dioxide Level 22.7 MEQ/L Anion Gap 12 MEQ/L Estimat Glomerular Filtration Rate 67 ML/MIN Troponin I 0.02 NG/ML B-Type Natriuretic Peptide 38 PG/ML MDM Medical Decision Making Medical Screen Exam Complete: Yes Emergency Medical Condition: Yes Medical Record Reviewed: Yes Interpretation(s) ECG shows NSR at 77, incomplete RBBB, no ST elevation or depression Differential Diagnosis medication non compliance vs afib vs PE vs electrolyte abnormalities Narrative Course Patient is a 57 year old male who comes in due to SOB. He was given Cardizem prior to arrival and is no longer symptomatic. Exam shows no acute abnormalities. IV established, labs sent, patient connected to the cardiac surgeon. Labs show no acute abnormalities. CTA of the chest shows no evidence of PE. Last 24 hours Impressions Chest X-Ray 01/29/18 0036 Signed Impressions: Service Date/Time: January 00:39 - CONCLUSION: Hypoinflation with no acute cardiopulmonary process. Juan A Alvarez MD CT Angiography 01/29/18 0036 Signed Impressions: Service Date/Time: January 01:37 - CONCLUSION: 1. Isolated, punctate granulomatous type calcification laterally in the right upper lung. 2. Otherwise negative. No acute infiltrate or pulmonary embolus to explain clinical symptoms. Juan A Alvarez MD Patient remained asymptomatic, heart rate never went back up. Patient was on Metoprolol on the past. He is advised this is 4 dollars at [facility]. He says he can get this if given a prescription. He is given a prescription for Metoprolol. [facility]. Advised to return any time for any worsening symptoms. Diagnosis Primary Impression: Atrial fibrillation with rapid ventricular response Referrals: [facility] call for appointment Patient Instructions: A-fib (Atrial Fibrillation) (ED), General Instructions Additional Instructions: Take her metoprolol every day, it is 4 dollars at [facility]. Follow-up with the [facility]. Return to the ED as needed for any worsening symptoms. Scripts Metoprolol Tartrate (Metoprolol Tartrate) 50 Mg Tab 50 MG PO BID, #60 TAB 0 Refills Prov: Kacie Wagoner MD 01/29/18 Disposition: 01 DISCHARGE HOME Condition: Stable Kacie Wagoner MD January 29, 2018 02:35
[2018-01-29] MEDS ORDERED: METO50TA PO (02:47)
--- NOTE | 2018-01-29 14:17 | EKG ---
Date Performed: 01/29/2018 Time Performed: 00:25:36 PTAGE: 57 years EKG: Sinus rhythm LEFT ATRIAL ENLARGEMENT BORDERLINE RIGHT AXIS DEVIATION PATTERN CONSISTENT WITH PULMONARY DISEASE IN COMPLETE RIGHT BUNDLE BRANCH BLOCK PROBABLE INFERIOR MYOCARDIAL INFARCTION ABNORMAL ECG Since the PREVIOUS TRACING , no significant change noted PREVIOUS TRACIN06/09/2017 22.07 DOCTOR: Serena Chau Interpretating Date/Time 01/29/2018 14:14:31
== END 2018-01-29 03:06 | disposition home or self-care (01) ==
LOC: NEPE 00:19
DX: I48.91 Unspecified atrial fibrillation (principal); E78.00 Pure hypercholesterolemia, unspecified; I10 Essential (primary) hypertension; Z79.01 Long term (current) use of anticoagulants
CPT/HCPCS: 71045; 71275; 80053; 83880; 84484; 85025; 85610; 85730; 93005; 99285; Q9967

== ENCOUNTER 2018-06-14 06:26 | Inpatient (IN) ==
[2018-06-14] MEDS ORDERED: Morphine Inj 4 MG/ML Vial IV.PUSH ONE (06:30)
[2018-06-14 06:51] LABS: Baso # (Auto) 0.1 th/mm3 (0.0-0.2); Eos # (Auto) 0.1 th/mm3 (0.0-0.4); Hematocrit 46.4 % (39.0-51.0); Hemoglobin 15.6 gm/dL (13.0-17.0); Lymph # (Auto) 2.8 th/mm3 (1.0-4.8); Lymph % (Auto) 25.9 % (9.0-44.0); Mean Corpuscular HGB Conc 33.7 % (32.0-36.0); Mean Corpuscular Hemoglobin 31.8 pg (27.0-34.0); Mean Corpuscular Volume 94.5 fL (80.0-100.0); Mean Platelet Volume 8.1 fL (7.0-11.0); Mono # (Auto) 0.7 th/mm3 (0.0-0.9); Mono % (Auto) 6.5 % (0.0-8.0); Neut # (Auto) 7.2 th/mm3 (1.8-7.7); Neut % (Auto) 65.6 % (16.0-70.0); Platelet Count 222 th/mm3 (150-450); Red Blood Count 4.91 mil/mm3 (4.50-5.90)
--- NOTE | 2018-06-14 06:52 | XR ---
EXAM DATE: 06/14/2018 6:49 AM EDT AGE/SEX: 57 years / Male INDICATIONS: Chest Pain CLINICAL DATA: This is the patient's initial encounter. Patient reports that signs and symptoms have been present for 1 day and indicates a pain score of 7/10. MEDICAL/SURGICAL HISTORY: Cerebrovascular disease. Hypertension. None. [place] [facility] [place]. . FINDINGS: Minimal bibasilar airspace disease, more prominent on the left. Cardiomediastinal contours are stable . Bony thorax is intact. CONCLUSION: 1. Minimal bibasilar airspace disease, presumably atelectasis. Electronically signed by: Sherwin Payne MD 06/14/2018 6:50 AM EDT
[2018-06-14 07:02] LABS: Albumin 3.6 g/dL (3.4-5.0); Anion Gap 10 meq/L (5-15); Aspartate Aminotransferase 13 U/L (15-37); Blood Urea Nitrogen 17 mg/dL (7-18); Calcium 8.5 mg/dL (8.5-10.1); Chloride 107 meq/L (98-107); Glomerular Filtration Rate 50 mL/min (>89); Glucose,Random 116 mg/dL (74-106); Potassium 3.9 meq/L (3.5-5.1); Sodium 141 meq/L (136-145)
[2018-06-14 07:04] LABS: Alanine Aminotransferase 32 U/L (12-78)
[2018-06-14 07:07] LABS: Alkaline Phosphatase 65 U/L (45-117); Creatine Kinase 103 U/L (39-308); Total Protein 6.5 g/dL (6.4-8.2); Troponin I 0.06 ng/mL (0.02-0.05)
--- NOTE | 2018-06-14 07:07 | ED ---
HPI General Chief complaint: Chest Pain Stated complaint: Medical Time Seen by Provider: 06/14/18 06:30 Source: patient and EMS Mode of arrival: EMS Limitations: no limitations History of Present Illness HPI narrative: Patient is a 57 year old male who comes in complaining of substernal chest pain. He says the pain woke him up from sleep. He denies SOB, nausea or vomiting. He says he has never had pain like this before. He denies cough or cold symptoms. He has history of afib and is not currently taking his Xarelto. Severity is moderate. EMS states while in their care, patient had an episode of Vtach, lasting about 10 seconds. During that time, patient had seizure like activity and was unresponsive. This resolved without intervention. Patient does not remember the event. Related Data Home Medications Medication Instructions Recorded Confirmed lisinopril 10 mg PO DAILY 06/14/18 Allergies Allergy/AdvReac Type Severity Reaction Status Date / Time penicillin G Allergy Unknown Unknown Verified 06/14/18 08:15 Review of Systems ROS: all other systems reviewed are negative Constitutional Denies chills and Denies fever(s) ENT Denies dizziness Cardiovascular Reports chest pain and Denies dyspnea Respiratory Denies cough Gastrointestinal Denies nausea and Denies vomiting Musculoskeletal Denies myalgias and Denies arthralgias Integumentary/Breasts Denies rash and Denies wounds Neurologic Denies focal weakness, Denies numbness and Reports seizure-like activity [facility] Medical History Medical History Atrial fibrillation (Acute) Hypertension (Acute) Social History Social History Substance History: No History of Abuse Smoking Status: Never smoker How Often Do You Have a Drink Containing Alcohol: Never Immunization History Tetanus Immunization: >5 Years Hx Influenza Vaccine This Season: No Exam Narrative Exam Narrative: GENERAL: Awake and alert, in no acute distress. SKIN: Focused skin assessment warm/dry. No wounds or signs of infection. HEAD: Atraumatic. Normocephalic. EYES: Pupils equal and round. No scleral icterus. ENT: Mucous membranes pink and moist. NECK: Trachea midline. No JVD. CARDIOVASCULAR: Regular rate and rhythm. No murmur appreciated. RESPIRATORY: No accessory muscle use. Clear to auscultation. Breath sounds equal bilaterally. GASTROINTESTINAL: Abdomen soft, non-tender, nondistended. MUSCULOSKELETAL: No obvious deformities. No clubbing. No cyanosis. No edema. NEUROLOGICAL: Awake and alert. No obvious cranial nerve deficits. Motor grossly within normal limits. Normal speech. PSYCHIATRIC: Appropriate mood and affect; insight and judgment normal. Course Initial Documented Vital Signs Pulse Rate 105 H 06/14/18 06:28 Respiratory Rate 18 06/14/18 06:28 Blood Pressure 105/58 L 06/14/18 06:28 Pulse Oximetry 95 06/14/18 06:28 Last Documented Vital Signs Pulse Rate 122 H 06/14/18 07:45 Respiratory Rate 20 06/14/18 07:45 Blood Pressure 107/74 06/14/18 07:45 Pulse Oximetry 94 L 06/14/18 07:45 Sign Out Sign Out Data: Patient Sign Out occurred on 06/14/18 at 07:13. Patient's care was discussed, and care was transferred from Kacie Wagoner MD to Radha Blancas MD. Sign Out Comment: Follow up testing and disposition the patient. Last updated by Kacie Wagoner MD at 06/14/18 07:08 Post-Handoff Eval: This case was checked out to me by Dr. Pagan at 7 AM. I do not know how Dr. Shrestha mistakenly signed up for the patient but she is not involved in the care. I have reevaluated the patient. He is in a flutter with RVR with a rate of 125. I gave him a dose of aspirin. I spoke with broomcorn seeder Dr. Blair will be a loan consultant. He recommends Lovenox therapy and Cardizem bolus and Cardizem drip. We have instituted all of those things. Lab studies are reviewed. Troponin is 0.06. CK is normal. His chest pain is improved at this time. I am told by Dr. Pagan that the patient had a run of wide-complex V. tach for 10 seconds and went syncopal. Braille Coder and admitting physician Dr. Izaguirre are aware of this. I discussed it with both of them. Patient is critically ill. He has unstable angina with cardiac arrhythmia as well. He is admitted to cardiac intensive care on Cardizem drip. No further runs of V. tach since he has been in the hospital Aggregate critical care time was 40 minutes. Time to perform other separately billable procedures was not included in the critical care time. My time did not include minutes spent treating any other patients simultaneously or on activities that did not directly contribute to the patient's treatment. The services I provided to this patient were to treat and/or prevent clinically significant deterioration that could result in: Cardiopulmonary arrest, cardiogenic shock, lethal arrhythmia I provided critical care services requiring my management, as noted below: Chart data review, documentation time, medication orders and management, vital sign assessments/reviewing monitor data, ordering and reviewing lab tests, ordering and interpreting/reviewing x-rays and diagnostic studies, care of the patient and discussion of the patient with the admitting physicians. Medical Decision Making MDM Narrative Medical decision making narrative: Patient is a 57 year old male who comes in complaining of chest pain. Exam shows no acute abnormalities. IV established, labs sent. Patient connected to the cardiac cath tech. He received nitro and aspirin by EMS. Defibrillator pads placed on patient in case he has another episode of Vtach. Medical Screen Exam Complete: Yes Emergency Medical Condition: Yes Lab Data Result diagrams: 06/14/18 06:35 06/14/18 06:35 Lab Results 06/14/18 06/14/18 06/14/18 Range/Units 06:35 06:35 06:35 WBC 11.0 (4.0-11.0) th/mm3 RBC 4.91 (4.50-5.90) mil/mm3 Hgb 15.6 (13.0-17.0) gm/dL Hct 46.4 (39.0-51.0) % MCV 94.5 (80.0-100.0) fL MCH 31.8 (27.0-34.0) pg MCHC 33.7 (32.0-36.0) % RDW 14.0 (11.6-17.2) % Plt Count 222 (150-450) th/mm3 MPV 8.1 (7.0-11.0) fL Neut % (Auto) 65.6 (16.0-70.0) % Lymph % (Auto) 25.9 (9.0-44.0) % Eaton % (Auto) 6.5 (0.0-8.0) % Eos % (Auto) 1.0 (0.0-4.0) % Baso % (Auto) 1.0 (0.0-2.0) % Neut # (Auto) 7.2 (1.8-7.7) th/mm3 Lymph # (Auto) 2.8 (1.0-4.8) th/mm3 Eaton # (Auto) 0.7 (0.0-0.9) th/mm3 Eos # (Auto) 0.1 (0.0-0.4) th/mm3 Baso # (Auto) 0.1 (0.0-0.2) th/mm3 WBC Differential . Differential Comment Auto diff final Sodium 141 (136-145) meq/L Potassium 3.9 (3.5-5.1) meq/L Chloride 107 (98-107) meq/L Carbon Dioxide 24.0 (21.0-32.0) meq/L Anion Gap 10 (5-15) meq/L BUN 17 (7-18) mg/dL Creatinine 1.45 H (0.60-1.30) mg/dL Estimated GFR 50 L (>89) mL/min Random Glucose 116 H (74-106) mg/dL Calcium 8.5 (8.5-10.1) mg/dL Total Bilirubin 0.8 (0.2-1.0) mg/dL AST 13 L (15-37) U/L ALT 32 (12-78) U/L Alkaline Phosphatase 65 (45-117) U/L Total Creatine Kinase 103 (39-308) U/L CK-MB (CK-2) 2.5 (0.5-3.6) ng/mL Troponin I 0.06 H (0.02-0.05) ng/mL B-Natriuretic Peptide 152 H (0-100) pg/mL Total Protein 6.5 (6.4-8.2) g/dL Albumin 3.6 (3.4-5.0) g/dL Imaging Data Radiologist's impression: Chest X-Ray 06/14/18 06:30 CONCLUSION: 1. Minimal bibasilar airspace disease, presumably atelectasis. Discharge Plan Discharge Disposition Patient Disposition: 30 Still Patient Discharge Details Diagnosis: Unstable angina pectoris, Atrial flutter, Ventricular tachyarrhythmia Physicians Team ED Provider: Dharmesh Dawn Primary Care Provider: Primary Care Purnima Escoto Rxs /Orders / Referrals /Forms Prescriptions: No Action lisinopril 10 mg Tablet 10 mg PO DAILY RF: 0 Discharge Instructions Patient Printed Instructions: Chest Pain (ED) Discharge Interventions Interventions: Vital Signs Last Done: 06/14/18 08:15 Status ED Status: Admitted Patient
[2018-06-14 07:19] LABS: Creatine Kinase MB 2.5 ng/mL (0.5-3.6)
[2018-06-14] MEDS ORDERED: Enoxaparin Inj 100 MG/ML Syringe SQ ONE (07:39)
[2018-06-14] MEDS: dilTIAZem Inj 125 MG in Sodium Chlor 0.9% Inj 100 ML IV.CONT PRN (08:33)
[2018-06-14 08:39] LABS: Activated Partial Thrombo Time 21.1 sec (24.3-30.1); INR 1.1 Ratio; Prothrombin Time 11.4 sec (9.8-11.6)
[2018-06-14] MEDS ORDERED: Lisinopril 10 MG Tablet PO SCH (09:00)
[2018-06-14] MEDS ORDERED: Heparin - SQ 10,000 UNITS/ML Vial SQ SCH ×2 (09:00→21:00)
--- NOTE | 2018-06-14 10:27 | P.HPIM ---
History of Present Illness Primary Care Physician: No Primary Care Physician History of Present Illness: Mr. Plascencia is a 57 year old male. He reports chest pain starting overnight. Your. He has been treated with diltiazem. In the past he has a flutter with RVR but his symptoms have been shortness of breath. No previous chest pain, no previous MN, no known history of coronary artery disease. This patient has atrial flutter and hypertension at baseline. There is a positive family history with myocardial infarction in this patient's father and coronary artery disease on the patient's maternal family tree. Chest pain is central chest and sharp, but mild at this point. No other complaints. - Diagnosis (1) Atrial flutter with rapid ventricular response (2) Syncope (3) Unstable angina pectoris (4) Atrial flutter Inpatient Certification: I certify that the inpatient services were ordered in accordance with Medicare regulations governing the order. This includes certification that hospital inpatient services are reasonable and necessary and in the case of services not specified as inpatient-only under 42 CFR 419.22(n), that they are appropriately provided as inpatient services in accordance to with the 2-midnight benchmark under 43 CFR 412.3(e) Estimated Total Length of Stay (Days): 2 Plans for Post Hospital Care: Home Review of Systems Constitutional: No fevers, no chills no night sweats, no fatigue, no weakness Eyes: No eye pain, no blurry vision, no loss of vision ENT: No sore throat, no ear pain, no rhinorrhea Cardiovascular: chest pain, no tachycardia, no palpitations, no shortness of breath, syncope Respiratory: No wheezing, no cough, no shortness of breath Gastrointestinal: No abdominal pain, no black tarry stools, no bright red blood per rectum, no vomiting, no diarrhea Musculoskeletal: No joint pain, no muscle cramps, no stiffness Integumentary: No rash, no ulcers, no drainage Neurologic: No sensory loss, no loss of motor function, no dizziness Psychiatric: No behavioral changes, no hallucinations, no suicidal ideations PMFSH - History History Provided By: Business Services Sales Representative / EMT - Medical History Medical History: Medical History (Last Reviewed 06/14/18 @ 07:05 by Kacie Wagoner MD) Atrial fibrillation Hypertension - Family History Family History: Family History (Last Updated 06/14/18 @ 11:42 by Avel Izaguirre MD) Other Myocardial infarction - Tobacco History Smoking Status: Never smoker - Alcohol History How Often Do You Have a Drink Containing Alcohol: Never - Substance Use History Substance History: No History of Abuse - Immunization History Tetanus Immunization: >5 Years Hx Influenza Vaccine This Season: No Medications and Allergies Active Medications: Active Medications Al Hydroxide/Mg Hydroxide (Milk Of Magnbernadette Liq) 30 ml PO Q12H PRN PRN Reason: Mild Constipation Aspirin (Aspirin) 325 mg PO DAILY [facility] Diltiazem HCl 125 mg/ Sodium (Chloride) 125 mls @ 5 mls/hr IV.CONT TITRATE PRN ; Protocol PRN Reason: Per Protocol Last Admin: 06/14/18 08:33 Dose: 5 mg/hr, 5 mls/hr Lisinopril (Prinivil) 10 mg PO DAILY [facility] Last Admin: 06/14/18 09:36 Dose: 10 mg Nitroglycerin (Nitrostat Sl) 0.4 mg SL Q5M PRN PRN Reason: CHEST PAIN Ondansetron HCl (Zofran Inj) 4 mg IV.PUSH Q6H PRN PRN Reason: NAUSEA OR VOMITING Sodium Chloride (Ns Flush) 2 ml IV.FLUSH UNSCH PRN PRN Reason: FLUSH AFTER USING IV ACCESS Allergies Allergy/AdvReac Type Severity Reaction Status Date / Time penicillin G Allergy Unknown Unknown Verified 06/14/18 08:15 Home Medications Medication Instructions Recorded Confirmed Type lisinopril 10 mg PO DAILY 06/14/18 History Exam Vital signs: Vital Signs 06/14/18 06:28 06/14/18 06:33 06/14/18 06:35 Pulse Rate 105 H 105 H Respiratory Rate 18 18 Blood Pressure 105/58 L 105/58 L Pulse Oximetry 95 95 94 L 06/14/18 07:15 06/14/18 07:30 06/14/18 07:45 Pulse Rate 114 H 76 122 H Respiratory Rate 19 20 20 Blood Pressure 133/77 122/98 H 107/74 Pulse Oximetry 94 L 93 L 94 L 06/14/18 08:00 06/14/18 08:15 06/14/18 08:45 Pulse Rate 76 76 80 Respiratory Rate 20 16 20 Blood Pressure 117/86 122/91 H 123/87 Pulse Oximetry 93 L 93 L 93 L 06/14/18 09:08 Pulse Rate 80 Respiratory Rate 20 Blood Pressure 131/85 Pulse Oximetry 92 L Intake & Output 06/13/18 06/14/18 06/14/18 18:59 06:59 18:59 Weight 113.398 kg Narrative: GENERAL: NAD, A&Ox3 HEAD: Normocephalic. NECK: Supple, trachea midline. No lymphadenopathy. EYES: No scleral icterus. No injection or drainage. CARDIOVASCULAR: Regular rate and rhythm without murmurs, gallops, or rubs. RESPIRATORY: Breath sounds equal bilaterally. No accessory muscle use. GASTROINTESTINAL: Abdomen soft, non-tender, nondistended. MUSCULOSKELETAL: No cyanosis, or edema. SKIN: Warm and dry. NEURO: No focal neurological deficits. Results - Labs CBC & Chem 7: 06/14/18 06:35 06/14/18 06:35 Labs: Short CBC 06/14/18 Range/Units 06:35 WBC 11.0 (4.0-11.0) th/mm3 Hgb 15.6 (13.0-17.0) gm/dL Hct 46.4 (39.0-51.0) % Plt Count 222 (150-450) th/mm3 BMP 06/14/18 06:35 Sodium 141 Potassium 3.9 Chloride 107 Carbon Dioxide 24.0 BUN 17 Creatinine 1.45 H Calcium 8.5 Cardiac Enzymes 06/14/18 Range/Units 06:35 Total Creatine Kinase 103 (39-308) U/L CK-MB (CK-2) 2.5 (0.5-3.6) ng/mL Troponin I 0.06 H (0.02-0.05) ng/mL Liver Function 06/14/18 Range/Units 06:35 Total Bilirubin 0.8 (0.2-1.0) mg/dL AST 13 L (15-37) U/L ALT 32 (12-78) U/L Alkaline Phosphatase 65 (45-117) U/L Albumin 3.6 (3.4-5.0) g/dL - Imaging Impressions Chest X-Ray 06/14/18 06:30 CONCLUSION: 1. Minimal bibasilar airspace disease, presumably atelectasis. Caprini VTE Risk Assessment Caprini VTE Risk Assessment: Moderate/High Risk (score >= 2) Caprini Risk Assessment Model: Point Value = 1 Point Value = 2 Point Value = 3 Point Value = 5 Age 41-60 Minor surgery BMI > 25 kg/m2 Swollen legs Varicose veins or History of unexplained or recurrent spontaneous Oral contraceptives or hormone replacement Sepsis (< 1 month) Serious lung disease, including pneumonia (< 1 month) Abnormal pulmonary function Acute myocardial infarction Congestive heart failure (< 1 month) History of inflammatory bowel disease Medical patient at bed rest Age 61-74 Arthroscopic surgery Major open surgery (> 45 min) Laparoscopic surgery (> 45 min) Malignancy Confined to bed (> 72 hours) Immobilizing plaster cast Central venous access Age >= 75 History of VTE Family history of VTE Factor V Leiden Prothrombin [id number] Lupus anticoagulant Anticardiolipin antibodies Elevated serum homocysteine Heparin-induced thrombocytopenia Other congenital or acquired thrombophilia Stroke (< 1 month) Elective arthroplasty Hip, pelvis, or leg fracture Acute spinal cord injury (< 1 month) Prophylaxis Regimen: Total Risk Factor Score Risk Level Prophylaxis Regimen 0-1 Low Early ambulation 2 Moderate Order ONE of the following: *Sequential Compression Device (SCD) *Heparin 5000 units SQ BID 3-4 Higher Order ONE of the following medications: *Heparin 5000 units SQ TID *Enoxaparin/Lovenox 40 mg SQ daily (WT < 150 kg, CrCl > 30 mL/min) *Enoxaparin/Lovenox 30 mg SQ daily (WT < 150 kg, CrCl > 10-29 mL/min) *Enoxaparin/Lovenox 30 mg SQ BID (WT < 150 kg, CrCl > 30 mL/min) AND/OR *Sequential Compression Device (SCD) 5 or more Highest Order ONE of the following medications: *Heparin 5000 units SQ TID (Preferred with Epidurals) *Enoxaparin/Lovenox 40 mg SQ daily (WT < 150 kg, CrCl > 30 mL/min) *Enoxaparin/Lovenox 30 mg SQ daily (WT < 150 kg, CrCl > 10-29 mL/min) *Enoxaparin/Lovenox 30 mg SQ BID (WT < 150 kg, CrCl > 30 mL/min) AND *Sequential Compression Device (SCD) Assessment and Plan - Assessment (1) Atrial flutter with rapid ventricular response Code(s): I48.92 - Unspecified atrial flutter Status: Acute (2) Syncope Code(s): R55 - Syncope and collapse Status: Acute (3) Unstable angina pectoris Code(s): I20.0 - Unstable angina Status: Acute (4) Atrial flutter Code(s): I48.92 - Unspecified atrial flutter Status: Acute - Plan 57-year-old male admitted with chest pain, atrial flutter RVR, and syncope Chest pain Unstable angina Etiology may be related to a-flutter RVR evaluate for ACS First troponin is mildly elevated Follow cardiac enzymes Aspirin daily When necessary oxygen When necessary morphine for pain. When necessary nitroglycerin Follow on telemetry Cardiology consult Carotid ultrasound Echocardiogram Atrial flutter with rapid ventricular rate IV diltiazem drip Cardiology consulted Follow on telemetry Evaluate for ACS as above Heparin Acute kidney injury Likely related to a-flutter with RVR Possible hypotension given syncopal episode Follow renal function Light IV hydration Hypertension Continue baseline treatment Follow blood pressures Adjust treatments as needed DVT prophylaxis Heparin (4) Atrial flutter Qualifiers: Atrial flutter type: unspecified Qualified Code(s): I48.92 - Unspecified atrial flutter
--- NOTE | 2018-06-14 11:25 | US ---
EXAM DATE: 06/14/2018 11:22 AM EDT AGE/SEX: 57 years / Male INDICATIONS: Syncope. CLINICAL DATA: This is the patient's initial encounter. Patient reports that signs and symptoms have been present for 1 day and indicates a pain score of 0/10. MEDICAL/SURGICAL HISTORY: Hypertension. Atrial fibrillation. None. COMPARISON: [facility], CTA CAROTID ARTERIES W 3D RECON, 06/13/2017. . VELOCITY PARAMETERS: ICA/CCA Ratio: Right 0.9 , Left 0.8 ICA: Right 46.0 cm/sec, Left 74.6 cm/sec CCA: Right 51.5 cm/sec, Left 95.1 cm/sec ECA: Right 181.5 cm/sec, Left 66.1 cm/sec Vertebral: Right 28.4 cm/sec antegrade, Left 32.0 cm/sec antegrade FINDINGS: Right Carotid: Mild arteriosclerotic plaque is visualized.The waveforms are within normal limits. Left Carotid: Mild arteriosclerotic plaque is visualized. The waveforms are within normal limits. Other: None. CONCLUSION: 1. Right Internal Carotid Artery: Findings indicate <50% stenosis. 2. Left Internal Carotid Artery: Findings indicate <50% stenosis. Electronically signed by: Gregg Mueller MD 06/14/2018 11:23 AM EDT
[2018-06-14] MEDS ORDERED: Morphine Inj 4 MG/ML Vial IV.PUSH PRN (11:38)
--- NOTE | 2018-06-14 13:57 | ECG ---
Date Performed: 06/14/2018 Time Performed: 06:22:49 PTAGE: 57 years EKG: ATRIAL FLUTTER/TACHYCARDIA POSSIBLE RIGHT VENTRICULAR CONDUCTION DELAY ST DEVIATION AND MOD ERATE T-WAVE ABNORMALITY, CONSIDER LATERAL ISCHEMIA ST DEVIATION AND MODERATE T-WAVE ABNORMALITY, CON QUALITY COORDINATOR INFERIOR ISCHEMIA ABNORMAL ECG NO PREVIOUS TRACING DOCTOR: Alex Blair Interpretating Date/Time 06/14/2018 13:56:13
[2018-06-14] MEDS: Morphine Sulfate Inj 2 MG/ML Vial IV.PUSH PRN ×2 (14:52→23:55)
[2018-06-14] MEDS: Carvedilol 6.25 MG Tablet PO SCH ×2 (14:52→20:06)
--- NOTE | 2018-06-14 18:11 | MB ---
cc: Alex Blair MD,Avel Dawn,Dharmesh Aguirre MD DATE: 06/14/2018 REASON FOR CONSULTATION: Shortness of breath, tachyarrhythmia. HISTORY OF PRESENT ILLNESS: Mr. Plascencia is a 57-year-old gentleman with history of high blood pressure, obesity, heart failure. This gentleman was previously hospitalized a year and a half ago. This gentleman, according to his mother, did not follow up with any doctors, admitted to the emergency room due to shortness of breath, wide complex tachyarrhythmia, and atrial flutter. Apparently during the transportation in the ambulance, the patient has an episode of wide complex tachyarrhythmia, lost consciousness and regained it later. I discussed the case over the phone with Dr. Dawn, and I was consulted for further evaluation and management. The chart was reviewed. The patient was evaluated. ALLERGIES: PENICILLIN. SOCIAL HISTORY: The patient stopped drinking 3 years ago. FAMILY HISTORY: Noncontributory to his current medical condition. MEDICATIONS: Currently he is on: 1. Aspirin 325 mg a day. 2. Cardizem. 3. Heparin subcutaneously. 4. Lisinopril 10 mg a day. 5. Morphine p.r.n. 6. Zofran. REVIEW OF SYSTEMS: Currently, the patient with palpitation and shortness of breath, but no chest pain, no chest discomfort. PHYSICAL EXAMINATION: GENERAL: Alert, fully oriented. VITAL SIGNS: His blood pressure is 134/96, pulse in the telemetry currently is on 111, respiratory rate 18. LUNGS: Ventilated. CARDIOVASCULAR: S1, S2, tachycardic. ABDOMEN: Obese. No mass or bruit. EXTREMITIES: No edema. LABORATORY DATA: Electrocardiogram showed atrial flutter. Hemoglobin 15.6, white blood cell 11.0. INR 1.1. Potassium 3.9, creatinine 1.45. Troponin 0.06. ASSESSMENT AND RECOMMENDATIONS: Mr. Plascencia has atrial flutter with rapid ventricular response. Heart rate very difficult to control. He is not on anticoagulation. His creatinine is 1.46. He still qualifies for Lovenox. That will be initiated for anticoagulation. Also, he had an episode of wide complex tachyarrhythmia with loss of consciousness in the ambulance. That was a different axis. Apparently this gentleman has a previous nuclear stress study from 11/2016 indicating ejection fraction of 29% with anterior scar. Apparently he was not following any MD for heart failure management. For now, this gentleman is going to need a beta-sukumar as well as EMILY inhibitor. Lovenox will be initiated. Heart rate will be controlled. Nuclear stress study will be repeated again. When this gentleman is stable and ischemia ruled out, then I will consider atrial flutter ablation and possible device insertion for ventricular tachycardia. Case extensively discussed with him. I will monitor him during hospitalization. MD DICKSON Macedo/sammy/rigo , 02:21 PM , 02:32 PM
--- NOTE | 2018-06-14 19:09 | CT ---
EXAM DATE: 06/14/2018 6:39 PM EDT AGE/SEX: 57 years / Male INDICATIONS: Hypoxia and chest pain. CLINICAL DATA: This is the patient's initial encounter. Patient reports that signs and symptoms have been present for 1 day and indicates a pain score of 6/10. MEDICAL/SURGICAL HISTORY: Hypertension. Cardiovascular disease. None. RADIATION DOSE: 23.48 CTDI (mGy) COMPARISON: No prior exams available for comparison. TECHNIQUE: Volumetric scanning was performed using a multi-row detector CT scanner during bolus infu jey of 75 ml Omnipaque 350 (iohexol) nonionic water-soluble contrast as a single exam dose. The ashley a was post processed with a variety of visualization algorithms including full volume maximum intensi ty projection and sliding thin slab reformation. Using automated exposure control and adjustment of the mA and/or kV according to patient size, radiation dose was kept as low as reasonably achievable t o obtain optimal diagnostic quality images. DICOM format image data is available electronically for review and comparison. FINDINGS: Pulmonary Arteries: No filling defects to suggest pulmonary embolus. Lung: Bilateral mild diffuse groundglass opacity in the lungs and mild dependent pulmonary opacity. Effusion: None. Mediastinum: Diffusely enlarged heart. No enlarged mediastinal lymph nodes. Thoracic aorta is within normal limits in diameter. Minimal coronary artery calcification noted. Other: The axilla is unremarkable. CONCLUSION: 1. No evidence of pulmonary embolus. 2. Bilateral symmetric groundglass opacity in the lungs and diffuse cardiomegaly. Findings may sugge st mild pulmonary edema. Electronically signed by: Enrique Delgado MD 06/14/2018 7:07 PM EDT
[2018-06-14 19:30] LABS: ABG Base Excess -0.8 mmol/L (-2-2); ABG PCO2 32 mmHg (38-42); ABG PO2 54 mmHG (61-120)
[2018-06-14] MEDS: Enoxaparin Inj 100 MG/ML Syringe SQ SCH (20:06)
[2018-06-15] MEDS: Morphine Sulfate Inj 2 MG/ML Vial IV.PUSH PRN (04:51)
[2018-06-15] MEDS: dilTIAZem Inj 125 MG in Sodium Chlor 0.9% Inj 100 ML IV.CONT PRN (05:33)
[2018-06-15 07:21] LABS: Baso % (Auto) 0.3 % (0.0-2.0); Eos % (Auto) 0.1 % (0.0-4.0); Hematocrit 44.3 % (39.0-51.0); Hemoglobin 15.1 gm/dL (13.0-17.0); Lymph # (Auto) 1.8 th/mm3 (1.0-4.8); Lymph % (Auto) 16.2 % (9.0-44.0); Mean Corpuscular HGB Conc 34.1 % (32.0-36.0); Mean Platelet Volume 8.4 fL (7.0-11.0); Mono # (Auto) 1.2 th/mm3 (0.0-0.9); Mono % (Auto) 11.1 % (0.0-8.0); Neut % (Auto) 72.3 % (16.0-70.0); Platelet Count 225 th/mm3 (150-450); Red Blood Count 4.71 mil/mm3 (4.50-5.90); Red Cell Distribution Width 14.1 % (11.6-17.2)
[2018-06-15 07:29] LABS: Alanine Aminotransferase 27 U/L (12-78); Albumin 3.3 g/dL (3.4-5.0); Anion Gap 10 meq/L (5-15); Aspartate Aminotransferase 9 U/L (15-37); Blood Urea Nitrogen 19 mg/dL (7-18); Calcium 8.7 mg/dL (8.5-10.1); Carbon Dioxide 23.6 meq/L (21.0-32.0); Chloride 108 meq/L (98-107); Glomerular Filtration Rate 52 mL/min (>89); Glucose,Random 110 mg/dL (74-106); Sodium 142 meq/L (136-145)
[2018-06-15 07:32] LABS: Alkaline Phosphatase 61 U/L (45-117); Total Protein 6.5 g/dL (6.4-8.2)
[2018-06-15] MEDS: Enoxaparin Inj 100 MG/ML Syringe SQ SCH ×2 (08:07→20:30)
[2018-06-15] MEDS: Carvedilol 6.25 MG Tablet PO SCH (08:07)
[2018-06-15] MEDS ORDERED: Aspirin 325 MG Tablet PO SCH (08:42)
[2018-06-15] MEDS ORDERED: Pantoprazole Inj 40 MG Vial IV.PUSH ONE (09:00)
[2018-06-15] MEDS: Metoprolol Tartrate 25 MG Tablet PO SCH ×2 (09:15→20:30)
--- NOTE | 2018-06-15 12:42 | ECHRPT ---
Indication: Persistent atrial fibrillation CONCLUSIONS The left ventricular systolic function is [id number] reduced with an estimated ejection fra ction in the range of 35-40%. Normal left ventricular size and wall thickness. No regional wall motion abnormalities. The right ventricle is moderately enlarged with mildly reduced systolic function. Grade 2 Diastolic Dysfunction. No significant valvular heart disease. The estimated pulmonary arterial pressure is 25.7 mmHg. IVC is normal size with >50% collapse with inspiration. In comparision to the prior Echo 04/14, the patient's EF is now reduced from 60-65%. BP: / HR: 72 Rhythm: Atrial Flutter MEASUREMENTS (Male / Female) Normal Values Technical Quality:Good 2D ECHO LV Diastolic Diameter PLAX 4.7 cm 4.2 - 5.9 / 3.9 - 5.3 cm LV Systolic Diameter PLAX 4.0 cm IVS Diastolic Thickness 1.4 cm 0.6 - 1.0 / 0.6 - 0.9 cm LVPW Diastolic Thickness 1.0 cm 0.6 - 1.0 / 0.6 - 0.9 cm LV Relative Wall Thickness 0.5 RV Internal Dim ED PLAX 3.5 cm LVOT Diameter 1.5 cm LV Ejection Fraction MOD 4C 38.6 % LV Cardiac Index MOD 4C 1028.0 cm/minm LV Ejection Fraction 4C AL 38.4 % LV Cardiac Index 4C AL 1048.2 cm/minm LV Ejection Fraction MOD 2C 34.8 % LV Cardiac Index MOD 2C 725.6 cm/minm LV Ejection Fraction 2C AL 33.0 % LV Cardiac Index 2C AL 699.2 cm/minm LA Volume Index 31.0 cm/m 16 - 28 cm/m M-MODE Aortic Root Diameter MM 3.6 cm LA Systolic Diameter MM 4.2 cm LA Ao Ratio MM 1.2 AV Cusp Separation MM 2.0 cm DOPPLER AV Peak Velocity 98.3 cm/s AV Peak Gradient 3.9 mmHg AV Mean Gradient 2.0 mmHg AV Velocity Time Integral 18.3 cm LVOT Peak Velocity 67.6 cm/s LVOT Peak Gradient 1.8 mmHg LVOT Velocity Time Integral 11.1 cm LVOT Cardiac Index 593.1 cm/minm AV Area Cont Eq vti 1.1 cm AV Area Cont Eq pk 1.2 cm Mitral E Point Velocity 61.0 cm/s Mitral A Point Velocity 27.9 cm/s Mitral E to A Ratio 2.2 LV E' Lateral Velocity 8.0 cm/s Mitral E to LV E' Lateral Ratio 7.6 LV E' Septal Velocity 7.1 cm/s Mitral E to LV E' Septal Ratio 8.6 TR Peak Velocity 198.0 cm/s TR Peak Gradient 15.7 mmHg Right Atrial Pressure 10.0 mmHg Pulmonary Artery Systolic Pressu 25.7 mmHg Right Ventricular Systolic Press 25.7 mmHg PV Peak Velocity 90.1 cm/s PV Peak Gradient 3.2 mmHg FINDINGS LEFT VENTRICLE The left ventricular systolic function is koeweeyq-he-pvsedoe reduced with an estimated ejection fra ction in the range of 35-40%. Normal left ventricular size and wall thickness. No regional wall motion abnormalities. RIGHT VENTRICLE Moderately enlarged RV with mildly reduced systolic function LEFT ATRIUM The left atrial size is midly enlarged. RIGHT ATRIUM The right atrial size is mildly enlarged. ATRIAL SEPTUM Normal atrial septal thickness without atrial level shunting by limited color doppler interrogation. AORTA The aortic root and proximal ascending aorta are normal in size on limited imaging. MITRAL VALVE Trace mitral valve regurgitation. AORTIC VALVE Trileaflet aortic valve. No aortic valve stenosis or regurgitation. TRICUSPID VALVE There is trace tricuspid valve regurgitation. The estimated pulmonary arterial pressure is 25.7 mmHg. PULMONARY VALVE No pulmonary valve regurgitation or stenosis. VESSELS The inferior vena cava is normal in size. PERICARDIUM No pericardial effusion. OTHER FINDINGS Grade 2 Diastolic Dysfunction. Jessi Goddard MD (Electronically Signed) Final Date:15 June 2018 12:40
--- NOTE | 2018-06-15 17:26 | P.PN ---
Subjective Interval history: Feeling better less SOB Physical Exam Vital signs: Vital Signs 06/14/18 19:00 06/14/18 19:30 06/14/18 20:00 Temperature 98.7 F Pulse Rate 76 92 H Respiratory Rate 28 H Blood Pressure 112/77 Pulse Oximetry 97 96 06/14/18 20:25 06/14/18 21:00 06/14/18 22:00 Temperature Pulse Rate 50 L 74 74 Respiratory Rate 23 Blood Pressure Pulse Oximetry 06/14/18 23:00 06/14/18 23:47 06/14/18 23:49 Temperature Pulse Rate 73 51 L Respiratory Rate 18 Blood Pressure Pulse Oximetry 93 L 06/14/18 23:58 06/15/18 00:00 06/15/18 01:00 Temperature 99.6 F Pulse Rate 72 72 Respiratory Rate 24 24 Blood Pressure 103/57 L Pulse Oximetry 96 06/15/18 02:00 06/15/18 03:00 06/15/18 04:00 Temperature 98.1 F Pulse Rate 72 73 72 Respiratory Rate 26 H Blood Pressure 104/72 Pulse Oximetry 94 L 06/15/18 05:00 06/15/18 05:18 06/15/18 06:00 Temperature Pulse Rate 72 52 L 73 Respiratory Rate 17 Blood Pressure Pulse Oximetry 06/15/18 07:00 06/15/18 07:33 06/15/18 07:43 Temperature Pulse Rate 73 73 Respiratory Rate 18 Blood Pressure Pulse Oximetry 93 L 06/15/18 08:00 06/15/18 09:00 06/15/18 10:00 Temperature 98.4 F Pulse Rate 74 74 72 Respiratory Rate 18 Blood Pressure 101/72 Pulse Oximetry 96 06/15/18 11:00 06/15/18 12:00 06/15/18 12:06 Temperature 97.8 F Pulse Rate 74 74 74 Respiratory Rate 20 18 Blood Pressure 86/64 L Pulse Oximetry 71 L 06/15/18 13:00 06/15/18 16:00 06/15/18 16:18 Temperature 97.9 F Pulse Rate 78 80 78 Respiratory Rate 20 18 Blood Pressure 96/60 L Pulse Oximetry 95 Intake & Output 06/14/18 06/15/18 06/15/18 18:59 06:59 18:59 Intake Total 480 / 480 245 / 245 Output Total 50 / 50 150 / 150 Balance 430 / 430 95 / 95 Weight 106.6 kg Intake: IV 125 / 125 Cardizem Inj 125 MG In NS Inj 125 / 125 100 ML @ 5 MG/HR 5 mls/hr IV. CONT TITRATE PRN Rx#:[id number] Oral 480 / 480 120 / 120 Output: Urine 50 / 50 150 / 150 Other: # Voids 1 # Incontinent Voids 1 Date of Last Bowel Movement 06/13/18 06/13/18 06/13/18 # Bowel Movements 0 - Constitutional mild distress - Routine HEENT Exam Head: Present: normocephalic Eye: Present: EOMI, PERRL - Routine Respiratory Exam Present: CTA bilaterally - Routine Cardiovascular Exam Present: irregularly irregular - Routine Neurological Exam Present: alert, oriented X3 Results - Labs CBC & Chem 7: 06/15/18 04:56 06/15/18 04:56 Laboratory Results - last 24 hr 06/14/18 06/14/18 06/14/18 17:49 18:16 19:14 WBC RBC Hgb Hct MCV MCH MCHC RDW Plt Count MPV Neut % (Auto) Lymph % (Auto) [place] % (Auto) Eos % (Auto) Baso % (Auto) Neut # (Auto) Lymph # (Auto) [place] # (Auto) Eos # (Auto) Baso # (Auto) WBC Differential Differential Comment Puncture Site Right radial Patient Temperature 98.6 O2 Saturation 86 L* ABG pH 7.46 H ABG pCO2 32 L ABG pO2 54 L* ABG HCO3 23 ABG O2 Content 17.8 ABG Base Excess -0.8 ABG Methemoglobin 1.9 Santi Test Present Hemoglobin 14.8 Carboxyhemoglobin 1.2 O2 Delivery Device Nasal cannula Liter Flow 4.00 Critical Value Yes Sodium Potassium Chloride Carbon Dioxide Anion Gap BUN Creatinine Estimated GFR POC Glucose 115 H Random Glucose Calcium Total Bilirubin AST ALT Alkaline Phosphatase Troponin I 0.05 Total Protein Albumin 06/15/18 06/15/18 04:56 04:56 WBC 11.0 RBC 4.71 Hgb 15.1 Hct 44.3 MCV 94.0 MCH 32.0 MCHC 34.1 RDW 14.1 Plt Count 225 MPV 8.4 Neut % (Auto) 72.3 H Lymph % (Auto) 16.2 [place] % (Auto) 11.1 H Eos % (Auto) 0.1 Baso % (Auto) 0.3 Neut # (Auto) 8.0 H Lymph # (Auto) 1.8 [place] # (Auto) 1.2 H Eos # (Auto) 0.0 Baso # (Auto) 0.0 WBC Differential . Differential Comment Auto diff final Puncture Site Patient Temperature O2 Saturation ABG pH ABG pCO2 ABG pO2 ABG HCO3 ABG O2 Content ABG Base Excess ABG Methemoglobin Santi Test Hemoglobin Carboxyhemoglobin O2 Delivery Device Liter Flow Critical Value Sodium 142 Potassium 4.0 Chloride 108 H Carbon Dioxide 23.6 Anion Gap 10 BUN 19 H Creatinine 1.40 H Estimated GFR 52 L POC Glucose Random Glucose 110 H Calcium 8.7 Total Bilirubin 1.2 H AST 9 L ALT 27 Alkaline Phosphatase 61 Troponin I Total Protein 6.5 Albumin 3.3 L - Imaging Impressions Chest CTA 06/14/18 00:00 CONCLUSION: 1. No evidence of pulmonary embolus. 2. Bilateral symmetric groundglass opacity in the lungs and diffuse cardiomegaly. Findings may suggest mild pulmonary edema. Assessment and Plan - Assessment (1) Unstable angina pectoris Code(s): I20.0 - Unstable angina Status: Acute Plan: No chest pain reported Discomfort when in atrial flutter with FVR (2) Atrial flutter Code(s): I48.92 - Unspecified atrial flutter Status: Acute Plan: In atrial flutter SOB improves If stable , atrial flutter ablation tomorrow PM (3) Syncope Code(s): R55 - Syncope and collapse Status: Acute Plan: No new episode reported (2) Atrial flutter Qualifiers: Atrial flutter type: unspecified Qualified Code(s): I48.92 - Unspecified atrial flutter
--- NOTE | 2018-06-15 17:54 | P.PN ---
Subjective Interval history: Follow up for CHF exacerbation, Aflutter. Patient was seen multiple times during the day. Patient was in significant respiratory distress in the morning requiring high flow oxygen. After IV Lasix, his symptoms improved. He continued to have epigastric sharp chest discomfort. He denied any radiation of the chest pain. No fever or chills. Physical Exam Vital signs: Vital Signs 06/14/18 19:00 06/14/18 19:30 06/14/18 20:00 Temperature 98.7 F Pulse Rate 76 92 H Respiratory Rate 28 H Blood Pressure 112/77 Pulse Oximetry 97 96 06/14/18 20:25 06/14/18 21:00 06/14/18 22:00 Temperature Pulse Rate 50 L 74 74 Respiratory Rate 23 Blood Pressure Pulse Oximetry 06/14/18 23:00 06/14/18 23:47 06/14/18 23:49 Temperature Pulse Rate 73 51 L Respiratory Rate 18 Blood Pressure Pulse Oximetry 93 L 06/14/18 23:58 06/15/18 00:00 06/15/18 01:00 Temperature 99.6 F Pulse Rate 72 72 Respiratory Rate 24 24 Blood Pressure 103/57 L Pulse Oximetry 96 06/15/18 02:00 06/15/18 03:00 06/15/18 04:00 Temperature 98.1 F Pulse Rate 72 73 72 Respiratory Rate 26 H Blood Pressure 104/72 Pulse Oximetry 94 L 06/15/18 05:00 06/15/18 05:18 06/15/18 06:00 Temperature Pulse Rate 72 52 L 73 Respiratory Rate 17 Blood Pressure Pulse Oximetry 06/15/18 07:00 06/15/18 07:33 06/15/18 07:43 Temperature Pulse Rate 73 73 Respiratory Rate 18 Blood Pressure Pulse Oximetry 93 L 06/15/18 08:00 06/15/18 09:00 06/15/18 10:00 Temperature 98.4 F Pulse Rate 74 74 72 Respiratory Rate 18 Blood Pressure 101/72 Pulse Oximetry 96 06/15/18 11:00 06/15/18 12:00 06/15/18 12:06 Temperature 97.8 F Pulse Rate 74 74 74 Respiratory Rate 20 18 Blood Pressure 86/64 L Pulse Oximetry 71 L 06/15/18 13:00 06/15/18 14:00 06/15/18 15:00 Temperature Pulse Rate 78 72 78 Respiratory Rate Blood Pressure Pulse Oximetry 06/15/18 16:00 06/15/18 16:18 06/15/18 17:00 Temperature 97.9 F Pulse Rate 72 78 70 Respiratory Rate 20 18 Blood Pressure 96/60 L Pulse Oximetry 95 Intake & Output 06/14/18 06/15/18 06/15/18 18:59 06:59 18:59 Intake Total 480 / 480 245 / 245 Output Total 50 / 50 150 / 150 Balance 430 / 430 95 / 95 Weight 106.6 kg Intake: IV 125 / 125 Cardizem Inj 125 MG In NS Inj 125 / 125 100 ML @ 5 MG/HR 5 mls/hr IV. CONT TITRATE PRN Rx#:[id number] Oral 480 / 480 120 / 120 Output: Urine 50 / 50 150 / 150 Other: # Voids 1 # Incontinent Voids 1 Date of Last Bowel Movement 06/13/18 06/13/18 06/13/18 # Bowel Movements 0 Narrative: GENERAL: Alert, oriented 3, NAD. Somewhat disheveled appearance. SKIN: Warm and dry. HEAD: Normocephalic. EYES: No scleral icterus. No injection or drainage. NECK: Supple, trachea midline. No JVD or lymphadenopathy. CARDIOVASCULAR: Regular rate and rhythm Without murmurs, gallops, or rubs. RESPIRATORY: Breath sounds equal bilaterally. No accessory muscle use. GASTROINTESTINAL: Abdomen soft, non-tender, nondistended. MUSCULOSKELETAL: No cyanosis. 1+ edema in the lower extremities. BACK: Nontender without obvious deformity. No CVA tenderness. Results - Labs CBC & Chem 7: 06/15/18 04:56 06/15/18 04:56 Laboratory Results - last 24 hr 06/14/18 06/14/18 06/14/18 17:49 18:16 19:14 WBC RBC Hgb Hct MCV MCH MCHC RDW Plt Count MPV Neut % (Auto) Lymph % (Auto) [place] % (Auto) Eos % (Auto) Baso % (Auto) Neut # (Auto) Lymph # (Auto) [place] # (Auto) Eos # (Auto) Baso # (Auto) WBC Differential Differential Comment Puncture Site Right radial Patient Temperature 98.6 O2 Saturation 86 L* ABG pH 7.46 H ABG pCO2 32 L ABG pO2 54 L* ABG HCO3 23 ABG O2 Content 17.8 ABG Base Excess -0.8 ABG Methemoglobin 1.9 Santi Test Present Hemoglobin 14.8 Carboxyhemoglobin 1.2 O2 Delivery Device Nasal cannula Liter Flow 4.00 Critical Value Yes Sodium Potassium Chloride Carbon Dioxide Anion Gap BUN Creatinine Estimated GFR POC Glucose 115 H Random Glucose Calcium Total Bilirubin AST ALT Alkaline Phosphatase Troponin I 0.05 Total Protein Albumin 06/15/18 06/15/18 04:56 04:56 WBC 11.0 RBC 4.71 Hgb 15.1 Hct 44.3 MCV 94.0 MCH 32.0 MCHC 34.1 RDW 14.1 Plt Count 225 MPV 8.4 Neut % (Auto) 72.3 H Lymph % (Auto) 16.2 [place] % (Auto) 11.1 H Eos % (Auto) 0.1 Baso % (Auto) 0.3 Neut # (Auto) 8.0 H Lymph # (Auto) 1.8 [place] # (Auto) 1.2 H Eos # (Auto) 0.0 Baso # (Auto) 0.0 WBC Differential . Differential Comment Auto diff final Puncture Site Patient Temperature O2 Saturation ABG pH ABG pCO2 ABG pO2 ABG HCO3 ABG O2 Content ABG Base Excess ABG Methemoglobin Santi Test Hemoglobin Carboxyhemoglobin O2 Delivery Device Liter Flow Critical Value Sodium 142 Potassium 4.0 Chloride 108 H Carbon Dioxide 23.6 Anion Gap 10 BUN 19 H Creatinine 1.40 H Estimated GFR 52 L POC Glucose Random Glucose 110 H Calcium 8.7 Total Bilirubin 1.2 H AST 9 L ALT 27 Alkaline Phosphatase 61 Troponin I Total Protein 6.5 Albumin 3.3 L - Imaging Impressions Chest CTA 06/14/18 00:00 CONCLUSION: 1. No evidence of pulmonary embolus. 2. Bilateral symmetric groundglass opacity in the lungs and diffuse cardiomegaly. Findings may suggest mild pulmonary edema. Assessment and Plan - Assessment (1) Atrial flutter with rapid ventricular response Code(s): I48.92 - Unspecified atrial flutter Status: Acute (2) Syncope Code(s): R55 - Syncope and collapse Status: Acute (3) Unstable angina pectoris Code(s): I20.0 - Unstable angina Status: Acute (4) Atrial flutter Code(s): I48.92 - Unspecified atrial flutter Status: Acute - Plan Mr. Plascencia is a 57-year-old male with a history of atrial flutter who presented to the emergency department on 06/14/2018 due to atrial flutter and substernal chest discomfort. EMS also reported that patient apparently had an episode of ventricular tachycardia lasting about 10 seconds. Patient was unresponsive but resolved without intervention. Cardiology was consulted. Acute CHF exacerbation - systolic - EF 35-40% on 06/15/2018. Previous echo 03/2017 shows EF 60-65% - Possibly due to Aflutter. - Patient received 40mg IV lasix in the AM - BP is low (96/60). Will try to give 20mg IV Lasix Q12hrs. Chest discomfort - No typical symptoms. - Continue Aspirin 81mg Qday - Currently on Lovenox 100mg Q12hrs. - Nitroglycerine patch Atrial flutter - Switched Carvedilol to Metoprolol due to low BP - Dr. Blair plans to do RF ablation tomorrow. Acute kidney injury - Creatinine 1.45 on admission. May get worse with increased use of Lasix. - Avoid other nephrotoxins. Full code. Lovenox. (4) Atrial flutter Qualifiers: Atrial flutter type: unspecified Qualified Code(s): I48.92 - Unspecified atrial flutter
--- NOTE | 2018-06-15 19:28 | ECG ---
Date Performed: 06/14/2018 Time Performed: 17:50:22 PTAGE: 57 years EKG: Atrial flutter Poor R wave progression - probable normal variant Lateral ST-T changes may b e due to myocardial ischemia Low QRS voltages in precordial leads Abnormal ECG PREVIOUS TRACING : 06/14/2018 12.14 Since the previous tracing, no significant change noted DOCTOR: Serena Chau Interpretating Date/Time 06/15/2018 19:26:28
--- NOTE | 2018-06-15 20:43 | ECG ---
Date Performed: 06/14/2018 Time Performed: 12:14:04 PTAGE: 57 years EKG: Atrial Flutter with 4:1 conduction Possible left atrial abnormality Rightward axis Poor R w ave progression - probable normal variant Inferior ST elevation, CONSIDER ACUTE INFARCT Lateral ST-T changes suggest myocardial injury/ischemia Abnormal ECG PREVIOUS TRACING : 06/14/2018 06.22 Compared to previous tracing, there has been no significant serial change. DOCTOR: Serena Chau Interpretating Date/Time 06/15/2018 20:42:45
[2018-06-15] MEDS ORDERED: Acetaminophen 325 MG Tablet PO ONE (22:10)
[2018-06-16] MEDS: Enoxaparin Inj 100 MG/ML Syringe SQ SCH (09:27)
[2018-06-16] MEDS: Metoprolol Tartrate 25 MG Tablet PO SCH (09:30)
--- NOTE | 2018-06-16 13:14 | P.PN ---
Subjective Interval history: Follow up for CHF exacerbation, Aflutter. Patient is currently sitting in his chair, on 4L of O2 via NC. No chest pain, fever, chills. Waiting for A flutter ablation today. Physical Exam Vital signs: Vital Signs 06/15/18 14:00 06/15/18 15:00 06/15/18 16:00 Temperature 97.9 F Pulse Rate 72 78 72 Respiratory Rate 20 Blood Pressure 96/60 L Pulse Oximetry 95 06/15/18 16:18 06/15/18 17:00 06/15/18 18:00 Temperature Pulse Rate 78 70 72 Respiratory Rate 18 Blood Pressure Pulse Oximetry 06/15/18 19:00 06/15/18 20:00 06/15/18 20:03 Temperature 97.8 F Pulse Rate 72 82 72 Respiratory Rate 24 18 Blood Pressure 107/76 Pulse Oximetry 93 L 06/15/18 21:00 06/15/18 22:00 06/15/18 23:00 Temperature 98.1 F Pulse Rate 100 H 72 72 Respiratory Rate 24 Blood Pressure 96/67 L Pulse Oximetry 92 L 06/15/18 23:40 06/16/18 00:00 06/16/18 01:00 Temperature Pulse Rate 87 72 72 Respiratory Rate 17 Blood Pressure Pulse Oximetry 94 L 06/16/18 02:00 06/16/18 03:00 06/16/18 03:06 Temperature 98.1 F Pulse Rate 72 72 70 Respiratory Rate 22 16 Blood Pressure 96/71 L Pulse Oximetry 92 L 06/16/18 04:00 06/16/18 05:00 06/16/18 06:00 Temperature Pulse Rate 98 H 76 88 Respiratory Rate Blood Pressure Pulse Oximetry 06/16/18 07:00 06/16/18 08:00 06/16/18 08:38 Temperature 98.2 F Pulse Rate 51 L 52 L Respiratory Rate 18 18 Blood Pressure 115/69 Pulse Oximetry 93 L 93 L 93 L 06/16/18 09:00 06/16/18 10:00 06/16/18 11:00 Temperature 97.4 F L Pulse Rate 132 H 104 H 97 H Respiratory Rate 20 Blood Pressure 117/76 Pulse Oximetry 91 L 06/16/18 11:39 06/16/18 12:00 Temperature Pulse Rate 59 L 77 Respiratory Rate 20 Blood Pressure Pulse Oximetry Intake & Output 06/15/18 06/16/18 06/16/18 18:59 06:59 18:59 Intake Total 702 / 702 240 / 240 Output Total 1050 / 1050 1150 / 1150 300 / 300 Balance -348 / -348 -910 / -910 -300 / -300 Weight 106.5 kg Intake: Oral 702 / 702 240 / 240 Output: Urine 1050 / 1050 1150 / 1150 300 / 300 Other: Date of Last Bowel Movement 06/13/18 06/13/18 Narrative: GENERAL: Alert, oriented 3, NAD. Somewhat disheveled appearance. SKIN: Warm and dry. HEAD: Normocephalic. EYES: No scleral icterus. No injection or drainage. NECK: Supple, trachea midline. No JVD or lymphadenopathy. CARDIOVASCULAR: Irreg Irreg Without murmurs, gallops, or rubs. RESPIRATORY: Breath sounds equal bilaterally. No accessory muscle use. GASTROINTESTINAL: Abdomen soft, non-tender, nondistended. MUSCULOSKELETAL: No cyanosis. 1+ edema in the lower extremities. BACK: Nontender without obvious deformity. No CVA tenderness. Results - Labs CBC & Chem 7: 06/15/18 04:56 06/15/18 04:56 Assessment and Plan - Assessment (1) Atrial flutter with rapid ventricular response Code(s): I48.92 - Unspecified atrial flutter Status: Acute (2) Syncope Code(s): R55 - Syncope and collapse Status: Acute (3) Unstable angina pectoris Code(s): I20.0 - Unstable angina Status: Acute (4) Atrial flutter Code(s): I48.92 - Unspecified atrial flutter Status: Acute - Plan Mr. Plascencia is a 57-year-old male with a history of atrial flutter who presented to the emergency department on 06/14/2018 due to atrial flutter and substernal chest discomfort. EMS also reported that patient apparently had an episode of ventricular tachycardia lasting about 10 seconds. Patient was unresponsive but resolved without intervention. Cardiology was consulted. Acute CHF exacerbation - systolic - EF 35-40% on 06/15/2018. Previous echo 03/2017 shows EF 60-65% - Possibly due to Aflutter. - Torsemide 5mg BID. Chest discomfort - No typical symptoms. - Continue Aspirin 81mg Qday - Currently on Lovenox 100mg Q12hrs. - Nitroglycerine patch Atrial flutter - Switched Carvedilol to Metoprolol due to low BP - Dr. Blair plans to do RF ablation later today 06/16/2018. Acute kidney injury - Creatinine 1.45 on admission. May get worse with increased use of Lasix. - Avoid other nephrotoxins. Full code. Lovenox. (4) Atrial flutter Qualifiers: Atrial flutter type: unspecified Qualified Code(s): I48.92 - Unspecified atrial flutter
[2018-06-16] MEDS ORDERED: fentaNYL Citrate Inj 100 MCG/2 ML Ampul ONE (17:14)
[2018-06-16] MEDS ORDERED: Phenylephrine/NS 1000 MCG/10ML Syringe IV.PUSH ONE (17:15)
[2018-06-16] MEDS ORDERED: Isoproterenol HCl Inj 0.2 MG/ML Ampul ONE (17:55)
--- NOTE | 2018-06-16 18:27 | CATHPROC ---
Patient Name: Javier Plascencia Study #: [id number] Initial MD: Alex Blair Date of : 1960 Study Date: 06/16/2018 Cardiac Catheterization Report 06/16/2018 6:27:33 PM Financial #: [id number] 1 of 9 Patient Name: Javier Plascencia Study #: [id number] Initial MD: Alex Blair Date of : 1960 Study Date: 06/16/2018 Entire Case Report Patient Information Patient Name Javier Plascencia Date of 1960 Age 58 years Financial # [id number] Gender M AlternateID Lab Number 2 Room Number 255 Height (in) 68.0 Height (cm) 172.7 BSA 0.80 Weight (lbs) 22.0 Weight (kg) 10.0 Patient Address/Phone Number Home Address [facility] Home Phone Number [address] [place] [phone] Study Information Study Number Admission Scheduled Start Study Start [id number] Jun 14 2018 8:37AM 06/16/2018 Jun 16 2018 4:28PM [facility] Electrophysiology Study Admit Source Facility Department Other [facility] - Sample Examiner Physician and Clinical Staff Initial Alex Hinton International Coordinator Sunday Burt,RT(R) Other Anesthesia, JOURNEYMAN GLAZIER Other Laila Lind,RN Recorder Lindy Leslie RN Scrub Tasha Vitale RCIS Procedures Performed Procedure Location (Site) Vessel Name Ablation Procedure RF Ablation Isthmus Other 06/16/2018 6:27:33 PM Financial #: [id number] 2 of 9 Patient Name: Javier Plascencia Study #: [id number] Initial MD: Alex Blair Date of : 1960 Study Date: 06/16/2018 Equipment Time Tube Molder Fiberglass Description Size Mfg Part Number Used/Scraped BIOSENSE REID CATHETER, CELSIUS DS, 8MM, F [id number] 16:33 FR 7 Used INC. TYPE QUAD *[id number] 18:11 [employer]ASC[employer], FR5 CLOSURE SYSTEM FR 5 Used *[id number] 18:11 [employer], FR5 CLOSURE SYSTEM FR 5 Used *[id number] 18:11 [employer] VASC[employer], FR6 CLOSURE SYSTEM FR 6\7 Used *[id number] 18:11 [employer] VASCADE, FR6 CLOSURE SYSTEM FR 6\7 Used *[phone] 18:11 [employer] VASCADE, FR6 CLOSURE SYSTEM FR 6\7 Used *[id number] 16:32 [employer] BLANKET,WARM AIR CCL * Used *[id number] 16:32 [employer] PACK, CCL CUSTOM * Used *[id number] 16:32 [employer] PACER PRESTON, LIMB * 2530 *[id number] Used [id number] 16:33 [employer] CATHETER, JSN, QUAD FR 5 Used *[id number] 16:33 [employer] CATHETER, JSN, QUAD FR 5 Used *[id number] 16:33 [employer] CATHETER, JSN, QUAD FR 5 Used *[id number] 16:33 [employer] CATHETER, JSN, QUAD FR 5 Used *[id number] 16:32 [employer] ELECTRODE KIT, ELIEZER X SURFACE * Used *[id number] 649554 16:33 [employer] SHEATH, EPS, FR5 FAST CATH FR 5 Used *[id number] 743077 16:33 [employer] SHEATH, EPS, FR5 FAST CATH FR 5 Used *[id number] [id number] 16:33 [employer] SHEATH, EPS, FR5 FAST CATH FR 5 Used *[id number] 16:33 [employer] SHEATH, EPS, FR6 FAST CATH FR 6 Used *[id number] 033973 16:33 [employer] SHEATH, EPS, FR8 FAST CATH FR 8 Used *[id number] [facility] PAD, ELECTROSURGICAL 16:32 * [id number] *[id number] Used SURGICAL GROUNDING (BLUE) Insurance Information Insurance Payor Medicaid Third Alliance Party Third Alliance Party Number [facility] MEDICA[facility] - O [facility] History: Allergies Allergy Reaction Penicillin Unknown penicillin G Unknown 06/16/2018 6:27:33 PM Financial #: [id number] 3 of 9 Patient Name: Javier Plascencia Study #: [id number] Initial MD: Alex Blair Date of : 1960 Study Date: 06/16/2018 History: Risk Factors Hypertension Previous Heart Failure Yes Yes Cerebrovascular Disease Labs Hgb (g/dl) Hct (%) RBC (MIL/MM3) WBC (l/cumm) Platelets (thousands) 11.60-17.00 35.00-51.00 4.00-5.90 4.00-11.00 150.00-450.00 15.0 44 4.7 11 225 Glucose (mg/dl) BUN (mg/dl) Creatinine (mg/dl) BUN:Creatinine (1:x) 74.00-106.00 7.00-18.00 0.50-1.30 10.00-20.00 110 19 1.4 13.6 Na (meq/l) K (meq/l) 136.00-145.00 3.50-5.10 142 4 INR (PTT:PT) 0.90-1.10 1.1 Medication Medication Total Dose (Bolus/Oral) Medication Total Dosage/Unit 1% XYLOCAINE 40 mL Medications (Bolus/Oral) Medication Time Given Dosage/Unit Administered By Reason 1% XYLOCAINE 06/16/2018 5:40:57 PM 20 mL Alex Blair 20 mL 1% XYLOCAINE given in lab by Alex Blair via Subcutaneous. Ordered by Alex Blair. 1% XYLOCAINE 06/16/2018 5:43:38 PM 20 mL Alex Blair 20 mL 1% XYLOCAINE given in lab by Alex Blair via Subcutaneous. Ordered by Alex Blair. 06/16/2018 6:27:33 PM Financial #: [id number] 4 of 9 Patient Name: Javier Plascencia Study #: [id number] Initial MD: Alex Blair Date of : 1960 Study Date: 06/16/20 Medication (Drip) Medication Time Given Dosage/Unit Concentration/Unit Diluent (ml) Solution ISUPREL 06/16/2018 12:00:00 AM 10 mcg/min 1 mg 250 NaCl .9 10 mcg/min ISUPREL given in lab by Alex Blair via Peripheral IV. Pump/Drip Flow = 150 ml/hr using NaCl .9 with a concentration of 1 mg in 250 ml. Ordered by Alex Blair. Reason: As per physicians verbal order. ISUPREL 06/16/2018 6:00:55 PM 10 mcg/min 1 mg 250 NaCl .9 10 mcg/min ISUPREL given in lab by Anesthesia, JOURNEYMAN GLAZIER via Peripheral IV. Pump/Drip Flow = 150 ml/hr usi ng NaCl .9 with a concentration of 1 mg in 250 ml. Ordered by Alex Blair. Reason: As per physicians verbal order. ISUPREL DRIP STOPPED 06/16/2018 6:07:12 PM 0 units/hr 0 0 units/hr ISUPREL DRIP STOPPED given in lab by Anesthesia, JOURNEYMAN GLAZIER. Pump/Drip Flow = 0 ml/hr using [Magy ution Name]. Ordered by Alex Blair. Discontinued at 06/16/2018 18:07. IV Solutions 06/16/2018 5:10:30 PM 0 mL (IV) NaCl .9 IV Solutions given in lab by Alex Blair in Right Antecubital via Peripheral IV. Pump/Drip Flow = 3 0 ml/hr using NaCl .9. Ordered by Alex Blair. Reason: As per physicians verbal order. IV Solutions 06/16/2018 5:20:44 PM 0 mL (IV) NaCl .9 IV Solutions given in lab by Alex Blair in Right Forearm via Peripheral IV. Pump/Drip Flow = 30 ml /hr using NaCl .9. Ordered by Alex Blair. Reason: As per physicians verbal order. Initial Case Assessment Cardiovascular HR NIBP 96 129/80 Edema Present Skin color Skin Moderate Normal Warm Dry Circulatory - Right Pulses Dorsalis Pedis 3 Scale (0,1,2,3,4,d) Circulatory - Left Pulses Dorsalis Pedis 3 Scale (0,1,2,3,4,d) Circulatory - Lower Extremities Color Lower Right Color Lower Left Normal Normal Neurological State Oriented to time-place- Alert Moves all extremities person Respiration - General Respiration Rate SpO2 (%) O2 (lpm) (B/min) 24 91 6 06/16/2018 6:27:33 PM Financial #: [id number] of 9 Patient Name: Javier Plascencia Study #: [id number] Initial MD: Alex Blair Date of : 1960 Study Date: 06/16/2018 Final Case Assessment Cardiovascular HR NIBP 79 126/70 Edema Present Skin color Skin Moderate Normal Warm Dry Circulatory - Right Pulses Dorsalis Pedis 3 Scale (0,1,2,3,4,d) Circulatory - Left Pulses Dorsalis Pedis 3 Scale (0,1,2,3,4,d) Circulatory - Lower Extremities Color Lower Right Color Lower Left Normal Normal Neurological State Drowsy Moves all extremities Respiration - General Respiration Rate SpO2 (%) O2 (lpm) (B/min) 24 92 4 Chronological Log Time Study Chronological Log 10 mcg/min ISUPREL given in lab by Alex Blair via Peripheral IV. Pump/Drip Flow = 150 ml/hr using NaCl .9 with a 0:00:00 concentration of 1 mg in 250 ml. Ordered by Alex Blair. Reason: As per physicians verbal ord er. 16:55:23 Patient arrived via Bed. 16:56:24 Patient Name, D.O.B, / Armband Verified By R.N. 16:56:25 Consent signed by the physician and the patient and verified by the Sample Examiner staff. 16:56:25 Pre-op and post- op instructions given; patient acknowledges understanding of instructions. 16:56:26 Verbal Stimulation=2 Physical Stimulation=2 Airway=2 Respiration=2 TOTAL=8. (0=absent, 1=li mited, 2=present) 16:56:27 Patient has been NPO for More than 6Hrs. 16:56:28 Skin Breakdown- none 16:56:29 Patient Warmer Placed on the Table. 06/16/2018 6:27:33 PM Financial #: [id number] Patient Name: Javier Plascencia Study #: [id number] Initial MD: Alex Blair Date of : 1960 Study Date: 06/16/2018 16:56:29 Disposable Defibrillator Pads Placed On Patient. 16:56:32 Alexandr Prominences Protected 16:56:32 A # 18 IV was noted in the Antecubital (right). Grade = 0 16:56:33 A # 20 IV was noted in the Forearm (right). Grade = 0 16:56:35 History and physical on the chart. 17:00:09 Anesthesia at bedside. Assumes care of patient. Assessment: Initial Case, HR=96 BPM, UGVI=526/80 mmhg, Edema=Mod, Color=Normal, Skin = Warm, Dr y Right Pulses: Rico Ped=3 Left Pulses: Rico Ped=3 17:10:23 Lower Right Extremities: Color=Normal Lower Left Extremities: Color=Normal Neurological: State=Alert, Ox3, [place] Respiration: Resp=24 B/min, SpO2=91 %, O2=6 lpm IV Solutions given in lab by Alex Blair in Right Antecubital via Peripheral IV. Pump/Drip Fl ow = 30 ml/hr using NaCl 17:10:30 .9. Ordered by Alex Blair. Reason: As per physicians verbal order. 17:20:05 Bilateral groin prepped with 2% chlorhexidine. IV Solutions given in lab by Alex Blair in Right Forearm via Peripheral IV. Pump/Drip Flow = 30 ml/hr using NaCl 17:20:44 .9. Ordered by Alex Blair. Reason: As per physicians verbal order. 17:21:47 Table restraints applied according to hospital policy 17:23:45 A sterile drape was applied after a 3 minute prep drying time. 17:25:45 paged 17:28:19 MD responded 17:29:50 Reference ECG taken 17:30:10 Reference ECG taken 17:30:58 LMA inserted with anesthesiologist present (Dr. Angelo). 17:35:03 PACU called. Spoke to [facility] 17:36:57 MD arrived. Time Out. Correct patient, procedure, procedure equipment, site and side verified with physicia n present. Time 17:40:31 concurred by MD, individual staff and JOURNEYMAN GLAZIER. Time Out #2 - Consents verified, patient in correct position, all results are labled and displa yed, safety precautions 17:40:51 taken, antibiotics administered. Time out concurred by MD, individual staff and JOURNEYMAN GLAZIER in procedu re 17:40:56 Case Start 17:40:57 20 mL 1% XYLOCAINE given in lab by Alex Blair via Subcutaneous. Ordered by Alex Blair . 17:41:10 Vascular access was obtained in the Fem Vein (left). 17:42:26 Vascular access was obtained in the Fem Vein (left). 17:42:30 Vascular access was obtained in the Fem Vein (left). 17:43:15 A SHEATH, EPS, FR5 FAST CATH FR 5 was advanced into the Fem Vein (left) using the Modified Seldinger technique. 17:43:26 A SHEATH, EPS, FR5 FAST CATH FR 5 was advanced into the Fem Vein (left) using the Modified Seldinger technique. 17:43:29 A SHEATH, EPS, FR5 FAST CATH FR 5 was advanced into the Fem Vein (left) using the Modified Seldinger technique. 17:43:38 20 mL 1% XYLOCAINE given in lab by Alex Blair via Subcutaneous. Ordered by Alex Blair . 17:44:21 Vascular access was obtained in the Fem Vein (right). 17:44:51 Vascular access was obtained in the Fem Vein (right). 06/16/2018 6:27:33 PM Financial #: [id number] Patient Name: Javier Plascencia Study #: [id number] Initial MD: Alex Blair Date of : 1960 Study Date: 06/16/2018 17:45:03 A SHEATH, EPS, FR6 FAST CATH FR 6 was advanced into the Fem Vein (right) using the Modified Seldinger technique. 17:46:22 A SHEATH, EPS, FR8 FAST CATH FR 8 was advanced into the Fem Vein (right) using the Modified Seldinger technique. A CATHETER, JSN, QUAD FR 5 was advanced vis Fem Vein (left) and placed in the CS. Placement was visually 17:47:08 confirmed under fluoroscopy. A CATHETER, JSN, QUAD FR 5 was advanced vis Fem Vein (left) and placed in the HIS. Placement wa s visually 17:47:26 confirmed under fluoroscopy. A CATHETER, JSN, QUAD FR 5 was advanced vis Fem Vein (left) and placed in the HRA. Placement wa s visually 17:47:38 confirmed under fluoroscopy. A CATHETER, JSN, QUAD FR 5 was advanced vis Fem Vein (left) and placed in the Isthmus. Placemen t was visually 17:47:48 confirmed under fluoroscopy. A CATHETER, CELSIUS DS, 8MM, F TYPE QUAD FR 7 was advanced vis Fem Vein (right) and placed in t he Isthmus. 17:48:18 Placement was visually confirmed under fluoroscopy. 17:52:20 RF Ablation of the Isthmus with a CATHETER, IZABELLA YOVANI, 8MM, F TYPE QUAD FR 7. 17:55:35 Incremental Pacing in progress proximal CS 10 mcg/min ISUPREL given in lab by Anesthesia, JOURNEYMAN GLAZIER via Peripheral IV. Pump/Drip Flow = 150 ml/ hr using NaCl .9 18:00:55 with a concentration of 1 mg in 250 ml. Ordered by Alex Blair. Reason: As per physicians heather bal order. 0 units/hr ISUPREL DRIP STOPPED given in lab by Anesthesia, JOURNEYMAN GLAZIER. Pump/Drip Flow = 0 ml/hr juan c g [Solution Name]. 18:07:12 Ordered by Alex Blair. Discontinued at 06/16/2018 18:07. 18:07:45 Catheter(s) removed without difficulty 18:14:26 VASCADE, FR5 CLOSURE SYSTEM FR 5 placement in the Fem Vein (left) 18:16:55 VASCADE, FR5 CLOSURE SYSTEM FR 5 placement in the Fem Vein (left) 18:18:18 VASCADE, FR6 CLOSURE SYSTEM FR 6\7 placement in the Fem Vein (left) 18:19:29 VASCADE, FR6 CLOSURE SYSTEM FR 6\7 placement in the Fem Vein (right) 18:20:01 Case End (Physician broke scrub) 18:20:02 No case complications noted. 18:20:03 Cine recording checked. 18:20:05 Holding Area notified of successful intervention. 18:20:06 Bedside Report will be given. 18:20:09 Implantable Device card placed in patient's chart. 18:20:54 PACU called. Spoke to Mendel 18:21:17 VASCADE, FR6 CLOSURE SYSTEM FR 6\7 placement in the Fem Vein (right) 18:21:55 Defibrillator and ground pads removed. Skin intact. 18:23:54 Sterile dressings applied to sites 18:24:49 LMA removed by anesthesia and pt placed to supplemental oxygen by SFM at 4l/min Assessment: Final Case, HR=79 BPM, MLCG=531/70 mmhg, Edema=Mod, Color=Normal, Skin = Warm, Dry Right Pulses: Rico Ped=3 Left Pulses: Rico Ped=3 18:25:07 Lower Right Extremities: Color=Normal Lower Left Extremities: Color=Normal Neurological: State=Drowsy, [place] Respiration: Resp=24 B/min, SpO2=92 %, O2=4 lpm 18:27:08 Ablation procedure performed: Aflutter. 18:27:16 EP Procedure was performed. Patient moved to stretcher and transported to PACU via bed with JOURNEYMAN GLAZIER and tech accompanying him in stable condition 18:29:33 on portable oxygen. 06/16/2018 6:27:33 PM Financial #: [id number] Patient Name: Javier Plascencia Study #: [id number] Initial MD: Alex Blair Date of : 1960 Study Date: 06/16/2018 End Study - Contrast Media Used In Study Contrast Total Opened (mL) Total Used (mL) Total Wasted (mL) Unspecified 0 0 0 End Study - Maximum Contrast Load Max Contrast Load (mL) 35.7 End Study - Radiation Exposure Fluoro Time (minutes) 2.6 End Study - Patient Disposition Complications Transferred To Interventional Outcome No Telemetry Bed successful 06/16/2018 6:27:33 PM Financial #: [id number]
[2018-06-16] MEDS: Metoprolol Tartrate 50 MG Tablet PO SCH (21:06)
[2018-06-16] MEDS: Morphine Sulfate Inj 2 MG/ML Vial IV.PUSH PRN (21:14)
[2018-06-17 06:37] LABS: INR 1.1 Ratio; Prothrombin Time 11.3 sec (9.8-11.6)
--- NOTE | 2018-06-17 07:40 | MA ---
cc: Alex Blair MD DATE: 06/16/2018 TYPE OF STUDY: Electrophysiology study, CS cannulation, 3-D mapping, radiofrequency ablation of atrial flutter. Repeat electrophysiology study and Isuprel infusion. INDICATIONS: Mr. Plascencia is a 58-year-old gentleman with atrial flutter, very symptomatic despite multiple medications, shortness of breath, referred for electrophysiology study and ablation. The risks, the nature and the benefits of the procedure are clearly stated to him. Risks include pneumothorax, cardiac perforation, stroke and even . The patient understanding and agrees to proceed. DESCRIPTION OF PROCEDURE: After written informed consent was obtained, the patient was brought to the EP lab where he was prepped and draped in the usual sterile fashion. Conscious sedation was initiated and maintained throughout the procedure by the anesthesiologist. Once sedation was verified, the right and left inguinal area was anesthetized with 2% Xylocaine. Using modified Seldinger technique, the left femoral vein was cannulated on 3 occasions. Three guidewires were advanced over the wire, a 2 and 5-Macanese Hemaquet were advanced. Then, the right femoral vein was cannulated on 2 occasions. Two guidewires were advanced over the wire, 5-Macanese and 6-Macanese Hemaquets were advanced. Then, under fluoroscopic guidance through the 5 and 6-Macanese Hemaquet, four 5-Macanese Galo quadripolar electrophysiology catheters were advanced and placed on his right atrium, coronary sinus and right ventricular apex. Basic intervals were measured. The patient was in atrial flutter. Flutter cycle length was around 250 milliseconds. Entrainment was performed and was positive. Then through the 8-Macanese Hemaquet, a Cordis Sánchez F-curve 8 mm mapping and radiofrequency ablation catheter was advanced. Using the [employer] Endocardial Solution mapping system, a 3-dimensional configuration of the left atrium was obtained. Then, the catheter was advanced to the tricuspid valve annulus. Radiofrequency energy was delivered. Cycle length prolonged to 233 milliseconds and then subsequently converted into sinus rhythm. Further burn was delivered in the area. Then, atrial pacing protocol was performed at the proximal pole of the coronary sinus up to 220 milliseconds. No tachyarrhythmia was induced. Pacing showed early activation of the His compared to the block. At that point, Isuprel infusion was initiated. No tachyarrhythmia was induced. At that point, the procedure was complete. All catheters were removed. The patient is going to be transferred to the recovery room. No incident to report. The patient tolerated the procedure. Blood loss minimal. 1. ELECTROCARDIOGRAM: At baseline, the patient was in atrial flutter. Postprocedure, the patient is in sinus. 2. BASIC INTERVAL: Basic cycle length was around 800 milliseconds. Post ablation it was around 250 milliseconds. Post ablation, the patient was in sinus rhythm. 3. VENTRICULAR PACING PROTOCOL: No tachyarrhythmia was induced. 4. TACHYARRHYTHMIA: Atrial flutter was mapped. Atrial ablation was successful. CONCLUSION: Successful electrophysiology study, mapping and radiofrequency ablation of atrial flutter. Repeat electrophysiology study and Isuprel infusion. RECOMMENDATIONS: The patient is going to be transferred to the telemetry unit. He will be observed. When stable, he can be discharged home. Alex Blair MD HS/ct/do , 06:21 PM , 06:31 PM
[2018-06-17 07:55] VITALS: RESP 20
[2018-06-17] MEDS: Metoprolol Tartrate 50 MG Tablet PO SCH (09:06)
[2018-06-17 11:28] VITALS: BP 113/78; TEMP 98
[2018-06-17 15:07] VITALS: PULSE 74
[2018-06-17 16:15] VITALS: O2SAT 94
--- NOTE | 2018-06-17 21:32 | ECG ---
Date Performed: 06/16/2018 Time Performed: 18:49:19 PTAGE: 58 years EKG: Sinus rhythm WITH FREQUENT SUPRAVENTRICULAR PREMATURE COMPLEXES POSSIBLE LEFT ATRIAL ENLARGEMENT INCOMPLETE RIGHT BUNDLE BRANCH BLOCK POSSIBLE RIGHT VENTRICULAR HYPERTROPHY DELAYED R WAVE PROGRESSION ABNORMAL ECG PREVIOUS TRACING : 06/14/2018 17.50 Compared to previous tracing, sinus rhythm present DOCTOR: Kosta Jones Interpretating Date/Time 06/17/2018 21:31:00
--- NOTE | 2018-07-01 11:57 | P.DS ---
Date of admission: 06/14/18 08:37 Primary care physician: No Primary Care Physician Brief History from admission: Mr. Plascencia is a 57 year old male. He reports chest pain starting overnight. Your. He has been treated with diltiazem. In the past he has a flutter with RVR but his symptoms have been shortness of breath. No previous chest pain, no previous UT, no known history of coronary artery disease. This patient has atrial flutter and hypertension at baseline. There is a positive family history with myocardial infarction in this patient's father and coronary artery disease on the patient's maternal family tree. Chest pain is central chest and sharp, but mild at this point. No other complaints. Patient update on day of discharge: Patient is doing well. He underwent RF ablation for Aflutter. Post procedure, patient is hemodynamically stable. He remained in NSR. Patient was subsequently discharged. DS: Diagnosis - Discharge Diagnosis (1) Atrial flutter with rapid ventricular response Status: Acute (2) Syncope Status: Acute (3) Unstable angina pectoris Status: Acute (4) Atrial flutter Status: Acute DS: Medications - Discharge Medications Prescriptions: apixaban [Eliquis] 5 mg PO BID #60 tab metoprolol tartrate 50 mg PO BID #60 tab torsemide 10 mg PO DAILY #30 tab DS: Summary Hospital Course: Mr. Plascencia is a 57-year-old male with a history of atrial flutter who presented to the emergency department on 06/14/2018 due to atrial flutter and substernal chest discomfort. EMS also reported that patient apparently had an episode of ventricular tachycardia lasting about 10 seconds. Patient was unresponsive but resolved without intervention. Cardiology was consulted. Acute CHF exacerbation - systolic - EF 35-40% on 06/15/2018. Previous echo 03/2017 shows EF 60-65% - Possibly due to Aflutter. - Torsemide 5mg BID. Chest discomfort - No typical symptoms. - Continue Aspirin 81mg Qday - Received Lovenox 100mg Q12hrs. - Nitroglycerine patch Atrial flutter - Switched Carvedilol to Metoprolol due to low BP - Dr. Blair underwent RF ablation 06/16/2018. Acute kidney injury - Creatinine 1.45 on admission. Remained around 1.40. - Avoid other nephrotoxins. Full code. Lovenox. - Time Spent with Patient Total time spent providing and/or coordinating discharge services: Less than 30 minutes Results Procedures completed during hospitalization: 06/16/2018 Successful electrophysiology study, mapping and radiofrequency ablation of atrial flutter. Repeat electrophysiology study and Isuprel infusion. - Impressions ITS Impressions Carotid Doppler Study 06/14/18 00:00 CONCLUSION: 1. Right Internal Carotid Artery: Findings indicate <50% stenosis. 2. Left Internal Carotid Artery: Findings indicate <50% stenosis. Chest CTA 06/14/18 00:00 CONCLUSION: 1. No evidence of pulmonary embolus. 2. Bilateral symmetric groundglass opacity in the lungs and diffuse cardiomegaly. Findings may suggest mild pulmonary edema. Chest X-Ray 06/14/18 06:30 CONCLUSION: 1. Minimal bibasilar airspace disease, presumably atelectasis. Discharge Plan - Discharge Disposition Patient Disposition: 01 Discharge Home - Discharge Condition Condition: Fair - Discharge Order Discharge Orders: Discharge Order (Routine); Ordered 06/17/18 Ordered By: Vero Schaefer - Discharge Details Anticipated Discharge Date: 06/17/18 - Physicians Team Primary Care Provider: Primary Care Tigist,Purnima Attending Provider: Vero Schaefer Other Providers: Alex Blair MD ; [employer],Insurance
== END 2018-06-17 16:20 | disposition home or self-care (01) ==
LOC: NEPC 06:26 → NEDA 08:37 → HCIS 09:45
PROVIDERS: ADMIT Hospitalist; ATTEND Hospitalist

== ENCOUNTER 2018-08-07 12:19 | Observation (INO) ==
--- NOTE | 2018-08-07 12:45 | ED ---
HPI General Chief complaint: Extremity Injury, Lower Stated complaint: Ankle Pain Time Seen by Provider: 08/07/18 12:21 Source: patient, family, RN notes reviewed and old records reviewed Mode of arrival: EMS Limitations: no limitations History of Present Illness HPI narrative: 58-year-old male presents to the emergency department via EMS for evaluation of generalized weakness. Patient was seen yesterday morning for left ankle sprain. His mother at bedside states that he has not gotten out of the couch in 2 days. He is generally weak and is unable to ambulate, urinating on himself on the couch. The patient complains of "all over weakness". He denies any headache. He denies any chest pain or shortness of breath. No abdominal pain. No nausea, vomiting, diarrhea. He does complain of bilateral feet pain. Patient has history of multiple strokes, atrial fibrillation. According to his mother, he is not currently on any anticoagulants because he had several bruises so he quit taking it. He is not following with a primary care physician. He denies any fevers or chills. Moderate severity. Patient's mother states that she cannot care for the patient at home and would like placement in SNF or rehab facility. Onset (ago): day(s) (2) Radiation: non-radiation Severity: moderate Pain Consistency: constant Relieving factors: none Exacerbating factors: none Related Data Home Medications Medication Instructions Recorded Confirmed atorvastatin 40 mg PO DAILY 08/06/18 08/07/18 lisinopril 5 mg PO DAILY 08/06/18 08/07/18 Previous Rx's Medication Instructions Recorded metoprolol tartrate 50 mg PO BID #60 tab 06/17/18 torsemide 10 mg PO DAILY #30 tab 06/17/18 Allergies Allergy/AdvReac Type Severity Reaction Status Date / Time penicillin G Allergy Unknown Unknown Verified 08/06/18 01:29 Review of Systems ROS: all other systems reviewed are negative [facility] Medical History Medical History Atrial fibrillation (Acute) High cholesterol (Acute) Hypertension (Acute) Surgical History Surgical History H/O prior ablation treatment (Acute) Family History Family History Father Myocardial infarction Social History Social History Substance History: No History of Abuse Second Hand Smoke Exposure: No Smoking Status: Former smoker Tobacco Type: Cigarettes How Often Do You Have a Drink Containing Alcohol: Never Recent Travel in [facility] within the Last 8 Weeks: No Recent Out of Country Travel within the Last 8 Weeks: No Immunization History Tetanus Immunization: Unsure Exam Narrative Exam Narrative: GENERAL: Well-nourished, well-developed male patient, afebrile. SKIN: Focused skin assessment warm/dry. HEAD: Normocephalic. Atraumatic. EYES: No scleral icterus. No injection or drainage. NECK: Supple, trachea midline. No JVD or lymphadenopathy. CARDIOVASCULAR: Regular rate and rhythm without murmurs, gallops, or rubs. Bilateral radial and pedal pulses are 2+ RESPIRATORY: Breath sounds equal bilaterally. No accessory muscle use. Lung sounds are clear to auscultation. GASTROINTESTINAL: Abdomen soft, non-tender, nondistended. MUSCULOSKELETAL: No cyanosis, or edema. BACK: Nontender without obvious deformity. No CVA tenderness. Course Initial Documented Vital Signs Temperature 97.6 F 08/07/18 12:31 Pulse Rate 96 H 08/07/18 12:31 Respiratory Rate 18 08/07/18 12:31 Blood Pressure 127/82 08/07/18 12:31 Pulse Oximetry 100 08/07/18 12:31 Last Documented Vital Signs Temperature 92.9 F L 08/08/18 08:00 Pulse Rate 62 08/08/18 08:00 Respiratory Rate 20 08/08/18 08:00 Blood Pressure 140/102 H 08/08/18 08:00 Pulse Oximetry 95 08/08/18 08:00 Medical Decision Making MDM Narrative Medical decision making narrative: 58-year-old male presents to the emergency department via EMS for evaluation of generalized weakness. According to his elderly mother, he is unable to get off the couch and she cannot help him. IV access obtained. EKG, CBC, CMP, TSH, BNP, magnesium, CK, troponin, PTT, PT/INR , UA ordered and pending. Chest x-ray is ordered and pending. EKG shows atrial flutter, heart rate 111 .CBC shows no acute abnormality. CMP shows BUN 19, creatinine of 1.31. TSH is 1.680. BNP is 61. Magnesium is 2.4. CK is 124. Troponin is less than 0.02. PTT is 26.8. PT/INR is 11.5/1.1. UA is negative for acute infection. Chest x-ray shows Minimal bibasilar airspace disease, presumably atelectasis; Cardiomegaly with slight positive fluid balance. I consulted case management as patient's mother states that she cannot care for him. Case management will talk to family and plan will be obtained. Case management is working on SNF placement, but states it will not happen until Friday or Friday next week at the earliest. She recommends social admit. Dr. Moore accepted admission. Medical Screen Exam Complete: Yes Emergency Medical Condition: Yes Differential Diagnosis Differential Diagnosis: electrolyte abnormality vs. UTI vs. pneumonia vs. rhabdomyolysis Lab Data Result diagrams: 08/07/18 13:12 08/07/18 13:12 Lab Results 08/07/18 08/07/18 08/07/18 Range/Units 13:12 13:12 13:12 WBC 9.1 (4.0-11.0) th/mm3 RBC 5.31 (4.50-5.90) mil/mm3 Hgb 17.0 (13.0-17.0) gm/dL Hct 49.6 (39.0-51.0) % MCV 93.4 (80.0-100.0) fL MCH 31.9 (27.0-34.0) pg MCHC 34.2 (32.0-36.0) % RDW 14.3 (11.6-17.2) % Plt Count 258 (150-450) th/mm3 MPV 7.8 (7.0-11.0) fL Neut % (Auto) 58.1 (16.0-70.0) % Lymph % (Auto) 28.1 (9.0-44.0) % [place] % (Auto) 11.6 H (0.0-8.0) % Eos % (Auto) 1.1 (0.0-4.0) % Baso % (Auto) 1.1 (0.0-2.0) % Neut # (Auto) 5.3 (1.8-7.7) th/mm3 Lymph # (Auto) 2.5 (1.0-4.8) th/mm3 [place] # (Auto) 1.1 H (0.0-0.9) th/mm3 Eos # (Auto) 0.1 (0.0-0.4) th/mm3 Baso # (Auto) 0.1 (0.0-0.2) th/mm3 WBC Differential . Differential Comment Auto diff final PT 11.5 (9.8-11.6) sec INR 1.1 Ratio APTT 26.8 (23.4-31.7) sec Sodium 139 (136-145) meq/L Potassium 3.9 (3.5-5.1) meq/L Chloride 104 (98-107) meq/L Carbon Dioxide 25.6 (21.0-32.0) meq/L Anion Gap 9 (5-15) meq/L BUN 19 H (7-18) mg/dL Creatinine 1.31 H (0.60-1.30) mg/dL Estimated GFR 56 L (>89) mL/min Random Glucose 96 (74-106) mg/dL Calcium 8.7 (8.5-10.1) mg/dL Magnesium 2.4 (1.5-2.5) mg/dL Total Bilirubin 0.8 (0.2-1.0) mg/dL AST 16 (15-37) U/L ALT 25 (12-78) U/L Alkaline Phosphatase 85 (45-117) U/L Total Creatine Kinase 124 (39-308) U/L Troponin I Less than 0.02 L (0.02-0.05) ng/mL B-Natriuretic Peptide (0-100) pg/mL Total Protein 7.4 (6.4-8.2) g/dL Albumin 3.8 (3.4-5.0) g/dL TSH 1.680 (0.358-3.740) uIU/mL Urine Color (Yellw/Straw) Urine Clarity (Clear) Urine pH (5.0-8.5) Ur Specific [place] (1.002-1.035) Urine Protein (Neg-Trace) mg/dL Urine Glucose (UA) (Negative) mg/dL Urine Ketones (Negative) mg/dL Urine Occult Blood (Negative) Urine Nitrate (Negative) Urine Bilirubin (Negative) Urine Urobilinogen (Less than 2) mg/dL Ur Leukocyte Esterase (Negative) Urine WBC (0-5) /hpf Urine Mucus (Occasional) /lpf Micro UA Comment Ur Microscopic Review Urine Culture Comments 08/07/18 08/07/18 Range/Units 13:12 14:55 WBC (4.0-11.0) th/mm3 RBC (4.50-5.90) mil/mm3 Hgb (13.0-17.0) gm/dL Hct (39.0-51.0) % MCV (80.0-100.0) fL MCH (27.0-34.0) pg MCHC (32.0-36.0) % RDW (11.6-17.2) % Plt Count (150-450) th/mm3 MPV (7.0-11.0) fL Neut % (Auto) (16.0-70.0) % Lymph % (Auto) (9.0-44.0) % [place] % (Auto) (0.0-8.0) % Eos % (Auto) (0.0-4.0) % Baso % (Auto) (0.0-2.0) % Neut # (Auto) (1.8-7.7) th/mm3 Lymph # (Auto) (1.0-4.8) th/mm3 [place] # (Auto) (0.0-0.9) th/mm3 Eos # (Auto) (0.0-0.4) th/mm3 Baso # (Auto) (0.0-0.2) th/mm3 WBC Differential Differential Comment PT (9.8-11.6) sec INR Ratio APTT (23.4-31.7) sec Sodium (136-145) meq/L Potassium (3.5-5.1) meq/L Chloride (98-107) meq/L Carbon Dioxide (21.0-32.0) meq/L Anion Gap (5-15) meq/L BUN (7-18) mg/dL Creatinine (0.60-1.30) mg/dL Estimated GFR (>89) mL/min Random Glucose (74-106) mg/dL Calcium (8.5-10.1) mg/dL Magnesium (1.5-2.5) mg/dL Total Bilirubin (0.2-1.0) mg/dL AST (15-37) U/L ALT (12-78) U/L Alkaline Phosphatase (45-117) U/L Total Creatine Kinase (39-308) U/L Troponin I (0.02-0.05) ng/mL B-Natriuretic Peptide 61 (0-100) pg/mL Total Protein (6.4-8.2) g/dL Albumin (3.4-5.0) g/dL TSH (0.358-3.740) uIU/mL Urine Color Yellow (Yellw/Straw) Urine Clarity Clear (Clear) Urine pH 5.0 (5.0-8.5) Ur Specific [place] 1.027 (1.002-1.035) Urine Protein Negative (Neg-Trace) mg/dL Urine Glucose (UA) Negative (Negative) mg/dL Urine Ketones Negative (Negative) mg/dL Urine Occult Blood Negative (Negative) Urine Nitrate Negative (Negative) Urine Bilirubin Negative (Negative) Urine Urobilinogen 2.0 H (Less than 2) mg/dL Ur Leukocyte Esterase Negative (Negative) Urine WBC 1 (0-5) /hpf Urine Mucus Many H (Occasional) /lpf Micro UA Comment Culture not ind Ur Microscopic Review Not Reportable Urine Culture Comments Culture not ind Imaging Data Radiologist's impression: Chest X-Ray 08/07/18 12:38 CONCLUSION: 1. Minimal bibasilar airspace disease, presumably atelectasis. 2. Cardiomegaly with slight positive fluid balance. Discharge Plan Discharge Disposition Patient Disposition: 30 Still Patient Discharge Details Diagnosis: Generalized weakness, Hospital admission due to social situation Physicians Team ED Provider: Sarah Rhoades ED Midlevel Provider: Ashley Butt Primary Care Provider: Primary Care Purnima Escoto Attending Provider: Sulema Galindo Other Providers: [facility],Agency ; [facility],Insurance Status ED Status: Left Department Discharge Information Discharge Date/Time: 08/07/18 18:23
--- NOTE | 2018-08-07 13:13 | XR ---
EXAM DATE: 08/07/2018 1:02 PM EST AGE/SEX: 58 years / Male INDICATIONS: Difficulty walking and weakness. CLINICAL DATA: This is the patient's initial encounter. Patient reports that signs and symptoms have been present for 1 month and indicates a pain score of 0/10. MEDICAL/SURGICAL HISTORY: Hypertension. None. [place]PAR[place] [facility] [place] W 3D, 06/14/2018. . FINDINGS: Mild bibasilar airspace disease. Cardiac silhouette is enlarged with slight indistinct central pulmon lizeth vascularity. Osseous structures are intact. CONCLUSION: 1. Minimal bibasilar airspace disease, presumably atelectasis. 2. Cardiomegaly with slight positive fluid balance. Electronically signed by: Sherwin Payne MD 08/07/2018 1:11 PM EST
[2018-08-07 13:35] LABS: Baso # (Auto) 0.1 th/mm3 (0.0-0.2); Baso % (Auto) 1.1 % (0.0-2.0); Eos # (Auto) 0.1 th/mm3 (0.0-0.4); Eos % (Auto) 1.1 % (0.0-4.0); Hematocrit 49.6 % (39.0-51.0); Lymph # (Auto) 2.5 th/mm3 (1.0-4.8); Lymph % (Auto) 28.1 % (9.0-44.0); Mean Corpuscular HGB Conc 34.2 % (32.0-36.0); Mean Corpuscular Hemoglobin 31.9 pg (27.0-34.0); Mean Corpuscular Volume 93.4 fL (80.0-100.0); Mean Platelet Volume 7.8 fL (7.0-11.0); Mono # (Auto) 1.1 th/mm3 (0.0-0.9); Mono % (Auto) 11.6 % (0.0-8.0); Neut # (Auto) 5.3 th/mm3 (1.8-7.7); Neut % (Auto) 58.1 % (16.0-70.0); Platelet Count 258 th/mm3 (150-450); Red Blood Count 5.31 mil/mm3 (4.50-5.90); Red Cell Distribution Width 14.3 % (11.6-17.2); White Blood Count 9.1 th/mm3 (4.0-11.0)
[2018-08-07 13:44] LABS: Activated Partial Thrombo Time 26.8 sec (23.4-31.7); INR 1.1 Ratio; Prothrombin Time 11.5 sec (9.8-11.6)
[2018-08-07 14:01] LABS: Alanine Aminotransferase 25 U/L (12-78); Albumin 3.8 g/dL (3.4-5.0); Anion Gap 9 meq/L (5-15); Aspartate Aminotransferase 16 U/L (15-37); Blood Urea Nitrogen 19 mg/dL (7-18); Calcium 8.7 mg/dL (8.5-10.1); Carbon Dioxide 25.6 meq/L (21.0-32.0); Chloride 104 meq/L (98-107); Glomerular Filtration Rate 56 mL/min (>89); Glucose,Random 96 mg/dL (74-106); Magnesium 2.4 mg/dL (1.5-2.5); Potassium 3.9 meq/L (3.5-5.1); Sodium 139 meq/L (136-145)
[2018-08-07 14:04] LABS: Alkaline Phosphatase 85 U/L (45-117); Creatine Kinase 124 U/L (39-308); Total Protein 7.4 g/dL (6.4-8.2)
[2018-08-07 15:21] LABS: Bilirubin,Urine Negative (Negative); Clarity,Urine Clear (Clear); Color,Urine Yellow (Yellw/Straw); Glucose,Urine (UA) Negative (Negative); Leukocyte Esterase,Urine Negative (Negative); Mucus,Urine Many /lpf (Occasional); Nitrite,Urine Negative (Negative); Specific Gravity,Urine 1.027 (1.002-1.035)
--- NOTE | 2018-08-07 17:40 | P.HP ---
History of Present Illness Service: [facility] Primary Care Physician: No Primary Care Physician Chief Complaint: "weakness" History of Present Illness: Social Admit Patient is a 58-year-old male with past medical history of A. fib/A flutter, status post ablation 06/16/18, heart failure with EF 35-40% 06/15/18 who initially came in yesterday status post fall with right ankle sprain. Patient came in again today for complaints of generalized weakness and mother is unable to take care of him. Requesting for jail facility placement or in case management has already been consulted. Patient seen and examined today. Reports generalized weakness. States that he had a stroke in May, with left-sided weakness. States that it has been an ongoing problem that he had weakness in May and that his fall yesterday contributed to more weakness that he is unable to get out of the couch. Poor historian on his medical history. Most of his medical history are taken from previous EMR. Patient states that he was placed on anticoagulant but does not remember the name. He does not remember all his medications but states he did not take it today. Denies pain and discomfort. Denies SOB/ dyspnea. Denies chest pain, palpitations, headaches, dizziness. Denies fevers, chills, n/v/d. Denies dysuria. Denies blurry vision, double vision. - Diagnosis (1) Atrial flutter with rapid ventricular response (2) Hospital admission due to social situation (3) Generalized weakness Review of Systems All other systems reviewed negative except as stated in [facility] - History History Provided By: Patient - Medical History Medical History: Medical History (Last Updated 08/06/18 @ 01:39 by Re Grey RN) Atrial fibrillation High cholesterol Hypertension - Surgical History Surgical History: Surgical History (Last Updated 08/07/18 @ 17:30 by ANGELICA Nielsen) H/O prior ablation treatment - Family History Family History: Family History (Last Updated 06/14/18 @ 11:42 by Avel Izaguirre MD) Father Myocardial infarction - Social History I have reviewed the patient's Social History: Yes - Tobacco History Second Hand Smoke Exposure: No Smoking Status: Former smoker Tobacco Type: Cigarettes - Alcohol History How Often Do You Have a Drink Containing Alcohol: Never - Substance Use History Substance History: No History of Abuse - Travel History Recent Travel in the [place] Within the Last 8 Weeks: No Recent Travel Out of the Country Within the Last 8 Weeks: No - Immunization History Tetanus Immunization: Unsure Medications and Allergies Active Medications: Active Medications Atorvastatin Calcium (Lipitor) 40 mg PO DAILY AD Lisinopril (Prinivil) 5 mg PO DAILY AD Metoprolol Tartrate (Lopressor) 50 mg PO BID AD Sodium Chloride (Ns Flush) 2 ml IV.FLUSH PRN PRN PRN Reason: FLUSH AFTER USING IV ACCESS Torsemide (Demadex) 10 mg PO DAILY AD Allergies Allergy/AdvReac Type Severity Reaction Status Date / Time penicillin G Allergy Unknown Unknown Verified 08/06/18 01:29 Home Medications Medication Instructions Recorded Confirmed Type atorvastatin 40 mg PO DAILY 08/06/18 08/07/18 History lisinopril 5 mg PO DAILY 08/06/18 08/07/18 History Exam Vital signs: Vital Signs 08/07/18 12:31 Temperature 97.6 F Pulse Rate 96 H Respiratory Rate 18 Blood Pressure 127/82 Pulse Oximetry 100 Intake & Output 08/06/18 08/07/18 08/07/18 18:59 06:59 18:59 Weight 71.668 kg Narrative: GENERAL: This is a well-developed patient, appears older than stated age, in no apparent distress. SKIN: Warm and dry. HEENT: Normocephalic. Pupils equal round and reactive. Nose without bleeding. Airway patent. NECK: Trachea midline. CARDIOVASCULAR: Rapid Irregular rate without murmurs, gallops, or rubs. RESPIRATORY: Clear to auscultation. Breath sounds equal bilaterally. No wheezes , rales, or rhonchi. GASTROINTESTINAL: Abdomen soft, non-tender, nondistended. Bowel Sounds normoactive x4. MUSCULOSKELETAL: Extremities without clubbing, cyanosis. Trace edema BLE. NEUROLOGICAL: Awake and alert. Oriented to month, year, president, place, person. No focal neuro deficit. LUE 4/5, RUE 5/5. RLE 3/5, LLE 4/5. Normal speech. Results - Labs CBC & Chem 7: 08/07/18 13:12 08/07/18 13:12 Labs: Laboratory Results - last 24 hr 08/07/18 08/07/18 08/07/18 13:12 13:12 13:12 WBC 9.1 RBC 5.31 Hgb 17.0 Hct 49.6 MCV 93.4 MCH 31.9 MCHC 34.2 RDW 14.3 Plt Count 258 MPV 7.8 Neut % (Auto) 58.1 Lymph % (Auto) 28.1 [place] % (Auto) 11.6 H Eos % (Auto) 1.1 Baso % (Auto) 1.1 Neut # (Auto) 5.3 Lymph # (Auto) 2.5 [place] # (Auto) 1.1 H Eos # (Auto) 0.1 Baso # (Auto) 0.1 WBC Differential . Differential Comment Auto diff final PT 11.5 INR 1.1 APTT 26.8 Sodium 139 Potassium 3.9 Chloride 104 Carbon Dioxide 25.6 Anion Gap 9 BUN 19 H Creatinine 1.31 H Estimated GFR 56 L Random Glucose 96 Calcium 8.7 Magnesium 2.4 Total Bilirubin 0.8 AST 16 ALT 25 Alkaline Phosphatase 85 Total Creatine Kinase 124 Troponin I Less than 0.02 L B-Natriuretic Peptide Total Protein 7.4 Albumin 3.8 TSH 1.680 Urine Color Urine Clarity Urine pH Ur Specific [place] Urine Protein Urine Glucose (UA) Urine Ketones Urine Occult Blood Urine Nitrate Urine Bilirubin Urine Urobilinogen Ur Leukocyte Esterase Urine WBC Urine Mucus Micro UA Comment Ur Microscopic Review Urine Culture Comments 08/07/18 08/07/18 13:12 14:55 WBC RBC Hgb Hct MCV MCH MCHC RDW Plt Count MPV Neut % (Auto) Lymph % (Auto) [place] % (Auto) Eos % (Auto) Baso % (Auto) Neut # (Auto) Lymph # (Auto) [place] # (Auto) Eos # (Auto) Baso # (Auto) WBC Differential Differential Comment PT INR APTT Sodium Potassium Chloride Carbon Dioxide Anion Gap BUN Creatinine Estimated GFR Random Glucose Calcium Magnesium Total Bilirubin AST ALT Alkaline Phosphatase Total Creatine Kinase Troponin I B-Natriuretic Peptide 61 Total Protein Albumin TSH Urine Color Yellow Urine Clarity Clear Urine pH 5.0 Ur Specific [place] 1.027 Urine Protein Negative Urine Glucose (UA) Negative Urine Ketones Negative Urine Occult Blood Negative Urine Nitrate Negative Urine Bilirubin Negative Urine Urobilinogen 2.0 H Ur Leukocyte Esterase Negative Urine WBC 1 Urine Mucus Many H Micro UA Comment Culture not ind Ur Microscopic Review Not Reportable Urine Culture Comments Culture not ind - Imaging Impressions Chest X-Ray 08/07/18 12:38 CONCLUSION: 1. Minimal bibasilar airspace disease, presumably atelectasis. 2. Cardiomegaly with slight positive fluid balance. Caprini VTE Risk Assessment Caprini VTE Risk Assessment: Moderate/High Risk (score >= 2) Caprini Risk Assessment Model: Point Value = 1 Point Value = 2 Point Value = 3 Point Value = 5 Age 41-60 Minor surgery BMI > 25 kg/m2 Swollen legs Varicose veins or History of unexplained or recurrent spontaneous Oral contraceptives or hormone replacement Sepsis (< 1 month) Serious lung disease, including pneumonia (< 1 month) Abnormal pulmonary function Acute myocardial infarction Congestive heart failure (< 1 month) History of inflammatory bowel disease Medical patient at bed rest Age 61-74 Arthroscopic surgery Major open surgery (> 45 min) Laparoscopic surgery (> 45 min) Malignancy Confined to bed (> 72 hours) Immobilizing plaster cast Central venous access Age >= 75 History of VTE Family history of VTE Factor V Leiden Prothrombin [id number] Lupus anticoagulant Anticardiolipin antibodies Elevated serum homocysteine Heparin-induced thrombocytopenia Other congenital or acquired thrombophilia Stroke (< 1 month) Elective arthroplasty Hip, pelvis, or leg fracture Acute spinal cord injury (< 1 month) Prophylaxis Regimen: Total Risk Factor Score Risk Level Prophylaxis Regimen 0-1 Low Early ambulation 2 Moderate Order ONE of the following: *Sequential Compression Device (SCD) *Heparin 5000 units SQ BID 3-4 Higher Order ONE of the following medications: *Heparin 5000 units SQ TID *Enoxaparin/Lovenox 40 mg SQ daily (WT < 150 kg, CrCl > 30 mL/min) *Enoxaparin/Lovenox 30 mg SQ daily (WT < 150 kg, CrCl > 10-29 mL/min) *Enoxaparin/Lovenox 30 mg SQ BID (WT < 150 kg, CrCl > 30 mL/min) AND/OR *Sequential Compression Device (SCD) 5 or more Highest Order ONE of the following medications: *Heparin 5000 units SQ TID (Preferred with Epidurals) *Enoxaparin/Lovenox 40 mg SQ daily (WT < 150 kg, CrCl > 30 mL/min) *Enoxaparin/Lovenox 30 mg SQ daily (WT < 150 kg, CrCl > 10-29 mL/min) *Enoxaparin/Lovenox 30 mg SQ BID (WT < 150 kg, CrCl > 30 mL/min) AND *Sequential Compression Device (SCD) Assessment and Plan - Assessment (1) Atrial flutter with rapid ventricular response Code(s): I48.92 - Unspecified atrial flutter Status: Acute (2) Hospital admission due to social situation Code(s): Z60.9 - Problem related to social environment, unspecified Status: Acute (3) Generalized weakness Code(s): R53.1 - Weakness Status: Acute - Plan Patient is a 58-year-old male with past medical history of A. fib/A flutter, status post ablation 06/16/18, heart failure with EF 35-40% 06/15/18 who initially came in yesterday status post fall with right ankle sprain. Patient came in again today for complaints of generalized weakness and mother is unable to take care of him. Requesting for jail facility placement or in case management has already been consulted. Generalized weakness Right ankle sprain -Physical therapy eval and treat -SNF Placement, case management consulted Atrial fibrillation, a flutter -Previous ablation 06/16/[address] Blair -Patient restarted on home medication metoprolol -Patient was discharged prior 05/2018 with Eliquis 5 mg twice daily. Will restart. Heart failure, systolic not in exacerbation HTN HLD -Continue lisinopril 5 mg daily, torsemide 10 mg daily -Continue atorvastatin daily DVT Prop Eliquis Code Status: Full Code Discussed Condition With: patient, nursing, Dr. Moore Discharge Planning: Plan to discharge to jail facility when placement has been arranged by case management.
[2018-08-07] MEDS ORDERED: Metoprolol Tartrate 50 MG Tablet PO ONE (18:00)
[2018-08-07] MEDS ORDERED: Metoprolol Tartrate 50 MG Tablet PO SCH (21:00)
[2018-08-08] MEDS: Acetaminophen 325 MG Tablet PO PRN ×3 (00:15→18:27)
--- NOTE | 2018-08-08 06:07 | ECG ---
Date Performed: 08/07/2018 Time Performed: 13:05:22 PTAGE: 58 years EKG: ATRIAL FLUTTER/TACHYCARDIA WITH RAPID VENTRICULAR RESPONSE INDETERMINATE AXIS INCOMPLETE RI GHT BUNDLE BRANCH BLOCK POSSIBLE ANTERIOR MYOCARDIAL INFARCTION ABNORMAL ECG Compared to prior electr ocardiogram, Atrial flutter is now present. PREVIOUS TRACING : 06/16/2018 18.49 DOCTOR: Adonis Rodriguez Interpretating Date/Time 08/08/2018 06:06:35
[2018-08-08] MEDS: Lisinopril 5 MG Tablet PO SCH (09:07)
[2018-08-08] MEDS: Metoprolol Tartrate 50 MG Tablet PO SCH ×2 (09:07→21:18)
--- NOTE | 2018-08-08 15:01 | P.PN ---
Subjective Interval history: Patient is seen lying in bed. He tells me that he is doing okay. No chest pain or shortness of breath. No nausea vomiting or diarrhea. Remains generally weak. Left-sided weakness has not changed since initial stroke per his report. He appears to be a somewhat poor historian. Nursing reports no adverse events. Physical Exam Vital signs: Vital Signs 08/07/18 17:37 08/07/18 19:33 08/07/18 23:41 Temperature 98.1 F 98.7 F Pulse Rate 82 105 H 84 Respiratory Rate 18 20 20 Blood Pressure 142/73 H 129/95 H 120/87 Pulse Oximetry 99 95 93 L 08/08/18 03:29 08/08/18 08:00 08/08/18 12:00 Temperature 97.4 F L 92.9 F L 98.2 F Pulse Rate 89 62 92 H Respiratory Rate 18 20 18 Blood Pressure 128/74 140/102 H 113/80 Pulse Oximetry 93 L 95 94 L Intake & Output 08/07/18 08/08/18 08/08/18 18:59 06:59 18:59 Weight 71.668 kg 71.668 kg Other: # Voids 1 # Incontinent Voids 1 Date of Last Bowel Movement 08/08/18 08/07/18 # Bowel Movements 1 Weight On Admission 71.668 kg Narrative: GENERAL: Well-nourished, well-developed adult male who appears older than stated age and in no obvious distress. SKIN: Warm and dry. HEAD: Atraumatic. Normocephalic. CARDIOVASCULAR: Regular rate and rhythm. RESPIRATORY: No accessory muscle use. Clear to auscultation. Breath sounds equal bilaterally. GASTROINTESTINAL: Abdomen soft, non-tender, non-distended. Positive bowel sounds. MUSCULOSKELETAL: Extremities without clubbing, cyanosis, or edema. No obvious deformities. NEUROLOGICAL: Awake and alert. No obvious cranial nerve deficits. No focal neuro deficit. LUE 4/5, RUE 5/5. RLE 3/5, LLE 4/5. Normal speech. PSYCHIATRIC: Poor historian Results - Labs CBC & Chem 7: 08/07/18 13:12 08/07/18 13:12 Laboratory Results - last 24 hr 08/07/18 14:55 Urine Color Yellow Urine Clarity Clear Urine pH 5.0 Ur Specific Bassett 1.027 Urine Protein Negative Urine Glucose (UA) Negative Urine Ketones Negative Urine Occult Blood Negative Urine Nitrate Negative Urine Bilirubin Negative Urine Urobilinogen 2.0 H Ur Leukocyte Esterase Negative Urine WBC 1 Urine Mucus Many H Micro UA Comment Culture not ind Ur Microscopic Review Not Reportable Urine Culture Comments Culture not ind Assessment and Plan - Assessment (1) Atrial flutter with rapid ventricular response Code(s): I48.92 - Unspecified atrial flutter Status: Acute (2) Hospital admission due to social situation Code(s): Z60.9 - Problem related to social environment, unspecified Status: Acute (3) Generalized weakness Code(s): R53.1 - Weakness Status: Acute - Plan Patient is a 58-year-old male with past medical history of A. fib/A flutter, status post ablation 06/16/18, heart failure with EF 35-40% 06/15/18 who initially came in yesterday status post fall with right ankle sprain. Patient came in again today for complaints of generalized weakness and mother is unable to take care of him. Requesting for senior care facility placement or in case management has already been consulted. Generalized weakness Left-sided weakness from prior CVA Possible right ankle sprain -Physical therapy eval and treat -SNF Placement, case management consulted Atrial fibrillation, a flutter -Previous ablation 06/16/[address] Bliar -Patient restarted on home medication metoprolol -Patient was discharged prior 05/2018 with Eliquis 5 mg twice daily. Will restart. Heart failure, systolic not in exacerbation HTN HLD -Continue lisinopril 5 mg daily, torsemide 10 mg daily -Continue atorvastatin daily DVT Prop Eliquis Code Status: Full Code Discussed Condition With: patient, nursing Discharge Planning: Plan to discharge to senior care facility when placement has been arranged by case management.
[2018-08-08] MEDS ORDERED: Bisacodyl 10 MG Supp RECTAL PRN (15:50)
[2018-08-08] MEDS: Senna/Docusate Sodium 8.6/50 MG Tablet PO SCH (21:18)
[2018-08-09] MEDS: Lisinopril 5 MG Tablet PO SCH (09:50)
[2018-08-09] MEDS: Senna/Docusate Sodium 8.6/50 MG Tablet PO SCH (09:50)
[2018-08-09] MEDS: Metoprolol Tartrate 50 MG Tablet PO SCH ×2 (09:50→21:21)
--- NOTE | 2018-08-09 14:22 | P.PN ---
Physical Exam Vital signs: Vital Signs 08/08/18 16:00 08/08/18 20:00 08/09/18 00:00 Temperature 98.6 F 97.8 F 98.2 F Pulse Rate 83 123 H 97 H Respiratory Rate 20 19 19 Blood Pressure 91/71 L 129/91 H 102/87 Pulse Oximetry 94 L 91 L 86 L 08/09/18 03:32 08/09/18 07:56 08/09/18 12:00 Temperature 98.2 F 97.7 F 98.0 F Pulse Rate 71 119 H 76 Respiratory Rate 19 16 16 Blood Pressure 99/69 L 122/92 H 95/74 L Pulse Oximetry 95 93 L 95 08/09/18 12:50 Temperature Pulse Rate Respiratory Rate Blood Pressure 106/72 Pulse Oximetry Intake & Output 08/08/18 08/09/18 08/09/18 18:59 06:59 18:59 Intake Total 720 / 720 120 / 120 Output Total 500 / 500 Balance 220 / 220 120 / 120 Weight 71.668 kg Intake: Oral 720 / 720 120 / 120 Output: Urine 500 / 500 Other: # Voids 3 2 Date of Last Bowel Movement 08/07/18 08/07/18 08/08/18 # Bowel Movements 1 Narrative: GENERAL: Well-nourished, well-developed adult male who appears older than stated age and in no obvious distress. SKIN: Warm and dry. HEAD: Atraumatic. Normocephalic. CARDIOVASCULAR: Regular rate and rhythm. RESPIRATORY: No accessory muscle use. Clear to auscultation. Breath sounds equal bilaterally. GASTROINTESTINAL: Abdomen soft, non-tender, non-distended. Positive bowel sounds. MUSCULOSKELETAL: Extremities without clubbing, cyanosis, or edema. No obvious deformities. NEUROLOGICAL: Awake and alert. No obvious cranial nerve deficits. No focal neuro deficit. LUE 4/5, RUE 5/5. RLE 3/5, LLE 4/5. Normal speech. PSYCHIATRIC: Poor historian Results - Labs CBC & Chem 7: 08/07/18 13:12 08/07/18 13:12 Assessment and Plan - Assessment (1) Atrial flutter with rapid ventricular response Code(s): I48.92 - Unspecified atrial flutter Status: Acute (2) Hospital admission due to social situation Code(s): Z60.9 - Problem related to social environment, unspecified Status: Acute (3) Generalized weakness Code(s): R53.1 - Weakness Status: Acute (4) Hypotensive episode Code(s): I95.9 - Hypotension, unspecified Status: Acute - Plan Patient is a 58-year-old male with past medical history of A. fib/A flutter, status post ablation 06/16/18, heart failure with EF 35-40% 06/15/18 who initially came in yesterday status post fall with right ankle sprain. Patient came in again today for complaints of generalized weakness and mother is unable to take care of him. Requesting for [facility] facility placement or in case management has already been consulted. Generalized weakness Left-sided weakness from prior CVA Possible right ankle sprain -Physical therapy eval and treat -SNF Placement, case management consulted Atrial fibrillation, a flutter -Previous ablation 06/16/[address] Blair -Patient restarted on home medication metoprolol -Patient was discharged prior 05/2018 with Eliquis 5 mg twice daily. Will restart. Heart failure, systolic not in exacerbation HTN HLD -Continue torsemide 10 mg daily -Continue atorvastatin daily -Reduce home lisinopril and metoprolol due to low BP on 08/09 DVT Prop Eliquis Code Status: Full Code Discussed Condition With: patient, nursing Discharge Planning: Plan to discharge to [facility] facility when placement has been arranged by case management.
[2018-08-10] MEDS: Senna/Docusate Sodium 8.6/50 MG Tablet PO SCH ×3 (00:41→20:22)
--- NOTE | 2018-08-10 08:52 | P.PN ---
Subjective Interval history: Follow up for weakness: pt. awake, oriented x 3. No cp, no sob. BP stable. Right ankle pain with wt. bearing. No acute changes overnight Physical Exam Vital signs: Vital Signs 08/09/18 12:00 08/09/18 12:50 08/09/18 16:00 Temperature 98.0 F 97.8 F Pulse Rate 76 118 H Respiratory Rate 16 16 Blood Pressure 95/74 L 106/72 126/86 Pulse Oximetry 95 93 L 08/09/18 20:00 08/10/18 00:00 08/10/18 04:00 Temperature 97.6 F 97.9 F 98.2 F Pulse Rate 92 H 64 118 H Respiratory Rate 18 18 17 Blood Pressure 112/82 157/91 H 121/99 H Pulse Oximetry 92 L 99 94 L 08/10/18 07:48 Temperature 97.6 F Pulse Rate 119 H Respiratory Rate 16 Blood Pressure 137/93 H Pulse Oximetry 96 Intake & Output 08/09/18 08/10/18 08/10/18 18:59 06:59 18:59 Intake Total 1200 / 1200 960 / 960 Output Total 560 / 560 Balance 640 / 640 960 / 960 Weight 71.668 kg Intake: Oral 1200 / 1200 960 / 960 Output: Urine 560 / 560 Other: # Voids 3 1 # Urine Diapers 2 Date of Last Bowel Movement 08/08/18 08/09/18 Narrative: GENERAL: Well-nourished, well-developed adult male who appears older than stated age and in no obvious distress. SKIN: Warm and dry. HEAD: Atraumatic. Normocephalic. CARDIOVASCULAR: Regular rate and rhythm. RESPIRATORY: No accessory muscle use. Clear to auscultation. Breath sounds equal bilaterally. GASTROINTESTINAL: Abdomen soft, non-tender, non-distended. Positive bowel sounds. MUSCULOSKELETAL: Extremities without clubbing, cyanosis, or edema. No obvious deformities. NEUROLOGICAL: Awake and alert. No obvious cranial nerve deficits. No focal neuro deficit. LUE 4/5, RUE 5/5. RLE 3/5, LLE 4/5. Normal speech. PSYCHIATRIC: Poor historian Results - Labs CBC & Chem 7: 08/07/18 13:12 08/07/18 13:12 Assessment and Plan - Assessment (1) Atrial flutter with rapid ventricular response Code(s): I48.92 - Unspecified atrial flutter Status: Acute (2) Hospital admission due to social situation Code(s): Z60.9 - Problem related to social environment, unspecified Status: Acute (3) Generalized weakness Code(s): R53.1 - Weakness Status: Acute (4) Hypotensive episode Code(s): I95.9 - Hypotension, unspecified Status: Acute - Plan Patient is a 58-year-old male with past medical history of A. fib/A flutter, status post ablation 06/16/18, heart failure with EF 35-40% 06/15/18 who initially came in yesterday status post fall with right ankle sprain. Patient came in again today for complaints of generalized weakness and mother is unable to take care of him. Requesting for half-way facility placement or in case management has already been consulted. Generalized weakness Left-sided weakness from prior CVA Possible right ankle sprain -Physical therapy eval and treat -SNF Placement, case management consulted Atrial fibrillation, a flutter -Previous ablation 06/16/[address] Blair -Continue with metoprolol -Continue Eliquis 5 mg twice daily. Heart failure, systolic not in exacerbation HTN HLD -Continue torsemide 10 mg daily -Continue atorvastatin daily -Reduce home lisinopril and metoprolol due to low BP on 08/09 Renal insufficiency -Creat improving -BMP in am DVT Prop -Eliquis Pt. stable for dc, waiting for placement Code Status: Full code Discussed Condition With: RN, pt, CM Discharge Planning: waiting for placement
[2018-08-10] MEDS: Lisinopril 5 MG Tablet PO SCH (09:26)
[2018-08-10] MEDS: Metoprolol Tartrate 50 MG Tablet PO SCH ×2 (09:26→20:22)
[2018-08-10] MEDS: Acetaminophen 325 MG Tablet PO PRN (17:58)
[2018-08-11 07:38] LABS: Calcium 9.3 mg/dL (8.5-10.1); Carbon Dioxide 22.7 meq/L (21.0-32.0); Potassium 4.2 meq/L (3.5-5.1)
[2018-08-11] MEDS: Lisinopril 5 MG Tablet PO SCH (08:50)
[2018-08-11] MEDS: Senna/Docusate Sodium 8.6/50 MG Tablet PO SCH ×2 (08:50→22:05)
[2018-08-11] MEDS: Metoprolol Tartrate 50 MG Tablet PO SCH ×2 (08:55→22:07)
--- NOTE | 2018-08-11 13:41 | P.PNIM ---
Subjective Interval history: cc: follow up weakness Patient resting in bed. He reports sharp pain to his right lower extremity that is worse with weight bearing, not new in onset. He is able to state the correct location and name of President, however, reports year as and month as October. No other needs or complaints voiced at present time. Physical Exam Vital signs: Last Vital Signs Temp 98.1 F 08/11/18 03:39 Pulse 114 H 08/11/18 11:57 Resp 18 08/11/18 11:57 BP 111/74 08/11/18 11:57 Pulse Ox 93 L 08/11/18 11:57 Intake & Output 08/09/18 08/10/18 08/11/18 08/12/18 06:59 06:59 06:59 06:59 Intake Total 840 / 840 2160 / 2160 240 / 240 Output Total 500 / 500 560 / 560 Balance 340 / 340 1600 / 1600 240 / 240 Weight 71.668 kg 71.668 kg Constitutional no acute distress Routine HEENT Exam Head: Present normocephalic and atraumatic Eye: Present EOMI and PERRL ENT: Present mucous membranes moist Routine Neck Exam Present supple; Absent JVD and tracheal deviation Routine Respiratory Exam Present CTA bilaterally; Absent accessory muscle use Routine Cardiovascular Exam Present RRR, S1 and S2 Routine Abdominal Exam Present soft; Absent distended Routine Extremities Exam Present full ROM; Absent cyanosis and edema Routine Skin Exam Present intact Routine Neurological Exam Present alert, oriented X3, CN II-XII intact and moving all extremities Routine Psychiatric Exam Present cooperative Results Labs CBC & Chem 7: 08/07/18 13:12 08/11/18 05:40 Assessment and Plan (1) Generalized weakness: Code(s): R53.1 - Weakness Status: Chronic -- hx of left sided weakness from prior CVA -- PT eval/treat -- awaiting SNF placement (2) Atrial flutter with rapid ventricular response: Code(s): I48.92 - Unspecified atrial flutter Status: Acute -- rate controlled at present time -- s/p ablation 06/16/[address] Blair -- continue metoprolol and Eliquis 5 mg PO BID (3) Heart failure: Code(s): I50.9 - Heart failure, unspecified Status: Chronic -- systolic dysfunction, no acute exacerbation at present time (4) Hypertension: Code(s): I10 - Essential (primary) hypertension Status: Chronic -- stable -- continue current meds Plan Code Status: Full Discharge Planning: awaiting SNF placement Progress Note: Quality VTE Deep Vein Thrombosis/Pulmonary Embolism Present on Admission: No
[2018-08-11] MEDS: Acetaminophen 325 MG Tablet PO PRN (22:11)
[2018-08-12] MEDS: Metoprolol Tartrate 50 MG Tablet PO SCH ×2 (08:51→21:47)
[2018-08-12] MEDS: Lisinopril 5 MG Tablet PO SCH (08:51)
[2018-08-12] MEDS: Senna/Docusate Sodium 8.6/50 MG Tablet PO SCH ×2 (08:52→21:48)
--- NOTE | 2018-08-12 10:28 | P.PNIM ---
Subjective Interval history: cc: follow up weakness Patient sitting up on the side of his bed. He took off his gown but has his underwear on. He states "I am hot." Denies chest pain, shortness of breath or right lower extremity pain at rest. He is alert, awake and oriented x 3. Able to state location, year, month and name of President, improved from yesterday. No further needs voiced at this time. Physical Exam Vital signs: Last Vital Signs Temp 97.6 F 08/12/18 08:00 Pulse 115 H 08/12/18 08:00 Resp 16 08/12/18 08:00 BP 111/85 08/12/18 08:00 Pulse Ox 96 08/12/18 08:00 Intake & Output 08/10/18 08/11/18 08/12/18 08/13/18 06:59 06:59 06:59 06:59 Intake Total 2160 / 2160 240 / 240 240 / 240 Output Total 560 / 560 Balance 1600 / 1600 240 / 240 240 / 240 Weight 71.668 kg Narrative: GENERAL: no acute distress SKIN: Warm and dry HEAD: Normocephalic, atraumatic EYES: no scleral icterus. No injection or drainage. NECK: Supple, trachea midline. No JVD or lymphadenopathy. CARDIOVASCULAR: Regular rate and rhythm without murmurs, gallops, or rubs. RESPIRATORY: Breath sounds equal bilaterally. No accessory muscle use. GASTROINTESTINAL: Abdomen soft, non-tender, nondistended. MUSCULOSKELETAL: No cyanosis, or edema. Results Labs CBC & Chem 7: 08/07/18 13:12 08/11/18 05:40 Assessment and Plan (1) Generalized weakness: Code(s): R53.1 - Weakness Status: Chronic -- hx of left sided weakness from prior CVA -- PT eval/treat -- awaiting SNF placement, [facility] awaiting for family to complete paperwork (2) Atrial flutter with rapid ventricular response: Code(s): I48.92 - Unspecified atrial flutter Status: Acute -- reviewed 08/12/18 -- rate controlled at present time -- s/p ablation 06/16/[address] Blair -- continue metoprolol and Eliquis 5 mg PO BID (3) Heart failure: Code(s): I50.9 - Heart failure, unspecified Status: Chronic -- reviewed 08/12/18, stable -- systolic dysfunction, no acute exacerbation at present time (4) Hypertension: Code(s): I10 - Essential (primary) hypertension Status: Chronic -- reviewed 08/12/18, stable -- continue current meds Plan Discharge Planning: awaiting SNF placement, accepted at [facility] awaiting for family to complete paperwork Progress Note: Quality VTE Deep Vein Thrombosis/Pulmonary Embolism Present on Admission: No
[2018-08-13] MEDS: Metoprolol Tartrate 50 MG Tablet PO SCH ×2 (08:39→22:37)
[2018-08-13] MEDS: Lisinopril 5 MG Tablet PO SCH (08:39)
[2018-08-13] MEDS: Senna/Docusate Sodium 8.6/50 MG Tablet PO SCH (08:39)
--- NOTE | 2018-08-13 15:45 | P.PN ---
Subjective Interval history: Follow up for weakness: pt. awake, oriented x 3. No cp, no sob. Watching TV, has no complaints. No acute changes overnight. Physical Exam Vital signs: Vital Signs 08/12/18 20:00 08/12/18 23:47 08/13/18 03:22 Temperature 98.1 F 97.3 F L 98.1 F Pulse Rate 119 H 93 H 117 H Respiratory Rate 17 17 17 Blood Pressure 133/87 134/81 127/85 Pulse Oximetry 95 94 L 92 L 08/13/18 07:20 08/13/18 12:00 Temperature 98.2 F 98.3 F Pulse Rate 119 H 78 Respiratory Rate 16 16 Blood Pressure 131/79 102/65 Pulse Oximetry 95 94 L Intake & Output 08/12/18 08/13/18 08/13/18 18:59 06:59 18:59 Other: Date of Last Bowel Movement 08/11/18 Narrative: GENERAL: no acute distress SKIN: Warm and dry HEAD: Normocephalic, atraumatic EYES: no scleral icterus. No injection or drainage. NECK: Supple, trachea midline. No JVD or lymphadenopathy. CARDIOVASCULAR: Regular rate and rhythm without murmurs, gallops, or rubs. RESPIRATORY: Breath sounds equal bilaterally. No accessory muscle use. GASTROINTESTINAL: Abdomen soft, non-tender, nondistended. MUSCULOSKELETAL: No cyanosis, or edema. Results - Labs CBC & Chem 7: 08/07/18 13:12 08/11/18 05:40 Assessment and Plan - Assessment (1) Generalized weakness Code(s): R53.1 - Weakness Status: Chronic Plan: - (2) Atrial flutter with rapid ventricular response Code(s): I48.92 - Unspecified atrial flutter Status: Acute Plan: -- (3) Heart failure Code(s): I50.9 - Heart failure, unspecified Status: Chronic Plan: -- (4) Hypertension Code(s): I10 - Essential (primary) hypertension Status: Chronic - Plan Patient is a 58-year-old male with past medical history of A. fib/A flutter, status post ablation 06/16/18, heart failure with EF 35-40% 06/15/18 who initially came in yesterday status post fall with right ankle sprain. Patient came in again today for complaints of generalized weakness and mother is unable to take care of him. Requesting for [facility] facility placement or in case management has already been consulted. Generalized weakness Left-sided weakness from prior CVA Possible right ankle sprain -Physical therapy eval and treat -SNF Placement, case management consulted Atrial fibrillation, a flutter -Previous ablation 06/16/[address] Blair -Continue with metoprolol -Continue Eliquis 5 mg twice daily. Heart failure, systolic not in exacerbation HTN HLD -Continue torsemide 10 mg daily -Continue atorvastatin daily -Reduce home lisinopril and metoprolol due to low BP on 08/09 Renal insufficiency -Creat improving -Creat. 1.28 (08/11) DVT Prop -Eliquis Continue with PT, OOB daily. Pt. stable for dc, accepted at [facility]. Family met with SNF however there are inconsistencies that need to be addressed. Code Status: Full code Discussed Condition With: RN, pt, CM Discharge Planning: waiting for placement
[2018-08-13] MEDS: Acetaminophen 325 MG Tablet PO PRN (22:37)
[2018-08-14] MEDS: Senna/Docusate Sodium 8.6/50 MG Tablet PO SCH ×3 (01:53→20:22)
[2018-08-14] MEDS: Lisinopril 5 MG Tablet PO SCH (08:22)
[2018-08-14] MEDS: Metoprolol Tartrate 50 MG Tablet PO SCH ×2 (08:22→20:21)
--- NOTE | 2018-08-15 11:26 | P.PNIM ---
Subjective Interval history: Follow up for weakness: pt. awake, oriented x 3. No cp, no sob. Offers no complaints. No acute changes overnight. Physical Exam Vital signs: Last Vital Signs Temp 97.9 F 08/15/18 08:00 Pulse 65 08/15/18 08:00 Resp 18 08/15/18 08:00 BP 112/75 08/15/18 08:00 Pulse Ox 96 08/15/18 08:00 Narrative: GENERAL: no acute distress SKIN: Warm and dry HEAD: Normocephalic, atraumatic EYES: no scleral icterus. No injection or drainage. NECK: Supple, trachea midline. No JVD or lymphadenopathy. CARDIOVASCULAR: Regular rate and rhythm RESPIRATORY: Breath sounds equal bilaterally. No accessory muscle use. GASTROINTESTINAL: Abdomen soft, non-tender, nondistended. MUSCULOSKELETAL: No cyanosis, or edema. Results Labs CBC & Chem 7: 08/07/18 13:12 08/11/18 05:40 Assessment and Plan Assessment (1) Generalized weakness: Code(s): R53.1 - Weakness Status: Chronic (2) Atrial flutter with rapid ventricular response: Code(s): I48.92 - Unspecified atrial flutter Status: Acute (3) Heart failure: Code(s): I50.9 - Heart failure, unspecified Status: Chronic (4) Hypertension: Code(s): I10 - Essential (primary) hypertension Status: Chronic Plan Patient is a 58-year-old male with past medical history of A. fib/A flutter, status post ablation 06/16/18, heart failure with EF 35-40% 06/15/18 who initially came in yesterday status post fall with right ankle sprain. Patient came in again today for complaints of generalized weakness and mother is unable to take care of him. Requesting for assisted facility placement or in case management has already been consulted. Generalized weakness Left-sided weakness from prior CVA Possible right ankle sprain -Physical therapy eval and treat -SNF Placement, case management consulted Atrial fibrillation, a flutter -Previous ablation 06/16/[address] Blair -Continue with metoprolol -Continue Eliquis 5 mg twice daily. Heart failure, systolic not in exacerbation HTN HLD -Continue torsemide 10 mg daily -Continue atorvastatin daily -Reduce home lisinopril and metoprolol due to low BP on 08/09 Renal insufficiency -Creat improving -Creat. 1.28 (08/11) DVT Prop -Eliquis Continue with PT, OOB daily. Pt. stable for dc, Case Management working on DC arrangements, jannet Busby Discussed with patient, nursing and Supervising physician Dr. Hylton Progress Note: Quality VTE Deep Vein Thrombosis/Pulmonary Embolism Present on Admission: No _ (1) Heart failure Qualifiers: Heart failure type: Heart failure chronicity: (2) Hypertension Qualifiers: Hypertension type:
[2018-08-15] MEDS: Metoprolol Tartrate 50 MG Tablet PO SCH ×2 (11:41→20:14)
[2018-08-15] MEDS: Lisinopril 5 MG Tablet PO SCH (11:41)
[2018-08-15] MEDS: Senna/Docusate Sodium 8.6/50 MG Tablet PO SCH ×2 (11:44→20:15)
[2018-08-16] MEDS: Lisinopril 5 MG Tablet PO SCH (08:34)
[2018-08-16] MEDS: Senna/Docusate Sodium 8.6/50 MG Tablet PO SCH ×2 (08:35→23:15)
[2018-08-16] MEDS: Metoprolol Tartrate 50 MG Tablet PO SCH ×2 (08:35→23:14)
--- NOTE | 2018-08-16 09:27 | P.PNIM ---
Subjective Interval history: Interval history: Follow up for weakness: pt. resting in bed able to awake to voice, offer no new concerns/complaints. No cp, no sob. No acute changes overnight. Physical Exam Vital signs: Last Vital Signs Temp 98.9 F 08/16/18 07:24 Pulse 80 08/16/18 08:00 Resp 18 08/16/18 07:24 BP 106/68 08/16/18 07:24 Pulse Ox 96 08/16/18 07:24 Narrative: GENERAL: no acute distress SKIN: Warm and dry HEAD: Normocephalic, atraumatic EYES: no scleral icterus. No injection or drainage. NECK: Supple, trachea midline. No JVD or lymphadenopathy. CARDIOVASCULAR: Regular rate and rhythm RESPIRATORY: Breath sounds equal bilaterally. No accessory muscle use. GASTROINTESTINAL: Abdomen soft, non-tender, nondistended. MUSCULOSKELETAL: No cyanosis, or edema. Results Labs CBC & Chem 7: 08/07/18 13:12 08/11/18 05:40 Assessment and Plan Assessment (1) Generalized weakness: Code(s): R53.1 - Weakness Status: Chronic (2) Atrial flutter with rapid ventricular response: Code(s): I48.92 - Unspecified atrial flutter Status: Acute (3) Heart failure: Code(s): I50.9 - Heart failure, unspecified Status: Chronic (4) Hypertension: Code(s): I10 - Essential (primary) hypertension Status: Chronic Plan Patient is a 58-year-old male with past medical history of A. fib/A flutter, status post ablation 06/16/18, heart failure with EF 35-40% 06/15/18 who initially came in yesterday status post fall with right ankle sprain. Patient came in again today for complaints of generalized weakness and mother is unable to take care of him. Requesting for half-way facility placement or in case management has already been consulted. Generalized weakness Left-sided weakness from prior CVA Possible right ankle sprain -Physical therapy eval and treat -SNF Placement, case management consulted Atrial fibrillation, a flutter -Previous ablation 06/16/[address] Blair -Continue with metoprolol -Continue Eliquis 5 mg twice daily. Heart failure, systolic not in exacerbation HTN HLD -Continue torsemide 10 mg daily -Continue atorvastatin daily -Reduce home lisinopril and metoprolol due to low BP on 08/09 Renal insufficiency -Creat improving -Creat. 1.28 (08/11) DVT Prop -Eliquis Continue with PT, OOB daily. Pt. stable for DC, Case Management working on DC arrangements, jannet Busby Discussed with patient, nursing and Supervising physician Dr. Hylton Progress Note: Quality VTE Deep Vein Thrombosis/Pulmonary Embolism Present on Admission: No _ (1) Heart failure Qualifiers: Heart failure type: Heart failure chronicity: (2) Hypertension Qualifiers: Hypertension type:
[2018-08-17] MEDS: Acetaminophen 325 MG Tablet PO PRN ×2 (04:46→21:20)
[2018-08-17 06:22] LABS: Baso # (Auto) 0.1 th/mm3 (0.0-0.2); Eos # (Auto) 0.2 th/mm3 (0.0-0.4); Eos % (Auto) 1.3 % (0.0-4.0); Hematocrit 51.8 % (39.0-51.0); Hemoglobin 17.8 gm/dL (13.0-17.0); Lymph % (Auto) 32.6 % (9.0-44.0); Mean Corpuscular HGB Conc 34.3 % (32.0-36.0); Mean Corpuscular Hemoglobin 31.8 pg (27.0-34.0); Mean Corpuscular Volume 92.5 fL (80.0-100.0); Mean Platelet Volume 9.1 fL (7.0-11.0); Mono # (Auto) 0.9 th/mm3 (0.0-0.9); Mono % (Auto) 7.6 % (0.0-8.0); Neut % (Auto) 57.5 % (16.0-70.0); Platelet Count 341 th/mm3 (150-450); Red Cell Distribution Width 14.1 % (11.6-17.2); White Blood Count 12.2 th/mm3 (4.0-11.0)
[2018-08-17 06:57] LABS: Calcium 9.7 mg/dL (8.5-10.1); Carbon Dioxide 21.7 meq/L (21.0-32.0)
[2018-08-17 07:12] LABS: Potassium 4.6 meq/L (3.5-5.1)
[2018-08-17] MEDS: Lisinopril 5 MG Tablet PO SCH (08:38)
[2018-08-17] MEDS: Senna/Docusate Sodium 8.6/50 MG Tablet PO SCH ×2 (08:38→20:57)
[2018-08-17] MEDS: Metoprolol Tartrate 50 MG Tablet PO SCH ×2 (08:38→20:57)
--- NOTE | 2018-08-17 12:51 | P.PN ---
Subjective Interval history: Patient is seen lying in bed. He tells me that he is becoming a little "stir crazy" and looks forward to getting out of here. Denies any new concerns or complaints. No chest pain or shortness of breath. No new weakness. Nursing reports no adverse events. Physical Exam Vital signs: Vital Signs 08/16/18 15:52 08/16/18 19:01 08/16/18 23:08 Temperature 98.6 F 98.8 F 97.6 F Pulse Rate 60 37 L 67 Respiratory Rate 20 22 20 Blood Pressure 91/58 L 122/79 112/79 Pulse Oximetry 92 L 94 L 94 L 08/17/18 04:00 08/17/18 08:00 08/17/18 12:00 Temperature 97.6 F 97.8 F Pulse Rate 73 71 79 Respiratory Rate 20 18 18 Blood Pressure 99/75 L 105/73 119/69 Pulse Oximetry 94 L 95 94 L Intake & Output 08/16/18 08/17/18 08/17/18 18:59 06:59 18:59 Intake Total 500 / 500 540 / 540 Balance 500 / 500 540 / 540 Intake: Oral 500 / 500 540 / 540 Other: # Voids 3 Date of Last Bowel Movement 08/15/18 Narrative: GENERAL: Well-nourished, well-developed. No acute distress SKIN: Warm and dry HEAD: Normocephalic, atraumatic EYES: no scleral icterus. No injection or drainage. NECK: Supple, trachea midline. No JVD or lymphadenopathy. CARDIOVASCULAR: Regular rate and rhythm without murmurs, gallops, or rubs. RESPIRATORY: Breath sounds equal bilaterally. No accessory muscle use. GASTROINTESTINAL: Abdomen soft, non-tender, nondistended. MUSCULOSKELETAL: No cyanosis, or edema. Results - Labs CBC & Chem 7: 08/17/18 05:12 08/17/18 05:12 Laboratory Results - last 24 hr 08/17/18 08/17/18 05:12 05:12 WBC 12.2 H RBC 5.60 Hgb 17.8 H Hct 51.8 H MCV 92.5 MCH 31.8 MCHC 34.3 RDW 14.1 Plt Count 341 D MPV 9.1 Neut % (Auto) 57.5 Lymph % (Auto) 32.6 [place] % (Auto) 7.6 Eos % (Auto) 1.3 Baso % (Auto) 1.0 Neut # (Auto) 7.0 Lymph # (Auto) 4.0 [place] # (Auto) 0.9 Eos # (Auto) 0.2 Baso # (Auto) 0.1 WBC Differential . Differential Comment Auto diff final Sodium 138 Potassium 4.6 Chloride 106 Carbon Dioxide 21.7 Anion Gap 10 BUN 22 H Creatinine 1.42 H Estimated GFR 51 L Random Glucose 94 Calcium 9.7 Assessment and Plan - Assessment (1) Generalized weakness Code(s): R53.1 - Weakness Status: Chronic Plan: - (2) Atrial flutter with rapid ventricular response Code(s): I48.92 - Unspecified atrial flutter Status: Acute Plan: -- (3) Heart failure Code(s): I50.9 - Heart failure, unspecified Status: Chronic Plan: -- (4) Hypertension Code(s): I10 - Essential (primary) hypertension Status: Chronic - Plan Patient is a 58-year-old male with past medical history of A. fib/A flutter, status post ablation 06/16/18, heart failure with EF 35-40% 06/15/18 who initially came in yesterday status post fall with right ankle sprain. Patient came in again today for complaints of generalized weakness and mother is unable to take care of him. Requesting for senior living facility placement or in case management has already been consulted. Generalized weakness Left-sided weakness from prior CVA Possible right ankle sprain -Physical therapy eval and treat -SNF Placement, case management consulted Atrial fibrillation, a flutter -Previous ablation 06/16/[address] Blair -Continue with metoprolol -Continue Eliquis 5 mg twice daily. Heart failure, systolic not in exacerbation HTN HLD -Continue torsemide 10 mg daily -Continue atorvastatin daily -Reduce home lisinopril and metoprolol due to low BP on 08/09 Renal insufficiency -Creat improving -Creat. 1.28 (08/11) DVT Prop -Eliquis Continue with PT, OOB daily-evaluate need for SNF versus home. Pt. stable for DC, Case Management working on DC arrangements, possibly [facility] Discussed with patient, nursing and Supervising physician Dr. Hylton
[2018-08-18] MEDS: Senna/Docusate Sodium 8.6/50 MG Tablet PO SCH (09:55)
[2018-08-18] MEDS: Lisinopril 5 MG Tablet PO SCH (09:55)
[2018-08-18] MEDS: Metoprolol Tartrate 50 MG Tablet PO SCH (09:56)
[2018-08-18 11:50] VITALS: RESP 20
--- NOTE | 2018-08-18 14:59 | P.PN ---
Subjective Interval history: Patient is seen lying quietly in bed. He has no new concerns or complaints. Nursing reports no adverse events. Physical Exam Vital signs: Vital Signs 08/17/18 19:51 08/17/18 20:53 08/18/18 00:00 Temperature 98.1 F 97.6 F Pulse Rate 117 H 112 H 115 H Respiratory Rate 17 20 Blood Pressure 97/78 L 112/73 98/60 L Pulse Oximetry 93 L 93 L 08/18/18 04:00 08/18/18 07:50 08/18/18 11:48 Temperature 97.6 F 98.4 F 98.9 F Pulse Rate 113 H 117 H 65 Respiratory Rate 20 18 20 Blood Pressure 97/82 L 106/66 116/69 Pulse Oximetry 93 L 90 L 90 L Intake & Output 08/17/18 08/18/18 08/18/18 18:59 06:59 18:59 Intake Total 500 / 500 Balance 500 / 500 Intake: Oral 500 / 500 Narrative: GENERAL: Well-nourished, well-developed. No acute distress SKIN: Warm and dry HEAD: Normocephalic, atraumatic EYES: no scleral icterus. No injection or drainage. NECK: Supple, trachea midline. No JVD or lymphadenopathy. CARDIOVASCULAR: Regular rate and rhythm without murmurs, gallops, or rubs. RESPIRATORY: Breath sounds equal bilaterally. No accessory muscle use. GASTROINTESTINAL: Abdomen soft, non-tender, nondistended. MUSCULOSKELETAL: No cyanosis, or edema. Results - Labs CBC & Chem 7: 08/17/18 05:12 08/17/18 05:12 Assessment and Plan - Assessment (1) Generalized weakness Code(s): R53.1 - Weakness Status: Chronic Plan: - (2) Atrial flutter with rapid ventricular response Code(s): I48.92 - Unspecified atrial flutter Status: Acute Plan: -- (3) Heart failure Code(s): I50.9 - Heart failure, unspecified Status: Chronic Plan: -- (4) Hypertension Code(s): I10 - Essential (primary) hypertension Status: Chronic Plan: -- reviewed 08/12/18, stable -- continue current meds - Plan Patient is a 58-year-old male with past medical history of A. fib/A flutter, status post ablation 06/16/18, heart failure with EF 35-40% 06/15/18 who initially came in yesterday status post fall with right ankle sprain. Patient came in again today for complaints of generalized weakness and mother is unable to take care of him. [facility]ing [facility] placement or in case management has already been consulted. Generalized weakness Left-sided weakness from prior CVA Possible right ankle sprain -Physical therapy eval and treat -SNF Placement, case management consulted Atrial fibrillation, a flutter -Previous ablation 06/16/[address] Blair -Continue with metoprolol -Continue Eliquis 5 mg twice daily. Heart failure, systolic not in exacerbation HTN HLD -Continue torsemide 10 mg daily -Continue atorvastatin daily -Reduce home lisinopril and metoprolol due to low BP on 08/09 Renal insufficiency -monitor cr; avoid nephrotoxins DVT Prop -Eliquis Continue with PT, OOB daily-evaluate need for SNF versus home. Pt. stable for DC, Case Management working on DC arrangements, possibly [facility] Discussed with patient, nursing and Supervising physician
[2018-08-18 16:04] VITALS: BP 90/55; PULSE 62; TEMP 98.2; O2SAT 95
--- NOTE | 2018-08-18 16:16 | P.DS ---
Date of admission: 08/07/18 17:07 Primary care physician: No Primary Care Physician Attending physician on discharge: Ursula Mai Anticipated date of discharge: 08/18/18 Brief History from admission: Social Admit Patient is a 58-year-old male with past medical history of A. fib/A flutter, status post ablation 06/16/18, heart failure with EF 35-40% 06/15/18 who initially came in yesterday status post fall with right ankle sprain. Patient came in again today for complaints of generalized weakness and mother is unable to take care of him. Requesting for long term facility placement or in case management has already been consulted. Patient seen and examined today. Reports generalized weakness. States that he had a stroke in May, with left-sided weakness. States that it has been an ongoing problem that he had weakness in May and that his fall yesterday contributed to more weakness that he is unable to get out of the couch. Poor historian on his medical history. Most of his medical history are taken from previous EMR. Patient states that he was placed on anticoagulant but does not remember the name. He does not remember all his medications but states he did not take it today. Denies pain and discomfort. Denies SOB/ dyspnea. Denies chest pain, palpitations, headaches, dizziness. Denies fevers, chills, n/v/d. Denies dysuria. Denies blurry vision, double vision. DS: Diagnosis - Discharge Diagnosis (1) Generalized weakness Status: Chronic (2) Atrial flutter with rapid ventricular response Status: Acute (3) Heart failure Status: Chronic (4) Hypertension Status: Chronic DS: Summary Hospital Course: Patient is a 58-year-old male with past medical history of A. fib/A flutter, status post ablation 06/16/18, heart failure with EF 35-40% 06/15/18 who initially came in status post fall with right ankle sprain. Patient came in again today for complaints of generalized weakness and mother is unable to take care of him. Generalized weakness Left-sided weakness from prior CVA Possible right ankle sprain -Physical therapy eval and treat - needs SNF Placement, case management consulted Atrial fibrillation, a flutter -Previous ablation 06/16/[address] Blair -Continue with metoprolol -Continue Eliquis 5 mg twice daily. Heart failure, systolic not in exacerbation HTN HLD -Continue torsemide 10 mg daily -Continue atorvastatin daily -Reduce home lisinopril and metoprolol due to low BP on 08/09 Renal insufficiency -monitor cr; avoid nephrotoxins DVT Prop -Eliquis - Time Spent with Patient Total time spent providing and/or coordinating discharge services: Less than 30 minutes - Quality: VTE Deep Vein Thrombosis/Pulmonary Embolism Present on Admission: No Exam Vital signs: Vital Signs 08/17/18 19:51 08/17/18 20:53 08/18/18 00:00 Temperature 98.1 F 97.6 F Pulse Rate 117 H 112 H 115 H Respiratory Rate 17 20 Blood Pressure 97/78 L 112/73 98/60 L Pulse Oximetry 93 L 93 L 08/18/18 04:00 08/18/18 07:50 08/18/18 11:48 Temperature 97.6 F 98.4 F 98.9 F Pulse Rate 113 H 117 H 65 Respiratory Rate 20 18 20 Blood Pressure 97/82 L 106/66 116/69 Pulse Oximetry 93 L 90 L 90 L 08/18/18 16:01 Temperature 98.2 F Pulse Rate 62 Respiratory Rate 20 Blood Pressure 90/55 L Pulse Oximetry 95 Intake & Output 08/17/18 08/18/18 08/18/18 18:59 06:59 18:59 Intake Total 500 / 500 Balance 500 / 500 Intake: Oral 500 / 500 Narrative: GENERAL: Well-nourished, well-developed. No acute distress SKIN: Warm and dry HEAD: Normocephalic, atraumatic EYES: no scleral icterus. No injection or drainage. NECK: Supple, trachea midline. No JVD or lymphadenopathy. CARDIOVASCULAR: Regular rate and rhythm without murmurs, gallops, or rubs. RESPIRATORY: Breath sounds equal bilaterally. No accessory muscle use. GASTROINTESTINAL: Abdomen soft, non-tender, nondistended. MUSCULOSKELETAL: No cyanosis, or edema. Results Procedures completed during hospitalization: none - Impressions ITS Impressions Chest X-Ray 08/07/18 12:38 CONCLUSION: 1. Minimal bibasilar airspace disease, presumably atelectasis. 2. Cardiomegaly with slight positive fluid balance. Discharge Plan - Discharge Disposition Patient Disposition: Discharge to SNF - Discharge Condition Condition: Stable - Discharge Order Discharge Orders: Discharge Order (Routine); Ordered 08/18/18 Ordered By: Isha Newell - Physicians Team Primary Care Provider: Primary Care Tigist,Purnima Attending Provider: Ursula Mai Other Providers: [facility],Agency ; [facility],Insurance
== END 2018-08-18 19:23 ==
LOC: NEDA 12:19 → NEPD 12:19 → NEPGCP 18:22
PROVIDERS: ADMIT Hospitalist; ATTEND Hospitalist
DX: Z79.01 Long term (current) use of anticoagulants; N28.9 Disorder of kidney and ureter, unspecified; I48.91 Unspecified atrial fibrillation; Z60.9 Problem related to social environment, unspecified; Z79.899 Other long term (current) drug therapy; E78.5 Hyperlipidemia, unspecified; I11.0 Hypertensive heart disease with heart failure; I48.92 Unspecified atrial flutter; I50.20 Unspecified systolic (congestive) heart failure; I69.354 Hemiplegia and hemiparesis following cerebral infarction affecting left non-dominant side; R53.1 Weakness; Z87.891 Personal history of nicotine dependence